=== PATIENT | male | born 1955 | race Caucasian/White ===

== ENCOUNTER 2016-11-01 16:57 | Observation (INO) ==
--- NOTE | 2016-11-01 17:11 | Emergency Department Note ---
Disposition Clinical Impression: Left facial numbness, Left arm numbness, Left leg numbness, Left arm weakness, Left leg weakness, Chest pain Disposition: Admitted As Inpatient Condition: Fair General Adult HPI - General Chief complaint: ED Neuro Symptoms/Deficit Stated complaint: L side numbness Time Seen by Provider: 11/01/16 16:58 Source: patient Limitations: no limitations - History of Present Illness Pain Scale: 8 - Related Data Home Medications Medication Instructions Recorded Confirmed Alprazolam [Xanax 1 MG Tablet] 1 mg PO TID 06/14/15 04/23/16 Metoprolol XL (24 HR) Succ [Toprol 50 mg PO DAILY 06/14/15 04/23/16 XL] Aspirin 325 mg PO BID 04/22/16 04/23/16 Sulfamethoxazole/Trimeth DS 1 each PO BID MDD x 14 days. 04/22/16 04/23/16 [Bactrim DS] Started 04-19-16. Previous Rx's Medication Instructions Recorded Atorvastatin [Lipitor] 20 mg PO HS #60 tablet 03/24/16 Clopidogrel [Plavix] 75 mg PO DAILY@1730 #30 tablet 03/24/16 Omeprazole [PriLOSEC] 40 mg PO DAILY@0630 #60 capsule 03/24/16 Isosorbide MONOnitrate (24 HR) 30 mg PO DAILY #30 tab.er.24h 04/23/16 [Imdur] Allergies Allergy/AdvReac Type Severity Reaction Status Date / Time simvastatin [From Zocor] Allergy Rash Verified 11/01/16 17:08 Zolpidem [From Ambien] Allergy Confusion Verified 11/01/16 17:08 ondansetron AdvReac Vomiting Verified 11/01/16 17:47 [From Zofran (as hydrochloride)] Past Medical History - Past Medical History Medical history: Reports: arthritis, atrial fibrillation, cardiomyopathy, CHF, COPD, coronary artery disease, CVA, GERD, hyperlipidemia, hypertension, myocardial infarction, osteoporosis, peripheral artery disease, syncope, TIA, other Surgical history: Reports: angioplasty/stent, cholecystectomy, coronary bypass ( CABG), orthopedic, other, other Psychiatric history: Reports: anxiety, depression - Social History Smoking Status: Never smoker Smokeless Tobacco Status: No Alcohol use: Reports: none Drug use: Reports: none Physical Exam - General Limitations: no limitations General appearance: alert, in no apparent distress Course Vital Signs Temperature 97.9 F 11/01/16 17:00 Pulse Rate 99 11/01/16 17:00 Respiratory Rate 16 11/01/16 17:00 Blood Pressure 128/103 11/01/16 17:00 O2 Sat by Pulse Oximetry 98 11/01/16 17:00 Temperature 97.9 F 11/01/16 17:00 Pulse Rate 95 11/01/16 18:22 Respiratory Rate 16 11/01/16 18:22 Blood Pressure 106/73 11/01/16 18:22 O2 Sat by Pulse Oximetry 97 11/01/16 18:22 Oxygen Delivery Oxygen Delivery Room Air Medical Decision Making - Lab Data Result diagrams: 11/01/16 17:30 11/01/16 17:30 Lab Results 11/01/16 11/01/16 11/01/16 Range/Units 17:01 17:30 17:30 WBC 6.0 (4.3-11.1) K/mcL RBC 4.59 (4.19-5.50) M/mcL Hgb 14.8 (12.9-16.9) g/dL Hct 44.4 (37.5-50.1) % MCV 96.7 (83.0-100.0) fL MCH 32.2 (28.0-33.3) pg MCHC 33.3 (31.6-35.5) g/dL RDW 13.2 (11.5-14.5) % Plt Count 183 (140-400) K/mcL MPV 8.6 L (9.4-12.4) fL Immature Gran % 0.3 (0-4) % Seg Neutrophils % 68.2 % Lymphocytes % 16.9 % Monocytes % 13.9 % Eosinophils % 0.5 % Basophils % 0.2 % Neutrophils # 4.1 (1.6-8.9) K/mcL Lymphocytes # 1.0 (0.6-4.6) K/mcL Monocytes # 0.8 (0.0-1.3) K/mcL Eosinophils # 0.0 (0.0-0.6) K/mcL Basophils # 0.0 (0.0-0.2) K/mcL PT 12.1 (9.4-12.1) Seconds INR 1.1 APTT 31.5 (26.0-36.0) Seconds Sodium (136-145) mEq/L Potassium (3.5-4.5) mEq/L Chloride (98-109) mEq/L Carbon Dioxide (19-29) mEq/L BUN (8-26) mg/dL Creatinine (0.72-1.25) mg/dL Est GFR ( Amer) (> 60) Est GFR (Non-Af Amer) (> 60) BUN/Creatinine Ratio (6-26) Glucose (70-99) mg/dL POC Glucose 94 H (58-89) Calculated Osmolality (280-300) Calcium (8.6-10.8) mg/dL Troponin I (0-0.03) ng/mL 11/01/16 11/01/16 Range/Units 17:30 17:30 WBC (4.3-11.1) K/mcL RBC (4.19-5.50) M/mcL Hgb (12.9-16.9) g/dL Hct (37.5-50.1) % MCV (83.0-100.0) fL MCH (28.0-33.3) pg MCHC (31.6-35.5) g/dL RDW (11.5-14.5) % Plt Count (140-400) K/mcL MPV (9.4-12.4) fL Immature Gran % (0-4) % Seg Neutrophils % % Lymphocytes % % Monocytes % % Eosinophils % % Basophils % % Neutrophils # (1.6-8.9) K/mcL Lymphocytes # (0.6-4.6) K/mcL Monocytes # (0.0-1.3) K/mcL Eosinophils # (0.0-0.6) K/mcL Basophils # (0.0-0.2) K/mcL PT (9.4-12.1) Seconds INR APTT (26.0-36.0) Seconds Sodium 135 L (136-145) mEq/L Potassium 3.8 (3.5-4.5) mEq/L Chloride 105 (98-109) mEq/L Carbon Dioxide 18 L (19-29) mEq/L BUN 25 (8-26) mg/dL Creatinine 0.83 (0.72-1.25) mg/dL Est GFR ( Amer) > 60 (> 60) Est GFR (Non-Af Amer) > 60 (> 60) BUN/Creatinine Ratio 30 H (6-26) Glucose 101 H (70-99) mg/dL POC Glucose (58-89) Calculated Osmolality 285 (280-300) Calcium 9.1 (8.6-10.8) mg/dL Troponin I 0.00 (0-0.03) ng/mL Attestation Statement - Attestation Attestation: I examined this patient and my medical decision-making was reviewed with the POLICE COMMANDING OFFICER/PA/Advanced Practice Nurse/Resident Physician. I agree with the documented findings, disposition and treatment plan as described except to the extent set forth below. [id number] time provided Patient presents with left-sided numbness that started approximately 7 hours ago. He has had a previous stroke with some residual symptoms. He appears comfortable on exam. 17:31: CT head negative
--- NOTE | 2016-11-01 17:15 | Emergency Department Note ---
Disposition Clinical Impression: Left facial numbness, Left arm numbness, Left leg numbness, Left arm weakness, Left leg weakness Chest pain Qualifiers: Chest pain type: unspecified Qualified Code(s): R07.9 - Chest pain, unspecified Disposition: Admitted As Inpatient Condition: Fair Referrals: NO,PCP [Non-Partnered Physician] - Forms: ED Satisfaction Letter Time of Disposition: 18:44 Neuro HPI - General Chief Complaint: ED Neuro Symptoms/Deficit Stated Complaint: L side numbness Time Seen by Provider: 11/01/16 16:58 Source: patient Mode of arrival: ambulatory Limitations: no limitations Nursing Notes Reviewed: Yes Vital Signs Reviewed: Yes - History of Present Illness HPI Narrative: Patient is a 61-year-old male with past medical history of CAD, previous NC, 5 stents, triple bypass. He has also had a previous CVA with residual left upper extreme weakness and tingling. Patient states that he has had left lower extremity weakness and decreased sensation that began 3 days ago and has worsened and has affected his ability to walk. He also states that his left upper extremity residual weakness from previous stroke has worsened along with worsening decreased sensation of the left upper extremity. Patient also states that around 10 AM, possibly 7 hours ago, he began having left sided facial numbness. Denies any droop, difficulty with speech, changes in vision, shortness of breath. She also admits to chest pain that is left-sided, intermittent, described as a sharp pain that radiates to his back. He states that this is been going on for the past 2-3 days, intermittent, unsure if it is worse with exertion. He did take aspirin 325 mg today. Did not take any nitroglycerin. - Related Data Home Medications: Home Medications Medication Instructions Recorded Confirmed Alprazolam [Xanax 1 MG Tablet] 1 mg PO TID 06/14/15 04/23/16 Metoprolol XL (24 HR) Succ [Toprol 50 mg PO DAILY 06/14/15 04/23/16 XL] Aspirin 325 mg PO BID 04/22/16 04/23/16 Sulfamethoxazole/Trimeth DS 1 each PO BID MDD x 14 days. 04/22/16 04/23/16 [Bactrim DS] Started 04-19-16. Previous Rx's Medication Instructions Recorded Atorvastatin [Lipitor] 20 mg PO HS #60 tablet 03/24/16 Clopidogrel [Plavix] 75 mg PO DAILY@1730 #30 tablet 03/24/16 Omeprazole [PriLOSEC] 40 mg PO DAILY@0630 #60 capsule 03/24/16 Isosorbide MONOnitrate (24 HR) 30 mg PO DAILY #30 tab.er.24h 04/23/16 [Imdur] Allergies/Adverse Reactions: Allergies Allergy/AdvReac Type Severity Reaction Status Date / Time simvastatin [From Zocor] Allergy Rash Verified 11/01/16 17:08 Zolpidem [From Ambien] Allergy Confusion Verified 11/01/16 17:08 ondansetron AdvReac Vomiting Verified 11/01/16 17:47 [From Zofran (as hydrochloride)] Constitutional: Denies: fever Cardiovascular: Reports: chest pain. Denies: palpitations Respiratory: Denies: cough, dyspnea, wheezes, hemoptysis Gastrointestinal: Denies: abdominal pain, nausea, vomiting, diarrhea Genitourinary: Denies: urgency, dysuria Musculoskeletal: Denies: back pain Integumentary: Denies: rash Neurological: Reports: weakness, numbness, paresthesias, abnormal gait. Denies : headache Psychiatric: Denies: anxiety Endocrine: Denies: fatigue Past Medical History - Past Medical History Attestation: Yes The following information was validated with the patient. Source: patient Medical history: Reports: arthritis, atrial fibrillation, cardiomyopathy, CHF, COPD, coronary artery disease, CVA, GERD, hyperlipidemia, hypertension, myocardial infarction, osteoporosis, peripheral artery disease, syncope, TIA, other Surgical history: Reports: angioplasty/stent, cholecystectomy, coronary bypass ( CABG), orthopedic, other, other Psychiatric history: Reports: anxiety, depression - Social History Smoking Status: Never smoker Smokeless Tobacco Status: No Alcohol use: Reports: none Drug use: Reports: none Physical Exam - General Limitations: no limitations General appearance: alert, in no apparent distress - Head Head exam: atraumatic, normocephalic, normal inspection - Eye Eye exam: Present: normal appearance, PERRL, EOMI - ENT ENT exam: normal exam, normal oropharynx, mucous membranes moist - Neck Neck exam: Present: full ROM, trachea midline. Absent: tenderness - Chest Chest inspection: Present: normal inspection, symmetric chest wall rise - Respiratory Respiratory exam: Present: normal lung sounds bilaterally. Absent: respiratory distress, wheezes, stridor - Cardiovascular Cardiovascular exam: Present: regular rate, normal rhythm, normal heart sounds - Abdominal Exam Abdominal exam: Present: soft, Non-Tender. Absent: tenderness, distention, guarding, rebound, rigidity - Extremities Exam Extremities exam: Present: normal inspection, full ROM. Absent: tenderness, pedal edema - Neurological Exam Neurological exam: Present: alert, oriented X3, other (Patient had decreased sensation of left cheek to light touch. Decreased sensation to light touch left upper extremity and left lower extremity. Weakness and skip operator strength on left compared to right. However, no drift during NIH scale testing. Patient was given an NIH score of 1 due to decreased sensation. No other focal neuro deficits.) - Psychiatric Psychiatric exam: Present: normal affect, normal mood - Skin Skin exam: Present: warm, dry, intact, normal color Course Course Narrative: Vitals within normal limits. Physical exam shows Patient had decreased sensation of left cheek to light touch. Decreased sensation to light touch left upper extremity and left lower extremity. Weakness and skip operator strength on left compared to right. However, no drift during NIH scale testing. Patient was given an NIH score of 1 due to decreased sensation. No other focal neuro deficits. Due the patient having neuro symptoms that began 7 hours ago and within 8 hour time period per protocol per Dr. Motley, we will call stroke alert. Patient outside time limit for TPA. 17:42 CT of the head was negative for any acute intracranial process. I spoke with [facility] neurologists who agreed the patient was outside the window for TPA. He recommended MR of the head and MRA of the neck protocol stroke workup. Currently waiting on labs and cardiac workup to return. After that, will admit for further workup. Strok alert cancelled. 18:42 cardiac workup negative. Hospitalist accepted for admission. Vital Signs Temperature 97.9 F 11/01/16 17:00 Pulse Rate 99 11/01/16 17:00 Respiratory Rate 16 11/01/16 17:00 Blood Pressure 128/103 11/01/16 17:00 O2 Sat by Pulse Oximetry 98 11/01/16 17:00 Temperature 97.9 F 11/01/16 17:00 Pulse Rate 95 11/01/16 18:22 Respiratory Rate 16 11/01/16 18:22 Blood Pressure 106/73 11/01/16 18:22 O2 Sat by Pulse Oximetry 97 11/01/16 18:22 Oxygen Delivery Oxygen Delivery Room Air Neuro Symptoms/Deficit - MDM Narrative Medical decision making narrative: Vitals within normal limits. Physical exam shows Patient had decreased sensation of left cheek to light touch. Decreased sensation to light touch left upper extremity and left lower extremity. Weakness and skip operator strength on left compared to right. However, no drift during NIH scale testing. Patient was given an NIH score of 1 due to decreased sensation. No other focal neuro deficits. Due the patient having neuro symptoms that began 7 hours ago and within 8 hour time period per protocol per Dr. Motley, we will call stroke alert. Patient outside time limit for TPA. 17:42 CT of the head was negative for any acute intracranial process. I spoke with [facility] neurologists who agreed the patient was outside the window for TPA. He recommended MR of the head and MRA of the neck protocol stroke workup. Currently waiting on labs and cardiac workup to return. After that, will admit for further workup. Strok alert cancelled. 18:42 cardiac workup negative. Hospitalist accepted for admission. - Medical Records Medical records reviewed: Yes I reviewed the patient's medical records. - Lab Data Lab results reviewed: Yes I reviewed the patient's lab results. Result diagrams: 11/01/16 17:30 11/01/16 17:30 Lab Results 11/01/16 11/01/16 11/01/16 Range/Units 17:30 17:30 17:30 WBC 6.0 (4.3-11.1) K/mcL RBC 4.59 (4.19-5.50) M/mcL Hgb 14.8 (12.9-16.9) g/dL Hct 44.4 (37.5-50.1) % MCV 96.7 (83.0-100.0) fL MCH 32.2 (28.0-33.3) pg MCHC 33.3 (31.6-35.5) g/dL RDW 13.2 (11.5-14.5) % Plt Count 183 (140-400) K/mcL MPV 8.6 L (9.4-12.4) fL Immature Gran % 0.3 (0-4) % Seg Neutrophils % 68.2 % Lymphocytes % 16.9 % Monocytes % 13.9 % Eosinophils % 0.5 % Basophils % 0.2 % Neutrophils # 4.1 (1.6-8.9) K/mcL Lymphocytes # 1.0 (0.6-4.6) K/mcL Monocytes # 0.8 (0.0-1.3) K/mcL Eosinophils # 0.0 (0.0-0.6) K/mcL Basophils # 0.0 (0.0-0.2) K/mcL PT 12.1 (9.4-12.1) Seconds INR 1.1 APTT 31.5 (26.0-36.0) Seconds Sodium 135 L (136-145) mEq/L Potassium 3.8 (3.5-4.5) mEq/L Chloride 105 (98-109) mEq/L Carbon Dioxide 18 L (19-29) mEq/L BUN 25 (8-26) mg/dL Creatinine 0.83 (0.72-1.25) mg/dL Est GFR ( Amer) > 60 (> 60) Est GFR (Non-Af Amer) > 60 (> 60) BUN/Creatinine Ratio 30 H (6-26) Glucose 101 H (70-99) mg/dL Calculated Osmolality 285 (280-300) Calcium 9.1 (8.6-10.8) mg/dL Troponin I (0-0.03) ng/mL 11/01/16 Range/Units 17:30 WBC (4.3-11.1) K/mcL RBC (4.19-5.50) M/mcL Hgb (12.9-16.9) g/dL Hct (37.5-50.1) % MCV (83.0-100.0) fL MCH (28.0-33.3) pg MCHC (31.6-35.5) g/dL RDW (11.5-14.5) % Plt Count (140-400) K/mcL MPV (9.4-12.4) fL Immature Gran % (0-4) % Seg Neutrophils % % Lymphocytes % % Monocytes % % Eosinophils % % Basophils % % Neutrophils # (1.6-8.9) K/mcL Lymphocytes # (0.6-4.6) K/mcL Monocytes # (0.0-1.3) K/mcL Eosinophils # (0.0-0.6) K/mcL Basophils # (0.0-0.2) K/mcL PT (9.4-12.1) Seconds INR APTT (26.0-36.0) Seconds Sodium (136-145) mEq/L Potassium (3.5-4.5) mEq/L Chloride (98-109) mEq/L Carbon Dioxide (19-29) mEq/L BUN (8-26) mg/dL Creatinine (0.72-1.25) mg/dL Est GFR ( Amer) (> 60) Est GFR (Non-Af Amer) (> 60) BUN/Creatinine Ratio (6-26) Glucose (70-99) mg/dL Calculated Osmolality (280-300) Calcium (8.6-10.8) mg/dL Troponin I 0.00 (0-0.03) ng/mL - Radiology Data Radiology results reviewed: Yes I reviewed the patient's radiology results. Chest X-Ray 11/01/16 17:10 IMPRESSION: No acute cardiopulmonary disease. D/ / Rajendra Banegas MD / Rajendra Banegas MD Interpreting Provider: Rajendra Banegas MD Head CT 11/01/16 17:10 IMPRESSION: No acute intracranial abnormality. Findings were discussed with Amado Gan at 5:38 pm on 11/01/2016. D/ / 11/01/2016 18:02:24 Toby Melchor MD / michelle Interpreting Provider: Toby Melchor MD - EKG Data EKG attestation: Yes I reviewed and interpreted this EKG. EKG results narrative: 11/01/2016 at 17:04. Sinus tachycardia. Rate 102. CA interval 131. QRS 98. QTC 375. No acute ST elevation or depression. Q waves in leads 2, 3, aVF. Normal axis. NIH Stroke Scale - Level of Consciousness LOC: Alert - LOC Questions LOC Questions: Answers both correctly - LOC Commands LOC Commands: Performs both correctly - Best Gaze Best Gaze: Normal - Visual Visual: No visual loss - Facial Palsy Facial Palsy: Normal - Motor Arms Motor Arm-Left: No drift for 10 seconds Motor Arm-Right: No drift for 10 seconds - Motor Legs Motor Leg-Left: No drift for 5 seconds Motor Leg-Right: No drift for 5 seconds - Limb Ataxia Limb Ataxia: Absent of affected limb too weak to perform exam - Sensory Sensory: Mild to moderate loss, "not as sharp" - Best Language Best Language: No aphasia - Dysarthria Dysarthria: Normal - Extinction and Inattention Extinction and Inattention: Normal - NIHSS Total Score NIHSS Total Score: 1 TPA Checklist - Eligibilty for IV tPA 1. LKW equal to or less than 4.5 hours be before treatment: No - LKW: 3-4.5 hrs Add. Contraindications Patient/family understanding: The patient/family members have been counseled and understood the risk, benefit , and alternatives of treatment. Rosana.Franco - Nicolas Situation: Demographics, MOA Background: Presenting Complaint, Relevant PMH, Meds, & Allergies Assessment: Vital Signs, Course and respsone to treatment, Exam Concerns, Patient/Family Expectation, Pertinant Lab Results, Outstanding Labs Recommendation: Barrier(s) to disposition, Recommendation based on pending studies, treatments, or consults S.BHal Report Given to: Dr. Flora Valenzuela Repor Time: 18:44
[2016-11-01 17:37] LABS: Basophils % 0.2 %; Eosinophils % 0.5 %; Hematocrit 44.4 % (37.5-50.1); Hemoglobin 14.8 g/dL (12.9-16.9); Immature Granulocytes % 0.3 % (0-4); Lymphocytes % 16.9 %; Mean Corpuscular HGB Conc 33.3 g/dL (31.6-35.5); Mean Corpuscular Hemoglobin 32.2 pg (28.0-33.3); Mean Corpuscular Volume 96.7 fL (83.0-100.0); Mean Platelet Volume 8.6 fL (9.4-12.4); Monocytes # 0.8 K/mcL (0.0-1.3); Monocytes % 13.9 %; Neutrophils # 4.1 K/mcL (1.6-8.9); Platelet Count 183 K/mcL (140-400); Red Blood Count 4.59 M/mcL (4.19-5.50); Red Cell Distribution Width 13.2 % (11.5-14.5); Segmented Neutrophils % 68.2 %
[2016-11-01 17:43] LABS: INR 1.1; Prothrombin Time 12.1 Seconds (9.4-12.1)
[2016-11-01 17:47] LABS: Activated Partial Thrombo Time 31.5 Seconds (26.0-36.0)
[2016-11-01 17:49] LABS: BUN/Creatinine Ratio 30 (6-26); Blood Urea Nitrogen 25 mg/dL (8-26); Calcium 9.1 mg/dL (8.6-10.8); Carbon Dioxide 18 mEq/L (19-29); Chloride 105 mEq/L (98-109); Glucose 101 mg/dL (70-99); Osmolality,Calculated 285 (280-300); Potassium 3.8 mEq/L (3.5-4.5); Sodium 135 mEq/L (136-145); eGFR For African Americans > 60 (> 60); eGFR For Non-African Americans > 60 (> 60)
[2016-11-01] MEDS ORDERED: Promethazine 12.5 MG in 0.9 % Sodium Chloride 50 ML IVPB ONE (18:55)
[2016-11-01] MEDS ORDERED: *HR* Promethazine 25 MG/ML VIAL IVP ONE (19:00)
--- NOTE | 2016-11-01 20:03 | Internal Med History&Physical ---
Date of Encounter: 11/01/16 Time of Encounter: 20:00 Assessment and Plan (1) Acute focal neurological deficit, onset within 3-24 hours Status: Acute . (2) Left hemiparesis Status: Acute . (3) Numbness and tingling of left side of face Status: Acute . (4) Left sided numbness Status: Acute . (5) History of left foot drop Status: Chronic . (6) Failed back syndrome of lumbar spine Status: Chronic . (7) Chronic pain syndrome Status: Chronic . (8) CAD (coronary artery disease), [place] coronary artery Status: Chronic . Qualifiers: [place] vs. transplanted heart: nez perce heart Associated angina: with unspecified angina Qualified Code(s): I25.119 - Atherosclerotic heart disease of [place] coronary artery with unspecified angina pectoris (9) S/P CABG x 3 Status: Chronic . (10) History of PTCA Status: Chronic . (11) History of atrial fibrillation Status: Chronic . (12) Chest pain, rule out acute myocardial infarction Status: Acute . (13) Chest pain with moderate risk of acute coronary syndrome Status: Acute . (14) Personal history of transient ischemic attack (TIA), and cerebral infarction without residual deficits Status: Chronic . (15) Frequent falls Status: Chronic . (16) Gait instability Status: Chronic . (17) Physical deconditioning Status: Chronic . Internal Medicine - H&P: HPI Chief complaint: Left-sided numbness and weakness. Admitted From: Emergency Dept Plans for Post Hospital Care: Home History of present illness: Mr. Melchor is a 61 year old male is admitted to [facility] via the emergency department when he presented with complaints of acute onset of left-sided numbness and weakness with associated substernal chest pain. Patient presented with his symptoms approximately 7 hours from onset. His history is significant for previous CVA with significant residual deficits. He states that he was clinically at his baseline when the symptoms occurred at rest. He notes that he first began experiencing some degree of left lower extremity weakness and decreased sensation approximately 3 days prior to this presentation. This seemed to worsen and affected his ability to walk. He found his left upper extremity residual weakness from his previous stroke worsened along with a decrease in sensation of the upper extremity as well. These symptoms seem to come to ahead approximate 7 hours prior to his presenting to the emergency department. He denied any facial droop or overt difficulty with speech changes in vision. Denied any shortness of breath. He did experience some left sided facial numbness. His left-sided chest pain was intermittent and described more as a sharp pain radiating through to his back. The symptoms were intermittent in severity and timing for 3 day period prior to presenting. He did take his aspirin and Plavix on a daily basis as before. Did not take any sublingual nitroglycerin. He acknowledged his 6. Generalized anxiety and worry. Current symptoms are reminiscent of his previous stroke like symptoms. Chronic medical problems include: Hypertension, PAF (no chr A/C due to fall risk), PAD, CAD/ PTCAstentx5/ZSGHi3d/AMIs, dyslipidemia, ischCMP/CHF, h/o CVA/TIAs/left hemiparesis/dysarthria/paresthesias, major depression/generalized anxiety, failed back/postlaminectomy synd, chronic pain syndrome/persona, COPD, GERD, nonsmoker. Findings in the ED: Temperature 97.9 pulse 99 respirations 16 BP 106 -128/73-103. O2 saturation 98% room air. WBC 6.0 hemoglobin 14.8 platelets 183 ,000. MPV 8.6. Differential normal. PT 12.1 INR 1.1 PTT 31.5. Metabolic panel normal except sodium 135. Carbon dioxide 18. Glucose 101 osmolality 285. BUN 25 creatinine 0.83. Troponin 0.00. Chest x-ray demonstrated no acute active cardiopulmonary process. Status post median sternotomy. Aortic vascular calcification. Granulomatous disease. Spinal cord stimulator leads extending to the mid thoracic spine level noted. CT head scan without contrast demonstrated no acute intracranial abnormality. Calcified plaques in the cavernous portion of the internal carotid arteries noted. Preliminary impressions are suggestive of acute on chronic left sided neurologic deficits. Concerning for recurring CVA within a prior distribution of stroke. Prominent histrionic overlay is present however racing an additional question of conversion reaction. Screening studies so far did not suggest a specific yielding event. The patient is at risk for further acute clinical decline. Workup and treatment progress comprehensively. The patient was visited and interviewed and examined. Cumulative laboratory and radiographic data base will be considered and discussed. Pertinent ancillary medical records including ECW and PCI documentation when available was reviewed and considered. Given the patient's presenting concerns, past medical history, clinical findings and symptoms, he is admitted at this time will undergo further evaluation and disposition. Orders were written as per Computerized physician order clerk system.......................................................................... .................... Consultative opinions will be sought as clinical circumstances justify. Pain management needs will be addressed. Laboratory and radiographic data base will be updated as appropriate. Studies include: Cultures blood urine sputum, pt/inr, aptt, ddimer, prolactin cpk,UA, UDS, cardiac injury panel, BNP, metabolic and hematologic panel, magnesium, phosphorus, ionized calcium, thyroid panel, lipid profile, A1c, C-peptide, CRP, sedimentation rate, respiratory infection profile, respiratory virus panel, blood gas, cortisol, lactic acid, serologies, etc. Precautions: Aspiration, fall, delirium protocol/surveillance initiated. Telemetry with continuous hemodynamic monitoring and pulse oximetry initiated. Orthostatic vital signs. Bladder scan. Postvoid residual. Empiric antibiotic coverage: pending diagnostics/culture data. Special studies: CT/CTA head/neck/chest, carotid US, chest x-ray, telemetry, EKG , 2d echo. Pulmonary toilet: Incentive spirometry. PRN: aerosol bronchodilator, mucolytic, antitussive. Supplemental oxygen. Corticosteroid therapy PRN. CPAP/BiPAP supplemental oxygen deliveryPRN. Aerosol Mucomyst therapy PRN. Fluid and electrolyte repletion efforts will proceed. Careful attention to fluid balance and renal recovery will be emphasized. Avoidance of nephrotoxic exposure and adverse drug drug interaction in the setting of impaired renal function will be monitored closely. Acute coronary syndrome protocol/surveillance initiated. Acute MANAGER GAMES injury protocol/surveillance initiated. NIHSS guidelines facilitated. DVT and PUD prophylaxis initiated: PPI therapy, intermittent pneumatic cuffs. Subcutaneous heparin. Early ambulation will be encouraged. Immunization updates recommended. Influenza and pneumococcal vaccinations as part of ongoing preventative healthcare recommendations strongly recommended. Smoking cessation counseling briefly addressed. Patient is a nonsmoker. Advanced care directive discussion briefly addressed. Patient does not declare any healthcare restrictions at this time. Cardiovascular risk appraisal and cardiovascular risk reduction efforts will be emphasized. Physical and occupational therapy consulted to evaluate patient's functional capacity and progress mobility as circumstances permit. Speech therapy consultation evaluate patient's functional capacity as pertains to head and neck stability, speech and swallowing mechanics. Diet recommendations. Nothing per mouth except ice chips and sips of clear water with necessary medications pending clearance by speech therapy. Nutrition/dietary education counseling may be considered as circumstances justify. Outpatient medication schedules will be reviewed, confirmed and facilitated as appropriate. Reconciliation of home treatments including adjustments, substitutions and reintroduction into the treatment regimen will address necessary maintenance therapies for chronic pre-existing medical conditions. Plan of care has been reviewed and discussed in detail with the patient. Questions addressed. Hospital course dictated by clinical findings, treatment response and potential consultative interventions. Patient is a risk for further acute clinical decline due to his frailty, chief complaints and co-morbid conditions. Condition is serious. Prognosis is guarded. CODE STATUS is full. Past Med Surg Social Fam HX - Past Medical History Source: obtained from family Medical history: arthritis, atrial fibrillation, cardiomyopathy, CHF, COPD, coronary artery disease, CVA, GERD, hyperlipidemia, hypertension, myocardial infarction, osteoporosis, peripheral artery disease, syncope, TIA, other Psychiatric history: anxiety, depression, other - Past Surgical History Surgical History: angioplasty/stent, cholecystectomy, coronary bypass (CABG), orthopedic, other, other - Social History Smoking Status: Never smoker Smokeless Tobacco Status: No Alcohol use: none Drug use: none Occupational status: unemployed, disabled Current living situation: Home - Independent, Home Activity Level: Uses cane/walker, Mostly sedentary Recent Out of Country Travel Within the Last 8 Weeks: No Exposure or Possible Exposure to Illness During Travel: No - Family History Son Hx Family Cardiac Disorders: Yes Mother Living Status: Hx Family Cardiac Disorders: Yes Hx Family Respiratory Disorders: No Hx Family Cancer: No Hx Family GI Disorders: No Hx Family Endocrine Disorder: Yes (DM) Hx Family Neuromuscular Disorders: No Hx Family Neurologic Disorders: No Hx Family HEENT Disorders: No Hx Family Autoimmune Disorders: No Father Living Status: Hx Family Cardiac Disorders: Yes ([place]) Hx Family Respiratory Disorders: Yes (COPD) Hx Family Cancer: No Hx Family GI Disorders: No Hx Family Endocrine Disorder: No Hx Family Neuromuscular Disorders: No Hx Family Neurologic Disorders: No Hx Family HEENT Disorders: No Hx Family Autoimmune Disorders: No Internal Medicine - H&P: Meds Aspirin/Calcium Carbonate/Mag [Aspirin Buffered 325 mg Tab] 325 mg PO DAILY [History] Atorvastatin [Lipitor] 40 mg PO HS 11/01/16 [History] Clopidogrel [Plavix] 75 mg PO DAILY 11/01/16 [History] Furosemide [Lasix] 40 mg PO DAILY 11/01/16 [History] Isosorbide MONOnitrate (24 HR) [Imdur] 30 mg PO DAILY 11/01/16 [History] Lisinopril [Zestril] 5 mg PO DAILY 11/01/16 [History] Metoprolol [Lopressor] 25 mg PO BID 11/01/16 [History] Alprazolam [Xanax 1 MG Tablet] 1 mg PO TID PRN #7 tablet 11/05/16 [Rx] Nitroglycerin 0.4 mg SL Q5MIN PRN #30 tab.subl 11/05/16 [Rx] OxyCODONE Immed Rel [Roxicodone 5 MG] 10 mg PO Q6HR PRN #10 tablet 11/05/16 [Rx] Allergies simvastatin [From Zocor] Allergy (Verified 11/01/16 17:08) Rash Zolpidem [From Ambien] Allergy (Verified 11/01/16 17:08) Confusion ondansetron [From Zofran (as hydrochloride)] Adverse Reaction (Verified 17:47) Vomiting All Systems PM: A 10-system review of systems was performed and is negative for pertinent findings except as documented above in the HPI. NIH Stroke Scale with Documentation only NIHSS Start: 11/01/16 17: 09 Freq: ONCE Status: Complete Document 11/01/16 17:10 [facility] [place]Rec: 11/01/16 17:11 [facility] [id number][place] NIH Stroke Scale Onset of Symptoms Date 11/01/16 Onset of Symptoms Time 10:00 LOC Alert Month, Age Answers both correctly 1. Open, then close eyes 2. Make fist, Performs both correctly then let go Ability to follow examiner's finger Normal across horizontal plane Visual stimulus to pt's visual field No visual loss quadrants Shows teeth, raise eyebrows, squeeze Normal eyes shut Left: Extends arms, palms down holds for No drift for 10 seconds 10 seconds Right: Extends arms, palms down holds No drift for 10 seconds for 10 seconds Left: While supine, hold leg at 30 No drift for 5 seconds degrees for 5 seconds Right: While supine, hold leg at 30 No drift for 5 seconds degrees for 5 seconds Finger to nose. Heel down [place]. Normal, No Ataxia Pin prick to face, arm, trunk, and leg. Mild to moderate loss, "not as Compare side to side sharp" Name items, describe a picture, and read No aphasia sentences Evaluate speech clarity by pt repeating Normal listed words Use prior testing Modality=visual, Normal tactile/auditory, spacial NIHSS Total Score 1 Bilateral Pupil Reaction Reactive Pupil Size (mm) 3 NIHSS Modified Start: 11/02/16 01: 10 Freq: [id number] Status: Active Document 11/01/16 17:30 [facility] [place]Rec: 11/01/16 17:33 [facility] [id number]) Modified NIH Stroke Scale LOC Alert Month, Age Answers both correctly 1. Open, then close eyes 2. Make fist, Performs both correctly then let go Shows teeth, raise eyebrows, squeeze Normal eyes shut Left: Extends arms, palms down holds for No drift for 10 seconds 10 seconds Right: Extends arms, palms down holds No drift for 10 seconds for 10 seconds Left: While supine, hold leg at 30 No drift for 5 seconds degrees for 5 seconds Right: While supine, hold leg at 30 No drift for 5 seconds degrees for 5 seconds NIHSS Modified Score 0 Coma Scale Eye Opening Spontaneous Coma Scale Motor Response Obeys Commands Coma Scale Verbal Response Oriented Coma Scale Total 15 Speech Pattern Normal rate Normal rhythm Central Control Room Operator Strength Right Greater Than Left Push/Pull Right Greater Than Left Numbness/Tingling Yes: left arm Level Of Consciousness Awake Alert Appropriate Follows Commands Patient Orientation Person Place Time Patient Behavior Appropriate Ability to Follow Directions Excellent Impaired Cognition No Bilateral Pupil Reaction Reactive Pupil Size (mm) 3 Additional Neurological Symptoms left sidede weakness, left arm numbness tingling Pulse Rate 93 Blood Pressure 116/78 Respiratory Rate 16 Pulse Oximetry Reading 97 Oxygen Delivery Method Room Air Patient Problems (Last Updated 11/01/16 @ 20:09 by Deandre Katz MD) Unstable angina (Acute Medical) I20.0 GERD (gastroesophageal reflux disease) (Chronic Medical) K21.9 DVT prophylaxis (Acute Medical) [id number] Left sided numbness (Acute Medical) R20.0 History of left foot drop (Chronic Medical) Z87.39 Failed back syndrome of lumbar spine (Chronic Medical) M96.1 Chronic pain syndrome (Chronic Medical) G89.4 Adjustment reaction with anxiety and depression (Chronic Medical) F43.23 Depression with anxiety (Chronic Medical) F41.8 CAD (coronary artery disease), [place] coronary artery (Chronic Medical) I25.10 S/P CABG x 3 (Chronic Surgical) Z95.1 History of PTCA (Chronic Surgical) Z98.61 Old cerebrovascular accident (CVA) without late effect (Chronic Medical) Z86.73 Peripheral artery disease (Chronic Medical) I73.9 History of atrial fibrillation (Chronic Medical) Z86.79 CVA (cerebrovascular accident) (Acute Medical) I63.9 Chest pain, rule out acute myocardial infarction (Acute Medical) R07.9 Chest pain with moderate risk of acute coronary syndrome (Acute Medical) R07.9 Personal history of transient ischemic attack (TIA), and cerebral infarction without residual deficits (Chronic Medical) Z86.73 Closed left ankle fracture (Acute Medical) S82.892A Frequent falls (Chronic Medical) R29.6 Gait instability (Chronic Medical) R26.81 Physical deconditioning (Chronic Medical) R53.81 Chest pain at rest (Acute Medical) R07.9 Left facial numbness (Acute Medical) R20.0 Left arm numbness (Acute Medical) R20.0 Left leg numbness (Acute Medical) R20.0 Left arm weakness (Acute Medical) R29.898 Left leg weakness (Acute Medical) R29.898 Chest pain (Acute Medical) R07.9 Acute focal neurological deficit, onset within 3-24 hours (Acute Medical) R29.818 Left hemiparesis (Acute Medical) G81.94 Numbness and tingling of left side of face (Acute Medical) R20.0, R20.2 Acute cerebrovascular insufficiency transient focal neurologic deficit ( Inactive Medical) G45.8 Angina at rest (Inactive Medical) I20.8 CVA (cerebral vascular accident) (Inactive Medical) I63.9 Chest pain (Inactive Medical) Chest pain (Inactive Medical) Chest pain (Inactive Medical) R07.9 Fracture of C4 vertebra, closed (Inactive Medical) Hypertension (Inactive Medical) I10 Left-sided weakness (Inactive Medical) M62.81 Paresthesias (Inactive Medical) R20.2 Paresthesias/numbness (Inactive Medical) R20.9 Syncope (Inactive Medical) TIA (transient ischemic attack) (Inactive Medical) G45.9 TIA (transient ischemic attack) (Inactive Medical) G45.9 - Constitutional Constitutional: as per HPI, falls, malaise, weakness, no chills, no fever(s), no night sweats - EENT Eyes: as per HPI, no change in vision, no discharge, no pain, no photophobia Ears: as per HPI, no ear discharge, no ear pain, no tinnitus Nose, mouth and throat: as per HPI, no dysphagia, no nasal discharge, no neck pain, no sore throat - Cardiovascular Cardiovascular ROS IM: as per HPI, no chest pain, no diaphoresis, no dyspnea, no lightheadedness, no palpitations, no syncope - Respiratory Respiratory: as per HPI, no cough, no dyspnea, no wheezing, no excessive phlegm production - Gastrointestinal Gastrointestinal: as per HPI, no abdominal pain, no diarrhea, no hematemesis, no hematochezia, no melena, no nausea, no vomiting - Genitourinary Genitourinary ROS male: as per HPI - Musculoskeletal Musculoskeletal ROS IM: as per HPI, no numbness, no tingling - Integumentary Integumentary IM: as per HPI, no rash, no unusual bruising - Neurological Neurological ROS: as per HPI, abnormal gait, abnormal movements, abnormal speech , confusion, dizziness, focal weakness, frequent falls, weakness, other visual disturbances, no convulsions, no numbness, no tingling, no tremor(s) - Psychiatric Psychiatric: as per HPI - Endocrine Endocrine IM: as per HPI - Hematologic/Lymphatic Hematologic/Lymphatic: as per HPI, no easy bruising - Allergic/Immunologic Allergic/Immunologic: as per HPI - Constitutional Vitals: Temp Pulse Resp BP Pulse Ox 97.9 F 95 16 111/79 97 11/01/16 17:00 11/01/16 18:22 11/01/16 19:08 11/01/16 19:08 11/01/16 18:22 Vital Signs Temp Pulse Resp BP Pulse Ox 11/01/16 19:08 16 111/79 11/01/16 18:22 95 16 106/73 97 11/01/16 17:30 93 16 116/78 11/01/16 17:00 97.9 F 99 16 128/103 98 Intake and Output 11/01/16 11/01/16 11/01/16 07:59 15:59 23:59 Other: Weight 83.915 kg Blood Glucose* 94 Patient Weight 11/01/16 23:59 Weight 83.915 kg Allergies Allergy/AdvReac Type Severity Reaction Status Date / Time simvastatin [From Zocor] Allergy Rash Verified 11/01/16 17:08 Zolpidem [From Ambien] Allergy Confusion Verified 11/01/16 17:08 ondansetron AdvReac Vomiting Verified 11/01/16 17:47 [From Zofran (as hydrochloride)] General appearance: Present: cachectic, disheveled, mild distress, A&O X 3, answers questions appropriately - Head Head exam: Present: atraumatic, normocephalic - Eye Eye exam: Present: EOMI, PERRL, conjuntiva pink, sclera anicteric Pupils: Present: normal accommodation, PERRL - ENT ENT exam: Present: mucous membranes moist, normal oropharynx - Neck Neck exam general surgery: Present: full ROM, supple, trachea midline. Absent: lymphadenopathy - Respiratory Respiratory exam: Present: decreased breath sounds, CTAB. Absent: accessory muscle use, rales, rhonchi, wheezes - Cardiovascular Cardiovascular exam: Present: distant heart sounds, RRR, +S1, +S2. Absent: diastolic murmur, gallop, rubs, systolic murmur - GI/Abdominal GI/Abdominal exam: Present: normal bowel sounds, soft, no peritoneal signs. Absent: distended, tenderness - Extremities Exam Extremities exam: Present: warm, radial pulses palpable and symetrical. Absent : calf tenderness, cyanotic, full ROM, pedal edema - Neurological Exam Neurological exam: Present: alert, altered, CN II-XII intact, motor sensory deficit, oriented X3, strengths equal and symetr throughout. Absent: pronater drift, facial droop, speech deficit - Expanded Neurological Exam Neurological exam expanded: Present: ataxia, inattentive, protecting the airway. Absent: expressive aphasia, receptive aphasia Patient oriented to: Present: person, place Speech: Present: garbled, slurred Cranial Nerves: EOM's intact PM: Normal, nystagmus PM: Normal, tongue deviation PM: Normal Cerebellar function: finger to nose: Normal, heel to [place]: Abnormal Left Coma Scale Eye Opening: To Voice Coma Scale Motor Response: Localizes to Pain Coma Scale Verbal Response: Inappropriate Coma Scale Total: 11 - Psychiatric Psychiatric exam: Present: normal affect, normal mood - Skin Skin exam: Present: dry, intact, warm Internal Med - H&P Results - Labs CBC & Chem 7: 11/01/16 17:30 11/02/16 05:28 Labs: Short CBC 11/01/16 Range/Units 17:30 WBC 6.0 (4.3-11.1) K/mcL Hgb 14.8 (12.9-16.9) g/dL Hct 44.4 (37.5-50.1) % Plt Count 183 (140-400) K/mcL Neutrophils # 4.1 (1.6-8.9) K/mcL BMP 11/01/16 Range/Units 17:30 Sodium 135 L (136-145) mEq/L Potassium 3.8 (3.5-4.5) mEq/L Chloride 105 (98-109) mEq/L Carbon Dioxide 18 L (19-29) mEq/L BUN 25 (8-26) mg/dL Creatinine 0.83 (0.72-1.25) mg/dL Glucose 101 H (70-99) mg/dL Calcium 9.1 (8.6-10.8) mg/dL Cardiac Enzymes 11/01/16 Range/Units 17:30 Troponin I 0.00 (0-0.03) ng/mL Abnormal lab results MPV 8.6 fL (9.4-12.4) L 11/01/16 17:30 Sodium 135 mEq/L (136-145) L 11/01/16 17:30 Carbon Dioxide 18 mEq/L (19-29) L 11/01/16 17:30 BUN/Creatinine Ratio 30 (6-26) H 11/01/16 17:30 Glucose 101 mg/dL (70-99) H 11/01/16 17:30 POC Glucose 94 (58-89) H 11/01/16 17:01 Laboratory Last Values WBC 6.0 K/mcL (4.3-11.1) 11/01/16 17:30 RBC 4.59 M/mcL (4.19-5.50) 11/01/16 17:30 Hgb 14.8 g/dL (12.9-16.9) 11/01/16 17:30 Hct 44.4 % (37.5-50.1) 11/01/16 17:30 MCV 96.7 fL (83.0-100.0) 11/01/16 17:30 MCH 32.2 pg (28.0-33.3) 11/01/16 17:30 MCHC 33.3 g/dL (31.6-35.5) 11/01/16 17:30 RDW 13.2 % (11.5-14.5) 11/01/16 17:30 Plt Count 183 K/mcL (140-400) 11/01/16 17:30 MPV 8.6 fL (9.4-12.4) L 11/01/16 17:30 Immature Gran % 0.3 % (0-4) 11/01/16 17:30 Seg Neutrophils % 68.2 % 11/01/16 17:30 Lymphocytes % 16.9 % 11/01/16 17:30 Monocytes % 13.9 % 11/01/16 17:30 Eosinophils % 0.5 % 11/01/16 17: Basophils % 0.2 % 11/01/16 17:30 Neutrophils # 4.1 K/mcL (1.6-8.9) 11/01/16 17:30 Lymphocytes # 1.0 K/mcL (0.6-4.6) 11/01/16 17: Monocytes # 0.8 K/mcL (0.0-1.3) 11/01/16 17:30 Eosinophils # 0.0 K/mcL (0.0-0.6) 11/01/16 17:30 Basophils # 0.0 K/mcL (0.0-0.2) 11/01/16 17:30 PT 12.1 Seconds (9.4-12.1) 11/01/16 17:30 INR 1.1 11/01/16 17:30 APTT 31.5 Seconds (26.0-36.0) 11/01/16 17:30 Sodium 135 mEq/L (136-145) L 11/01/16 17:30 Potassium 3.8 mEq/L (3.5-4.5) 11/01/16 17:30 Chloride 105 mEq/L (98-109) 11/01/16 17:30 Carbon Dioxide 18 mEq/L (19-29) L 11/01/16 17:30 BUN 25 mg/dL (8-26) 11/01/16 17:30 Creatinine 0.83 mg/dL (0.72-1.25) 11/01/16 17:30 Est GFR ( Amer) > 60 (> 60) 11/01/16 17:30 Est GFR (Non-Af Amer) > 60 (> 60) 11/01/16 17:30 BUN/Creatinine Ratio 30 (6-26) H 11/01/16 17:30 Glucose 101 mg/dL (70-99) H 11/01/16 17:30 POC Glucose 94 (58-89) H 11/01/16 17:01 Calculated Osmolality 285 (280-300) 11/01/16 17:30 Calcium 9.1 mg/dL (8.6-10.8) 11/01/16 17:30 Troponin I 0.00 ng/mL (0-0.03) 11/01/16 17:30 - Impressions Chest X-Ray 11/01/16 17:10 IMPRESSION: No acute cardiopulmonary disease. D/ / Rajendra Banegas MD / Rajendra Banegas MD Interpreting Provider: Rajendra Banegas MD Head CT 11/01/16 17:10 IMPRESSION: No acute intracranial abnormality. Findings were discussed with Amado Gan at 5:38 pm on 11/01/2016. D/ / 11/01/2016 18:02:24 Toby Melchor MD / michelle Interpreting Provider: Toby Melchor MD - Attending Attestation Allergies simvastatin [From Zocor] Allergy (Verified 11/01/16 17:08) Rash Zolpidem [From Ambien] Allergy (Verified 11/01/16 17:08) Confusion ondansetron [From Zofran (as hydrochloride)] Adverse Reaction (Verified 17:47) Vomiting Home Medications Medication Instructions Recorded Confirmed Type Alprazolam [Xanax 1 MG Tablet] 1 mg PO TID PRN 11/01/16 11/01/16 History Aspirin/Calcium Carbonate/Mag 325 mg PO DAILY 11/01/16 11/01/16 History [Aspirin Buffered 325 mg Tab] Atorvastatin [Lipitor] 40 mg PO HS 11/01/16 11/01/16 History Clopidogrel [Plavix] 75 mg PO DAILY 11/01/16 11/01/16 History Furosemide [Lasix] 40 mg PO DAILY 11/01/16 11/01/16 History Isosorbide MONOnitrate (24 HR) 30 mg PO DAILY 11/01/16 11/01/16 History [Imdur] Lisinopril [Zestril] 5 mg PO DAILY 11/01/16 11/01/16 History Metoprolol [Lopressor] 25 mg PO BID 11/01/16 11/01/16 History I & O 10/29/16 10/30/16 10/31/16 11/01/16 23:59 23:59 23:59 23:59 Weight 83.915 kg Other: Blood Glucose* 94 Medications Discontinued Medications Promethazine HCl 12.5 mg/ (Sodium Chloride) 50.5 mls @ 204 mls/hr IVPB ONCE ONE Stop: 11/01/16 19:09 Last Admin: 11/01/16 19:01 Dose: Promethazine HCl (Phenergan) 12.5 mg IVP ONCE ONE Stop: 11/01/16 19:01 Last Admin: 11/01/16 19:10 Dose: 12.5 mg Nursing Notes 11/01/16 19:20 Pharmacy Note by Marilynn Cisse Unsure if patient is compliant on his medications- I called two different pharmacies to confirm medications- Patient states he is taking everything, including the lasix 40 mg- Initialized on 11/01/16 19:20 - END OF NOTE 11/01/16 18:14 Transport Report by Rosalba Kelly Date: 11/01/16 Transport Method: Wheelchair simvastatin [From Zocor] Allergy (Verified 11/01/16 17:08) Rash Zolpidem [From Ambien] Allergy (Verified 11/01/16 17:08) Confusion ondansetron [From Zofran (as hydrochloride)] Adverse Reaction (Verified 17:47) Vomiting Resuscitation Status Oxygen: Mental Status: Fall Risk: Isolation: Nurse Required for Transport: No ___ Yes Limb Restrictions: No ___ Yes Behavioral issue/Risk for Elopement: No ___ Yes Telemetry Room Notification: Destination: MRI XRAY STRESS ULTRASOUND CT DIALYSIS ENDO OTHER: Depart Time: Nurse: Transporter: Arrive Time: Received by: ___ Return Time: Nurse: Transporter: ] Initialized on 11/01/16 18:14 - END OF NOTE 11/01/16 17:29 Nurse Note by Aura Solis Pt returns from CT at 1730 Initialized on 11/01/16 17:29 - END OF NOTE 03/31/17 17:15 Nurse Note by Aura Solis Stroke alert called at 1710. Pt to CT at 1715. Initialized on 11/01/16 17:15 - END OF NOTE Orders 11/01/16 17:01 POC Glucometer Test [POC] Routine 11/01/16 17:10 Activity [RC] .BEDREST Comment: Physician Instructions: Head of bed flat unless unable to tolerate Cardiac monitoring [RC] .ONCE Dysphagia Screen Nursing [RC] ONCE Comment: Glucose, blood poc measurement [RC] .ONCE NIHSS Modified [RC] Q15MX8,[id number] NIHSS [RC] ONCE NPO (Nursing Order) [RC] NOW Saline lock [RC] .ONCE Vital Signs Assessment [RC] Q15MX8,[id number] CT stroke alert head wo con [CT] Stat Mode Of Transportation: Wheelchair Reason For Exam: stroke alert Exam Performed At:: [facility] Allergic to Contrast: No XR chest 1V portable [XR] Stat Mode Of Transportation: Wheelchair Reason For Exam: acute neuro deficit Exam Performed At:: [facility] Additional Notes/Special Instructions: 5 NR-CT@1715 11/01/16 17:30 Activated Partial Thrombo Time [COAG] Stat Comment: Specimen: Send someone from the department to collect Basic Metabolic Panel Stat Comment: Specimen: Send someone from the department to collect Complete Blood Count [HEME] Stat Comment: Specimen: Send someone from the department to collect Hold Sample For Possible T&C [BBK] Stat BBK Wristband Number: Prothrombin Time INR [COAG] Stat Comment: Specimen: Send someone from the department to collect Troponin I Stat Comment: Specimen: Send someone from the department to collect 11/01/16 17:[address] Stat Comment: Reason for Visit: non hemorrhagic CVA 11/01/16 18:22 Urinalysis Reflex Cult & Micro [URIN] Stat Comment: Specimen: Send someone from the department to collect 11/01/16 18:55 Promethazine [Phenergan] 12.5 mg 0.9 % Sodium Chloride 50 ml IVPB ONCE 11/01/16 19:00 Promethazine [Phenergan] 12.5 mg IVP ONCE ONE 11/01/16 Breakfast NPO Diet Diet Modifications: 11/01/16 Dinner NPO Diet Diet Modifications: 11/01/16 Lunch NPO Diet Diet Modifications: 11/02/16 01:10 Assess for bleeding [RC] Q1HX18,Q4H NIHSS Modified [RC] Q1HX18,Q4H Vital Signs Assessment [RC] Q1HX18,Q4H Patient Problems (Last Updated 11/01/16 @ 18:44 by Amado Gan DO) Left facial numbness (Acute) Left arm numbness (Acute) Left leg numbness (Acute) Left arm weakness (Acute) Left leg weakness (Acute) Chest pain (Acute) Vital Signs Temp Pulse Resp BP Pulse Ox 11/01/16 19:08 16 111/79 11/01/16 18:22 95 16 106/73 97 11/01/16 17:30 93 16 116/78 11/01/16 17:00 97.9 F 99 16 128/103 98 Laboratory Results 11/01/16 11/01/16 11/01/16 Range/Units 17:01 17:30 17:30 WBC 6.0 (4.3-11.1) K/mcL RBC 4.59 (4.19-5.50) M/mcL Hgb 14.8 (12.9-16.9) g/dL Hct 44.4 (37.5-50.1) % MCV 96.7 (83.0-100.0) fL MCH 32.2 (28.0-33.3) pg MCHC 33.3 (31.6-35.5) g/dL RDW 13.2 (11.5-14.5) % Plt Count 183 (140-400) K/mcL MPV 8.6 L (9.4-12.4) fL Immature Gran % 0.3 (0-4) % Seg Neutrophils % 68.2 % Lymphocytes % 16.9 % Monocytes % 13.9 % Eosinophils % 0.5 % Basophils % 0.2 % Neutrophils # 4.1 (1.6-8.9) K/mcL Lymphocytes # 1.0 (0.6-4.6) K/mcL Monocytes # 0.8 (0.0-1.3) K/mcL Eosinophils # 0.0 (0.0-0.6) K/mcL Basophils # 0.0 (0.0-0.2) K/mcL PT 12.1 (9.4-12.1) Seconds INR 1.1 APTT 31.5 (26.0-36.0) Seconds Sodium (136-145) mEq/L Potassium (3.5-4.5) mEq/L Chloride (98-109) mEq/L Carbon Dioxide (19-29) mEq/L BUN (8-26) mg/dL Creatinine (0.72-1.25) mg/dL Est GFR ( Amer) (> 60) Est GFR (Non-Af Amer) (> 60) BUN/Creatinine Ratio (6-26) Glucose (70-99) mg/dL POC Glucose 94 H (58-89) Calculated Osmolality (280-300) Calcium (8.6-10.8) mg/dL Troponin I (0-0.03) ng/mL 11/01/16 11/01/16 Range/Units 17:30 17:30 WBC (4.3-11.1) K/mcL RBC (4.19-5.50) M/mcL Hgb (12.9-16.9) g/dL Hct (37.5-50.1) % MCV (83.0-100.0) fL MCH (28.0-33.3) pg MCHC (31.6-35.5) g/dL RDW (11.5-14.5) % Plt Count (140-400) K/mcL MPV (9.4-12.4) fL Immature Gran % (0-4) % Seg Neutrophils % % Lymphocytes % % Monocytes % % Eosinophils % % Basophils % % Neutrophils # (1.6-8.9) K/mcL Lymphocytes # (0.6-4.6) K/mcL Monocytes # (0.0-1.3) K/mcL Eosinophils # (0.0-0.6) K/mcL Basophils # (0.0-0.2) K/mcL PT (9.4-12.1) Seconds INR APTT (26.0-36.0) Seconds Sodium 135 L (136-145) mEq/L Potassium 3.8 (3.5-4.5) mEq/L Chloride 105 (98-109) mEq/L Carbon Dioxide 18 L (19-29) mEq/L BUN 25 (8-26) mg/dL Creatinine 0.83 (0.72-1.25) mg/dL Est GFR ( Amer) > 60 (> 60) Est GFR (Non-Af Amer) > 60 (> 60) BUN/Creatinine Ratio 30 H (6-26) Glucose 101 H (70-99) mg/dL POC Glucose (58-89) Calculated Osmolality 285 (280-300) Calcium 9.1 (8.6-10.8) mg/dL Troponin I 0.00 (0-0.03) ng/mL Assessments/Treatments 12 lead ECG assessment Start: 11/01/16 17: 09 Freq: Status: Complete Document 11/01/16 17:10 [facility] [place]: 11/01/16 17:10 [facility] [id number]) EKG Time EKG Completed 17:04 EKG performed by chris EKG shown to and signed by dr hines Cardiac monitoring Start: 11/01/16 17: 09 Freq: Status: Active Document 11/01/16 17:09 [facility] [place]Rec: 11/01/16 17:09 [facility] [id number]) Cardiac Monitoring Heart Rate 96 Monitoring Method Bedside Rhythm Sinus Rhythm Fructose Loader Limits 150/50 ED Discharge Assessment Start: 11/01/16 17: 09 Freq: Status: Active Document 11/01/16 19:08 [facility] [place]Rec: 11/01/16 19:09 [id number] Discharge Assessment ED Discharge Disposition Admitted ED Condition on Discharge Good Med Rec/Patient Pharmacy Completed? No Mode of Discharge Stretcher Admitted to 2NE Bed assigned 2NE 34 Transported by nurse Transported with IV Report given to Nurse Care transferred to (name/credentials) 2NE RN Information relayed patient's care treatments medications given condition recent/anticipated changes Clinical Documentation Summary Provided Yes Pain Scale 0 Pain Scale Used Standard (1-10) Blood Pressure 111/79 Heart rate 81 Respiratory Rate 16 Oxygen Delivery Room Air Oxygen Saturation 96 Critical Care Minutes 0 ED Neurological Symptoms/Deficit Assmnt Start: 11/01/16 17: 09 Freq: Status: Complete Document 11/01/16 17:17 [facility] (Rec: 11/01/16 17:19 [id number] Neurological Symptoms Assessment Weakness Symptoms/Complaint Focal Weakness Numbness Tingling Difficulty Walking Onset 1000 Context Unknown On Anticoagulants No Improves With Nothing Worsens With Nothing Associated Symptoms Chest Pain Shortness of Breath Treatments Prior to Arrival None Eye Opening Spontaneous Motor Response Obeys Commands Verbal Response Oriented Coma Scale Total 15 Level Of Consciousness Awake Alert Appropriate Follows Commands Patient Orientation Person Place Time Patient Behavior Appropriate Cooperative Ability to Follow Directions Excellent Impaired Cognition No Skin Temperature Warm Skin Moisture Dry Skin Turgor Normal Capillary Refill < 3 Seconds Respiratory Depth Normal Respiratory Effort Normal for Patient Respiratory Pattern Regular Additional Neurological Symptoms Pt reports left sided weakness and numbness/tingling in his left arm. Pt has had previous stroke with left sided deficits but thinks his weakness is worse since this morning and the numbness and tingling in his arm is new since this morning. Bilateral Pupil Size (mm) 3 Pupil Reaction Reactive Pupil [place] Equal Glucose, blood point of care measurement Start: 11/01/16 17: 09 Freq: Status: Active Document 11/01/16 17:09 [facility] [place]Rec: 11/01/16 17:09 [id number] Blood Glucose Assessment Blood Glucose* 94 [employer] Start: 11/01/16 19: 20 Freq: Status: Active Document 11/01/16 19:20 MR (Rec: 11/01/16 19:21 [id number] [id number]) Pharmacy Med Rec Tech Home Medicatons Reconciled? Yes Was this to catch up from previous day No Does patient take 10 or more medications No ? Does patient request medication Yes education Do home meds include Coumadin, Xarelto, Yes Pradaxa, Eliquis Added Patient Preferred Pharmacy Yes Verified Allergies Yes Would Patient Like to use [facility] Patient Pharmacy 11/01/16 19:20 Pharmacy Note by Marilynn Cisse Unsure if patient is compliant on his medications- I called two different pharmacies to confirm medications- Patient states he is taking everything, including the lasix 40 mg- Initialized on 11/01/16 19:20 - END OF NOTE NIHSS Start: 11/01/16 17: 09 Freq: ONCE Status: Complete Document 11/01/16 17:10 [facility] [place]Rec: 11/01/16 17:11 [facility] [id number]) NIH Stroke Scale Onset of Symptoms Date 11/01/16 Onset of Symptoms Time 10:00 LOC Alert Month, Age Answers both correctly 1. Open, then close eyes 2. Make fist, Performs both correctly then let go Ability to follow examiner's finger Normal across horizontal plane Visual stimulus to pt's visual field No visual loss quadrants Shows teeth, raise eyebrows, squeeze Normal eyes shut Left: Extends arms, palms down holds for No drift for 10 seconds 10 seconds Right: Extends arms, palms down holds No drift for 10 seconds for 10 seconds Left: While supine, hold leg at 30 No drift for 5 seconds degrees for 5 seconds Right: While supine, hold leg at 30 No drift for 5 seconds degrees for 5 seconds Finger to nose. Heel down [place]. Normal, No Ataxia Pin prick to face, arm, trunk, and leg. Mild to moderate loss, "not as Compare side to side sharp" Name items, describe a picture, and read No aphasia sentences Evaluate speech clarity by pt repeating Normal listed words Use prior testing Modality=visual, Normal tactile/auditory, spacial NIHSS Total Score 1 Bilateral Pupil Reaction Reactive Pupil Size (mm) 3 NIHSS Modified Start: 11/02/16 01: 10 Freq: Q1HX18,Q4H Status: Active Document 11/01/16 17:30 [facility] (Rec: 11/01/16 17:33 [facility] [id number]) Modified NIH Stroke Scale LOC Alert Month, Age Answers both correctly 1. Open, then close eyes 2. Make fist, Performs both correctly then let go Shows teeth, raise eyebrows, squeeze Normal eyes shut Left: Extends arms, palms down holds for No drift for 10 seconds 10 seconds Right: Extends arms, palms down holds No drift for 10 seconds for 10 seconds Left: While supine, hold leg at 30 No drift for 5 seconds degrees for 5 seconds Right: While supine, hold leg at 30 No drift for 5 seconds degrees for 5 seconds NIHSS Modified Score 0 Coma Scale Eye Opening Spontaneous Coma Scale Motor Response Obeys Commands Coma Scale Verbal Response Oriented Coma Scale Total 15 Speech Pattern Normal rate Normal rhythm Central Control Room Operator Strength Right Greater Than Left Push/Pull Right Greater Than Left Numbness/Tingling Yes: left arm Level Of Consciousness Awake Alert Appropriate Follows Commands Patient Orientation Person Place Time Patient Behavior Appropriate Ability to Follow Directions Excellent Impaired Cognition No Bilateral Pupil Reaction Reactive Pupil Size (mm) 3 Additional Neurological Symptoms left sidede weakness, left arm numbness tingling Pulse Rate 93 Blood Pressure 116/78 Respiratory Rate 16 Pulse Oximetry Reading 97 Oxygen Delivery Method Room Air RT Continuous Pulse Oximetry Start: 11/01/16 17: 09 Freq: Status: Complete Document 11/01/16 17:09 [facility] (Rec: 11/01/16 17:09 [facility] [id number]) Saline lock insertion/management Start: 11/01/16 17: 10 Freq: .ONCE Status: Complete Document 11/01/16 17:30 [facility] (Rec: 11/01/16 17:30 [id number] IV Insertion/Site Assessment IV Attempt 1 Successful Successful Left Wrist Date of Insertion 11/01/16 Time of Insertion 17:30 Reason for IV Insertion Provide Access for IV Medication(s) IV Catheter Type Peripheral IV Gauge (gauge) 20 Site Observation Patent Dressing Applied Transparent Dressing Patient Tolerance Tolerated Well Triage Start: 11/01/16 17: 00 Freq: Status: Complete Document 11/01/16 17:00 [facility] (Rec: 11/01/16 17:09 [id number] Triage Chief Complaint triage ED Neuro Symptoms/Deficit Patient Stated Complaint left sided numbness VIDHI 2 Description of Symptoms Pt reports left sided numbess that started around 10 am this morning. Pt reports he has a bad back. Pt states he has been feeling weak like he cant walk very well. Pt also reports midsternal chest pain as well. General Appearance alert in no apparent distress Work Related Injury? No Mode of arrival wheelchair Source patient Limitations no limitations Ebola Risk: Travel/Contact With Anyone No From Affected Area/s Has Patient Experienced Ebola Symptoms No Temperature (97.6 F-99.6 F) 97.9 F Temperature Source Oral Pulse Rate 99 Respiratory Rate 16 Blood Pressure 128/103 O2 Sat by Pulse Oximetry 98 Oxygen Delivery Room Air Height 1.83 m Weight 83.915 kg Weight Measurement Method Estimated by Patient Pain Scale 8 Pain Scale Used Standard (1-10) Medical history arthritis atrial fibrillation cardiomyopathy CHF COPD coronary artery disease CVA GERD hyperlipidemia hypertension myocardial infarction osteoporosis peripheral artery disease syncope TIA other Male surgical history other Additional surgical history PMH 5 Heart stents, Triple bypass, Heart cath x10, 11 back surgeries, Cholecystectomy Psychiatric history anxiety depression Smoking Status Never smoker Smokeless Tobacco Status No Alcohol Use none Drug Use none Safety Concerns Feels Safe At This Time Do you currently feel hopless, have No thoughts of self harm, or thoughts of harming others History of fall in last 14 days? No Influenza vaccine up to date Yes Coma Scale Eye Opening Spontaneous Coma Scale Motor Response Obeys Commands Coma Scale Verbal Response Oriented Coma Scale Total 15 Father Family Member Living Status Hx Family Cardiac Disorders Yes: [place] Hx Family Respiratory Disorders Yes: COPD Hx Family Cancer No Hx Family GI Disease No Hx Family Endocrine Disorder No Hx Family Neuromuscular Dysfunction No Hx Family Neurologic Problems No Hx Family HEENT Problems No Hx Family Autoimmune Disease Problems No Mother Family Member Living Status Hx Family Cardiac Disorders Yes Hx Family Respiratory Disorders No Hx Family Cancer No Hx Family GI Disease No Hx Family Endocrine Disorder Yes: DM Hx Family Neuromuscular Dysfunction No Hx Family Neurologic Problems No Hx Family HEENT Problems No Hx Family Autoimmune Disease Problems No Son Hx Family Cardiac Disorders Yes Vital Signs Assessment Start: 11/02/16 01: 10 Freq: Q1HX18,Q4H Status: Active Document 11/01/16 18:22 [facility] [place]Rec: 11/01/16 18:23 [facility] [id number]) ED Vital Signs Pain Reported No Pain Reported Pain Scale 0 Blood Pressure 106/73 Pulse Rate 95 Respiratory Rate 16 Depth Normal Effort Normal for Patient Pattern Regular Pulse Oximetry 97 Oxygen Delivery Room Air Discharge Information ED Provider: Jarred Hines Status: Departed Time Seen by Provider: 11/01/16 16:58 Condition: Fair Triaged At: 11/01/16 17:00 Emergency Discharge Date/Time: 11/01/16 19:20 Emergency Discharge Disposition: Admitted As Inpatient Clinical Impression Left facial numbness Left arm numbness Left leg numbness Left arm weakness Left leg weakness Chest pain Emergency Discharge Comment: Admit Intervention Last Done ED Neurological Symptoms/Deficit Assmnt 11/01/16 17:17 Query Result Weakness Symptoms/Complaint Focal Weakness Numbness Tingling Difficulty Walking Neurological Onset 1000 Neurological Context Unknown Neurological On Anticoagulants No Neurological Improves With Nothing Neurological Worsens With Nothing Neurological Associated Symptoms Chest Pain Shortness of Breath Neurological Treatments Prior to Arrival None Coma Scale Eye Opening Spontaneous Coma Scale Motor Response Obeys Commands Coma Scale Verbal Response Oriented Coma Scale Total 15 Level Of Consciousness Awake Alert Appropriate Follows Commands Patient Orientation Person Place Time Patient Behavior Appropriate Cooperative Ability to Follow Directions Excellent Impaired Cognition No Skin Temperature Warm Skin Moisture Dry Skin Turgor Normal Capillary Refill < 3 Seconds Respiratory Depth Normal Respiratory Effort Normal for Patient Respiratory Pattern Regular Additional Neurological Symptoms Pt reports left sided weakness and numbness/tingling in his left arm. Pt has had previous stroke with left sided deficits but thinks his weakness is worse since this morning and the numbness and tingling in his arm is new since this morning. Bilateral -Pupil Size 3 -Pupil Reaction Reactive -Pupil [place] Equal ED Discharge Assessment 11/01/16 19:08 Query Result ED Discharge Disposition Admitted ED Condition on Discharge Good Med Rec/Patient Phamracy completed? No ED Mode of Discharge Stretcher ED Admit to 2NE Bed assigned 2NE 34 Transported by nurse Transported with IV Report given to Nurse Care transferred to 2NE RN Information relayed patient's care treatments medications given condition recent/anticipated change Clinical Documentation Summary Provided Yes Severity scale (1-10) 0 Pain Scale Used Standard (1-10) Blood Pressure 111/79 Heart rate 81 Respiratory Rate 16 Oxygen Delivery Room Air Pulse Oximetry Reading 96 Critical Care Minutes 0 Dysphagia Screen Nursing Observation Discharge Date/Time: Observation Discharge Disposition: Observation Discharge Comment: Instructions: Stand-Alone Forms: Prescriptions: Visit Report - Forms: - Referrals: Radiology Results Chest X-Ray 11/01/16 17:10 IMPRESSION: No acute cardiopulmonary disease. D/ / Rajendra Banegas MD / Rajendra Banegas MD Interpreting Provider: Rajendra Banegas MD Head CT 11/01/16 17:10
[2016-11-01] MEDS ORDERED: Naloxone 0.4 MG/ML INJ IVP PRN (20:47)
[2016-11-01] MEDS ORDERED: *HR* Metoprolol 5 MG/5 ML VIAL IVP PRN (20:47)
[2016-11-01] MEDS ORDERED: Acetaminophen 325 MG TABLET PO PRN ×2 (20:47→20:49)
[2016-11-01] MEDS ORDERED: Aspirin 81 MG TAB.CHEW PO STA (20:47)
[2016-11-01] MEDS ORDERED: Acetaminophen 650 MG RECTAL SUPP RC PRN (20:50)
[2016-11-01] MEDS: *HR* HYDROmorphone (PF) 1 MG/ML SYRINGE IVP PRN (21:27)
[2016-11-01 21:52] LABS: Ethanol < 10 mg/dL (0-10)
[2016-11-01] MEDS: 0.9 % Sodium Chloride 1,000 ML IVC SCH (22:36)
[2016-11-02 00:58] LABS: Bilirubin,Urine Negative (Negative); Blood,Urine Negative (Negative); Clarity,Urine Clear (Clear); Color,Urine Yellow (Yellow); Glucose,Urine (UA) Normal (Normal); Ketones,Urine Negative (Negative); Leukocyte Esterase,Urine Negative (Negative); Nitrite,Urine Negative (Negative); Protein,Urine Negative (Neg-Trace); Specific Gravity,Urine 1.015 (1.010-1.025); Urobilinogen,Urine Normal (Normal)
[2016-11-02 01:04] LABS: Amphetamine Screen,Urine Negative ng/mL (Cutoff=1000); Barbiturate Screen,Urine Negative ng/mL (Cutoff=200); Benzodiazepines Screen,Urine Positive ng/mL (Cutoff=200); Cannabinoid Screen,Urine Negative ng/mL (Cutoff = 50); Cocaine Screen,Urine Negative ng/mL (Cutoff= 300); Opiate Screen,Urine Negative ng/mL (Cutoff=300); Phencyclidine Screen,Urine Negative ng/mL (Cutoff=25)
[2016-11-02] MEDS: *HR* HYDROmorphone (PF) 1 MG/ML SYRINGE IVP PRN ×3 (01:17→06:43)
[2016-11-02] MEDS ORDERED: *HR* LORazepam 2 MG/ML VIAL IVP STA (03:40)
[2016-11-02] MEDS: *HR* Enoxaparin 40 MG/0.4 ML SYRINGE SQ SCH (05:31)
[2016-11-02 06:00] LABS: Hemoglobin A1C 4.9 %
[2016-11-02 06:05] LABS: Alanine Aminotransferase 16 Units/L (0-55); Albumin 3.5 g/dL (3.5-5.0); Alkaline Phosphatase 65 Units/L (38-126); Aspartate Amino Transferase 19 Units/L (5-34); BUN/Creatinine Ratio 27 (6-26); Bilirubin,Total 0.9 mg/dL (0.2-1.2); Blood Urea Nitrogen 22 mg/dL (8-26); Carbon Dioxide 19 mEq/L (19-29); Chloride 110 mEq/L (98-109); Chol/HDL Ratio 3.2 (0-4.9); Cholesterol 189 mg/dL (< 200); Globulin 3.5 g/dL (2.4-3.5); Glucose 84 mg/dL (70-99); HDL Cholesterol 60 mg/dL (40-59); LDL Cholesterol,Calculated 111 mg/dL (0-99); Magnesium 2.1 mg/dL (1.6-2.6); Osmolality,Calculated 293 (280-300); Phosphorous 3.8 mg/dL (2.3-4.7); Potassium 3.8 mEq/L (3.5-4.5); Sodium 140 mEq/L (136-145); Triglycerides 91 mg/dL (< 150); eGFR For African Americans > 60 (> 60); eGFR For Non-African Americans > 60 (> 60)
[2016-11-02 06:36] LABS: Folate 7.5 ng/mL (7.0-31.4)
[2016-11-02] MEDS ORDERED: Aspirin 81 MG TAB.CHEW PO SCH ×2 (09:00)
[2016-11-02] MEDS: ALPRAZolam 1 MG TABLET PO PRN ×2 (09:10→19:02)
[2016-11-02] MEDS: Isosorbide MONOnitrate (24 HR) 30 MG TAB.ER.24H PO SCH (09:10)
[2016-11-02] MEDS: Aspirin 325 MG TABLET PO SCH (09:10)
[2016-11-02] MEDS: Pantoprazole 40 MG VIAL IVP SCH (09:11)
--- NOTE | 2016-11-02 12:47 | ECHO - Doppler Report ---
Echocardiogram Name: Eber Melchor Date of Study: 11/02/2016 Date: 1955 Ht: 72.0 in Medical Record#: [id number] Age: 61 Wt: 193.0 lb Gender: Male BSA: 2.1 Order #: [id number] Location: [facility] Room #: [id number] Reading Physician: Kriss Lopes DO Television Production Clerk: Shilpa Cooper Ordering Physician: Deandre Katz MD Primary Physician: Toya Arvizu NP Indications: ACS Impressions: LVEF 55%. Normal left ventricular size and systolic function. There is evidence of mild diastolic dysfunction of the left ventricle. Normal right ventricular size and function. Mild- moderate aortic regurgitation. Mid mitral regurgitation. No pulmonary hypertension. Left Ventricular Wall Motion: Rest Echo Findings All wall segments showed normal motion. Findings: Study Quality * Technically adequate exam. ECG Findings * Normal sinus rhythm. Left Ventricle * Normal LV chamber size, wall thickness and function. * LVEF 55%. * Mild left ventricular diastolic dysfunction. Left Atrium * Normal left atrial size. Mitral Valve * Normal mitral valve structure. * No mitral stenosis. * Mild mitral regurgitation. Aorta * Normally sized aortic root. Aortic Valve * Off-axis views. Morphology not well visualized. * Mild-moderate aortic regurgitation. * No aortic stenosis. * Mildly calcified and thickened. Tricuspid Valve * No tricuspid regurgitation. * Normal tricuspid valve structure. Pulmonic Valve * Pulmonic valve is not well visualized. * No pulmonic stenosis. * No pulmonic regurgitation. Pulmonary Artery * Pulmonary artery not well visualized. Right Ventricle * Normal right ventricular structure and function. Right Atrium * Normal right atrial size. Interatrial Septum * Interatrial septum not well evaluated. IVC * The IVC is not well evaluated. Pericardium * There is no pericardial effusion present. History Hypertension Hypercholesteremia Family History of CAD History of CAD/PTCA Myocardial Infarction Coronary Artery Bypass Graft Congestive Heart Failure 04/23/2016 a Previous Echo was performed. Measurements: BP: 108/ 77 2D Normal Values IVSd: 1.10 cm 0.6 - 1.0 cm LVIDd: 5.20 cm 3.7 - 5.6 cm LVPWd: .90 cm 0.6 - 1.1 cm LVIDs: 4.00 cm 1.5 - 3.6 cm AO: 2.60 cm < 4.0 cm LA: 3.40 cm 2.0 - 4.0cm %FS: 23.10 cm >25 % LVOT Diam: 2.20 cm LA volume: 39 Mitral Valve Peak E:.67 m/sec Peak A:.72 m/sec E/A Ratio:0.9 Peak E' Lat [place]:8.97 cm/s Peak E' Med [place]:6.53 cm/s E/E' Lat Ratio:7.4 E/E' Med Ratio:10.2 Updated by Kriss Lopes on 11/02/2016 12:42:23 PM electronically signed on 11/02/2016 12:43:56 PM with status of Final Wall Motion [place]: 1=Normal, 2=Hypokinesis, 3=Akinesis, 4=Dyskinesis, 5=Aneurysmal, 6=Hyperkinetic, X=Not Visualized (Blank)=Missing
--- NOTE | 2016-11-02 14:59 | Internal Med Progress Note ---
Date of Encounter: 11/02/16 Time of Encounter: 14:48 - Assessment and plan (1) Left sided numbness Current Visit: Yes Status: Acute Assessment and plan: Left-sided numbness: Admitted for left-sided numbness, worsening gait disturbance, ongoing weakness and difficulty in maintaining the gait. Plan: -Aspirin 325 mg every day. - Crestor 20 mg ( patient is allergic to simvastatin) -Physical therapy/occupation therapy evaluation. -Speech therapy already evaluated. -Head CT: No acute CVA -Head/ Neck CTA: Chronic occlusion of left vertebral artery. -ECHO : EF 55% Seen by Neuro in 03/2016 ( Dr West) : was admitted for similar symptoms. will get Neuro opinion tomorrow (2) CAD (coronary artery disease), [place] coronary artery Current Visit: Yes Status: Chronic Assessment and plan: Stable for now. Qualifiers: [place] vs. transplanted heart: [place] heart Associated angina: with unspecified angina Qualified Code(s): I25.119 - Atherosclerotic heart disease of [place] coronary artery with unspecified angina pectoris (3) S/P CABG x 3 Current Visit: Yes Status: Chronic Assessment and plan: No chest pain. (4) History of atrial fibrillation Current Visit: Yes Status: Chronic Assessment and plan: Presently not on any anticoagulation. The reason for this is patient has a history of multiple falls. (5) DVT prophylaxis Current Visit: No Status: Acute Assessment and plan: Lovenox - Subjective Interval history: Seen and examined. Chart reviewed. Patient's satellite dish repairer and family member in the room. Patient allows me to talk to regarding his medical issues in front of them. - Constitutional Vitals: Temp Pulse Resp BP Pulse Ox 98.2 F 67 14 90/64 98 11/02/16 11:37 11/02/16 11:37 11/02/16 11:37 11/02/16 11:37 11/02/16 11:37 General appearance: Present: cachectic, disheveled, mild distress, A&O X 3, answers questions appropriately - Head Head exam: Present: atraumatic, normocephalic - Eye Eye exam: Present: PERRL, conjuntiva pink, sclera anicteric Pupils: Present: PERRL - Neck Neck exam general surgery: Present: supple, trachea midline. Absent: lymphadenopathy - Respiratory Respiratory exam: Present: CTAB. Absent: accessory muscle use, rales, rhonchi, wheezes - Cardiovascular Cardiovascular exam: Present: RRR, +S1, +S2. Absent: diastolic murmur, gallop, rubs, systolic murmur - GI/Abdominal GI/Abdominal exam: Present: normal bowel sounds, soft, no peritoneal signs. Absent: distended, tenderness - Extremities Exam Extremities exam: Present: warm, radial pulses palpable and symetrical. Absent : calf tenderness, cyanotic, pedal edema - Neurological Exam Neurological exam: Present: CN II-XII intact, oriented X3, no focal deficits. Absent: pronater drift, facial droop, speech deficit - Skin Skin exam: Present: dry, intact Internal Medicine: Result - Labs CBC & Chem 7: 11/01/16 17:30 11/02/16 05:28 Labs: BMP 11/02/16 05:28 Sodium 140 Potassium 3.8 Chloride 110 H Carbon Dioxide 19 BUN 22 Creatinine 0.81 Glucose 84 Calcium 9.0 Cardiac Enzymes 11/01/16 11/02/16 Range/Units 22:48 05:28 Troponin I 0.01 0.01 (0-0.03) ng/mL Liver Function 11/02/16 Range/Units 05:28 Total Bilirubin 0.9 (0.2-1.2) mg/dL AST 19 (5-34) Units/L ALT 16 (0-55) Units/L Alkaline Phosphatase 65 (38-126) Units/L Albumin 3.5 (3.5-5.0) g/dL Urine 11/02/16 Range/Units 00:30 Urine Color Yellow (Yellow) Urine Clarity Clear (Clear) Urine pH 6.0 (5.0-8.0) pH Units Ur Specific [place] 1.015 (1.010-1.025) Urine Protein Negative (Neg-Trace) mg/dL Urine Glucose (UA) Normal (Normal) mg/dL - ABG Interpretation ABG results: PT/INR, D-dimer PT 12.1 Seconds (9.4-12.1) 11/01/16 17:30 - Impressions Impressions Head CTA 11/02/16 23:52 IMPRESSION: 1. Again seen is chronic occlusion of much of the left vertebral artery with only minimal opacification within diminutive V3 segment. This is slightly worsened as compared to the prior study. 2. Mild atherosclerotic plaque in the carotid bulbs bilaterally, resulting in 20% stenosis in the proximal left internal carotid artery. 3. Calcified atherosclerotic disease in the cavernous segments of the internal carotid arteries. Otherwise, unremarkable CTA of the head. D/ : / 11/02/2016 11:48:10 Franky Mercedes MD / vishal Interpreting Provider: Franky Mercedes MD Neck CTA 11/02/16 23:52 IMPRESSION: 1. Again seen is chronic occlusion of much of the left vertebral artery with only minimal opacification within diminutive V3 segment. This is slightly worsened as compared to the prior study. 2. Mild atherosclerotic plaque in the carotid bulbs bilaterally, resulting in 20% stenosis in the proximal left internal carotid artery. 3. Calcified atherosclerotic disease in the cavernous segments of the internal carotid arteries. Otherwise, unremarkable CTA of the head. D/ : / 11/02/2016 11:48:10 Franky Mercedes MD / vishal Interpreting Provider: Franky Mercedes MD Consult Discharge Plan - Plan Referrals: Toya Arvizu, AXLE AND FRAME MECHANIC [Primary Care Provider] -
[2016-11-02] MEDS: 0.9 % Sodium Chloride 1,000 ML IVC SCH (16:16)
[2016-11-02] MEDS: *HR* Promethazine 25 MG/ML VIAL IVP PRN (16:16)
[2016-11-02] MEDS: *HR* OxyCODONE Immed Rel 5 MG TABLET PO PRN ×2 (16:17→22:19)
[2016-11-02] MEDS ORDERED: 0.9 % Sodium Chloride 1,000 ML IVC ONE (17:54)
[2016-11-03] MEDS: *HR* Enoxaparin 40 MG/0.4 ML SYRINGE SQ SCH (04:52)
[2016-11-03] MEDS: *HR* OxyCODONE Immed Rel 5 MG TABLET PO PRN (04:52)
[2016-11-03] MEDS: *HR* Promethazine 25 MG/ML VIAL IVP PRN (05:31)
[2016-11-03] MEDS: Aspirin 325 MG TABLET PO SCH (08:17)
[2016-11-03] MEDS: Pantoprazole 40 MG VIAL IVP SCH (08:17)
[2016-11-03] MEDS: Isosorbide MONOnitrate (24 HR) 30 MG TAB.ER.24H PO SCH (08:17)
[2016-11-03] MEDS: ALPRAZolam 1 MG TABLET PO PRN ×2 (08:17→17:45)
--- NOTE | 2016-11-03 10:43 | Electrocardiograph Report ---
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
--- NOTE | 2016-11-03 10:48 | Electrocardiograph Report ---
[place] [id number] Test Date: 2016-11-01 Pat Name: Eber Melchor Department: 111 Room: 2N4 Gender: M Medical Educator: KAELA : 1955 Requested By: Jase Rodarte Order Number: [id number] Reading MD: Roland Toscano MD Measurements Intervals [place] Rate: 81 P: 63 [place]: 128 QRS: 48 QRSD: 106 T: 56 QT: 364 QTc: 401 Interpretive Statements SINUS RHYTHM POSSIBLE INFERIOR MYOCARDIAL INFARCTION, PROBABLY OLD Electronically Signed On 11-03-2016 10:46:28 EDT by Roland Toscano MD
--- NOTE | 2016-11-03 11:21 | Neurology - Consult Note ---
Date of Encounter: 11/03/16 Time of Encounter: 11:18 Assessment and Plan (1) Left hemiparesis Current Visit: Yes Status: Acute Had history of previous CVA with residual left sided weakness but now feeling more weakness to the left side, No significant speech difficulty and no mental status changes, the worsening weakness could be due to ongoing medical conditions or could be related to new lacunar infarct involving the right hemisphere. CT of head is normal. MRI of brain will help making diagnosis or exclusion of new CVA. Continue Aspirin 325mg daily. Await carotid artery duplex and echo. Contine statin therapy. Patient also has significant failed back syndrome and pain management could help. History of Present Illness Chief complaint: left sided weakness HPI: Mr. Melchor is a 61 year old male with PMH significant for HTN, previous CVA resulting in left sided weakness, history of left foot drop, chronic back pain, failed back syndrome who presented to ER with increasing left sided weakness and some worsening back pain. Says that he had stroke in the past causing left sided weakness but since last Friday the weakness has been getting worse. Also says that he has had '10 back surgeries' and still has lots of back pain. Has history of left foot drop. Has intermittent speech difficulty described as at times can not get the words out. CTA of brain and neck showed left vertebral artery occlusion and 20% carotid bulb stenosis. Past Med Surg Social Fam HX - Past Medical History Medical history: arthritis, atrial fibrillation, cardiomyopathy, CHF, COPD, coronary artery disease, CVA, GERD, hyperlipidemia, hypertension, myocardial infarction, osteoporosis, peripheral artery disease, syncope, TIA, other Psychiatric history: anxiety, depression - Past Surgical History Surgical History: angioplasty/stent, cholecystectomy, coronary bypass (CABG), orthopedic, other, other - Social History Smoking Status: Never smoker Smokeless Tobacco Status: No Alcohol use: none Drug use: none - Family History Son Hx Family Cardiac Disorders: Yes Mother Adopted: No Age: 90 Family Member Ethnicity: Non- Living Status: Hx Family Cardiac Disorders: Yes Hx Family Respiratory Disorders: No Hx Family Cancer: No Hx Family GI Disorders: No Hx Family Endocrine Disorder: Yes (DM) Hx Family Neuromuscular Disorders: No Hx Family Neurologic Disorders: No Hx Family HEENT Disorders: No Hx Family Autoimmune Disorders: No Father Living Status: Age at : 76 Cause of : heart attack Hx Family Cardiac Disorders: Yes ([place]) Hx Family Respiratory Disorders: Yes (COPD) Hx Family Cancer: No Hx Family GI Disorders: No Hx Family Endocrine Disorder: No Hx Family Musculoskeletal Disorders: Yes (arthritis) Hx Family Neuromuscular Disorders: No Hx Family Neurologic Disorders: No Hx Family HEENT Disorders: No Hx Family Autoimmune Disorders: No Medications and Allergies Alprazolam [Xanax 1 MG Tablet] 1 mg PO TID PRN 11/01/16 [History] Aspirin/Calcium Carbonate/Mag [Aspirin Buffered 325 mg Tab] 325 mg PO DAILY [History] Atorvastatin [Lipitor] 40 mg PO HS 11/01/16 [History] Clopidogrel [Plavix] 75 mg PO DAILY 11/01/16 [History] Furosemide [Lasix] 40 mg PO DAILY 11/01/16 [History] Isosorbide MONOnitrate (24 HR) [Imdur] 30 mg PO DAILY 11/01/16 [History] Lisinopril [Zestril] 5 mg PO DAILY 11/01/16 [History] Metoprolol [Lopressor] 25 mg PO BID 11/01/16 [History] Allergies simvastatin [From Zocor] Allergy (Verified 11/01/16 17:08) Rash Zolpidem [From Ambien] Allergy (Verified 11/01/16 17:08) Confusion ondansetron [From Zofran (as hydrochloride)] Adverse Reaction (Verified 17:47) Vomiting All Systems: A 10-system review of systems was performed and is negative for pertinent findings except as documented above in the HPI. Physical Examination - Vital Signs Vital Signs: Initial Vital Signs Temp Pulse Resp BP Pulse Ox 97.9 F 99 16 128/103 98 11/01/16 17:00 11/01/16 17:00 11/01/16 17:00 11/01/16 17:00 11/01/16 17:00 - Constitutional General appearance: comfortable - Neurologic Sensorimotor examination: intact (Grossly intact) Motor examination - right side: 5/5: deltoids, biceps, triceps, wrist flexion, wrist extension, marine safety officer, hip flexors, tibialis Anterior, quadriceps, toe extension (EHL), plantarflexion Motor examination - left side: 4/5: deltoids, biceps, triceps, wrist flexion, wrist extension, hip flexors, marine safety officer, quadriceps, tibialis Anterior, toe extension (EHL), plantarflexion Detailed sensory examination: intact (Grossly intact) Reflexes: Biceps: 1+, Triceps: 1+, Brachioradialis: 1+, Patella: 1+, Achilles: 1 + Mental Status Examination: awake, alert, oriented to person, oriented to place, oriented to time, follows commands appropriately, answers questions appropriately, no agnosia, no aphasia, no aproxia Cranial nerve examination: PERRL, EOMI, visual [place] intact, corneal reflexes brisk symmetrically, sensory to face intact, mastication intact, no facial asymmetry is present, no dysarthria, hearing is intact symmetrically, soft palate elevates bilaterally upon phonation, gag reflex intact, flexes SCM and trapezius muscles symmetrically with full power, tongue protrudes midline, no atrophy or facial fasiculations present Results - Laboratory Findings CBC and BMP: 11/01/16 17:30 11/02/16 05:28 Abnormal lab findings: Abnormal lab results MPV 8.6 fL (9.4-12.4) L 11/01/16 17:30 Chloride 110 mEq/L (98-109) H 11/02/16 05:28 BUN/Creatinine Ratio 27 (6-26) H 11/02/16 05:28 POC Glucose 94 (58-89) H 11/01/16 17:01 Albumin/Globulin Ratio 1.0 (1.1-2.2) L 11/02/16 05:28 LDL Cholesterol, Calc 111 mg/dL (0-99) H 11/02/16 05:28 HDL Cholesterol 60 mg/dL (40-59) H 11/02/16 05:28 U Benzodiazepines Scrn Positive ng/mL ([place]=052) H 11/02/16 00:30 Consult Discharge Plan - Plan Referrals: Toya Arvizu, RIGGING UP WORKER [Primary Care Provider] -
[2016-11-03] MEDS: 0.9 % Sodium Chloride 1,000 ML IVC SCH (12:33)
[2016-11-03] MEDS: *HR* HYDROmorphone (PF) 1 MG/ML SYRINGE IVP PRN (12:38)
--- NOTE | 2016-11-03 13:59 | Internal Med Progress Note ---
Date of Encounter: 11/03/16 Time of Encounter: 13:54 - Assessment and plan (1) Left sided numbness Current Visit: Yes Status: Acute Assessment and plan: Left-sided numbness: Admitted for left-sided numbness, worsening gait disturbance, ongoing weakness and difficulty in maintaining the gait. Plan: -Aspirin 325 mg every day. - Crestor 20 mg ( patient is allergic to simvastatin) -Physical therapy/occupation therapy evaluation. -Speech therapy already evaluated. -Head CT: No acute CVA -Head/ Neck CTA: Chronic occlusion of left vertebral artery. -ECHO : EF 55% Seen by Neuro in 03/2016 ( Dr West) : was admitted for similar symptoms. will get Neuro opinion tomorrow 11/03/2016 Patient seen by neurology today. Recommended MRI of the brain. Will continue present medication. Will get MRI of the brain. Will continue physical therapy/occupational therapy (2) CAD (coronary artery disease), [place] coronary artery Current Visit: Yes Status: Chronic Assessment and plan: Stable for now. Qualifiers: [place] vs. transplanted heart: [place] heart Associated angina: with unspecified angina Qualified Code(s): I25.119 - Atherosclerotic heart disease of [place] coronary artery with unspecified angina pectoris (3) S/P CABG x 3 Current Visit: Yes Status: Chronic Assessment and plan: No chest pain. (4) History of atrial fibrillation Current Visit: Yes Status: Chronic Assessment and plan: Presently not on any anticoagulation. The reason for this is patient has a history of multiple falls. (5) DVT prophylaxis Current Visit: No Status: Acute Assessment and plan: Lovenox - Subjective Interval history: Seen and examined. Chart reviewed. 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 Patient allows me to talk to regarding his medical issues in front of them. 11/03/2016 Patient seen and examined. Chart reviewed. Patient still has numbness over his face, still weakness in his lower extremity. Neurology review and recommendations appreciated. - Constitutional Vitals: Temp Pulse Resp BP Pulse Ox 98.4 F 82 17 101/76 96 11/03/16 07:00 11/03/16 07:00 11/03/16 07:00 11/03/16 07:00 11/03/16 07:00 General appearance: Present: cachectic, disheveled, mild distress, A&O X 3, answers questions appropriately - Head Head exam: Present: atraumatic, normocephalic - Eye Eye exam: Present: PERRL, conjuntiva pink, sclera anicteric Pupils: Present: PERRL - Neck Neck exam general surgery: Present: supple, trachea midline. Absent: lymphadenopathy - Respiratory Respiratory exam: Present: CTAB. Absent: accessory muscle use, rales, rhonchi, wheezes - Cardiovascular Cardiovascular exam: Present: RRR, +S1, +S2. Absent: diastolic murmur, gallop, rubs, systolic murmur - GI/Abdominal GI/Abdominal exam: Present: normal bowel sounds, soft, no peritoneal signs. Absent: distended, tenderness - Extremities Exam Extremities exam: Present: warm, radial pulses palpable and symetrical. Absent : calf tenderness, cyanotic, pedal edema - Neurological Exam Neurological exam: Present: CN II-XII intact, oriented X3, no focal deficits. Absent: pronater drift, facial droop, speech deficit - Skin Skin exam: Present: dry, intact Internal Medicine: Result - Labs CBC & Chem 7: 11/01/16 17:30 11/02/16 05:28 - ABG Interpretation ABG results: PT/INR, D-dimer PT 12.1 Seconds (9.4-12.1) 11/01/16 17:30 - Impressions Impressions Head CTA 11/02/16 23:52 IMPRESSION: 1. Again seen is chronic occlusion of much of the left vertebral artery with only minimal opacification within diminutive V3 segment. This is slightly worsened as compared to the prior study. 2. Mild atherosclerotic plaque in the carotid bulbs bilaterally, resulting in 20% stenosis in the proximal left internal carotid artery. 3. Calcified atherosclerotic disease in the cavernous segments of the internal carotid arteries. Otherwise, unremarkable CTA of the head. D/ / 11/02/2016 11:48:10 Franky Mercedes MD / earnochris Interpreting Provider: Franky Mercedes MD Neck CTA 11/02/16 23:52 IMPRESSION: 1. Again seen is chronic occlusion of much of the left vertebral artery with only minimal opacification within diminutive V3 segment. This is slightly worsened as compared to the prior study. 2. Mild atherosclerotic plaque in the carotid bulbs bilaterally, resulting in 20% stenosis in the proximal left internal carotid artery. 3. Calcified atherosclerotic disease in the cavernous segments of the internal carotid arteries. Otherwise, unremarkable CTA of the head. D/ / 11/02/2016 11:48:10 Franky Mercedes MD / vishal Interpreting Provider: Franky Mercedes MD Consult Discharge Plan - Plan Referrals: Toya Arvizu, DIALYSIS SOCIAL WORKER [Primary Care Provider] -
[2016-11-03] MEDS: *HR* HYDROmorphone 2 MG TABLET PO PRN ×2 (16:09→20:12)
[2016-11-03] MEDS: Nitroglycerin 0.4 MG TAB.SUBL SL PRN (23:56)
[2016-11-04] MEDS: Nitroglycerin 0.4 MG TAB.SUBL SL PRN ×2 (00:02→23:51)
[2016-11-04] MEDS: *HR* HYDROmorphone 2 MG TABLET PO PRN ×2 (00:19→04:50)
[2016-11-04] MEDS: ALPRAZolam 1 MG TABLET PO PRN ×3 (04:47→21:11)
[2016-11-04] MEDS: *HR* Enoxaparin 40 MG/0.4 ML SYRINGE SQ SCH (04:47)
[2016-11-04] MEDS: Pantoprazole 40 MG VIAL IVP SCH (11:03)
[2016-11-04] MEDS: Aspirin 325 MG TABLET PO SCH (11:03)
[2016-11-04] MEDS: Isosorbide MONOnitrate (24 HR) 30 MG TAB.ER.24H PO SCH (11:03)
--- NOTE | 2016-11-04 11:51 | Electrocardiograph Report ---
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
[2016-11-04] MEDS: *HR* OxyCODONE Immed Rel 5 MG TABLET PO PRN ×2 (12:45→18:55)
[2016-11-04] MEDS: 0.9 % Sodium Chloride 1,000 ML IVC SCH (14:47)
--- NOTE | 2016-11-04 18:02 | Internal Med Progress Note ---
Date of Encounter: 11/04/16 Time of Encounter: 18:00 - Assessment and plan (1) Left sided numbness Current Visit: Yes Status: Acute Assessment and plan: Left-sided numbness: Admitted for left-sided numbness, worsening gait disturbance, ongoing weakness and difficulty in maintaining the gait. Plan: -Aspirin 325 mg every day. - Crestor 20 mg ( patient is allergic to simvastatin) -Physical therapy/occupation therapy evaluation. -Speech therapy already evaluated. -Head CT: No acute CVA -Head/ Neck CTA: Chronic occlusion of left vertebral artery. -ECHO : EF 55% Seen by Neuro in 03/2016 ( Dr West) : was admitted for similar symptoms. will get Neuro opinion tomorrow 11/03/2016 Patient seen by neurology today. Recommended MRI of the brain. Will continue present medication. Will get MRI of the brain. Will continue physical therapy/occupational therapy 11/04/2016 awaiting for MRI if not possible then possible CT head with contrast ( if neuro agrees) (2) CAD (coronary artery disease), [place] coronary artery Current Visit: Yes Status: Chronic Assessment and plan: Stable for now. Qualifiers: [place] vs. transplanted heart: [place] heart Associated angina: with unspecified angina Qualified Code(s): I25.119 - Atherosclerotic heart disease of [place] coronary artery with unspecified angina pectoris (3) S/P CABG x 3 Current Visit: Yes Status: Chronic Assessment and plan: No chest pain. (4) History of atrial fibrillation Current Visit: Yes Status: Chronic Assessment and plan: Presently not on any anticoagulation. The reason for this is patient has a history of multiple falls. (5) DVT prophylaxis Current Visit: No Status: Acute Assessment and plan: Lovenox - Subjective Interval history: Seen and examined. Chart reviewed. 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 Patient allows me to talk to regarding his medical issues in front of them. 11/03/2016 Patient seen and examined. Chart reviewed. Patient still has numbness over his face, still weakness in his lower extremity. Neurology review and recommendations appreciated. 11/04/2016 seen and examined. no new complaints awaiting for MRI - Constitutional Vitals: Temp Pulse Resp BP Pulse Ox 98.2 F 88 18 105/78 96 11/04/16 15:22 11/04/16 15:22 11/04/16 15:22 11/04/16 15:22 11/04/16 15:22 General appearance: Present: cachectic, disheveled, mild distress, A&O X 3, answers questions appropriately - Head Head exam: Present: atraumatic, normocephalic - Eye Eye exam: Present: PERRL, conjuntiva pink, sclera anicteric Pupils: Present: PERRL - Neck Neck exam general surgery: Present: supple, trachea midline. Absent: lymphadenopathy - Respiratory Respiratory exam: Present: CTAB. Absent: accessory muscle use, rales, rhonchi, wheezes - Cardiovascular Cardiovascular exam: Present: RRR, +S1, +S2. Absent: diastolic murmur, gallop, rubs, systolic murmur - GI/Abdominal GI/Abdominal exam: Present: normal bowel sounds, soft, no peritoneal signs. Absent: distended, tenderness - Extremities Exam Extremities exam: Present: warm, radial pulses palpable and symetrical. Absent : calf tenderness, cyanotic, pedal edema - Neurological Exam Neurological exam: Present: CN II-XII intact, oriented X3, no focal deficits. Absent: pronater drift, facial droop, speech deficit - Skin Skin exam: Present: dry, intact Internal Medicine: Result - Labs CBC & Chem 7: 11/01/16 17:30 11/02/16 05:28 - ABG Interpretation ABG results: PT/INR, D-dimer PT 12.1 Seconds (9.4-12.1) 11/01/16 17:30 - Impressions Impressions Videofluoroscopic Swallow 11/04/16 22:42 IMPRESSION: Swallowing mechanism grossly within normal limits with flash laryngeal penetration with the thin liquids but no aspiration. Please see separate speech pathology report for full discussion of findings and recommendations. D/ / Jassi Jacobs MD / Jassi Jacobs MD Interpreting Provider: Jassi Jacobs MD Consult Discharge Plan - Plan Referrals: Toya Arvizu, MICROFILMING DOCUMENT PREPARER [Primary Care Provider] -
[2016-11-05] MEDS: *HR* Enoxaparin 40 MG/0.4 ML SYRINGE SQ SCH (06:21)
[2016-11-05] MEDS: Isosorbide MONOnitrate (24 HR) 30 MG TAB.ER.24H PO SCH (09:16)
[2016-11-05] MEDS: Aspirin 325 MG TABLET PO SCH (09:17)
[2016-11-05] MEDS: Pantoprazole 40 MG VIAL IVP SCH (09:19)
[2016-11-05] MEDS: ALPRAZolam 1 MG TABLET PO PRN (09:29)
[2016-11-05] MEDS: *HR* HYDROmorphone 2 MG TABLET PO PRN (09:45)
--- NOTE | 2016-11-05 10:44 | Electrocardiograph Report ---
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
[2016-11-05 10:52] VITALS: BP 102/64
--- NOTE | 2016-11-05 13:49 | Discharge Summary ---
Date of Encounter: 11/05/16 Time of Encounter: 13:38 - Discharge Diagnosis (1) Left sided numbness Priority: Primary Status: Acute (2) CAD (coronary artery disease), tribal coronary artery Priority: Secondary Status: Chronic Qualifiers: [place] vs. transplanted heart: tribal heart Associated angina: with unspecified angina Qualified Code(s): I25.119 - Atherosclerotic heart disease of tribal coronary artery with unspecified angina pectoris (3) S/P CABG x 3 Priority: Secondary Status: Chronic (4) History of atrial fibrillation Priority: Secondary Status: Chronic (5) DVT prophylaxis Priority: Secondary Status: Acute - Discharge Medications Prescriptions: Nitroglycerin 0.4 mg SL Q5MIN PRN #30 tab.subl PRN Reason: Chest Pain OxyCODONE Immed Rel [Roxicodone 5 MG] 10 mg PO Q6HR PRN #10 tablet PRN Reason: Moderate Pain (4-6) Alprazolam [Xanax 1 MG Tablet] 1 mg PO TID PRN #7 tablet PRN Reason: Anxiety Home Medications: Aspirin/Calcium Carbonate/Mag [Aspirin Buffered 325 mg Tab] 325 mg PO DAILY [History] Atorvastatin [Lipitor] 40 mg PO HS 11/01/16 [History] Clopidogrel [Plavix] 75 mg PO DAILY 11/01/16 [History] Furosemide [Lasix] 40 mg PO DAILY 11/01/16 [History] Isosorbide MONOnitrate (24 HR) [Imdur] 30 mg PO DAILY 11/01/16 [History] Lisinopril [Zestril] 5 mg PO DAILY 11/01/16 [History] Metoprolol [Lopressor] 25 mg PO BID 11/01/16 [History] Alprazolam [Xanax 1 MG Tablet] 1 mg PO TID PRN #7 tablet 11/05/16 [Rx] Nitroglycerin 0.4 mg SL Q5MIN PRN #30 tab.subl 11/05/16 [Rx] OxyCODONE Immed Rel [Roxicodone 5 MG] 10 mg PO Q6HR PRN #10 tablet 11/05/16 [Rx] Allergies/Adverse Reactions: Allergies simvastatin [From Zocor] Allergy (Verified 11/01/16 17:08) Rash Zolpidem [From Ambien] Allergy (Verified 11/01/16 17:08) Confusion ondansetron [From Zofran (as hydrochloride)] Adverse Reaction (Verified 17:47) Vomiting Procedures/tests Complete & Pending: Procedures Performed prior 72 hours Category Date Time Status CT angio head [CT] Routine Cat Scan 11/02/16 23:[address] angio neck [CT] Routine Cat Scan 11/02/16 23:52 Completed ECG 12 lead ECG [ECG] Routine Y 11/03/16 17:55 Completed ECG 12 lead ECG [ECG] Stat Y 11/05/16 00:25 Completed ECG 12 lead ECG [ECG] Timed Y 11/06/16 08:00 Ordered EV echocardiogram Routine Y 11/02/16 20:48 Completed Date of admission: 11/01/16 18:49 Primary care physician: Toya Arvizu CNP Consults: 11/01/16 20:48 Consult to Nurse Navigator [CONS] Routine Comment: 11/01/16 22:42 Consult to Occupational Therapy [CONS] Routine Comment: Evaluate, develop and implement POC Consult to Physical Therapy [CONS] Routine Comment: Evaluate, develop and implement POC 11/02/16 08:37 Consult to Speech Therapy [CONS] Routine Comment: Evaluate, develop and implement POC Reason for Consult: fails dysphagia screen Call Completed: Yes 11/04/16 13:19 Consult to Clod Puller [CONS] Routine Reason for SW Consult: PT/OT recommending inpatient swing bed Discharging clinician: Jase Rodarte - Patient Status Disposition: Transfer Inpatient Rehab Fac Condition: Fair Functional capacity at discharge: uses cane/walker Overall status at discharge: patient is progressing back to baseline - Discharge Instructions Follow Up With: Toya Arvizu CNP [Primary Care Provider] - Linwood West MD [Partnered Physician] - - Diet and Activity Activity: as per physical therapy Diet: low fat, low cholesterol, low salt diet Interval History: Mr. Melchor is a 61 year old male is admitted to [facility] via the emergency department when he presented with complaints of acute onset of left-sided numbness and weakness with associated substernal chest pain. Patient presented with his symptoms approximately 7 hours from onset. His history is significant for previous CVA without significant residual deficits. He states that he was clinically at his baseline when the symptoms occurred at rest. Hospital course: Patient was hospitalized. Neurology was consulted. Head CT was done. CTA for head and neck also done. Head CT was within normal limit and did not show any new infarct. CTA for head and neck showed old lesions. There was no new lesions noted. Patient was seen by neurology. Neurology recommended continuation of the same care. Neurology recommended MRI but since patient has multiple plates and screws in his spine that is not possible to do MRI for him. Patient was seen by physical therapy. Physical therapy recommended continuation of physical therapy as an inpatient. Plan -Patient will go to inpatient rehabilitation today. -Plan patient will follow up with PCP/neurology in 1-2 weeks. -All questions answered. at the time of discharge patient does not have any questions concerning for recommendation or updates - - Time Spent with Patient Total time spent providing and/or coordinating discharge services: - Constitutional Vitals: Temp Pulse Resp BP Pulse Ox 97.9 F 73 16 102/64 95 11/05/16 10:50 11/05/16 10:50 11/05/16 10:50 11/05/16 10:50 11/05/16 10:50 General appearance: Present: cachectic, disheveled, mild distress, A&O X 3, answers questions appropriately - Head Head exam: Present: atraumatic, normocephalic - Eye Eye exam: Present: PERRL, conjuntiva pink, sclera anicteric Pupils: Present: PERRL - Neck Neck exam general surgery: Present: supple, trachea midline. Absent: lymphadenopathy - Respiratory Respiratory exam: Present: CTAB. Absent: accessory muscle use, rales, rhonchi, wheezes - Cardiovascular Cardiovascular exam: Present: RRR, +S1, +S2. Absent: diastolic murmur, gallop, rubs, systolic murmur - GI/Abdominal GI/Abdominal exam: Present: normal bowel sounds, soft, no peritoneal signs. Absent: distended, tenderness - Extremities Exam Extremities exam: Present: warm, radial pulses palpable and symetrical. Absent : calf tenderness, cyanotic, pedal edema - Neurological Exam Neurological exam: Present: CN II-XII intact, oriented X3, no focal deficits. Absent: pronater drift, facial droop, speech deficit - Skin Skin exam: Present: dry, intact
[2016-11-05] MEDS: *HR* Promethazine 25 MG/ML VIAL IVP PRN (14:07)
--- NOTE | 2016-11-05 14:11 | Physician Discharge Referral ---
ExtendedCare Referral Info Transfer To: [facility] - Diagnosis (1) Left sided numbness Priority: Primary Status: Acute (2) CAD (coronary artery disease), [place] coronary artery Priority: Primary Status: Chronic (3) S/P CABG x 3 Priority: Secondary Status: Chronic (4) History of atrial fibrillation Priority: Secondary Status: Chronic (5) DVT prophylaxis Priority: Secondary Status: Acute - Transfer Medications Prescriptions: Nitroglycerin 0.4 mg SL Q5MIN PRN #30 tab.subl PRN Reason: Chest Pain OxyCODONE Immed Rel [Roxicodone 5 MG] 10 mg PO Q6HR PRN #10 tablet PRN Reason: Moderate Pain (4-6) Alprazolam [Xanax 1 MG Tablet] 1 mg PO TID PRN #7 tablet PRN Reason: Anxiety Home Medications: Aspirin/Calcium Carbonate/Mag [Aspirin Buffered 325 mg Tab] 325 mg PO DAILY [History] Atorvastatin [Lipitor] 40 mg PO HS 11/01/16 [History] Clopidogrel [Plavix] 75 mg PO DAILY 11/01/16 [History] Furosemide [Lasix] 40 mg PO DAILY 11/01/16 [History] Isosorbide MONOnitrate (24 HR) [Imdur] 30 mg PO DAILY 11/01/16 [History] Lisinopril [Zestril] 5 mg PO DAILY 11/01/16 [History] Metoprolol [Lopressor] 25 mg PO BID 11/01/16 [History] Alprazolam [Xanax 1 MG Tablet] 1 mg PO TID PRN #7 tablet 11/05/16 [Rx] Nitroglycerin 0.4 mg SL Q5MIN PRN #30 tab.subl 11/05/16 [Rx] OxyCODONE Immed Rel [Roxicodone 5 MG] 10 mg PO Q6HR PRN #10 tablet 11/05/16 [Rx] Allergies/Adverse Reactions: Allergies simvastatin [From Zocor] Allergy (Verified 11/01/16 17:08) Rash Zolpidem [From Ambien] Allergy (Verified 11/01/16 17:08) Confusion ondansetron [From Zofran (as hydrochloride)] Adverse Reaction (Verified 17:47) Vomiting - Respiratory Orders Smoking Cessation: Smoking cessation has been advised. For more information, call the [place] Tobacco Quit Line at 9-695-RVDM-NOW. - Mobility Orders Chair, Ambulate (nursing evaluation) - Rehabiliation Orders Rehab Potential: Good Rehab Orders: Evaluation for Physical Therapy, Evaluation for Occupational Therapy - Treatments Skin tear care topically daily PRN per policy CERTIFICATION: I certify that the transfer of the above named patient to an Extended Care Facility is necessary for the continuing treatment of the diagnosis listed. The above information is true and accurate reflection of patient's current condition. Confidential - Redisclosure prohibited without a patient's written consent.
== END 2016-11-05 17:20 ==
LOC: 2NENU 16:57 → EMEROO 16:57 → 2NENU 19:20
PROVIDERS: ADMIT Internal Medicine; ATTEND Internal Medicine

== ENCOUNTER 2016-12-01 18:27 | Observation (INO) ==
[2016-12-01] MEDS ORDERED: Nitroglycerin 0.4 MG TAB.SUBL SL PRN (21:18)
[2016-12-01] MEDS ORDERED: Naloxone 0.4 MG/ML INJ IVP PRN (21:20)
[2016-12-01] MEDS ORDERED: Acetaminophen 325 MG TABLET PO PRN (21:25)
[2016-12-01] MEDS ORDERED: *HR* Morphine 2 MG/ML SYRINGE IVP PRN (21:25)
[2016-12-01] MEDS ORDERED: *HR* Promethazine 25 MG/ML VIAL IVP PRN (21:25)
[2016-12-01] MEDS ORDERED: Benzonatate 100 MG CAPSULE PO PRN (21:40)
[2016-12-01] MEDS ORDERED: Albuterol 2.5 MG/3 ML NEBULIZER IH PRN (21:43)
[2016-12-01] MEDS ORDERED: methylPREDNISolone 125 MG/2 ML VIAL IVP STA (21:43)
--- NOTE | 2016-12-01 21:55 | Internal Med History&Physical ---
Date of Encounter: 12/01/16 Time of Encounter: 21:00 Assessment and Plan (1) RLL pneumonia Current visit: Yes Status: Acute . Qualifiers: Pneumonia type: due to unspecified organism Qualified Code(s): J18.1 - Lobar pneumonia, unspecified organism (2) At risk for aspiration Current visit: Yes Status: Acute . (3) Statin-induced rhabdomyolysis Current visit: Yes Status: Acute . (4) Generalized weakness Current visit: Yes Status: Acute . (5) CVA (cerebrovascular accident) Current visit: Yes Status: Chronic . Qualifiers: CVA mechanism: unspecified Qualified Code(s): I63.9 - Cerebral infarction, unspecified (6) Left hemiparesis Current visit: Yes Status: Chronic . Internal Medicine - H&P: HPI Chief complaint: Difficulty breathing. Admitted From: Hospital to Hospital Transfer ([facility] ED transfer to [facility]) Plans for Post Hospital Care: Home History of present illness: Mr. Melchor is a 61 year old male with history significant for H/O CVAs/TIAs/ left hemiparisis/dysarthria/paresthesias/gait disturbance, hypertension, dyslipidemia, PAF (no chr A/C due to fall risk), PAD, CAD/PTCAstentsx5/ZXAHc9a/ AMIs, major depression/generalized anxiety, OA/OP, multilevel DDD spine/diffuse DJD, failed back/postlaminectomy syndrome, chronic pain syndrome/persona, COPD, GERD, nonsmoker, etc.. The patient is received as a hospital transfer from [facility] ED with patient presented with complaints of fever or generalized weakness. Reportedly one day history of a feeling of feverishness chills loss of appetite malaise and weakness seemingly acute in onset. She was most apparent that the night prior to presentation. Denied any upper respiratory complaints urinary symptoms diarrhea for throat sinus congestion or cutaneous wounds or injury. He reports being recently discharged from rehabilitation facility 4 days earlier. He was enrolled following CVA with worsening left-sided hemiparesis. He denies any recent falls or trauma. He rates his discomfort as a 7/10 severity; moderate to severe. Findings in the ED: Patient is febrile with a temperature of 99.1-100. Blood pressure 92- 101/57. O2 saturation 94% on 2 L nasal cannula. Respirations 18. Pulse 81. WBC 12.5 hemoglobin 13.3 platelets 140,000. Differential shows an increase in neutrophils. Metabolic panel normal except sodium 132 osmolality 275. Glucose 103. Carbon dioxide 15. BUN 15 creatinine 0.82. Hepatic function total bilirubin 1.6 AST 52. Troponin 0.01. Creatinine kinase 1741. Lactic acid 1.4. Urinalysis specific gravity greater than 1.03. Protein positive. Trace blood. 3 RTC. 3 WBC. EKG normal sinus rhythm. No acute ischemic changes. Chest x-ray demonstrates right lower lobe airspace disease concerning for pneumonia. Compared to October 2016 x-ray. Cardiac silhouette stable. Status post median sternotomy. No pneumothorax or pleural effusion. Spinal stimulator device in situ noted.. CT head scan demonstrated no acute intracranial abnormalities. Preliminary impression suggest acute upper and lower respiratory tract infection with evidence for right lower lobe pneumonia. SIRS/sepsis criteria present at admission. The location of the infiltrate concern for aspiration pneumonia is high in differential. However given patient recently being hospitalized within the last 30 days healthcare/hospital associated infection also in differential. Acute on chronic hypoxic respiratory failure noted. Moderate metabolic and electrolyte derangements are apparent. Generalized myalgic complaints and weakness consistent with presentation of rhabdomyolysis superimposed on generalized physical deconditioning. Likely culprit for rhabdomyolysis/myopathy ongoing high-dose statin therapy. The patient presents at risk for further clinical decline and morbidity due to his frailty, presenting chief complaints/findings and recommendations. Workup and treatments will proceed comprehensively. The patient was visited and interviewed and examined. Cumulative laboratory and radiographic data base will be considered and discussed. Pertinent ancillary medical records including ECW and PCI documentation when available was reviewed and considered. Given the patient's presenting concerns, past medical history, clinical findings and symptoms, he is admitted at this time will undergo further evaluation and disposition. Orders were written as per the computerized physician recorder helper gravity prospecting system.......................................................................... .................... Consultative opinions will be sought as clinical circumstances justify. Pain management needs will be addressed. Laboratory+radiographic data base will be updated as appropriate. Studies include: Cultures of blood urine sputum, cpk, LHD, pt/inr, aptt, ddimer, cardiac injury panel, BNP, UDS, UA, metabolic and hematologic panel, magnesium, phosphorus, ionized calcium, thyroid profile, lipid profile, A1c, C-peptide, CRP, sedimentation rate, respiratory infection profile, respiratory virus panel , VAISHALI, RF, blood gas, lactic acid, serologies, etc. Precautions: Aspiration, fall, seizure, delirium protocol/surveillance initiated. Telemetry with continuous hemodynamic monitoring and pulse oximetry initiated. Orthostatic vital signs. Empiric antibiotic coverage: Intravenous Rocephin, azithromycin and clindamycin pending culture data. Special studies: CT chest, chest x-ray, telemetry, EKG. Pulmonary toilet: Incentive spirometry, aerosol bronchodilator, mucolytic, antitussive, supplemental oxygen. Corticosteroid therapy. CPAP/BiPAP supplemental oxygen delivery. Aerosol Mucomyst therapy. Fluid and electrolyte repletion efforts will proceed. Careful attention to fluid balance and renal recovery will be emphasized. Avoidance of nephrotoxic exposure and adverse drug drug interaction in the setting of impaired renal function will be monitored closely. Acute coronary syndrome protocol/surveillance initiated. We will hold statin therapy due to concern for statin-induced myopathy/ rhabdomyolysis. Alternative antilipid agents to consider: omega-3 fish oil, Zetia, fenofibrate. May also consider reintroduction of statin therapy options such as pravastatin once myopathic changes have resolved. DVT and PUD prophylaxis initiated: PPI therapy, intermittent pneumatic cuffs. Subcutaneous heparin/Lovenox. Early ambulation will be encouraged. Immunization updates recommended. Influenza and pneumococcal vaccinations as part of ongoing preventative healthcare recommendations strongly recommended. Smoking cessation counseling briefly addressed. Patient is a nonsmoker. Advanced care directive discussion briefly addressed. Patient does not declare any healthcare restrictions at this time. Cardiovascular risk appraisal and cardiovascular risk reduction efforts will be emphasized. Physical=occupational therapy consulted to evaluate patient's functional capacity and progress mobility as circumstances permit. Nutrition/dietary education. Supplemental diet options counseling. Outpatient medication schedules will be reviewed, confirmed and facilitated as appropriate. Reconciliation of home treatments including adjustments, substitutions and reintroduction into the treatment regimen will necessary maintenance therapies for chronic pre-existing medical conditions. Plan of care has been reviewed and discussed in detail with the patient. Questions addressed. Hospital course dictated by clinical findings, treatment response and potential consultative interventions. Patient is at risk for further acute clinical decline and morbidity due to his frailty, presenting chief complaints and comorbid conditions. Condition is serious. Prognosis is guarded. CODE STATUS is full. Past Med Surg Social Fam HX - Past Medical History Source: old records reviewed Medical history: arthritis, atrial fibrillation, cardiomyopathy, CHF, COPD, coronary artery disease, CVA, GERD, hyperlipidemia, hypertension, myocardial infarction, osteoporosis, peripheral artery disease, syncope, TIA, other Psychiatric history: anxiety, depression, other - Past Surgical History Surgical History: angioplasty/stent, cholecystectomy, coronary bypass (CABG), orthopedic, other, other - Social History Smoking Status: Never smoker Smokeless Tobacco Status: No Alcohol use: none Drug use: none Occupational status: unemployed, retired Current living situation: Home - Independent, Home Activity Level: Uses cane/walker, Mostly sedentary Recent Out of Country Travel Within the Last 8 Weeks: No Exposure or Possible Exposure to Illness During Travel: No - Family History Son Hx Family Cardiac Disorders: Yes Mother Adopted: No Family Member Ethnicity: Non- Living Status: Hx Family Cardiac Disorders: Yes Hx Family Respiratory Disorders: No Hx Family Cancer: No Hx Family GI Disorders: No Hx Family Endocrine Disorder: Yes (DM) Hx Family Neuromuscular Disorders: No Hx Family Neurologic Disorders: No Hx Family HEENT Disorders: No Hx Family Autoimmune Disorders: No Father Living Status: Hx Family Cardiac Disorders: Yes ([place]) Hx Family Respiratory Disorders: Yes (COPD) Hx Family Cancer: No Hx Family GI Disorders: No Hx Family Endocrine Disorder: No Hx Family Neuromuscular Disorders: No Hx Family Neurologic Disorders: No Hx Family HEENT Disorders: No Hx Family Autoimmune Disorders: No Internal Medicine - H&P: Meds Aspirin/Calcium Carbonate/Mag [Aspirin Buffered 325 mg Tab] 325 mg PO DAILY [History] Atorvastatin [Lipitor] 40 mg PO HS 11/01/16 [History] Clopidogrel [Plavix] 75 mg PO DAILY 11/01/16 [History] Furosemide [Lasix] 40 mg PO DAILY 11/01/16 [History] Isosorbide MONOnitrate (24 HR) [Imdur] 30 mg PO DAILY 11/01/16 [History] Lisinopril [Zestril] 5 mg PO DAILY 11/01/16 [History] Metoprolol [Lopressor] 25 mg PO BID 11/01/16 [History] Alprazolam [Xanax 1 MG Tablet] 1 mg PO TID PRN #7 tablet 11/05/16 [Rx] Nitroglycerin 0.4 mg SL Q5MIN PRN #30 tab.subl 11/05/16 [Rx] OxyCODONE Immed Rel [Roxicodone 5 MG] 10 mg PO Q6HR PRN #10 tablet 11/05/16 [Rx] Allergies simvastatin [From Zocor] Allergy (Verified 11/01/16 17:08) Rash Zolpidem [From Ambien] Allergy (Verified 11/01/16 17:08) Confusion ondansetron [From Zofran (as hydrochloride)] Adverse Reaction (Verified 17:47) Vomiting All Systems PM: A 10-system review of systems was performed and is negative for pertinent findings except as documented above in the HPI. - Constitutional Constitutional: as per HPI, falls, malaise, weakness, no chills, no fever(s), no night sweats - EENT Eyes: as per HPI, no change in vision, no discharge, no pain, no photophobia Nose, mouth and throat: as per HPI, dysphagia, other, no nasal discharge, no neck pain, no sore throat - Cardiovascular Cardiovascular ROS IM: as per HPI, no chest pain, no diaphoresis, no dyspnea, no lightheadedness, no palpitations, no syncope - Respiratory Respiratory: as per HPI, cough, dyspnea, chest congestion, no wheezing, no excessive phlegm production - Gastrointestinal Gastrointestinal: as per HPI, no abdominal pain, no diarrhea, no hematemesis, no hematochezia, no melena, no nausea, no vomiting - Genitourinary Genitourinary ROS male: as per HPI - Musculoskeletal Musculoskeletal ROS IM: as per HPI, arthralgias, back pain, muscle cramps, muscle weakness, myalgias, no numbness, no tingling - Integumentary Integumentary IM: as per HPI, no rash, no unusual bruising - Neurological Neurological ROS: as per HPI, abnormal gait, abnormal speech, frequent falls, headache(s), weakness, other, no confusion, no convulsions, no focal weakness, no numbness, no tingling, no tremor(s) - Psychiatric Psychiatric: as per HPI - Endocrine Endocrine IM: as per HPI - Hematologic/Lymphatic Hematologic/Lymphatic: as per HPI, no easy bruising - Allergic/Immunologic Allergic/Immunologic: as per HPI - Constitutional Vitals: Temp Pulse Resp BP Pulse Ox 97.8 F 75 16 98/62 97 12/01/16 20:03 12/01/16 20:03 12/01/16 20:03 12/01/16 20:03 12/01/16 20:21 Vital Signs Temp Pulse Resp BP Pulse Ox 12/01/16 20:21 97 12/01/16 20:03 97.8 F 75 16 98/62 96 Intake and Output 12/01/16 12/01/16 12/01/16 07:59 15:59 23:59 Intake Total 0 / 0 Balance 0 / 0 Intake: Oral 0 / 0 Other: # Voids 1 Weight 92.9 kg Patient Weight 12/01/16 23:59 Weight 92.9 kg General appearance: Present: cooperative, mild distress, A&O X 3, answers questions appropriately - Head Head exam: Present: atraumatic, normocephalic - Eye Eye exam: Present: EOMI, PERRL, conjuntiva pink, sclera anicteric Pupils: Present: normal accommodation, PERRL - ENT ENT exam: Present: mucous membranes moist, normal oropharynx - Neck Neck exam general surgery: Present: full ROM, supple, trachea midline. Absent: lymphadenopathy, nuchal rigidity - Respiratory Respiratory exam: Present: chest wall tenderness, decreased breath sounds, prolonged expiratory phase. Absent: accessory muscle use, CTAB, rales, rhonchi , stridor, wheezes - Cardiovascular Cardiovascular exam: Present: distant heart sounds, RRR, +S1, +S2. Absent: diastolic murmur, gallop, rubs, systolic murmur - GI/Abdominal GI/Abdominal exam: Present: normal bowel sounds, soft, no peritoneal signs. Absent: distended, tenderness - Extremities Exam Extremities exam: Present: full ROM, warm, radial pulses palpable and symetrical. Absent: calf tenderness, cyanotic, pedal edema - Neurological Exam Neurological exam: Present: abnormal gait, alert, CN II-XII intact, motor sensory deficit, oriented X3. Absent: strengths equal and symetr throughout, pronater drift, facial droop, speech deficit - Expanded Neurological Exam Neurological exam expanded: Present: ataxia, protecting the airway. Absent: expressive aphasia, receptive aphasia, tremor Patient oriented to: Present: person, place, time Speech: Present: garbled Coma Scale Eye Opening: Spontaneous Coma Scale Motor Response: Obeys Commands Coma Scale Verbal Response: Oriented Coma Scale Total: 15 - Psychiatric Psychiatric exam: Present: normal affect, normal mood - Skin Skin exam: Present: dry, intact, warm
[2016-12-01] MEDS ORDERED: Promethazine 12.5 MG in 0.9 % Sodium Chloride 50 ML IVPB PRN (22:07)
[2016-12-01] MEDS: Ipratropium/Albuterol Neb 3 ML IH SCH (22:26)
[2016-12-01] MEDS: 0.9 % Sodium Chloride 1,000 ML IVC SCH (22:52)
[2016-12-01] MEDS: *HR* OxyCODONE Immed Rel 5 MG TABLET PO PRN (22:53)
[2016-12-01] MEDS: ALPRAZolam 1 MG TABLET PO PRN (22:55)
[2016-12-01 22:56] LABS: VBG HCO3 23.4 mEq/L (21-27); VBG PH 7.42 pH Units (7.32-7.42)
[2016-12-01] MEDS: Nicotine 21 MG PATCH.TD24 TD SCH (22:56)
[2016-12-01] MEDS: Azithromycin 500 MG in D5% in Water 250 ML IVPB SCH (23:37)
[2016-12-02] MEDS: Clindamycin 600 MG/50 ML 600 MG/50 ML IV.SOLN IVPB SCH ×3 (01:32→16:36)
[2016-12-02] MEDS ORDERED: 0.9 % Sodium Chloride 1,000 ML IVC ONE (02:02)
[2016-12-02] MEDS: Ipratropium/Albuterol Neb 3 ML IH SCH ×4 (03:50→23:11)
[2016-12-02 04:11] LABS: Hematocrit 31.8 % (37.5-50.1); Hemoglobin 10.8 g/dL (12.9-16.9); Immature Granulocytes % 0.5 % (0-4); Lymphocytes # 0.3 K/mcL (0.6-4.6); Lymphocytes % 4.2 %; Mean Corpuscular Hemoglobin 33.2 pg (28.0-33.3); Mean Corpuscular Volume 97.8 fL (83.0-100.0); Mean Platelet Volume 9.1 fL (9.4-12.4); Monocytes # 0.2 K/mcL (0.0-1.3); Monocytes % 2.9 %; Neutrophils # 6.1 K/mcL (1.6-8.9); Platelet Count 112 K/mcL (140-400); Red Blood Count 3.25 M/mcL (4.19-5.50); Red Cell Distribution Width 13.5 % (11.5-14.5); Segmented Neutrophils % 92.4 %
[2016-12-02 04:15] LABS: INR 1.4
[2016-12-02 04:25] LABS: Hemoglobin A1C 4.7 %
[2016-12-02 04:28] LABS: Ionized Calcium 0.58 mmol/L (1.15-1.35)
[2016-12-02 04:29] LABS: Alanine Aminotransferase 14 Units/L (0-55); Albumin 2.8 g/dL (3.5-5.0); Albumin/Globulin Ratio 0.9 (1.1-2.2); Alkaline Phosphatase 46 Units/L (38-126); Aspartate Amino Transferase 39 Units/L (5-34); BUN/Creatinine Ratio 15 (6-26); Bilirubin,Total 0.8 mg/dL (0.2-1.2); Blood Urea Nitrogen 11 mg/dL (8-26); Calcium 8.1 mg/dL (8.6-10.8); Carbon Dioxide 19 mEq/L (19-29); Chloride 113 mEq/L (98-109); Chol/HDL Ratio 2.5 (0-4.9); Cholesterol 86 mg/dL (< 200); Globulin 3.1 g/dL (2.4-3.5); Glucose 141 mg/dL (70-99); HDL Cholesterol 35 mg/dL (40-59); LDL Cholesterol,Calculated 42 mg/dL (0-99); Magnesium 1.7 mg/dL (1.6-2.6); Osmolality,Calculated 286 (280-300); Phosphorous 2.1 mg/dL (2.3-4.7); Potassium 3.9 mEq/L (3.5-4.5); Sodium 137 mEq/L (136-145); Total Protein 5.9 g/dL (6.0-8.3); Triglycerides 45 mg/dL (< 150); eGFR For African Americans > 60 (> 60); eGFR For Non-African Americans > 60 (> 60)
[2016-12-02 04:48] LABS: Triiodothyronine (T3) Free 1.74 pg/mL (1.71-3.71)
[2016-12-02] MEDS: *HR* Enoxaparin 40 MG/0.4 ML SYRINGE SQ SCH (05:48)
[2016-12-02 06:29] LABS: Thyroid Stimulating Hormone 0.318 mcIU/mL (0.350-4.840)
[2016-12-02 09:56] LABS: Adenovirus Not Detected (Not Detect); Bordetella Pertussis Not Detected (Not Detect); Chlamydophila pneumoniae Not Detected (Not Detect); Coronavirus 229E Not Detected (Not Detect); Coronavirus HKU1 Not Detected (Not Detect); Coronavirus NL63 Not Detected (Not Detect); Coronavirus OC43 Not Detected (Not Detect); Human Metapneumovirus Not Detected (Not Detect); Human Rhinovirus/Enterovirus Not Detected (Not Detect); Influenza A Subtype 2009 H1 Not Detected (Not Detect); Influenza A Untypeable Not Detected (Not Detect); Influenza B Not Detected (Not Detect); Mycoplasma pneumoniae Not Detected (Not Detect); Parainfluenza Virus 1 Not Detected (Not Detect); Parainfluenza Virus 2 Not Detected (Not Detect); Parainfluenza Virus 3 Not Detected (Not Detect); Parainfluenza Virus 4 Not Detected (Not Detect); Respiratory Syncytial Virus Not Detected (Not Detect)
[2016-12-02] MEDS: predniSONE 20 MG TABLET PO SCH (10:16)
[2016-12-02] MEDS: Aspirin Enteric Coated 325 MG Tablet PO SCH (10:16)
[2016-12-02] MEDS: Lactobacillus 1 EACH CAP.SPRINK PO SCH ×2 (10:16→21:17)
[2016-12-02] MEDS: Isosorbide MONOnitrate (24 HR) 30 MG TAB.ER.24H PO SCH (10:16)
[2016-12-02] MEDS: Furosemide 40 MG TABLET PO SCH (10:17)
[2016-12-02] MEDS: Nicotine 21 MG PATCH.TD24 TD SCH (10:17)
[2016-12-02] MEDS ORDERED: 0.9 % Sodium Chloride 500 ML IVC ONE (11:01)
[2016-12-02] MEDS: 0.9 % Sodium Chloride 1,000 ML IVC SCH (15:44)
[2016-12-02] MEDS: ALPRAZolam 1 MG TABLET PO PRN ×2 (15:44→21:21)
--- NOTE | 2016-12-02 18:30 | Internal Med Progress Note ---
Date of Encounter: 12/07/16 Time of Encounter: 18:26 - Assessment and plan (1) Pneumonia Current Visit: No Status: Acute Assessment and plan: Date 2: Ceftriaxone/azithromycin Also patient is on gentamicin intravenously. Will continue same treatment. Monitor closely. If worsening then we will consider transfer to ICU Qualifiers: Pneumonia type: due to unspecified organism Laterality: right Lung location: lower lobe of lung Qualified Code(s): J18.1 - Lobar pneumonia, unspecified organism (2) Rhabdomyolysis Current Visit: No Status: Acute Assessment and plan: Improving creatinine kinase Qualifiers: Rhabdomyolysis type: non-traumatic Qualified Code(s): M62.82 - Rhabdomyolysis (3) CAD (coronary artery disease), [place] coronary artery Current Visit: No Status: Chronic Assessment and plan: Stable for now Qualifiers: [place] vs. transplanted heart: [place] heart Associated angina: with unspecified angina Qualified Code(s): I25.119 - Atherosclerotic heart disease of [place] coronary artery with unspecified angina pectoris (4) CVA (cerebrovascular accident) Current Visit: Yes Status: Chronic Assessment and plan: Old CVA Qualifiers: CVA mechanism: other Qualified Code(s): I63.8 - Other cerebral infarction - Subjective Interval history: Patient seen and examined. Chart reviewed. Patient is comfortably lying in bed. Patient denies chest pain, short of breath, abdominal pain, vomiting and diarrhea. - Constitutional Vitals: Temp Pulse Resp BP Pulse Ox 97.5 F L 88 20 102/65 98 12/02/16 17:29 12/02/16 17:29 12/02/16 17:29 12/02/16 17:29 12/02/16 17:29 General appearance: Present: cooperative, mild distress, A&O X 3, answers questions appropriately - Head Head exam: Present: atraumatic, normocephalic - Eye Eye exam: Present: PERRL, conjuntiva pink, sclera anicteric Pupils: Present: PERRL - Neck Neck exam general surgery: Present: supple, trachea midline. Absent: lymphadenopathy - Respiratory Respiratory exam: Present: CTAB. Absent: accessory muscle use, rales, rhonchi, wheezes - Cardiovascular Cardiovascular exam: Present: RRR, +S1, +S2. Absent: diastolic murmur, gallop, rubs, systolic murmur - GI/Abdominal GI/Abdominal exam: Present: normal bowel sounds, soft, no peritoneal signs. Absent: distended, tenderness - Extremities Exam Extremities exam: Present: warm, radial pulses palpable and symetrical. Absent : calf tenderness, cyanotic, pedal edema - Neurological Exam Neurological exam: Present: CN II-XII intact, oriented X3, no focal deficits. Absent: pronater drift, facial droop, speech deficit - Skin Skin exam: Present: dry, intact Internal Medicine: Result - Labs CBC & Chem 7: 12/06/16 05:27 12/06/16 05:27 Labs: Short CBC 12/02/16 Range/Units 03:56 WBC 6.6 (4.3-11.1) K/mcL Hgb 10.8 L D (12.9-16.9) g/dL Hct 31.8 L (37.5-50.1) % Plt Count 112 L (140-400) K/mcL Neutrophils # 6.1 (1.6-8.9) K/mcL BMP 12/02/16 03:56 Sodium 137 Potassium 3.9 Chloride 113 H Carbon Dioxide 19 BUN 11 Creatinine 0.71 L Glucose 141 H Calcium 8.1 L Cardiac Enzymes 12/01/16 12/02/16 12/02/16 Range/Units 21:41 03:56 12:28 Troponin I 0.01 0.00 0.00 (0-0.03) ng/mL Liver Function 12/02/16 Range/Units 03:56 Total Bilirubin 0.8 (0.2-1.2) mg/dL AST 39 H (5-34) Units/L ALT 14 (0-55) Units/L Alkaline Phosphatase 46 (38-126) Units/L Albumin 2.8 L (3.5-5.0) g/dL - ABG Interpretation ABG results: PT/INR, D-dimer PT 15.0 Seconds (9.4-12.1) H 12/02/16 03:56 - Impressions Impressions Chest CT 12/02/16 07:30 IMPRESSION: 1. Multilobar consolidations. In the proper clinical setting, finding is compatible with pneumonia. Recommend follow-up CT chest in three months to ensure complete resolution. 2. Evidence of prior granulomatous disease with calcified mediastinal and hilar lymph nodes. 3. Coronary artery disease. D/ / 12/02/2016 08:18:08 Toby Melchor MD / roz Interpreting Provider: Toby Melchor MD Videofluoroscopic Swallow 12/02/16 23:24 IMPRESSION: Swallowing mechanism grossly within normal limits without evidence of aspiration. Please see separate speech pathology report for full discussion of findings and recommendations. D/ / Norris Houston MD / Norris Houston MD Interpreting Provider: Norris Houston MD Consult Discharge Plan - Plan Instructions: Chest Pain (DC), Peripheral Vascular Disorders (DC), Chronic Dysphagia (DC), Anemia (GEN), Pneumonia (DC) Referrals: Toya Arvizu, CYLINDER HANDLER [Advanced Practice Nurse] - 12/12/16 10:15 am
[2016-12-02] MEDS: Azithromycin 500 MG in D5% in Water 250 ML IVPB SCH (21:17)
[2016-12-03] MEDS: Clindamycin 600 MG/50 ML 600 MG/50 ML IV.SOLN IVPB SCH ×3 (00:48→16:20)
[2016-12-03] MEDS: ALPRAZolam 1 MG TABLET PO PRN ×3 (04:10→22:48)
[2016-12-03 04:26] LABS: Basophils % 0.1 %; Hematocrit 30.5 % (37.5-50.1); Hemoglobin 10.2 g/dL (12.9-16.9); Immature Granulocytes % 0.6 % (0-4); Lymphocytes # 0.4 K/mcL (0.6-4.6); Lymphocytes % 4.8 %; Mean Corpuscular HGB Conc 33.4 g/dL (31.6-35.5); Mean Corpuscular Hemoglobin 32.8 pg (28.0-33.3); Mean Corpuscular Volume 98.1 fL (83.0-100.0); Mean Platelet Volume 9.5 fL (9.4-12.4); Monocytes # 0.6 K/mcL (0.0-1.3); Monocytes % 6.2 %; Neutrophils # 7.8 K/mcL (1.6-8.9); Platelet Count 130 K/mcL (140-400); Red Blood Count 3.11 M/mcL (4.19-5.50); Red Cell Distribution Width 13.7 % (11.5-14.5); Segmented Neutrophils % 88.3 %
[2016-12-03 04:48] LABS: Alanine Aminotransferase 11 Units/L (0-55); Albumin 2.9 g/dL (3.5-5.0); Albumin/Globulin Ratio 0.9 (1.1-2.2); Alkaline Phosphatase 45 Units/L (38-126); Aspartate Amino Transferase 24 Units/L (5-34); BUN/Creatinine Ratio 13 (6-26); Bilirubin,Total 0.3 mg/dL (0.2-1.2); Blood Urea Nitrogen 9 mg/dL (8-26); Calcium 8.3 mg/dL (8.6-10.8); Carbon Dioxide 19 mEq/L (19-29); Chloride 117 mEq/L (98-109); Creatine Kinase 448 Units/L (30-200); Globulin 3.2 g/dL (2.4-3.5); Glucose 132 mg/dL (70-99); Osmolality,Calculated 297 (280-300); Potassium 3.6 mEq/L (3.5-4.5); Sodium 143 mEq/L (136-145); Total Protein 6.1 g/dL (6.0-8.3); eGFR For African Americans > 60 (> 60); eGFR For Non-African Americans > 60 (> 60)
[2016-12-03] MEDS: Ipratropium/Albuterol Neb 3 ML IH SCH ×4 (04:50→22:33)
[2016-12-03] MEDS: Lactobacillus 1 EACH CAP.SPRINK PO SCH ×2 (08:16→22:49)
[2016-12-03] MEDS: Isosorbide MONOnitrate (24 HR) 30 MG TAB.ER.24H PO SCH (08:16)
[2016-12-03] MEDS: *HR* Enoxaparin 40 MG/0.4 ML SYRINGE SQ SCH (08:17)
[2016-12-03] MEDS: Aspirin Enteric Coated 325 MG Tablet PO SCH (08:17)
[2016-12-03] MEDS: Furosemide 40 MG TABLET PO SCH (08:17)
[2016-12-03] MEDS: predniSONE 20 MG TABLET PO SCH (08:17)
[2016-12-03] MEDS: *HR* OxyCODONE Immed Rel 5 MG TABLET PO PRN (08:17)
[2016-12-03] MEDS: Nicotine 21 MG PATCH.TD24 TD SCH (08:28)
--- NOTE | 2016-12-03 10:46 | Electrocardiograph Report ---
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
--- NOTE | 2016-12-03 18:46 | Internal Med Progress Note ---
Date of Encounter: 12/07/16 Time of Encounter: 18:46 - Assessment and plan (1) Pneumonia Current Visit: No Status: Acute Assessment and plan: Date 2: Ceftriaxone/azithromycin Also patient is on Clindamycin intravenously. Will continue same treatment. Monitor closely. If worsening then we will consider transfer to ICU 12/03/2016. Day 3 antibiotics. Patient feels better as compared to yesterday. Noted that there is a drop in the hemoglobin. Gastroenterology consult. Possible endoscopy tomorrow. Qualifiers: Pneumonia type: due to unspecified organism Laterality: right Lung location: lower lobe of lung Qualified Code(s): J18.1 - Lobar pneumonia, unspecified organism (2) Rhabdomyolysis Current Visit: No Status: Acute Qualifiers: Rhabdomyolysis type: non-traumatic Qualified Code(s): M62.82 - Rhabdomyolysis (3) CAD (coronary artery disease), [place] coronary artery Current Visit: No Status: Chronic Qualifiers: [place] vs. transplanted heart: [place] heart Associated angina: with unspecified angina Qualified Code(s): I25.119 - Atherosclerotic heart disease of [place] coronary artery with unspecified angina pectoris (4) CVA (cerebrovascular accident) Current Visit: Yes Status: Chronic Qualifiers: CVA mechanism: other Qualified Code(s): I63.8 - Other cerebral infarction - Subjective Interval history: Patient seen and examined. Chart reviewed. Patient is comfortably lying in bed. Patient denies chest pain, short of breath, abdominal pain, vomiting and diarrhea. 12/03/2016. Seen and examined. Chart reviewed. Patient is lying in a bed. Patient denies chest pain, shortness of breath, abdominal pain, vomiting and diarrhea. - Constitutional Vitals: Temp Pulse Resp BP Pulse Ox 97.7 F 76 16 113/58 96 12/03/16 17:11 12/03/16 17:11 12/03/16 17:11 12/03/16 17:11 12/03/16 17:11 General appearance: Present: cooperative, mild distress, A&O X 3, answers questions appropriately - Head Head exam: Present: atraumatic, normocephalic - Eye Eye exam: Present: PERRL, conjuntiva pink, sclera anicteric Pupils: Present: PERRL - Neck Neck exam general surgery: Present: supple, trachea midline. Absent: lymphadenopathy - Respiratory Respiratory exam: Present: CTAB. Absent: accessory muscle use, rales, rhonchi, wheezes - Cardiovascular Cardiovascular exam: Present: RRR, +S1, +S2. Absent: diastolic murmur, gallop, rubs, systolic murmur - GI/Abdominal GI/Abdominal exam: Present: normal bowel sounds, soft, no peritoneal signs. Absent: distended, tenderness - Extremities Exam Extremities exam: Present: warm, radial pulses palpable and symetrical. Absent : calf tenderness, cyanotic, pedal edema - Neurological Exam Neurological exam: Present: CN II-XII intact, oriented X3, no focal deficits. Absent: pronater drift, facial droop, speech deficit - Skin Skin exam: Present: dry, intact Internal Medicine: Result - Labs CBC & Chem 7: 12/06/16 05:27 12/06/16 05:27 Labs: Short CBC 12/03/16 Range/Units 03:32 WBC 8.8 (4.3-11.1) K/mcL Hgb 10.2 L (12.9-16.9) g/dL Hct 30.5 L (37.5-50.1) % Plt Count 130 L (140-400) K/mcL Neutrophils # 7.8 (1.6-8.9) K/mcL BMP 12/03/16 03:32 Sodium 143 Potassium 3.6 Chloride 117 H Carbon Dioxide 19 BUN 9 Creatinine 0.67 L Glucose 132 H Calcium 8.3 L Liver Function 12/03/16 Range/Units 03:32 Total Bilirubin 0.3 (0.2-1.2) mg/dL AST 24 (5-34) Units/L ALT 11 (0-55) Units/L Alkaline Phosphatase 45 (38-126) Units/L Albumin 2.9 L (3.5-5.0) g/dL - ABG Interpretation ABG results: PT/INR, D-dimer PT 15.0 Seconds (9.4-12.1) H 12/02/16 03:56 - VTE Documentation of Mechanical Device: Graduated compression elastic hosiery Consult Discharge Plan - Plan Instructions: Chest Pain (DC), Peripheral Vascular Disorders (DC), Chronic Dysphagia (DC), Anemia (GEN), Pneumonia (DC) Referrals: Toya Arvizu, COMMISSIONER OF [employer]OCATION SERVICES [Advanced Practice Nurse] - 12/12/16 10:15 am
[2016-12-03] MEDS: Azithromycin 500 MG in D5% in Water 250 ML IVPB SCH (23:19)
[2016-12-04] MEDS: Clindamycin 600 MG/50 ML 600 MG/50 ML IV.SOLN IVPB SCH ×4 (01:11→23:54)
[2016-12-04] MEDS: *HR* OxyCODONE Immed Rel 5 MG TABLET PO PRN ×3 (01:37→21:05)
[2016-12-04] MEDS: Ipratropium/Albuterol Neb 3 ML IH SCH ×4 (04:33→22:55)
[2016-12-04] MEDS: *HR* Enoxaparin 40 MG/0.4 ML SYRINGE SQ SCH (05:30)
[2016-12-04] MEDS: ALPRAZolam 1 MG TABLET PO PRN ×2 (07:05→18:32)
[2016-12-04] MEDS: predniSONE 20 MG TABLET PO SCH (09:25)
[2016-12-04] MEDS: Lactobacillus 1 EACH CAP.SPRINK PO SCH ×2 (09:28→21:04)
[2016-12-04] MEDS: Aspirin Enteric Coated 325 MG Tablet PO SCH (09:29)
[2016-12-04] MEDS: Isosorbide MONOnitrate (24 HR) 30 MG TAB.ER.24H PO SCH (09:29)
[2016-12-04] MEDS: Furosemide 40 MG TABLET PO SCH (09:29)
[2016-12-04] MEDS: Nicotine 21 MG PATCH.TD24 TD SCH (13:29)
--- NOTE | 2016-12-04 17:35 | Internal Med Progress Note ---
Date of Encounter: 12/07/16 Time of Encounter: 17:33 - Assessment and plan (1) Pneumonia Current Visit: No Status: Acute Assessment and plan: Date 2: Ceftriaxone/azithromycin Also patient is on Clindamycin intravenously. Will continue same treatment. Monitor closely. If worsening then we will consider transfer to ICU 12/03/2016. Day 3 antibiotics. Patient feels better as compared to yesterday. Noted that there is a drop in the hemoglobin. Gastroenterology consult. Possible endoscopy tomorrow. 12/04/2016 Day 4 antibiotics. Scheduled for endoscopy tomorrow. Await for GI recommendation Qualifiers: Pneumonia type: due to unspecified organism Laterality: right Lung location: lower lobe of lung Qualified Code(s): J18.1 - Lobar pneumonia, unspecified organism (2) Rhabdomyolysis Current Visit: No Status: Acute Assessment and plan: Improving creatinine kinase Qualifiers: Rhabdomyolysis type: non-traumatic Qualified Code(s): M62.82 - Rhabdomyolysis (3) CAD (coronary artery disease), [place] coronary artery Current Visit: No Status: Chronic Assessment and plan: Stable for now Qualifiers: [place] vs. transplanted heart: [place] heart Associated angina: with unspecified angina Qualified Code(s): I25.119 - Atherosclerotic heart disease of [place] coronary artery with unspecified angina pectoris (4) CVA (cerebrovascular accident) Current Visit: Yes Status: Chronic Assessment and plan: Old CVA Qualifiers: CVA mechanism: other Qualified Code(s): I63.8 - Other cerebral infarction - Subjective Interval history: Patient seen and examined. Chart reviewed. Patient is comfortably lying in bed. Patient denies chest pain, short of breath, abdominal pain, vomiting and diarrhea. 12/03/2016. Seen and examined. Chart reviewed. Patient is lying in a bed. Patient denies chest pain, shortness of breath, abdominal pain, vomiting and diarrhea. 12/04/2016. Seen and examined. Chart reviewed. Patient denies cough/shortness of breath - Constitutional Vitals: Temp Pulse Resp BP Pulse Ox 97.9 F 58 18 101/69 95 12/04/16 16:18 12/04/16 16:18 12/04/16 16:37 12/04/16 16:18 12/04/16 16:37 General appearance: Present: cooperative, mild distress, A&O X 3, answers questions appropriately - Head Head exam: Present: atraumatic, normocephalic - Eye Eye exam: Present: PERRL, conjuntiva pink, sclera anicteric Pupils: Present: PERRL - Neck Neck exam general surgery: Present: supple, trachea midline. Absent: lymphadenopathy - Respiratory Respiratory exam: Present: CTAB. Absent: accessory muscle use, rales, rhonchi, wheezes - Cardiovascular Cardiovascular exam: Present: RRR, +S1, +S2. Absent: diastolic murmur, gallop, rubs, systolic murmur - GI/Abdominal GI/Abdominal exam: Present: normal bowel sounds, soft, no peritoneal signs. Absent: distended, tenderness - Extremities Exam Extremities exam: Present: warm, radial pulses palpable and symetrical. Absent : calf tenderness, cyanotic, pedal edema - Neurological Exam Neurological exam: Present: CN II-XII intact, oriented X3, no focal deficits. Absent: pronater drift, facial droop, speech deficit - Skin Skin exam: Present: dry, intact Internal Medicine: Result - Labs CBC & Chem 7: 12/06/16 05:27 12/06/16 05:27 - ABG Interpretation ABG results: PT/INR, D-dimer PT 15.0 Seconds (9.4-12.1) H 12/02/16 03:56 - VTE Documentation of Mechanical Device: Graduated compression elastic hosiery Consult Discharge Plan - Plan Instructions: Chest Pain (DC), Peripheral Vascular Disorders (DC), Chronic Dysphagia (DC), Anemia (GEN), Pneumonia (DC) Referrals: Toya Arvizu, BASKETBALL ASSEMBLER [Advanced Practice Nurse] - 12/12/16 10:15 am
[2016-12-04] MEDS: Pantoprazole 40 MG VIAL IVP SCH (18:32)
[2016-12-04] MEDS: Azithromycin 500 MG in D5% in Water 250 ML IVPB SCH (22:14)
[2016-12-05] MEDS: ALPRAZolam 1 MG TABLET PO PRN ×3 (02:14→20:22)
[2016-12-05] MEDS: *HR* OxyCODONE Immed Rel 5 MG TABLET PO PRN ×2 (03:12→18:06)
[2016-12-05] MEDS: Ipratropium/Albuterol Neb 3 ML IH SCH ×4 (04:24→21:52)
[2016-12-05] MEDS: Pantoprazole 40 MG VIAL IVP SCH ×2 (06:30→18:06)
[2016-12-05] MEDS: *HR* Enoxaparin 40 MG/0.4 ML SYRINGE SQ SCH (06:34)
[2016-12-05 07:28] LABS: Basophils % 0.2 %; Eosinophils % 0.4 %; Hematocrit 34.9 % (37.5-50.1); Hemoglobin 11.4 g/dL (12.9-16.9); Immature Granulocytes % 0.9 % (0-4); Lymphocytes % 20.9 %; Mean Corpuscular HGB Conc 32.7 g/dL (31.6-35.5); Mean Corpuscular Hemoglobin 32.4 pg (28.0-33.3); Mean Corpuscular Volume 99.1 fL (83.0-100.0); Mean Platelet Volume 9.5 fL (9.4-12.4); Monocytes # 0.5 K/mcL (0.0-1.3); Monocytes % 9.7 %; Neutrophils # 3.2 K/mcL (1.6-8.9); Platelet Count 157 K/mcL (140-400); Red Blood Count 3.52 M/mcL (4.19-5.50); Red Cell Distribution Width 13.7 % (11.5-14.5); Segmented Neutrophils % 67.9 %
[2016-12-05 07:45] LABS: Alanine Aminotransferase 13 Units/L (0-55); Albumin 3.1 g/dL (3.5-5.0); Albumin/Globulin Ratio 0.9 (1.1-2.2); Alkaline Phosphatase 51 Units/L (38-126); Aspartate Amino Transferase 13 Units/L (5-34); BUN/Creatinine Ratio 13 (6-26); Bilirubin,Total 0.5 mg/dL (0.2-1.2); Blood Urea Nitrogen 9 mg/dL (8-26); Calcium 8.5 mg/dL (8.6-10.8); Carbon Dioxide 24 mEq/L (19-29); Chloride 108 mEq/L (98-109); Globulin 3.4 g/dL (2.4-3.5); Glucose 85 mg/dL (70-99); Osmolality,Calculated 290 (280-300); Potassium 3.4 mEq/L (3.5-4.5); Sodium 141 mEq/L (136-145); Total Protein 6.5 g/dL (6.0-8.3); eGFR For African Americans > 60 (> 60); eGFR For Non-African Americans > 60 (> 60)
[2016-12-05] MEDS: Clindamycin 600 MG/50 ML 600 MG/50 ML IV.SOLN IVPB SCH ×2 (10:23→18:07)
[2016-12-05] MEDS ORDERED: SODIUM CHLORIDE/NAHCO3/KCL/PEG 4,000 ML SOLN.RECON PO ONE (14:07)
[2016-12-05] MEDS: Lactobacillus 1 EACH CAP.SPRINK PO SCH ×2 (14:23→20:22)
[2016-12-05] MEDS: Isosorbide MONOnitrate (24 HR) 30 MG TAB.ER.24H PO SCH (14:23)
[2016-12-05] MEDS: Aspirin Enteric Coated 325 MG Tablet PO SCH (14:24)
[2016-12-05] MEDS: Furosemide 40 MG TABLET PO SCH (14:24)
[2016-12-05] MEDS: predniSONE 20 MG TABLET PO SCH (14:24)
--- NOTE | 2016-12-05 18:01 | Internal Med Progress Note ---
Date of Encounter: 12/07/16 Time of Encounter: 18:00 - Assessment and plan (1) Pneumonia Current Visit: No Status: Acute Assessment and plan: Date 2: Ceftriaxone/azithromycin Also patient is on Clindamycin intravenously. Will continue same treatment. Monitor closely. If worsening then we will consider transfer to ICU 12/03/2016. Day 3 antibiotics. Patient feels better as compared to yesterday. Noted that there is a drop in the hemoglobin. Gastroenterology consult. Possible endoscopy tomorrow. 12/04/2016 Day 4 antibiotics. Scheduled for endoscopy tomorrow. Await for GI recommendation 12/05/2016 Day 5 antibiotics Was supposed to undergo for endoscopy today Scheduled for tomorrow. Qualifiers: Pneumonia type: due to unspecified organism Laterality: right Lung location: lower lobe of lung Qualified Code(s): J18.1 - Lobar pneumonia, unspecified organism (2) Rhabdomyolysis Current Visit: No Status: Acute Assessment and plan: Improving creatinine kinase Qualifiers: Rhabdomyolysis type: non-traumatic Qualified Code(s): M62.82 - Rhabdomyolysis (3) CAD (coronary artery disease), [place] coronary artery Current Visit: No Status: Chronic Assessment and plan: Stable for now Qualifiers: [place] vs. transplanted heart: [place] heart Associated angina: with unspecified angina Qualified Code(s): I25.119 - Atherosclerotic heart disease of [place] coronary artery with unspecified angina pectoris (4) CVA (cerebrovascular accident) Current Visit: Yes Status: Chronic Assessment and plan: Old CVA Qualifiers: CVA mechanism: other Qualified Code(s): I63.8 - Other cerebral infarction - Subjective Interval history: Patient seen and examined. Chart reviewed. Patient is comfortably lying in bed. Patient denies chest pain, short of breath, abdominal pain, vomiting and diarrhea. 12/03/2016. Seen and examined. Chart reviewed. Patient is lying in a bed. Patient denies chest pain, shortness of breath, abdominal pain, vomiting and diarrhea. 12/04/2016. Seen and examined. Chart reviewed. Patient denies cough/shortness of breath 12/05/2016 Seen and examined. chart reviewed. Patient denies any chest pain, shortness of breath, abdominal pain - Constitutional Vitals: Temp Pulse Resp BP Pulse Ox 98.2 F 71 16 135/86 96 12/05/16 14:39 12/05/16 14:39 12/05/16 16:17 12/05/16 14:39 12/05/16 16:17 General appearance: Present: cooperative, mild distress, A&O X 3, answers questions appropriately - Head Head exam: Present: atraumatic, normocephalic - Eye Eye exam: Present: PERRL, conjuntiva pink, sclera anicteric Pupils: Present: PERRL - Neck Neck exam general surgery: Present: supple, trachea midline. Absent: lymphadenopathy - Respiratory Respiratory exam: Present: CTAB. Absent: accessory muscle use, rales, rhonchi, wheezes - Cardiovascular Cardiovascular exam: Present: RRR, +S1, +S2. Absent: diastolic murmur, gallop, rubs, systolic murmur - GI/Abdominal GI/Abdominal exam: Present: normal bowel sounds, soft, no peritoneal signs. Absent: distended, tenderness - Extremities Exam Extremities exam: Present: warm, radial pulses palpable and symetrical. Absent : calf tenderness, cyanotic, pedal edema - Neurological Exam Neurological exam: Present: CN II-XII intact, oriented X3, no focal deficits. Absent: pronater drift, facial droop, speech deficit - Skin Skin exam: Present: dry, intact Internal Medicine: Result - Labs CBC & Chem 7: 12/06/16 05:27 12/06/16 05:27 Labs: Short CBC 12/05/16 Range/Units 06:12 WBC 4.6 (4.3-11.1) K/mcL Hgb 11.4 L (12.9-16.9) g/dL Hct 34.9 L (37.5-50.1) % Plt Count 157 (140-400) K/mcL Neutrophils # 3.2 (1.6-8.9) K/mcL BMP 12/05/16 06:12 Sodium 141 Potassium 3.4 L Chloride 108 Carbon Dioxide 24 BUN 9 Creatinine 0.72 Glucose 85 Calcium 8.5 L Liver Function 12/05/16 Range/Units 06:12 Total Bilirubin 0.5 (0.2-1.2) mg/dL AST 13 (5-34) Units/L ALT 13 (0-55) Units/L Alkaline Phosphatase 51 (38-126) Units/L Albumin 3.1 L (3.5-5.0) g/dL - ABG Interpretation ABG results: PT/INR, D-dimer PT 15.0 Seconds (9.4-12.1) H 12/02/16 03:56 - Impressions Impressions Chest CT 12/02/16 07:30 IMPRESSION: 1. Multilobar consolidations. In the proper clinical setting, finding is compatible with pneumonia. Recommend follow-up CT chest in three months to ensure complete resolution. 2. Evidence of prior granulomatous disease with calcified mediastinal and hilar lymph nodes. 3. Coronary artery disease. D/ / 12/02/2016 08:18:08 Toby Melchor MD / roz Interpreting Provider: Toby Melchor MD - VTE Documentation of Mechanical Device: Graduated compression elastic hosiery Consult Discharge Plan - Plan Instructions: Chest Pain (DC), Peripheral Vascular Disorders (DC), Chronic Dysphagia (DC), Anemia (GEN), Pneumonia (DC) Referrals: Toya Arvizu TRIMMING CUTTER MACHINE [Advanced Practice Nurse] - 12/12/16 10:15 am
[2016-12-05] MEDS ORDERED: Ondansetron 4 MG/2 ML VIAL IVP ONE (22:44)
[2016-12-05] MEDS: Azithromycin 500 MG in D5% in Water 250 ML IVPB SCH (22:53)
[2016-12-05] MEDS ORDERED: *HR* Promethazine 25 MG/ML VIAL IVP ONE (23:56)
[2016-12-06] MEDS: Clindamycin 600 MG/50 ML 600 MG/50 ML IV.SOLN IVPB SCH ×2 (00:25→08:09)
[2016-12-06] MEDS: Ipratropium/Albuterol Neb 3 ML IH SCH ×4 (04:13→22:31)
[2016-12-06] MEDS: ALPRAZolam 1 MG TABLET PO PRN ×3 (04:52→21:32)
[2016-12-06] MEDS: Pantoprazole 40 MG VIAL IVP SCH (04:54)
[2016-12-06 05:55] LABS: Basophils % 0.2 %; Eosinophils % 0.4 %; Hematocrit 34.9 % (37.5-50.1); Hemoglobin 11.7 g/dL (12.9-16.9); Immature Granulocytes % 1.4 % (0-4); Lymphocytes # 0.7 K/mcL (0.6-4.6); Lymphocytes % 12.8 %; Mean Corpuscular HGB Conc 33.5 g/dL (31.6-35.5); Mean Corpuscular Hemoglobin 32.5 pg (28.0-33.3); Mean Corpuscular Volume 96.9 fL (83.0-100.0); Mean Platelet Volume 9.5 fL (9.4-12.4); Monocytes # 0.5 K/mcL (0.0-1.3); Monocytes % 10.2 %; Neutrophils # 3.8 K/mcL (1.6-8.9); Nucleated Red Blood Cells 0.6 /100 WBC (0); Platelet Count 180 K/mcL (140-400); Red Cell Distribution Width 13.5 % (11.5-14.5)
[2016-12-06 06:19] LABS: Alanine Aminotransferase 19 Units/L (0-55); Albumin/Globulin Ratio 0.9 (1.1-2.2); Alkaline Phosphatase 52 Units/L (38-126); Aspartate Amino Transferase 17 Units/L (5-34); BUN/Creatinine Ratio 16 (6-26); Bilirubin,Total 0.7 mg/dL (0.2-1.2); Blood Urea Nitrogen 11 mg/dL (8-26); Calcium 8.2 mg/dL (8.6-10.8); Carbon Dioxide 22 mEq/L (19-29); Chloride 108 mEq/L (98-109); Globulin 3.4 g/dL (2.4-3.5); Glucose 103 mg/dL (70-99); Osmolality,Calculated 290 (280-300); Potassium 3.9 mEq/L (3.5-4.5); Sodium 140 mEq/L (136-145); Total Protein 6.4 g/dL (6.0-8.3); eGFR For African Americans > 60 (> 60); eGFR For Non-African Americans > 60 (> 60)
[2016-12-06] MEDS: *HR* OxyCODONE Immed Rel 5 MG TABLET PO PRN ×3 (08:09→23:48)
[2016-12-06] MEDS: predniSONE 20 MG TABLET PO SCH (08:10)
[2016-12-06] MEDS: Aspirin Enteric Coated 325 MG Tablet PO SCH (08:11)
[2016-12-06] MEDS: *HR* Enoxaparin 40 MG/0.4 ML SYRINGE SQ SCH (08:11)
[2016-12-06] MEDS: Lactobacillus 1 EACH CAP.SPRINK PO SCH ×2 (08:12→21:31)
[2016-12-06] MEDS: Furosemide 40 MG TABLET PO SCH (08:12)
[2016-12-06] MEDS: Isosorbide MONOnitrate (24 HR) 30 MG TAB.ER.24H PO SCH (08:12)
--- NOTE | 2016-12-06 10:14 | Anesthesia Evaluation PreOp ---
Date of Encounter: 12/06/16 Time of Encounter: 10:12 - Past History Planned Operation: EGD/Colonoscopy Cardiac History: VT, HTN (maintained on Metoprolol, Lasix, Lisinopril), Hyperlipidemia (statins held re: statin induced Rhabdomyolysis), Arrhythmia ( Paroxysmal AFib (NO anticoagulation re: Fall risk)), Cardiac Surgery (CABG x 3v 2004), Cardiac Stent (Stents x 5, last stent 2005. Maintained on ASA, Plavix), Other (CAD) Pulmonary History: Denies Any Significant HX, Other (Recent hx of RLL Pneumonia - currently tx w/ Ceftiraxone & Clindamycin) HEEL TURNER History: CVA (initial CVA approximately 6 wks ago. Followed by more severe CVA approximately 2 wks ago. Admitted here 12/01/16 w/ RLL from Rehab facility w/ dx of RLL pneumonia. DEFICITS = L-Hemiparesiis, Dysarthria, Paresthesias), TIA, Other (Failed back syndrome, Post-Laminectomy syndrome, Chronic pain syndrome. Anxiety/Depression) Other Medical History: Denies Any Significant HX Anesthesia History: No Prior Anesthetic Complications, Past Anesthesia (CABG x 3v. [facility], Orthopedic) Alcohol Use: none Drug use: none Medications and Allergies Atorvastatin [Lipitor] 40 mg PO HS 11/01/16 [History] Clopidogrel [Plavix] 75 mg PO DAILY 11/01/16 [History] Furosemide [Lasix] 40 mg PO DAILY 11/01/16 [History] Isosorbide MONOnitrate (24 HR) [Imdur] 30 mg PO DAILY 11/01/16 [History] Nitroglycerin 0.4 mg SL Q5MIN PRN #30 tab.subl 11/05/16 [Rx] Alprazolam [Xanax 1 MG Tablet] 1 mg PO BID PRN 12/02/16 [History] Aspirin 325 mg PO DAILY 12/02/16 [History] Lisinopril [Zestril] 5 mg PO DAILY 12/02/16 [History] Metoprolol [Lopressor] 25 mg PO BID 12/02/16 [History] Allergies simvastatin [From Zocor] Allergy (Verified 12/02/16 14:39) Rash Zolpidem [From Ambien] Allergy (Verified 12/02/16 14:39) Confusion ondansetron [From Zofran (as hydrochloride)] Adverse Reaction (Verified 14:39) Vomiting - Meds/Allergy Pre-op Review Medications Reviewed: Yes Allergies Reviewed: Yes Beta Blockers on Current Med List: Yes If Beta Blockers taken, Date/Time (Last Dose taken): 12/06/16 @ 0812 Anesthesia Results - Labs 12/06/16 05:27 12/06/16 05:27 Laboratory Tests 12/02/16 12/02/16 12/02/16 03:56 03:56 03:56 WBC Hgb Hct Plt Count PT 15.0 H INR 1.4 APTT 22.0 L Sodium Potassium Chloride Carbon Dioxide BUN Creatinine Est GFR ( Amer) Glucose Est Mean Plasma Glucose Calcium Ionized Calcium Phosphorus 2.1 L B-Natriuretic Peptide 102 H 12/02/16 12/02/16 12/06/16 03:56 03:56 05:27 WBC 5.1 Hgb 11.7 L Hct 34.9 L Plt Count 180 PT INR APTT Sodium Potassium Chloride Carbon Dioxide BUN Creatinine Est GFR ( Amer) Glucose Est Mean Plasma Glucose 88 Calcium Ionized Calcium 0.58 L Phosphorus B-Natriuretic Peptide 12/06/16 05:27 WBC Hgb Hct Plt Count PT INR APTT Sodium 140 Potassium 3.9 Chloride 108 Carbon Dioxide 22 BUN 11 Creatinine 0.70 L Est GFR ( Amer) > 60 Glucose 103 H Est Mean Plasma Glucose Calcium 8.2 L Ionized Calcium Phosphorus B-Natriuretic Peptide Laboratory Results Impressions Chest CT 12/02/16 07:30 IMPRESSION: 1. Multilobar consolidations. In the proper clinical setting, finding is compatible with pneumonia. Recommend follow-up CT chest in three months to ensure complete resolution. 2. Evidence of prior granulomatous disease with calcified mediastinal and hilar lymph nodes. 3. Coronary artery disease. D/ / 12/02/2016 08:18:08 Toby Melchor MD / roz Interpreting Provider: Toby Melchor MD Videofluoroscopic Swallow 12/02/16 23:24 IMPRESSION: Swallowing mechanism grossly within normal limits without evidence of aspiration. Please see separate speech pathology report for full discussion of findings and recommendations. D/ / Norris Houston MD / Norris Houston MD Interpreting Provider: Norris Houston MD - Imaging EKG: image reviewed Anesthesia Exam Vital Signs Temp Pulse Resp BP Pulse Ox 12/06/16 08:29 99 12/06/16 07:29 97.7 F 51 16 106/78 99 12/06/16 04:58 97.6 F 66 107/70 12/06/16 04:14 18 95 12/05/16 21:53 18 96 12/05/16 20:32 97.7 F 72 18 120/76 97 12/05/16 16:17 16 96 12/05/16 14:39 98.2 F 71 16 135/86 97 12/05/16 10:41 14 98 Intake and Output 12/05/16 12/06/16 12/06/16 23:59 07:59 15:59 Intake Total 510 / 510 400 / 400 Output Total 0 / 0 Balance 510 / 510 400 / 400 Intake: IV Fluids 150 / 150 400 / 400 Zithromax 500 mg In 250 / 250 Dextrose 5% 250 ML @ 252 mls/hr IVPB Q24H [facility] Rx#: [id number] Rocephin 1,000 MG In 100 / 100 100 / 100 Dextrose 5% (Minibag+) 100 ML 100 ML @ 200 mls/ hr IVPB Q12HR [facility] Rx#: [id number] Cleocin Premix 600 MG/50 50 / 50 50 / 50 ML 600 mg In 50 ml @ 50 mls/hr IVPB Q8HR [facility] Rx#: [id number] Oral 360 / 360 0 / 0 Output: Urine 0 / 0 Other: Stool Size Moderate Stool Consistency liquid Stool Color Brown # Voids 1 Weight 88.3 kg Patient Weight 12/06/16 23:59 Weight 88.3 kg Height: 6'0 Weight: 194# bmi = 26 NPO (# of Hours): mnoC - HEENT Pupil (Motor): Pupils equal, EOMI Mallampati: II Teeth: Edentulous Oral Opening: Greater than 3 - HEEL TURNER LOC: Oriented HEEL TURNER Motor: Normal RUE, Normal Face, Deficit LUE (L-sided hemiparesis), Deficit LLE HEEL TURNER Sensory: Normal: RUE, Face, Deficit: LUE, LLE - Cardiac Rhythm: Irregular Murmur: Systolic JVD: No - Pulmonary Breath Sounds: bilateral Clear Respiratory Effort: Symmetrical Anesthesia Assess/Plan ASA Score: 4 (recent CVA, CAD, Paroxysmal AFib, COPD, Pneumonia, deconditioned state [re: prolonged hospitalization]) Modified Arian Scale for Level of Consciousness: Cooperative, oriented, and tranquil Anesthetic Plan: General Monitoring Plan: Standard Monitors Recovery Plan: PACU Anes Supervising Prov Stmt: Pt seen/evaluated, R&B discussed, questions answered and consent obtained. Priscilla Brand MD
--- NOTE | 2016-12-06 11:22 | Gastroenterology Consult Note ---
<Gilmar Bailey - Last Filed: 12/06/16 11:20> Date of Encounter: 12/06/16 Time of Encounter: 10:15 - Assessment and plan (1) Dysphagia Current Visit: Yes Status: Acute Assessment and plan: Pt with difficulty swallowing solids. Modified barium swallow study grossly within normal limits. Plan for EGD today with possible dilation. Qualifiers: Dysphagia type: unspecified Qualified Code(s): R13.10 - Dysphagia, unspecified (2) Anemia Current Visit: Yes Status: Acute Assessment and plan: Continue to monitor CBC and transfuse PRBC as needed. Plan for EGD and colonoscopy today. Keep NPO for scopes. Qualifiers: Qualified Code(s): D64.9 - Anemia, unspecified (3) Pneumonia Current Visit: No Status: Acute Assessment and plan: Management per primary team. Qualifiers: Pneumonia type: due to unspecified organism Laterality: right Lung location: lower lobe of lung Qualified Code(s): J18.1 - Lobar pneumonia, unspecified organism - Time Spent With Patient Total time spent is greater than 50% in coordination of care (as documented) at patient's floor/unit and/or counseling patient: GI History of Present Illness - Data of Consult Patient: new to practice Consult date: 12/06/16 Requesting Physician: Jase Rodarte MD - Consult Narrative Reason for consult: ?GI bleed History of present illness: Mr. Melcohr is a 61 year old male with PMHx of arthritis, Afib on Plavix, cardiomyopathy, CHF, COPD, CAD, CVA, GERD, HLD, HTN, PR, and TIA who was transferred here with fever and generalized weakness and pneumonia. He was started on IV antibiotics. He was recently discharged from rehab facility 4 days prior to admission. He was at the rehab facility following CVA with left side hemiparesis. He reports dysphagia with solids since his CVA. He states he was having dark black stools 2-3 weeks ago. His Hgb was 13.3 on 12/01 and dropped to 10.2 on 12/03, today Hgb is 11.7. We were consulted for possible GI bleed. Procedures: None NSAIDs: None Anticoagulation: Plavix Past Med Surg Social Fam HX - Past Medical History Medical history: arthritis, atrial fibrillation, cardiomyopathy, CHF, COPD, coronary artery disease, CVA, GERD, hyperlipidemia, hypertension, myocardial infarction, osteoporosis, peripheral artery disease, syncope, TIA, other Psychiatric history: anxiety, depression, other - Past Surgical History Surgical History: angioplasty/stent, cholecystectomy, coronary bypass (CABG), orthopedic, other, other - Social History Smoking Status: Never smoker Smokeless Tobacco Status: No Alcohol use: none Drug use: none - Family History Son Hx Family Cardiac Disorders: Yes Mother Adopted: No Family Member Ethnicity: Non- Living Status: Hx Family Cardiac Disorders: Yes Hx Family Respiratory Disorders: No Hx Family Cancer: No Hx Family GI Disorders: No Hx Family Endocrine Disorder: Yes (DM) Hx Family Neuromuscular Disorders: No Hx Family Neurologic Disorders: No Hx Family HEENT Disorders: No Hx Family Autoimmune Disorders: No Father Living Status: Hx Family Cardiac Disorders: Yes (PR) Hx Family Respiratory Disorders: Yes (COPD) Hx Family Cancer: No Hx Family GI Disorders: No Hx Family Endocrine Disorder: No Hx Family Neuromuscular Disorders: No Hx Family Neurologic Disorders: No Hx Family HEENT Disorders: No Hx Family Autoimmune Disorders: No - Gastrointestinal Gastrointestinal: Present: as per HPI - Constitutional Constitutional: as per HPI - EENT Eyes: as per HPI Ears: Present: as per HPI Nose, mouth and throat: Present: as per HPI - Cardiovascular Cardiovascular ROS: Present: as per HPI - Respiratory Respiratory IM: Present: as per HPI - Genitourinary Genitourinary: Absent: change in color, Urinary frequency - Neurological ROS Neurological GI: Present: as per HPI - Hematologic/Lymphatic Hematologic/Lymphatic pediatric: Present: as per HPI - Musculoskeletal Musculoskeletal ROS GI: Present: as per HPI - Integumentary Integumentary GI: Present: as per HPI - Psychiatric ROS Psychiatric GI: Present: as per HPI - Endocrine Endocrine IM: Present: as per HPI - Constitutional Vitals: Temp Pulse Resp BP Pulse Ox 97.7 F 51 16 106/78 99 12/06/16 07:29 12/06/16 07:29 12/06/16 07:29 12/06/16 07:29 12/06/16 08:29 General appearance: Present: cooperative, A&O X 3, no acute distress, answers questions appropriately - Head Head exam: Present: atraumatic, normocephalic - Eye Eye exam: Present: normal appearance, sclera anicteric - ENT ENT exam: Present: mucous membranes dry - Neck Neck exam general surgery: Present: normal inspection, trachea midline - Respiratory Respiratory exam: Present: CTAB. Absent: rales, rhonchi, wheezes - Cardiovascular Cardiovascular exam: Present: RRR, +S1, +S2 - GI/Abdominal GI/Abdominal exam: Present: soft, no peritoneal signs. Absent: distended, firm , guarding, tenderness - Rectal Rectal exam: Present: deferred - Extremities Exam Extremities exam: Present: warm - Neurological Exam Neurological exam: Present: no focal deficits - Psychiatric Psychiatric exam: Present: normal affect, normal mood - Skin Skin exam: Present: dry, intact, normal color, warm Results - Labs CBC & Chem 7: 12/06/16 05:27 12/06/16 05:27 Labs: Last Result ESR 50 mm/hr (0-10) H 12/01/16 22:24 Calcium 8.2 mg/dL (8.6-10.8) L 12/06/16 05:27 Troponin I 0.00 ng/mL (0-0.03) 12/02/16 12:28 C-Reactive Protein 186 mg/L (Less than 5) H 12/01/16 22:24 Triglycerides 45 mg/dL (< 150) 12/02/16 03:56 Entire Visit Hgb 11.7 g/dL (12.9-16.9) L 12/06/16 05:27 Hct 34.9 % (37.5-50.1) L 12/06/16 05:27 PT 15.0 Seconds (9.4-12.1) H 12/02/16 03:56 Total Bilirubin 0.7 mg/dL (0.2-1.2) 12/06/16 05:27 AST 17 Units/L (5-34) 12/06/16 05:27 ALT 19 Units/L (0-55) 12/06/16 05:27 - ABG ABG results: PT/INR, D-dimer PT 15.0 Seconds (9.4-12.1) H 12/02/16 03:56 Consult Discharge Plan - Plan Referrals: Toya Arvizu, DIRECTOR BIOMEDICAL ENGINEERING [Advanced Practice Nurse] - 12/12/16 10:15 am <Jt Ji - Last Filed: 12/06/16 12:10> Date of Encounter: 12/06/16 Time of Encounter: 10:00 - Time Spent With Patient Total time spent is greater than 50% in coordination of care (as documented) at patient's floor/unit and/or counseling patient: GI History of Present Illness - Data of Consult Requesting Physician: Jase Rodarte MD - Consult Narrative History of present illness: Mr. Melchor is a 61 year old male - Constitutional Vitals: Temp Pulse Resp BP Pulse Ox 97.9 F 56 16 100/71 97 12/06/16 11:33 12/06/16 11:33 12/06/16 11:33 12/06/16 11:33 12/06/16 11:33 Results - Labs CBC & Chem 7: 12/06/16 05:27 12/06/16 05:27 Labs: Last Result ESR 50 mm/hr (0-10) H 12/01/16 22:24 Calcium 8.2 mg/dL (8.6-10.8) L 12/06/16 05:27 Troponin I 0.00 ng/mL (0-0.03) 12/02/16 12:28 C-Reactive Protein 186 mg/L (Less than 5) H 12/01/16 22:24 Triglycerides 45 mg/dL (< 150) 12/02/16 03:56 Entire Visit Hgb 11.7 g/dL (12.9-16.9) L 12/06/16 05:27 Hct 34.9 % (37.5-50.1) L 12/06/16 05:27 PT 15.0 Seconds (9.4-12.1) H 12/02/16 03:56 Total Bilirubin 0.7 mg/dL (0.2-1.2) 12/06/16 05:27 AST 17 Units/L (5-34) 12/06/16 05:27 ALT 19 Units/L (0-55) 12/06/16 05:27 - ABG ABG results: PT/INR, D-dimer PT 15.0 Seconds (9.4-12.1) H 12/02/16 03:56 - Attending Attestation I examined this patient and my medical decision-making was reviewed with the FERMENTATION SCIENTIST/PA/Advanced Practice Nurse/Resident Physician. I agree with the documented findings, disposition and treatment plan as described except to the extent set forth below.
[2016-12-06] MEDS ORDERED: *HR* Promethazine 25 MG/ML VIAL IVP PRN (12:02)
--- NOTE | 2016-12-06 17:22 | Internal Med Progress Note ---
Date of Encounter: 12/07/16 Time of Encounter: 17:22 - Assessment and plan (1) Pneumonia Current Visit: No Status: Acute Assessment and plan: Date 2: Ceftriaxone/azithromycin Also patient is on Clindamycin intravenously. Will continue same treatment. Monitor closely. If worsening then we will consider transfer to ICU 12/03/2016. Day 3 antibiotics. Patient feels better as compared to yesterday. Noted that there is a drop in the hemoglobin. Gastroenterology consult. Possible endoscopy tomorrow. 12/04/2016 Day 4 antibiotics. Scheduled for endoscopy tomorrow. Await for GI recommendation 12/05/2016 Day 5 antibiotics Was supposed to undergo for endoscopy today Scheduled for tomorrow. 12/06/2016 D6 antibiotics. Endoscopy: EGD/colonoscopy completed. We will follow GI recommendations. Possible home tomorrow. Qualifiers: Pneumonia type: due to unspecified organism Laterality: right Lung location: lower lobe of lung Qualified Code(s): J18.1 - Lobar pneumonia, unspecified organism (2) Rhabdomyolysis Current Visit: No Status: Acute Assessment and plan: Improving creatinine kinase Qualifiers: Rhabdomyolysis type: non-traumatic Qualified Code(s): M62.82 - Rhabdomyolysis (3) CAD (coronary artery disease), [place] coronary artery Current Visit: No Status: Chronic Assessment and plan: Stable for now Qualifiers: [place] vs. transplanted heart: [place] heart Associated angina: with unspecified angina Qualified Code(s): I25.119 - Atherosclerotic heart disease of [place] coronary artery with unspecified angina pectoris (4) CVA (cerebrovascular accident) Current Visit: Yes Status: Chronic Assessment and plan: Old CVA Qualifiers: CVA mechanism: other Qualified Code(s): I63.8 - Other cerebral infarction - Subjective Interval history: Patient seen and examined. Chart reviewed. Patient is comfortably lying in bed. Patient denies chest pain, short of breath, abdominal pain, vomiting and diarrhea. 12/03/2016. Seen and examined. Chart reviewed. Patient is lying in a bed. Patient denies chest pain, shortness of breath, abdominal pain, vomiting and diarrhea. 12/04/2016. Seen and examined. Chart reviewed. Patient denies cough/shortness of breath 12/05/2016 Seen and examined. chart reviewed. Patient denies any chest pain, shortness of breath, abdominal pain 12/06/2016 Seen and examined. Chart reviewed. Patient denies chest pain, shortness of breath, vomiting and diarrhea. - Constitutional Vitals: Temp Pulse Resp BP Pulse Ox 98.1 F 85 20 101/97 93 12/06/16 15:41 12/06/16 15:41 12/06/16 16:37 12/06/16 15:41 12/06/16 16:37 General appearance: Present: cooperative, mild distress, A&O X 3, answers questions appropriately - Head Head exam: Present: atraumatic, normocephalic - Eye Eye exam: Present: PERRL, conjuntiva pink, sclera anicteric Pupils: Present: PERRL - Neck Neck exam general surgery: Present: supple, trachea midline. Absent: lymphadenopathy - Respiratory Respiratory exam: Present: CTAB. Absent: accessory muscle use, rales, rhonchi, wheezes - Cardiovascular Cardiovascular exam: Present: RRR, +S1, +S2. Absent: diastolic murmur, gallop, rubs, systolic murmur - GI/Abdominal GI/Abdominal exam: Present: normal bowel sounds, soft, no peritoneal signs. Absent: distended, tenderness - Extremities Exam Extremities exam: Present: warm, radial pulses palpable and symetrical. Absent : calf tenderness, cyanotic, pedal edema - Neurological Exam Neurological exam: Present: CN II-XII intact, oriented X3, no focal deficits. Absent: pronater drift, facial droop, speech deficit - Skin Skin exam: Present: dry, intact Internal Medicine: Result - Labs CBC & Chem 7: 12/06/16 05:27 12/06/16 05:27 Labs: Short CBC 12/06/16 Range/Units 05:27 WBC 5.1 (4.3-11.1) K/mcL Hgb 11.7 L (12.9-16.9) g/dL Hct 34.9 L (37.5-50.1) % Plt Count 180 (140-400) K/mcL Neutrophils # 3.8 (1.6-8.9) K/mcL BMP 12/06/16 05:27 Sodium 140 Potassium 3.9 Chloride 108 Carbon Dioxide 22 BUN 11 Creatinine 0.70 L Glucose 103 H Calcium 8.2 L Liver Function 12/06/16 Range/Units 05:27 Total Bilirubin 0.7 (0.2-1.2) mg/dL AST 17 (5-34) Units/L ALT 19 (0-55) Units/L Alkaline Phosphatase 52 (38-126) Units/L Albumin 3.0 L (3.5-5.0) g/dL - ABG Interpretation ABG results: PT/INR, D-dimer PT 15.0 Seconds (9.4-12.1) H 12/02/16 03:56 - VTE Documentation of Mechanical Device: Graduated compression elastic hosiery Consult Discharge Plan - Plan Instructions: Chest Pain (DC), Peripheral Vascular Disorders (DC), Chronic Dysphagia (DC), Anemia (GEN), Pneumonia (DC) Referrals: Toya Arvizu, ELECTRICAL ENGINEERING PROFESSOR [Advanced Practice Nurse] - 12/12/16 10:15 am
[2016-12-06] MEDS ORDERED: Azithromycin 250 MG TABLET PO SCH (22:00)
[2016-12-07] MEDS: Ipratropium/Albuterol Neb 3 ML IH SCH (04:35)
[2016-12-07] MEDS: *HR* Enoxaparin 40 MG/0.4 ML SYRINGE SQ SCH (06:18)
[2016-12-07] MEDS: ALPRAZolam 1 MG TABLET PO PRN (06:18)
[2016-12-07 08:07] VITALS: BP 103/75
[2016-12-07] MEDS: *HR* OxyCODONE Immed Rel 5 MG TABLET PO PRN (09:10)
[2016-12-07] MEDS: Lactobacillus 1 EACH CAP.SPRINK PO SCH (09:11)
[2016-12-07] MEDS: Aspirin Enteric Coated 325 MG Tablet PO SCH (09:11)
[2016-12-07] MEDS: Isosorbide MONOnitrate (24 HR) 30 MG TAB.ER.24H PO SCH (09:11)
[2016-12-07] MEDS: Furosemide 40 MG TABLET PO SCH (09:11)
[2016-12-07] MEDS: predniSONE 20 MG TABLET PO SCH (09:12)
--- NOTE | 2016-12-07 10:47 | Discharge Summary ---
Date of Encounter: 12/07/16 Time of Encounter: 10:44 - Discharge Diagnosis (1) Pneumonia Priority: Primary Status: Acute Qualifiers: Pneumonia type: due to unspecified organism Laterality: right Lung location: lower lobe of lung Qualified Code(s): J18.1 - Lobar pneumonia, unspecified organism (2) Rhabdomyolysis Priority: Secondary Status: Acute Qualifiers: Rhabdomyolysis type: non-traumatic Qualified Code(s): M62.82 - Rhabdomyolysis (3) CAD (coronary artery disease), [place] coronary artery Priority: Secondary Status: Chronic Qualifiers: [place] vs. transplanted heart: [place] heart Associated angina: with unspecified angina Qualified Code(s): I25.119 - Atherosclerotic heart disease of [place] coronary artery with unspecified angina pectoris (4) CVA (cerebrovascular accident) Priority: Secondary Status: Chronic Qualifiers: CVA mechanism: other Qualified Code(s): I63.8 - Other cerebral infarction - Discharge Medications Prescriptions: Amoxicillin/Clavulanate [Augmentin] 875 mg PO BIDWM #4 tablet Home Medications: Atorvastatin [Lipitor] 40 mg PO HS 11/01/16 [History] Clopidogrel [Plavix] 75 mg PO DAILY 11/01/16 [History] Furosemide [Lasix] 40 mg PO DAILY 11/01/16 [History] Isosorbide MONOnitrate (24 HR) [Imdur] 30 mg PO DAILY 11/01/16 [History] Nitroglycerin 0.4 mg SL Q5MIN PRN #30 tab.subl 11/05/16 [Rx] Alprazolam [Xanax 1 MG Tablet] 1 mg PO BID PRN 12/02/16 [History] Aspirin 325 mg PO DAILY 12/02/16 [History] Lisinopril [Zestril] 5 mg PO DAILY 12/02/16 [History] Metoprolol [Lopressor] 25 mg PO BID 12/02/16 [History] Amoxicillin/Clavulanate [Augmentin] 875 mg PO BIDWM #4 tablet 12/07/16 [Rx] Allergies/Adverse Reactions: Allergies simvastatin [From Zocor] Allergy (Verified 12/02/16 14:39) Rash Zolpidem [From Ambien] Allergy (Verified 12/02/16 14:39) Confusion ondansetron [From Zofran (as hydrochloride)] Adverse Reaction (Verified 14:39) Vomiting Date of admission: 12/01/16 19:46 Primary care physician: PCP NO Consults: 12/01/16 21:42 Consult to Nurse Navigator [CONS] Routine Comment: 12/01/16 23:25 Consult to Physical Therapy [CONS] Routine Comment: Evaluate, develop and implement POC OT [Consult to Occupational Therapy] [CONS] Routine Comment: Evaluate, develop and implement POC 12/05/16 14:15 Consult to Gastroenterology [CONS] Routine Consulting Provider: Gastroenterology Karissa Reason for Consult: ?GI bleed Call Completed: Yes Discharging clinician: Jase Rodarte - Patient Status Disposition: Home, Self-Care Condition: Good Functional capacity at discharge: independent ambulation Overall status at discharge: patient is progressing back to baseline - Discharge Instructions Instructions: Chest Pain (DC), Peripheral Vascular Disorders (DC), Chronic Dysphagia (DC), Anemia (GEN), Pneumonia (DC) Follow Up With: Toya Arvizu CNP [Advanced Practice Nurse] - 12/12/16 10:15 am Jt Ji MD [Partnered Physician] - - Diet and Activity Activity: as per the cardiac rehab, as per physical therapy Diet: low fat, low cholesterol, low salt diet Interval History: Mr. Melchor is a 61 year old male with history significant for H/O CVAs/TIAs/ left hemiparisis/dysarthria/paresthesias/gait disturbance, hypertension, dyslipidemia, PAF (no chr A/C due to fall risk), PAD, CAD/PTCAstentsx5/SZPYf7y/ AMIs, major depression/generalized anxiety, OA/OP, multilevel DDD spine/diffuse DJD, failed back/postlaminectomy syndrome, chronic pain syndrome/persona, COPD, GERD, nonsmoker, etc.. The patient is received as a hospital transfer from [facility] ED with patient presented with complaints of fever or generalized weakness. Reportedly one day history of a feeling of feverishness chills loss of appetite malaise and weakness seemingly acute in onset. She was most apparent that the night prior to presentation. Denied any upper respiratory complaints urinary symptoms diarrhea for throat sinus congestion or cutaneous wounds or injury. He reports being recently discharged from rehabilitation facility 4 days earlier. He was enrolled following CVA with worsening left-sided hemiparesis. He denies any recent falls or trauma. Hospital course: Patient was hospitalized present started on IV steroids/IV antibiotics/ bronchodilator. Patient responded to this treatment extremely well. Noted that patient had a drop in his hemoglobin. Patient underwent EGD/colonoscopy. No obvious lesion was noted. Patient responded to antibiotics well. Plan Patient will be discharged today. Patient will be follow-up with gastroenterology. Patient will be follow-up with primary care doctor. QUESTIONS answered. At the time of discharge patient does not have questions, concerns, updated, and recommendations. - Time Spent with Patient Total time spent providing and/or coordinating discharge services: - Constitutional Vitals: Temp Pulse Resp BP Pulse Ox 97.7 F 68 16 103/75 98 12/07/16 07:30 12/07/16 07:30 12/07/16 07:30 12/07/16 07:30 12/07/16 07:30 General appearance: Present: cooperative, mild distress, A&O X 3, answers questions appropriately - Head Head exam: Present: atraumatic, normocephalic - Eye Eye exam: Present: PERRL, conjuntiva pink, sclera anicteric Pupils: Present: PERRL - Neck Neck exam general surgery: Present: supple, trachea midline. Absent: lymphadenopathy - Respiratory Respiratory exam: Present: CTAB. Absent: accessory muscle use, rales, rhonchi, wheezes - Cardiovascular Cardiovascular exam: Present: RRR, +S1, +S2. Absent: diastolic murmur, gallop, rubs, systolic murmur - GI/Abdominal GI/Abdominal exam: Present: normal bowel sounds, soft, no peritoneal signs. Absent: distended, tenderness - Extremities Exam Extremities exam: Present: warm, radial pulses palpable and symetrical. Absent : calf tenderness, cyanotic, pedal edema - Neurological Exam Neurological exam: Present: CN II-XII intact, oriented X3, no focal deficits. Absent: pronater drift, facial droop, speech deficit - Skin Skin exam: Present: dry, intact - VTE Documentation of Mechanical Device: Graduated compression elastic hosiery
== END 2016-12-07 13:15 | disposition home or self-care (01) ==
LOC: 2NENU
PROVIDERS: ADMIT Hospitalist; ATTEND Internal Medicine

== ENCOUNTER 2017-02-17 03:39 | Observation (INO) ==
--- NOTE | 2017-02-17 03:58 | Emergency Department Note ---
Disposition Clinical Impression: Acute left-sided weakness Chest pain Qualifiers: Chest pain type: unspecified Qualified Code(s): R07.9 - Chest pain, unspecified Disposition: Admitted As Inpatient Condition: Fair Referrals: Unassigned,Provider [Non-Partnered Physician] - Time of Disposition: 05:04 General Adult HPI - General Stated complaint: chest pain/dizziness Time Seen by Provider: 02/17/17 03:50 Source: patient Mode of arrival: ambulatory Limitations: no limitations Nursing Notes Reviewed: Yes Vital Signs Reviewed: Yes - History of Present Illness HPI Narrative: Alert and oriented 61-year-old male presents for a chief complaint of chest pain that awoke him from his sleep at approximately 023 hours this morning. The patient complains of substernal/left-sided chest pain that radiates into his left neck and left shoulder blade. He took 2 325 mg aspirin tablets at home as well as 2 sublingual nitroglycerin tablets. He states that he did have mild relief with the nitroglycerin tablets. He also complains of being nauseated, and was diaphoretic at the time of being awoken for symptoms. He also complains of a right-sided sharp headache as well as left-sided numbness and tingling. He states that he feels as though he cannot quite get out the words that he wants to say. He feels as though his speech is somewhat slurred. He does have a history of a prior CVA, however states no residual effects. Pt Subjective Complaint: chest pain/dizziness/headache Onset (ago): hour(s) (0230) Location: head, chest Radiation: neck, extremity (left shoulder) Pain Severity: severe Pain Scale: 8 Quality: other (pressure) Consistency: constant Improves with: other (nitroglycerin) Worsens with: nothing Associated symptoms: Reports: confusion, other (slurred speach) Treatments Prior to Arrival: Aspirin ([id number] tab), other (Nitro SL x 2 tabs) - Related Data Home Medications Medication Instructions Recorded Confirmed Atorvastatin [Lipitor] 40 mg PO HS 11/01/16 01/14/17 Clopidogrel [Plavix] 75 mg PO DAILY 11/01/16 01/14/17 Furosemide [Lasix] 40 mg PO DAILY 11/01/16 01/14/17 Isosorbide MONOnitrate (24 HR) 30 mg PO DAILY 11/01/16 01/14/17 [Imdur] ALPRAZolam [Xanax 1 MG Tablet] 1 mg PO BID PRN 12/02/16 01/14/17 Aspirin 325 mg PO DAILY 12/02/16 01/14/17 Lisinopril [Zestril] 5 mg PO DAILY 12/02/16 01/14/17 Metoprolol [Lopressor] 25 mg PO BID 12/02/16 01/14/17 Previous Rx's Medication Instructions Recorded Nitroglycerin 0.4 mg SL Q5MIN PRN #30 tab.subl 11/05/16 LORazepam [Ativan] 1 mg PO TID PRN #10 tablet 01/14/17 OxyCODONE/APAP 10/325 [Percocet 1 each PO Q6HR PRN #12 tablet 01/31/17 10/325 MG] Allergies Allergy/AdvReac Type Severity Reaction Status Date / Time simvastatin [From Zocor] Allergy Rash Verified 01/31/17 12:07 Zolpidem [From Ambien] Allergy Confusion Verified 01/31/17 12:07 ondansetron AdvReac Vomiting Verified 01/31/17 12:07 [From Zofran (as hydrochloride)] All systems ED: reviewed and negative except as stated. Constitutional: Reports: other (diaphoresis). Denies: fever, chills, weakness, weight change Eyes: Denies: eye pain, eye discharge, vision change ENT ED: Denies: ear pain, throat pain, dental pain, hearing loss, epistaxis, congestion, dysphagia Cardiovascular: Reports: as per HPI, chest pain. Denies: palpitations, dyspnea on exertion, edema, syncope Respiratory: Reports: as per HPI, dyspnea. Denies: cough, wheezes, hemoptysis, stridor Gastrointestinal: Reports: as per HPI, nausea. Denies: abdominal pain, vomiting , diarrhea, constipation, hematemesis, melena, hematochezia Genitourinary: Denies: urgency, dysuria, frequency, hematuria Musculoskeletal: Denies: back pain, neck pain, arthralgia, myalgia Integumentary: Denies: rash, abrasion, lesions Neurological: Reports: as per HPI, headache, weakness (left sided), numbness ( left sided). Denies: paresthesias, confusion, abnormal gait, vertigo Psychiatric: Denies: anxiety, depression, suicidal thoughts, homicidal thoughts , auditory hallucinations, visual hallucinations Endocrine: Denies: fatigue Hematological/Lymphatic: Denies: easy bleeding, easy bruising Allergic/Immunologic: Denies: facial swelling, urticaria Past Medical History - Past Medical History Attestation: Yes The following information was validated with the patient. Source: patient, nursing notes reviewed Medical history: Reports: arthritis, atrial fibrillation, cardiomyopathy, CHF, COPD, coronary artery disease, CVA, GERD, hyperlipidemia, hypertension, myocardial infarction, osteoporosis, peripheral artery disease, syncope, TIA, other Surgical history: Reports: angioplasty/stent, cholecystectomy, coronary bypass ( CABG), orthopedic, other, other Psychiatric history: Reports: anxiety, depression, other - Social History Smoking Status: Never smoker Smokeless Tobacco Status: Yes Alcohol use: Reports: none Drug use: Reports: none Physical Exam - General Limitations: no limitations General appearance: alert - Head Head exam: atraumatic, normocephalic, normal inspection - Eye Eye exam: Present: normal appearance, PERRL, EOMI, nystagmus - Expanded Eye Exam Pupils: Bilateral: regular, round, reactive, size (2) - ENT ENT exam: mucous membranes moist - Neck Neck exam: Present: normal inspection, full ROM, trachea midline - Chest Chest inspection: Present: normal inspection, symmetric chest wall rise - Respiratory Respiratory exam: Present: normal lung sounds bilaterally. Absent: respiratory distress, wheezes, stridor, accessory muscle use, prolonged expiratory phase - Cardiovascular Cardiovascular exam: Present: regular rate, normal rhythm, normal heart sounds - Abdominal Exam Abdominal exam: Present: soft, Non-Tender, normal bowel sounds. Absent: tenderness, distention, guarding, rebound, rigidity - Extremities Exam Extremities exam: Present: normal inspection, full ROM. Absent: tenderness, pedal edema - Neurological Exam Neurological exam: Present: alert, oriented X3, motor sensory deficit (left upper and lower extremity) - Expanded Neurological Exam Cranial nerves: EOM function (II, III, IV, ): Normal, facial sensation (V): Abnormal Left, facial palsy (VII): Abnormal Left Cerebellar function: heel to walton: Abnormal Left Motor strength - LUE: 2/5 Motor strength - RUE: 5/5 Motor strength - LLE: 2/5 Motor strength - RLE: 5/5 Upper motor neuron exam: pronator drift: Present on left, sensory extinction: Present on left Sensory exam upper extremity: light touch: Abnormal Left Sensory exam lower extremity: light touch: Abnormal Left Coma Scale Eye Opening: Spontaneous Coma Scale Motor Response: Obeys Commands Coma Scale Verbal Response: Oriented Coma Scale Total: 15 - Psychiatric Psychiatric exam: Present: normal affect, normal mood - Skin Skin exam: Present: warm, dry, intact, normal color Course Course Narrative: Dr. De La Rosa was alerted To this patient's arrival. Per Dr. De La Rosa's suggestion, a stroke alert was called. NIHSS score of 6. 0405: I spoke with Dr. Ennis, neurologist with the [facility]. Dr. Ennis states that the patient is outside of the TPA window based off of his stated bedtime of 10:30 PM. He recommends obtaining a CTA of the head and neck. Dr. Ennis states that he will evaluate the patient via tele-stroke robot. 0415: Dr. Ennis recommends no further intervention at this time. He recommends obtaining imaging of the head and with neck via CTA and admission to this hospital for further evaluation of his neurological/motorsensory deficits and chest pain. Dr. De La Rosa has been informed of this plan and is in agreement. The patient is not a candidate for MRI because of implanted hardware. 0610: I spoke with Dr. Francisco of the hospitalist's service. Dr. Francisco states that he will accept the patient pending no acute abnormalities on the CTAs of the head and neck. We will notify Dr. Francisco of the results. 0855: I spoke with Dr. Martinez of the hospitalist service who has accepted the patient for admission. Vital Signs Temperature 97.6 F 02/17/17 03:48 Pulse Rate 72 02/17/17 03:48 Respiratory Rate 18 02/17/17 03:48 Blood Pressure 103/80 02/17/17 03:48 O2 Sat by Pulse Oximetry 99 02/17/17 03:48 Temperature 97.6 F 02/17/17 03:48 Pulse Rate 66 02/17/17 07:48 Respiratory Rate 16 02/17/17 07:05 Blood Pressure 106/80 02/17/17 07:48 O2 Sat by Pulse Oximetry 99 02/17/17 07:48 Oxygen Delivery Oxygen Delivery Room Air Medical Decision Making - Medical Records Medical records reviewed: Yes I reviewed the patient's medical records. - Lab Data Lab results reviewed: Yes I reviewed the patient's lab results. Lab results narrative: Laboratory Last Values WBC 4.7 K/mcL (4.3-11.1) 02/17/17 04:06 RBC 4.22 M/mcL (4.19-5.50) 02/17/17 04:06 Hgb 13.5 g/dL (12.9-16.9) 02/17/17 04:06 Hct 40.8 % (37.5-50.1) 02/17/17 04:06 MCV 96.7 fL (83.0-100.0) 02/17/17 04:06 MCH 32.0 pg (28.0-33.3) 02/17/17 04:06 MCHC 33.1 g/dL (31.6-35.5) 02/17/17 04:06 RDW 13.0 % (11.5-14.5) 02/17/17 04:06 Plt Count 196 K/mcL (140-400) 02/17/17 04:06 MPV 8.7 fL (9.4-12.4) L 02/17/17 04:06 Immature Gran % 0.4 % (0-4) 02/17/17 04:06 Seg Neutrophils % 58.5 % 02/17/17 04:06 Lymphocytes % 22.9 % 02/17/17 04:06 Monocytes % 16.3 % 02/17/17 04:06 Eosinophils % 1.5 % 02/17/17 04:06 Basophils % 0.4 % 02/17/17 04:06 Neutrophils # 2.8 K/mcL (1.6-8.9) 02/17/17 04:06 Lymphocytes # 1.1 K/mcL (0.6-4.6) 02/17/17 04:06 Monocytes # 0.8 K/mcL (0.0-1.3) 02/17/17 04:06 Eosinophils # 0.1 K/mcL (0.0-0.6) 02/17/17 04:06 Basophils # 0.0 K/mcL (0.0-0.2) 02/17/17 04:06 PT 12.6 Seconds (9.4-12.1) H 02/17/17 04:06 INR 1.2 02/17/17 04:06 APTT 32.3 Seconds (26.0-36.0) 02/17/17 04:06 Sodium 135 mEq/L (136-145) L 02/17/17 04:06 Potassium 3.6 mEq/L (3.5-4.5) 02/17/17 04:06 Chloride 100 mEq/L (98-109) 02/17/17 04:06 Carbon Dioxide 29 mEq/L (19-29) 02/17/17 04:06 BUN 25 mg/dL (8-26) 02/17/17 04:06 Creatinine 0.91 mg/dL (0.72-1.25) 02/17/17 04:06 Est GFR ( Amer) > 60 (> 60) 02/17/17 04:06 Est GFR (Non-Af Amer) > 60 (> 60) 02/17/17 04:06 BUN/Creatinine Ratio 27 (6-26) H 02/17/17 04:06 Glucose 85 mg/dL (70-99) 02/17/17 04:06 POC Glucose 87 (58-89) 02/17/17 03:46 Calculated Osmolality 284 (280-300) 02/17/17 04:06 Calcium 9.0 mg/dL (8.6-10.8) 02/17/17 04:06 Troponin I 0.01 ng/mL (0-0.03) 02/17/17 04:06 Result diagrams: 02/17/17 04:06 02/17/17 04:06 Lab Results 02/17/17 02/17/17 02/17/17 Range/Units 03:46 04:06 04:06 WBC 4.7 (4.3-11.1) K/mcL RBC 4.22 (4.19-5.50) M/mcL Hgb 13.5 (12.9-16.9) g/dL Hct 40.8 (37.5-50.1) % MCV 96.7 (83.0-100.0) fL MCH 32.0 (28.0-33.3) pg MCHC 33.1 (31.6-35.5) g/dL RDW 13.0 (11.5-14.5) % Plt Count 196 (140-400) K/mcL MPV 8.7 L (9.4-12.4) fL Immature Gran % 0.4 (0-4) % Seg Neutrophils % 58.5 % Lymphocytes % 22.9 % Monocytes % 16.3 % Eosinophils % 1.5 % Basophils % 0.4 % Neutrophils # 2.8 (1.6-8.9) K/mcL Lymphocytes # 1.1 (0.6-4.6) K/mcL Monocytes # 0.8 (0.0-1.3) K/mcL Eosinophils # 0.1 (0.0-0.6) K/mcL Basophils # 0.0 (0.0-0.2) K/mcL PT 12.6 H (9.4-12.1) Seconds INR 1.2 APTT 32.3 (26.0-36.0) Seconds Sodium (136-145) mEq/L Potassium (3.5-4.5) mEq/L Chloride (98-109) mEq/L Carbon Dioxide (19-29) mEq/L BUN (8-26) mg/dL Creatinine (0.72-1.25) mg/dL Est GFR ( Amer) (> 60) Est GFR (Non-Af Amer) (> 60) BUN/Creatinine Ratio (6-26) Glucose (70-99) mg/dL POC Glucose 87 (58-89) Calculated Osmolality (280-300) Calcium (8.6-10.8) mg/dL Troponin I (0-0.03) ng/mL 02/17/17 02/17/17 Range/Units 04:06 04:06 WBC (4.3-11.1) K/mcL RBC (4.19-5.50) M/mcL Hgb (12.9-16.9) g/dL Hct (37.5-50.1) % MCV (83.0-100.0) fL MCH (28.0-33.3) pg MCHC (31.6-35.5) g/dL RDW (11.5-14.5) % Plt Count (140-400) K/mcL MPV (9.4-12.4) fL Immature Gran % (0-4) % Seg Neutrophils % % Lymphocytes % % Monocytes % % Eosinophils % % Basophils % % Neutrophils # (1.6-8.9) K/mcL Lymphocytes # (0.6-4.6) K/mcL Monocytes # (0.0-1.3) K/mcL Eosinophils # (0.0-0.6) K/mcL Basophils # (0.0-0.2) K/mcL PT (9.4-12.1) Seconds INR APTT (26.0-36.0) Seconds Sodium 135 L (136-145) mEq/L Potassium 3.6 (3.5-4.5) mEq/L Chloride 100 (98-109) mEq/L Carbon Dioxide 29 (19-29) mEq/L BUN 25 (8-26) mg/dL Creatinine 0.91 (0.72-1.25) mg/dL Est GFR ( Amer) > 60 (> 60) Est GFR (Non-Af Amer) > 60 (> 60) BUN/Creatinine Ratio 27 H (6-26) Glucose 85 (70-99) mg/dL POC Glucose (58-89) Calculated Osmolality 284 (280-300) Calcium 9.0 (8.6-10.8) mg/dL Troponin I 0.01 (0-0.03) ng/mL - Radiology Data Radiology results reviewed: Yes I reviewed the patient's radiology results. Chest X-Ray 02/17/17 03:51 IMPRESSION: No acute process. D/ / Yinka Cid MD / Yinka Cid MD Interpreting Provider: Yinka Cid MD Head CT 02/17/17 03:51 IMPRESSION: 1. No acute intracranial process. 2. Mild age-related cerebral atrophy with chronic small vessel ischemic disease. Findings were discussed with Dr. De La Rosa at 4:15 am on 02/17/2017. D/ / Genaro Steen MD / Genaro Steen MD Interpreting Provider: Genaro Steen MD Head CTA 02/17/17 04:26 IMPRESSION: 1. Stable diminutive appearance the distal left vertebral artery consistent with chronic proximal occlusion better evaluated on the previous CT angiogram of the neck. 2. Atherosclerotic calcifications within the cavernous segments the internal carotid arteries without significant stenosis evident. 3. Otherwise, unremarkable CT angiogram of the brain. There is no additional stenosis, major branch occlusion or cerebral aneurysm identified. D/ / Hari Siegel MD / Hari Seigel MD Interpreting Provider: Hari Siegel MD Neck CTA 02/17/17 04:26 IMPRESSION: 1. Chronic occlusion of the left vertebral artery. 2. Calcification in the origin of the right vertebral artery indicating stenosis which was also previously seen. 3. Mild bilateral carotid bifurcation disease especially on the left which remains stable with no evidence of hemodynamic stenosis. D/ / Marry Castillo MD / Marry Castillo MD Interpreting Provider: Marry Castillo MD - EKG Data EKG #1 EKG attestation: Yes I reviewed and interpreted this EKG. EKG results narrative: EKG reviewed by Dr. De La Rosa as well. EKG shows a sinus rhythm at a rate of 75 bpm. OR interval 147, QRS duration 98, QT/QTc intervals 361/391. No ectopy noted. No STEMI. Attestation Statement - Attestation Attestation: I personally interviewed and examined this patient and my medical decision- making was reviewed with the GRACE, Emanuel Philippe. I agree with the documented findings , disposition and treatment plan as described except to the extent set forth below. She is a 61-year-old white male with a history of known coronary artery disease status post CABG and multiple stent placements with resolving ischemic cardiomyopathy as well as prior CVA 4 as well as multiple TIAs. Patient presents this morning with acute left facial droop and left upper and lower extremity weakness and paresthesias and thickened speech. Patient's also complaining of a right-sided headache and substernal chest pain radiating through to his back as well as up into the left neck and jaw. I was called to bedside by the mid-level provider and stroke alert was called. Patient states that he went to bed at approximately 10:30 PM and at that time he was experiencing some substernal chest pain that was mild but denied any extremity weakness numbness or speech deficits. Patient was awakened at approximately 2: 30 this morning with substernal chest pain radiating through to his back and upon waking he noticed significant weakness of his left side. Patient was brought in for evaluation by EMS. Following initial evaluation, stroke alert was called, vital signs stable on arrival. Patient's physical exam findings as documented. I agree with patient's EKG interpretation as charted. Patient was sent for noncontrast head CT which was read and relayed to the emergency department by phone by the radiologist as negative for any acute pathology. Patient was given aspirin upon return to the ED. Labs were pending. Patient is care was discussed with [facility] neurology by phone initially and then their assessment at bedside was by stroke heart. Patient is approximately 7 hours since last known well. Patient is not a candidate for TPA. The neurologist did recommend CTA of the head and neck. Patient has had similar presentations and admissions on at least 3 prior occasions, and at that time has had CTA head and neck on each admission which have been normal each time these were obtained. Remainder patient's workup is unremarkable. Patient is having stable neurologic signs and symptoms with no progression or worsening. Currently CTA head and neck is pending at this time. We did speak with the hospitalist in regards to patient admission and they request that CTAs be done from the ED and then notified with the results prior to admission. Patient remains hemodynamically stable at this time
[2017-02-17 04:27] LABS: Basophils % 0.4 %; Eosinophils # 0.1 K/mcL (0.0-0.6); Eosinophils % 1.5 %; Hematocrit 40.8 % (37.5-50.1); Hemoglobin 13.5 g/dL (12.9-16.9); Immature Granulocytes % 0.4 % (0-4); Lymphocytes # 1.1 K/mcL (0.6-4.6); Lymphocytes % 22.9 %; Mean Corpuscular HGB Conc 33.1 g/dL (31.6-35.5); Mean Corpuscular Volume 96.7 fL (83.0-100.0); Mean Platelet Volume 8.7 fL (9.4-12.4); Monocytes # 0.8 K/mcL (0.0-1.3); Monocytes % 16.3 %; Neutrophils # 2.8 K/mcL (1.6-8.9); Platelet Count 196 K/mcL (140-400); Red Blood Count 4.22 M/mcL (4.19-5.50); Segmented Neutrophils % 58.5 %
[2017-02-17] MEDS ORDERED: *HR* Morphine 2 MG/ML SYRINGE IVP ONE ×3 (04:27→06:59)
[2017-02-17 04:35] LABS: INR 1.2; Prothrombin Time 12.6 Seconds (9.4-12.1)
[2017-02-17 04:38] LABS: Activated Partial Thrombo Time 32.3 Seconds (26.0-36.0)
[2017-02-17] MEDS ORDERED: *HR* Promethazine 25 MG/ML VIAL IVP ONE (04:39)
[2017-02-17 04:40] LABS: BUN/Creatinine Ratio 27 (6-26); Blood Urea Nitrogen 25 mg/dL (8-26); Carbon Dioxide 29 mEq/L (19-29); Chloride 100 mEq/L (98-109); Glucose 85 mg/dL (70-99); Osmolality,Calculated 284 (280-300); Potassium 3.6 mEq/L (3.5-4.5); Sodium 135 mEq/L (136-145); eGFR For African Americans > 60 (> 60); eGFR For Non-African Americans > 60 (> 60)
[2017-02-17] MEDS: 0.9 % Sodium Chloride 1,000 ML IVC SCH ×2 (10:22→21:30)
[2017-02-17] MEDS ORDERED: Acetaminophen 325 MG TABLET PO PRN (10:58)
[2017-02-17] MEDS ORDERED: Naloxone 0.4 MG/ML INJ IVP PRN (10:58)
--- NOTE | 2017-02-17 11:31 | Internal Med History&Physical ---
Date of Encounter: 02/17/17 Time of Encounter: 11:00 Assessment and Plan (1) Chest pain Current visit: Yes Status: Acute Atypical chest pain. Initial labs, Troponin, EKG unremarkable. Continue Telemetry monitoring and trend Troponins. Continue ASA, Plavix, beta-[place] and statin. Qualifiers: Chest pain type: unspecified Qualified Code(s): R07.9 - Chest pain, unspecified (2) Left-sided weakness Current visit: Yes Status: Acute Acute on chronic, along with ?facial droop and numbness. Difficult to assess symptoms but high degree of suspicion for psychosomatic component. CT head in the ER negative for acute infarct. Stroke alert was completed with [facility] Neurologist who recommended CTA head and neck (MRI brain cannot be completed due to hardware in spine), which showed no new changes but old stenosis in vertebral artery. Patient has had multiple imaging studies in the past showing no acute defects. Echocardiogram in November 2016 showed 55% EF, mild LV diastolic dysfunction, mild- moderate AR, mild MR. Carotid Dopplers in 2015 showed no stenotic plaque. Continue full dose ASA and Plavix and statin. Check lipid profile. Previous records reviewed- apparently patient has h/o- paroxysmal a.fib but not on anticoagulation due to fall risk. EKG and Telemetry at this time show sinus rhythm. PT/OT consult. (3) CAD (coronary artery disease) Current visit: Yes Status: Chronic plan as above, for chest pain; nuclear stress test in Apr 2016 showed fixed perfusion defects but no e/o- ischemia. Qualifiers: Coronary Disease-Associated Artery/Lesion type: bypass graft [place] vs. transplanted heart: [place] heart Associated angina: with unspecified angina Qualified Code(s): I25.709 - Atherosclerosis of coronary artery bypass graft(s) , unspecified, with unspecified angina pectoris (4) Essential hypertension Current visit: Yes Status: Chronic BP noted to be stable. Continue home meds; (5) CHF (congestive heart failure) Current visit: Yes Status: Chronic continue Lasix, beta-[place], ACEI; Qualifiers: Congestive heart failure type: combined Congestive heart failure chronicity : chronic Qualified Code(s): I50.42 - Chronic combined systolic (congestive) and diastolic (congestive) heart failure (6) GERD (gastroesophageal reflux disease) Current visit: Yes Status: Chronic Qualifiers: Esophagitis presence: without esophagitis Qualified Code(s): K21.9 - Gastro -esophageal reflux disease without esophagitis (7) Failed back syndrome of lumbar spine Current visit: Yes Status: Chronic (8) Chronic pain syndrome Current visit: Yes Status: Chronic continue PRN Oxycodone. (9) Adjustment reaction with anxiety and depression Current visit: Yes Status: Chronic continue benzodiazepines PRN. (10) History of atrial fibrillation Current visit: Yes Status: Chronic (11) CVA (cerebrovascular accident) Current visit: Yes Status: Inactive Qualifiers: CVA mechanism: other Qualified Code(s): I63.8 - Other cerebral infarction Internal Medicine - H&P: HPI Chief complaint: Left-sided weakness Admitted From: Emergency Dept Plans for Post Hospital Care: Home History of present illness: Mr. Melchor is a 61 year old male with reported h/o- previous CVA and baseline left-sided weakness presents with c/o- chest pain and worsening left-sided weakness. Patient reports having a sudden onset of sharp left-sided chest pain around 8PM last night, radiating to left shoulder blade and neck, intermittent, no aggravating or relieving factors. Pain was associated with diaphoresis and dyspnea. He did have similar episodes in the past. Additionally, he got up around 2.30AM and noted worsening weakness in his left arm and leg, associated with tingling and numbness on his left side, some slurred speech and difficulty finding words? and he was unable to get up or ambulate. He is ADL-independent and walks independently at baseline, per him. Past Med Surg Social Fam HX - Past Medical History Medical history: arthritis, atrial fibrillation, cardiomyopathy, CHF, coronary artery disease, CVA, GERD, hyperlipidemia, hypertension, myocardial infarction, osteoporosis, peripheral artery disease, syncope, TIA, other Psychiatric history: anxiety, depression, other - Past Surgical History Surgical History: angioplasty/stent, cholecystectomy, coronary bypass (CABG), orthopedic, other (right wrist repair), other (spinal surgeries with laminectomy , fusion) - Social History Smoking Status: Never smoker Smokeless Tobacco Status: Yes Alcohol use: none Drug use: none Occupational status: disabled Current living situation: Home, With Family Activity Level: Independent ambulation Recent Out of Country Travel Within the Last 8 Weeks: No - Family History Son Hx Family Cardiac Disorders: Yes Mother Adopted: No Family Member Ethnicity: Non- Living Status: Hx Family Cardiac Disorders: Yes Hx Family Respiratory Disorders: No Hx Family Cancer: No Hx Family GI Disorders: No Hx Family Endocrine Disorder: Yes (DM) Hx Family Neuromuscular Disorders: No Hx Family Neurologic Disorders: No Hx Family HEENT Disorders: No Hx Family Autoimmune Disorders: No Father Living Status: Hx Family Cardiac Disorders: Yes (DC) Hx Family Respiratory Disorders: Yes (COPD) Hx Family Cancer: No Hx Family GI Disorders: No Hx Family Endocrine Disorder: No Hx Family Neuromuscular Disorders: No Hx Family Neurologic Disorders: No Hx Family HEENT Disorders: No Hx Family Autoimmune Disorders: No Internal Medicine - H&P: Meds Atorvastatin [Lipitor] 40 mg PO HS 11/01/16 [History] Clopidogrel [Plavix] 75 mg PO DAILY 11/01/16 [History] Furosemide [Lasix] 40 mg PO DAILY 11/01/16 [History] Isosorbide MONOnitrate (24 HR) [Imdur] 30 mg PO DAILY 11/01/16 [History] Nitroglycerin 0.4 mg SL Q5MIN PRN #30 tab.subl 11/05/16 [Rx] Aspirin 325 mg PO DAILY 12/02/16 [History] Lisinopril [Zestril] 5 mg PO DAILY 12/02/16 [History] Metoprolol [Lopressor] 25 mg PO BID 12/02/16 [History] LORazepam [Ativan] 1 mg PO TID PRN #10 tablet 01/14/17 [Rx] OxyCODONE/APAP 10/325 [Percocet 10/325 MG] 1 tab PO Q6HR PRN 02/17/17 [History] Allergies simvastatin [From Zocor] Allergy (Verified 01/31/17 12:07) Rash Zolpidem [From Ambien] Allergy (Verified 01/31/17 12:07) Confusion ondansetron [From Zofran (as hydrochloride)] Adverse Reaction (Verified 12:07) Vomiting All Systems PM: A 10-system review of systems was performed and is negative for pertinent findings except as documented above in the HPI. - Constitutional Constitutional: no chills, no fever(s), no night sweats - EENT Eyes: no change in vision, no discharge, no pain, no photophobia Ears: no ear discharge, no ear pain, no tinnitus Nose, mouth and throat: no dysphagia, no nasal discharge, no neck pain, no sore throat - Cardiovascular Cardiovascular ROS IM: chest pain, diaphoresis, dyspnea - Respiratory Respiratory: no cough, no dyspnea, no wheezing, no excessive phlegm production - Gastrointestinal Gastrointestinal: no abdominal pain, no diarrhea, no hematemesis, no hematochezia, no melena, no nausea, no vomiting - Musculoskeletal Musculoskeletal ROS IM: numbness, stiffness, tingling - Integumentary Integumentary IM: no rash, no unusual bruising - Neurological Neurological ROS: abnormal speech, numbness, tingling, weakness - Hematologic/Lymphatic Hematologic/Lymphatic: no easy bruising - Constitutional Vitals: Temp Pulse Resp BP Pulse Ox 98.2 F 68 15 95/65 97 02/17/17 11:12 02/17/17 11:12 02/17/17 11:12 02/17/17 11:12 02/17/17 11:12 General appearance: Present: A&O X 3, answers questions appropriately - Respiratory Respiratory exam: Present: CTAB. Absent: accessory muscle use, rales, rhonchi, wheezes - Cardiovascular Cardiovascular exam: Present: RRR, +S1, +S2. Absent: diastolic murmur, gallop, rubs, systolic murmur - GI/Abdominal GI/Abdominal exam: Present: normal bowel sounds, soft, no peritoneal signs. Absent: distended, tenderness - Extremities Exam Extremities exam: Present: full ROM (restricted in left LE due to weakness), warm, radial pulses palpable and symetrical. Absent: calf tenderness, cyanotic , pedal edema - Neurological Exam Neurological exam: Present: CN II-XII intact (facial droop is not evident on observation. But on objective assessment, has left facial weakness?), oriented X3, no focal deficits (5/5 motor power on the right side; 4/5 in left UE, 0-1/5 in left LE, patient cannot move left leg at all), facial droop, speech deficit ( evident only when patient asked about slurred speech?). Absent: pronater drift Additional comments: Reflexes- difficult to assess; patient voluntarily stiffens Internal Med - H&P Results - Labs CBC & Chem 7: 02/17/17 04:06 02/17/17 04:06 - EKG Data -: EKG Interpreted by Myself EKG shows normal: sinus rhythm Rate: normal
[2017-02-17] MEDS: *HR* LORazepam 1 MG TABLET PO PRN ×2 (11:57→20:04)
[2017-02-17] MEDS: Aspirin 325 MG TABLET PO SCH (11:57)
[2017-02-17] MEDS: *HR* Promethazine 25 MG/ML VIAL IVP PRN ×2 (13:09→20:03)
[2017-02-17] MEDS ORDERED: Ipratropium/Albuterol Neb 3 ML IH PRN (13:37)
[2017-02-17] MEDS: *HR* OxyCODONE Immed Rel 5 MG TABLET PO PRN (18:11)
[2017-02-17] MEDS: Nitroglycerin 0.4 MG TAB.SUBL SL PRN ×2 (23:46→23:54)
[2017-02-18] MEDS: *HR* Morphine 2 MG/ML SYRINGE IVP PRN ×2 (00:53→06:50)
[2017-02-18 02:30] LABS: Basophils % 0.5 %; Eosinophils # 0.1 K/mcL (0.0-0.6); Eosinophils % 2.5 %; Hematocrit 36.8 % (37.5-50.1); Hemoglobin 12.1 g/dL (12.9-16.9); Immature Granulocytes % 0.3 % (0-4); Immature Platelets 1.6 % (1.1-6.1); Lymphocytes % 25.4 %; Mean Corpuscular HGB Conc 32.9 g/dL (31.6-35.5); Mean Corpuscular Hemoglobin 32.6 pg (28.0-33.3); Mean Corpuscular Volume 99.2 fL (83.0-100.0); Mean Platelet Volume 9.1 fL (9.4-12.4); Monocytes # 0.6 K/mcL (0.0-1.3); Monocytes % 14.6 %; Neutrophils # 2.3 K/mcL (1.6-8.9); Platelet Count 204 K/mcL (140-400); Red Blood Count 3.71 M/mcL (4.19-5.50); Red Cell Distribution Width 13.2 % (11.5-14.5); Segmented Neutrophils % 56.7 %
[2017-02-18 02:45] LABS: BUN/Creatinine Ratio 23 (6-26); Blood Urea Nitrogen 23 mg/dL (8-26); Calcium 8.1 mg/dL (8.6-10.8); Carbon Dioxide 24 mEq/L (19-29); Chloride 109 mEq/L (98-109); Chol/HDL Ratio 3.3 (0-4.9); Cholesterol 139 mg/dL (< 200); Glucose 122 mg/dL (70-99); HDL Cholesterol 42 mg/dL (40-59); LDL Cholesterol,Calculated 78 mg/dL (0-99); Osmolality,Calculated 293 (280-300); Potassium 3.7 mEq/L (3.5-4.5); Sodium 139 mEq/L (136-145); Triglycerides 94 mg/dL (< 150); eGFR For African Americans > 60 (> 60); eGFR For Non-African Americans > 60 (> 60)
[2017-02-18] MEDS: *HR* LORazepam 1 MG TABLET PO PRN ×2 (02:58→10:19)
[2017-02-18] MEDS: *HR* OxyCODONE Immed Rel 5 MG TABLET PO PRN (04:01)
--- NOTE | 2017-02-18 06:22 | Electrocardiograph Report ---
[place] [id number] Test Date: 2017-02-17 Pat Name: Eber Melchor Department: 102 Room: 3B44 Gender: M Scheme Technician: Norberto : 1955 Requested By: Yolanda Linares Order Number: [id number] Reading MD: Roland Toscano MD Measurements Intervals [place] Rate: 75 P: 52 MN: 147 QRS: 42 QRSD: 98 T: 41 QT: 361 QTc: 391 Interpretive Statements SINUS RHYTHM Electronically Signed On 02-18-2017 6:20:57 EDT by Roland Toscano MD
[2017-02-18] MEDS: 0.9 % Sodium Chloride 1,000 ML IVC SCH (07:35)
[2017-02-18] MEDS ORDERED: Isosorbide MONOnitrate (24 HR) 30 MG TAB.ER.24H PO SCH (09:00)
[2017-02-18] MEDS ORDERED: Furosemide 40 MG TABLET PO SCH (09:00)
[2017-02-18] MEDS: Aspirin 325 MG TABLET PO SCH (10:16)
[2017-02-18 11:31] VITALS: BP 100/68
--- NOTE | 2017-02-18 13:07 | Cardiology Consult Note ---
Date of Encounter: 02/18/17 Time of Encounter: 12:22 Assessment and Plan (1) Chest pain Current Visit: Yes Status: Acute Describes atypical chest pain symptoms. Sharp pain at rest only relieved with morphine. Troponin negative. EKG with no acute finding. Stress test 04/23/16 was negative for ischemia or infarct. TTE 11/2016- EF 55%. Normal LV size and function. Mild DD. normal RV size and function. Mild -moderate aortic regurgitation. Mild mitral regurgitation. LHC 2013 showed patent bypass grafts and patent stents in the lcx artery. 70% stenosis in distal Lcx to small to fix. Patient is non-compliant with medication. Recommend patient start taking all prescribed cardiac medications and f/u in out-pt setting. Restart imdur. Recommend starting PPI. Qualifiers: Chest pain type: unspecified Qualified Code(s): R07.9 - Chest pain, unspecified (2) CAD (coronary artery disease) Current Visit: Yes Status: Chronic H/o CAD s/p CABG and multiple PCI. Last LHC in 2013 showed patent bypass grafts and patent stents. Recommend asa, statin and bb. Encouraged to take imdur daily. Qualifiers: Coronary Disease-Associated Artery/Lesion type: [place] artery [place] vs. transplanted heart: [place] heart Associated angina: with unspecified angina Qualified Code(s): I25.119 - Atherosclerotic heart disease of [place] coronary artery with unspecified angina pectoris Discussion w patient/family: The assessment and plan as outlined above was discussed with the patient and/or family members who expressed understanding and agreement. All questions were answered. Thank you for involving us in the care of your patient. Please call with any questions. History of Present Illness Consult date: 02/18/17 Requesting physician: Rosalba Ann Consult reason: Chest pain Chief complaint: Chest pain History of present illness: Mr. Melchor is a 61 year old male with a history of CABG, multiple PCI, recent CVA, HTN, HLD who presented with left sided weakness and sudden onset of chest pain. He c/o stabbing mid-sternal chest pain radiating to his neck . The pain woke him from his sleep. He denies aggravating factors. His pain improves with morphine. He reports having. Continues to have a mid-sternal chest pain. He asked if his morphine dose could be increased. States that SL NTG does not help. He was seen 04/23/16 for chest pain and underwent stress test that was negative for ischemia or infarct. At that time imdur was added. He states he does not take all of his medications and only takes imdur when he thinks about it. Clarification: There was one consult report that said patient had h/o afib. After further investigation no evidence of afib in previous reports. All previous EKG show SR. No documented afib seen. Patient currently NSR. Past Med Surg Social Fam HX - Past Medical History Medical history: arthritis, atrial fibrillation, cardiomyopathy, CHF, coronary artery disease, CVA, GERD, hyperlipidemia, hypertension, myocardial infarction, osteoporosis, peripheral artery disease, syncope, TIA, other Psychiatric history: anxiety, depression, other - Past Surgical History Surgical History: angioplasty/stent, cholecystectomy, coronary bypass (CABG), orthopedic, other (right wrist repair), other (spinal surgeries with laminectomy , fusion) - Social History Smoking Status: Never smoker Smokeless Tobacco Status: Yes Alcohol use: none Drug use: none - Family History Son Hx Family Cardiac Disorders: Yes Mother Adopted: No Family Member Ethnicity: Non- Living Status: Hx Family Cardiac Disorders: Yes Hx Family Respiratory Disorders: No Hx Family Cancer: No Hx Family GI Disorders: No Hx Family Endocrine Disorder: Yes (DM) Hx Family Neuromuscular Disorders: No Hx Family Neurologic Disorders: No Hx Family HEENT Disorders: No Hx Family Autoimmune Disorders: No Father Living Status: Hx Family Cardiac Disorders: Yes ([place]) Hx Family Respiratory Disorders: Yes (COPD) Hx Family Cancer: No Hx Family GI Disorders: No Hx Family Endocrine Disorder: No Hx Family Neuromuscular Disorders: No Hx Family Neurologic Disorders: No Hx Family HEENT Disorders: No Hx Family Autoimmune Disorders: No Medications and Allergies Atorvastatin [Lipitor] 40 mg PO HS 11/01/16 [History] Clopidogrel [Plavix] 75 mg PO DAILY 11/01/16 [History] Furosemide [Lasix] 40 mg PO DAILY 11/01/16 [History] Nitroglycerin 0.4 mg SL Q5MIN PRN #30 tab.subl 11/05/16 [Rx] LORazepam [Ativan] 1 mg PO TID PRN #10 tablet 01/14/17 [Rx] OxyCODONE/APAP 10/325 [Percocet 10/325 MG] 1 tab PO Q6HR PRN 02/17/17 [History] Aspirin 81 mg PO DAILY #30 tab.chew 02/18/17 [Rx] Isosorbide MONOnitrate (24 HR) [Imdur] 30 mg PO DAILY #30 02/18/17 [Rx] Lisinopril [Zestril] 5 mg PO DAILY #30 02/18/17 [Rx] Metoprolol [Lopressor] 25 mg PO BID #60 02/18/17 [Rx] Omeprazole [PriLOSEC] 20 mg PO DAILY@0630 #30 02/18/17 [Rx] Allergies simvastatin [From Zocor] Allergy (Verified 01/31/17 12:07) Rash Zolpidem [From Ambien] Allergy (Verified 01/31/17 12:07) Confusion ondansetron [From Zofran (as hydrochloride)] Adverse Reaction (Verified 12:07) Vomiting All Systems Review: A 10-system review of systems was performed and is negative for pertinent findings except as documented above in the HPI. Physical Examination Vital Signs, Last 4 Hours Temp Pulse Resp BP Pulse Ox 02/18/17 11:30 97.5 F L 65 16 100/68 98 02/18/17 10:14 97.7 F 70 18 109/62 100 General: Conversant, No Apparent Distress HEENT: Atraumatic, Normocephaly, Mucus Membranes Moist Neck: No JVD, Normal carotid pulses Cardiac: Reg Rate and Rhythm, Normal S1 and S2, No Murmur Lungs: Normal Breath Sounds, No Wheeze, Rales, Rhonchi Neuro: Alert and responsive, No focal deficits noted Abdomen: Soft, Non-Tender Skin: No rashes noted on visualized skin Musculoskeletal: No Chest Wall Tenderness Extremities: No Clubbing, No Cyanosis, No Edema, Normal Pulses Results 02/18/17 01:49 02/18/17 01:49 Lab Results 02/17/17 02/18/17 02/18/17 17:51 01:49 01:49 WBC 4.0 L Hgb 12.1 L Hct 36.8 L Plt Count 204 Sodium Potassium Chloride Carbon Dioxide BUN Creatinine Glucose Calcium Troponin I 0.00 0.00 02/18/17 01:49 WBC Hgb Hct Plt Count Sodium 139 Potassium 3.7 Chloride 109 Carbon Dioxide 24 BUN 23 Creatinine 1.02 Glucose 122 H Calcium 8.1 L Troponin I - Imaging and Cardiology Stress Test: report reviewed Echo: report reviewed Cardiac cath: report reviewed Consult Discharge Plan - Plan Additional Instructions: Follow up with your PCP in the next 7-10 days Return to the ER or go to the closest ER if your symptoms return or if you have any other concerns or problems. Resume your normal home medications and start the new medications that I have prescribed tomorrow. Referrals: Toya Arvizu, PE TEACHER [Primary Care Provider] - 02/26/17 7:00 am Prescriptions: Aspirin 81 mg PO DAILY #30 tab.chew Isosorbide MONOnitrate (24 HR) [Imdur] 30 mg PO DAILY #30 Lisinopril [Zestril] 5 mg PO DAILY #30 Metoprolol [Lopressor] 25 mg PO BID #60 Omeprazole [PriLOSEC] 20 mg PO DAILY@0630 #30
--- NOTE | 2017-02-18 13:31 | Discharge Summary ---
Date of Encounter: 02/18/17 Time of Encounter: 10:40 - Discharge Diagnosis (1) Chest pain Priority: Primary Status: Acute Comments: Patient has prior history of CVA, he reports having sudden onset left-sided sharp chest pain around 8 PM night of admission, awakened him from sleep at 2: 30 AM day of admission. He reports radiation to the left shoulder blade and neck, the pain was intermittent, nothing made it better or worse. He did have diaphoresis and dyspnea. He has had similar episodes like this in the past. When he awakened at 2:30 AM he relates he is having worsening weakness in his left arm and leg. He states that he is not adherent to medication regimen and has not been taking his Imdur, Plavix. CT does take his Toprol, Lasix, aspirin consistently. Troponins were negative, EKG was normal sinus rhythm. Stress test in April was negative for ischemia or infarct. TTE in November, showed a fifth EF of 55% with normal LV size and function, mild DDD, mild RV size and function , mild to moderate AR, mild MR. LHC in 2013 showed patent bypass grafts and patent stents in the LCx artery, 70% stenosis and distal LCx which was too small to fix. Patient will be restarted on all of his cardiac medications, he has been given prescriptions for the ones he has not been taking, he will need to follow-up in the outpatient setting with his primary care physician. He will restart the Imdur 30 mg by mouth daily. He reports relief from the one he was given here prior to discharge. Cardiology also recommended restarting a PPI. He will be sent home with omeprazole 20 mg by mouth daily 6:30 AM. (2) GERD (gastroesophageal reflux disease) Priority: Primary Status: Chronic Qualifiers: Esophagitis presence: without esophagitis Qualified Code(s): K21.9 - Gastro -esophageal reflux disease without esophagitis (3) History of left foot drop Priority: Secondary Status: Chronic Comments: From prior CVA. Patient does have difficulty with ambulation, however foot press/pull strong and equal bilaterally. (4) Failed back syndrome of lumbar spine Priority: Secondary Status: Chronic Comments: Chronic. Continue medications. (5) Chronic pain syndrome Priority: Secondary Status: Chronic Comments: Chronic. Continue home medications. (6) Depression with anxiety Priority: Secondary Status: Chronic Comments: Chronic. Continue home medications. (7) CAD (coronary artery disease), [place] coronary artery Priority: Secondary Status: Chronic Comments: Plan as above. Patient has negative stress. Patient has been nonadherent to medication regimen. He will restart aspirin, Plavix, Imdur. He states that he is consistently taking his Toprol, Lasix, and aspirin. Patient agrees that he will follow up with primary care in the next week. Qualifiers: [place] vs. transplanted heart: [place] heart Associated angina: with unspecified angina Qualified Code(s): I25.119 - Atherosclerotic heart disease of [place] coronary artery with unspecified angina pectoris (8) Left-sided weakness Priority: Secondary Status: Chronic Comments: Chronic from prior stroke. Patient states has improved and is back to baseline. (9) Essential hypertension Priority: Secondary Status: Chronic (10) CHF (congestive heart failure) Priority: Secondary Status: Chronic Comments: No acute exacerbation at this time. Lungs are clear, there is no peripheral edema. Patient breathes easily, there is no nocturnal dyspnea. Patient states he is consistent with taking his Lasix. He will continue home dose at home. Qualifiers: Congestive heart failure type: combined Congestive heart failure chronicity : chronic Qualified Code(s): I50.42 - Chronic combined systolic (congestive) and diastolic (congestive) heart failure (11) DVT prophylaxis Priority: Secondary Status: Acute Comments: Patient ambulatory observation status. - Discharge Medications Prescriptions: Aspirin 81 mg PO DAILY #30 tab.chew Isosorbide MONOnitrate (24 HR) [Imdur] 30 mg PO DAILY #30 Lisinopril [Zestril] 5 mg PO DAILY #30 Metoprolol [Lopressor] 25 mg PO BID #60 Omeprazole [PriLOSEC] 20 mg PO DAILY@0630 #30 Home Medications: Atorvastatin [Lipitor] 40 mg PO HS 11/01/16 [History] Clopidogrel [Plavix] 75 mg PO DAILY 11/01/16 [History] Furosemide [Lasix] 40 mg PO DAILY 11/01/16 [History] Nitroglycerin 0.4 mg SL Q5MIN PRN #30 tab.subl 11/05/16 [Rx] LORazepam [Ativan] 1 mg PO TID PRN #10 tablet 01/14/17 [Rx] OxyCODONE/APAP 10/325 [Percocet 10/325 MG] 1 tab PO Q6HR PRN 02/17/17 [History] Aspirin 81 mg PO DAILY #30 tab.chew 02/18/17 [Rx] Isosorbide MONOnitrate (24 HR) [Imdur] 30 mg PO DAILY #30 02/18/17 [Rx] Lisinopril [Zestril] 5 mg PO DAILY #30 02/18/17 [Rx] Metoprolol [Lopressor] 25 mg PO BID #60 02/18/17 [Rx] Omeprazole [PriLOSEC] 20 mg PO DAILY@0630 #30 02/18/17 [Rx] Allergies/Adverse Reactions: Allergies simvastatin [From Zocor] Allergy (Verified 01/31/17 12:07) Rash Zolpidem [From Ambien] Allergy (Verified 01/31/17 12:07) Confusion ondansetron [From Zofran (as hydrochloride)] Adverse Reaction (Verified 12:07) Vomiting Procedures/tests Complete & Pending: Procedures Performed prior 72 hours Category Date Time Status ECG 12 lead ECG [ECG] Routine Y 02/17/17 03:44 Completed ECG 12 lead ECG [ECG] Routine Y 02/18/17 06:59 Completed Date of admission: 02/17/17 09:16 Primary care physician: Toya Arvizu CNP Consults: 02/17/17 11:00 Consult to Occupational Therapy [CONS] Routine Comment: Evaluate, develop and implement POC Reason for Consult: Left-sided weakness Consult to Physical Therapy [CONS] Routine Comment: Evaluate, develop and implement POC Reason for Consult: Left-sided weakness 02/17/17 11:02 Consult to Speech Therapy [CONS] Routine Comment: Evaluate, develop and implement POC Reason for Consult: Left facial deviation, slurred speech Call Completed: No 02/17/17 17:54 Consult to Councilor [CONS] Routine Reason for SW Consult: poss rehab/ECF placement 02/18/17 07:32 Consult to Cardiology [CONS] Routine Comment: Consulting Provider: Cardiology Karissa Reason for Consult: evaluation of continued chest pain, recent stress and echo. Call Completed: Yes Discharging clinician: Rosalba Ann Anticipated date of discharge: 02/18/17 - Patient Status Disposition: Home, Self-Care Condition: Good Functional capacity at discharge: independent ambulation Overall status at discharge: patient is back to baseline - Discharge Instructions Follow Up With: Toya Arvizu, [employer] [Primary Care Provider] - Additional Instructions: Follow up with your PCP in the next 7-10 days Return to the ER or go to the closest ER if your symptoms return or if you have any other concerns or problems. Resume your normal home medications and start the new medications that I have prescribed tomorrow. - Diet and Activity Activity: increase activity as tolerated, resume usual activities as tolerated Diet: advance to your usual diet Hospital course: Mr. Melchor is a 61 year old male past medical history of CVA with left-sided deficit, coronary artery disease, essential hypertension, CHF, GERD, failed back syndrome, chronic pain syndrome, anxiety and depression, history of A. fib in the emergency department with complaints of chest pain worsening left-sided weakness. Reports sudden onset left chest pain around 8 PM on night of admission. He states the pain radiates to left shoulder and neck, was intermittent and he had shortness of breath and diaphoresis. He reports similar episodes in the past. States he got up around 2:30 AM the morning of admission and noted worsening weakness in left arm and leg with numbness and tingling and some slurred speech, states he was unable to get up to ambulate. He normally is independent at home. Patient denies feeling palpitations or headache. Today patient states that his left-sided weakness is at baseline. Head CT shows no acute intracranial process and mild age-related cerebral atrophy with chronic small vessel ischemic disease. He denies headache or vision changes. He is neurologically intact and his neuro exam is within normal limits. CTA neck shows chronic occlusion of left vertebral artery, calcification in the origin of the right vertebral artery indicating stenosis, mild bilateral carotid bifurcation disease especially on the left which remains stable. CTA head showed stable appearance left distal vertebral artery, mild atherosclerotic calcifications of the internal carotids without significant stenosis, otherwise unremarkable CTA of the brain. There is no additional stenosis, major branch occlusion or cerebral aneurysm is identified. These results remain unchanged from prior exam in November,. The patient was seen by cardiology. Patient requests increase either frequency or dose of morphine from cardiology, either increased frequency dose of Ativan from knees. He tells cardiology [facility]ET that nitroglycerin does not help. Patient had stress test in April, for chest pain, was negative for ischemia or infarct. At that time Imdur was added. Patient states that he has not been consistent with his medications. He states that he has been taking his Toprol, Lasix, and aspirin consistently, but is not consistent with his Plavix or Imdur. Will be restarted on both of those, Imdur prescription will be given on discharge. Patient also will be restarted on aspirin and omeprazole 20 mg by mouth daily. Patient's troponins were negative. EKG showed sinus rhythm with a rate of 75, [place] interval 147, QTC 391. Patient is still having chest pain, however be started on Imdur. His labs and vital signs have been within normal limits. He is refusing fpc facility as was recommended by physical therapy. He will go home with home health, this has been arranged by social media intern. I spoke with patient prior to discharge, he states that his chest pain is down to a 1/10. He states that he feels better. He is stable and appropriate for discharge. - Time Spent with Patient Total time spent providing and/or coordinating discharge services: Less than 30 minutes - Constitutional Vitals: Temp Pulse Resp BP Pulse Ox 97.5 F L 65 16 100/68 98 02/18/17 11:30 02/18/17 11:30 02/18/17 11:30 02/18/17 11:30 02/18/17 11:30 General appearance: Present: cooperative, A&O X 3, pleasant, answers questions appropriately - Head Head exam: Present: normal inspection - Eye Eye exam: Present: normal appearance, conjuntiva pink. Absent: nystagmus - ENT ENT exam: Present: mucous membranes moist, normal exam, normal external ear exam - Neck Neck exam general surgery: Present: normal inspection. Absent: lymphadenopathy , tenderness - Respiratory Respiratory exam: Present: CTAB. Absent: chest wall tenderness, decreased breath sounds, rales, respiratory distress, rhonchi, stridor, wheezes - Cardiovascular Cardiovascular exam: Present: RRR, +S1, +S2. Absent: diastolic murmur, systolic murmur - Expanded Cardiovascular Exam Peripheral pulses: 1+: Dorsalis Pedis (L) PM, Dorsalis Pedis (R) PM - GI/Abdominal GI/Abdominal exam: Present: normal bowel sounds, soft. Absent: guarding, hepatomegaly, tenderness - Extremities Exam Extremities exam: Present: normal capillary refill, warm, radial pulses palpable and symetrical. Absent: pedal edema, tenderness - Neurological Exam Neurological exam: Present: alert, oriented X3, no focal deficits. Absent: facial droop, speech deficit - Skin Skin exam: Present: dry, normal color, warm. Absent: rash
--- NOTE | 2017-02-18 14:31 | Physician Discharge Referral ---
Home Health/Hosp Referral Info Transfer to: Home Health Provider in Charge Post Discharge: PCP - Diagnosis (1) Chest pain Priority: Primary Status: Acute (2) GERD (gastroesophageal reflux disease) Priority: Secondary Status: Chronic (3) History of left foot drop Priority: Secondary Status: Chronic (4) Failed back syndrome of lumbar spine Priority: Secondary Status: Chronic (5) Chronic pain syndrome Priority: Secondary Status: Chronic (6) Depression with anxiety Priority: Secondary Status: Chronic (7) CAD (coronary artery disease), [place] coronary artery Priority: Secondary Status: Chronic (8) Left-sided weakness Priority: Secondary Status: Acute (9) Essential hypertension Priority: Secondary Status: Chronic (10) CHF (congestive heart failure) Priority: Secondary Status: Chronic (11) DVT prophylaxis Priority: Secondary Status: Acute - Respiratory Orders Smoking Cessation: Smoking cessation has been advised. For more information, call the [place] Tobacco Quit Line at 0-472-KLVY-NOW. - Diet/Nutrition Diet/Nutrition Orders: Cardiac - Activity Activity Orders: Up ad ryan - Services Needed Following services are medically necessary services: Nursing, Home Health Aide, Physical Therapy, Occupational Therapy - Transfer Medications Prescriptions: Aspirin 81 mg PO DAILY #30 tab.chew Isosorbide MONOnitrate (24 HR) [Imdur] 30 mg PO DAILY #30 Lisinopril [Zestril] 5 mg PO DAILY #30 Metoprolol [Lopressor] 25 mg PO BID #60 Omeprazole [PriLOSEC] 20 mg PO DAILY@0630 #30 Home Medications: Atorvastatin [Lipitor] 40 mg PO HS 11/01/16 [History] Clopidogrel [Plavix] 75 mg PO DAILY 11/01/16 [History] Furosemide [Lasix] 40 mg PO DAILY 11/01/16 [History] Nitroglycerin 0.4 mg SL Q5MIN PRN #30 tab.subl 11/05/16 [Rx] LORazepam [Ativan] 1 mg PO TID PRN #10 tablet 01/14/17 [Rx] OxyCODONE/APAP 10/325 [Percocet 10/325 MG] 1 tab PO Q6HR PRN 02/17/17 [History] Aspirin 81 mg PO DAILY #30 tab.chew 02/18/17 [Rx] Isosorbide MONOnitrate (24 HR) [Imdur] 30 mg PO DAILY #30 02/18/17 [Rx] Lisinopril [Zestril] 5 mg PO DAILY #30 02/18/17 [Rx] Metoprolol [Lopressor] 25 mg PO BID #60 02/18/17 [Rx] Omeprazole [PriLOSEC] 20 mg PO DAILY@0630 #30 02/18/17 [Rx] Allergies/Adverse Reactions: Allergies simvastatin [From Zocor] Allergy (Verified 01/31/17 12:07) Rash Zolpidem [From Ambien] Allergy (Verified 01/31/17 12:07) Confusion ondansetron [From Zofran (as hydrochloride)] Adverse Reaction (Verified 12:07) Vomiting Certification: Further, I certify that my clinical findings support that this patient is homebound (i.e. absences from home require considerable and taxing effort and are for medical reasons or [employer] services or infrequently or short duration when for other reasons) because: Homebound Reason: Patient requires assistance of a person or device to safely leave home Attestation: My signature below is to certify that this patient is under my care and that I, or nurse practitioner, or a physician's assistant sales manager working with me, has a face-to -face encounter with this patient.
--- NOTE | 2017-02-18 20:10 | Electrocardiograph Report ---
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
== END 2017-02-18 15:15 | disposition home health service (06) ==
LOC: 3BNU 03:39 → EMEROO 03:39 → 3BNU 10:23
PROVIDERS: ADMIT Internal Medicine; ATTEND Nurse Practitioner Family

== ENCOUNTER 2017-05-16 11:13 | Observation (INO) ==
[2017-05-16] MEDS ORDERED: Aspirin 325 MG TABLET PO ONE (11:25)
--- NOTE | 2017-05-16 11:31 | Emergency Department Note ---
Disposition Clinical Impression: Left arm weakness, Left facial numbness Chest pain Qualifiers: Chest pain type: other chest pain Qualified Code(s): R07.89 - Other chest pain Disposition: Admitted As Inpatient Condition: Fair Time of Disposition: 13:15 Chest Pain HPI - General Chief Complaint: ED Chest Pain Stated Complaint: chest pain, facial numbess Time Seen by Provider: 05/16/17 11:18 Source: patient Mode of arrival: ambulatory Limitations: no limitations Vital Signs Reviewed: Yes Nursing Notes Reviewed: Yes - History of Present Illness HPI Narrative: Patient is a 61-year-old male with past medical history of CAD, multiple previous stents, previous open heart surgery, hypertension, high cholesterol, previous stroke with chronic left lower extremity weakness. He presents with 2 different complaints. He says that this morning at 7am, he woke up with left- sided facial numbness and left upper extremity weakness. The symptoms were not present when he went to bed initially evening. He also states that he developed chest pain while in the shower a little after 7 AM. He describes as an intense pressure that radiates to his left upper extremity, left neck. Associated shortness of breath, nausea. Denies any sweating, vomiting. Denies any abdominal pain. Denies any other numbness, tingling, weakness, facial droop. He took one baby aspirin 81mg and two nitroglycerine that he said did help to reduce the pain prior to arrival. Most recent stress was 2 months ago and negative per patient. - Related Data Home Medications Medication Instructions Recorded Confirmed Atorvastatin [Lipitor] 40 mg PO HS 11/01/16 05/16/17 Clopidogrel [Plavix] 75 mg PO DAILY 11/01/16 05/16/17 Furosemide [Lasix] 40 mg PO DAILY 11/01/16 05/16/17 LORazepam [Ativan] 1 mg PO BID PRN 04/25/17 05/16/17 Previous Rx's Medication Instructions Recorded Aspirin 81 mg PO DAILY #30 tab.chew 02/18/17 Allergies Allergy/AdvReac Type Severity Reaction Status Date / Time simvastatin [From Zocor] Allergy Rash Verified 01/31/17 12:07 Zolpidem [From Ambien] Allergy Confusion Verified 01/31/17 12:07 ondansetron AdvReac Vomiting Verified 01/31/17 12:07 [From Zofran (as hydrochloride)] All systems ED: reviewed and negative except as stated. Constitutional: Denies: fever Cardiovascular: Reports: chest pain. Denies: palpitations Respiratory: Reports: dyspnea Gastrointestinal: Reports: nausea. Denies: abdominal pain, vomiting, diarrhea Musculoskeletal: Reports: back pain. Denies: neck pain Integumentary: Denies: rash, abrasion Neurological: Reports: weakness, numbness. Denies: paresthesias Chest Pain PMH - Past Medical History Medical history: Reports: arthritis, cardiomyopathy, coronary artery disease, CVA, GERD, hyperlipidemia, hypertension, myocardial infarction, osteoporosis, peripheral artery disease, syncope, TIA, other Surgical history: Reports: angioplasty/stent, cholecystectomy, coronary bypass ( CABG), orthopedic, other (right wrist repair), other (spinal surgeries with laminectomy, fusion) Psychiatric history: Reports: anxiety, depression, other - Social History Smoking Status: Never smoker Alcohol use: Reports: none Drug use: Reports: none Physical Exam - General Limitations: no limitations General appearance: alert - Head Head exam: atraumatic, normocephalic, normal inspection - Eye Eye exam: Present: normal appearance, PERRL, EOMI - ENT ENT exam: normal exam, normal oropharynx, mucous membranes moist - Neck Neck exam: Present: normal inspection, full ROM, trachea midline - Chest Chest inspection: Present: normal inspection, symmetric chest wall rise - Respiratory Respiratory exam: Present: normal lung sounds bilaterally. Absent: respiratory distress, wheezes - Cardiovascular Cardiovascular exam: Present: regular rate, normal rhythm, normal heart sounds - Abdominal Exam Abdominal exam: Present: soft, Non-Tender. Absent: tenderness, distention, guarding, rebound, rigidity - Extremities Exam Extremities exam: Present: normal inspection, other (chronic weakness of LLE. Drift of LUE and decreased sensation of Left face on forehead, cheek, and chin - new for patient. See NIGH scale for further detail. ). Absent: tenderness - Back Exam Back exam: Present: normal inspection, full ROM. Absent: tenderness - Neurological Exam Neurological exam: Present: alert, oriented X3, other (chronic weakness of LLE. Drift of LUE and decreased sensation of Left face on forehead, cheek, and chin - new for patient. Otherwise, no other focal neuro deficits. See NIH scale for further detail. ) - Psychiatric Psychiatric exam: Present: normal affect, normal mood - Skin Skin exam: Present: warm, dry, intact, normal color Course Course Narrative: Pressure systolic 160s. Otherwise, the rest of the vitals were within normal limits. Physical exam showed no reproducible chest pain on exam. Lungs clear to auscultation. Abdomen soft and benign. Patient did have a drift of the left lower extremity that he states is chronic from previous stroke. He also had drift of the left upper chest, decreased sensation of the left face including the left forehead, cheek, chin. This is new for the patient. We will give the patient aspirin 325, nitroglycerin to see if we can get his pain down to a 0 out of 10. We will obtain chest x-ray, EKG, troponin. We will also obtain CT head to assess for stroke. Patient does not qualify for stroke alert or TPA as his symptoms were present upon awakening this morning and his last known well was 9:30pm before bed last night. 12:54 EKG showed normal sinus rhythm with no acute ST changes. Troponin 0.00. Chest x-ray negative for any acute cardio pulmonary process. Head CT was negative for any acute intracranial process. CBC and BMP within normal limits. Patient is still having chest pain after receiving a total of 3 nitroglycerin. We will move to morphine for pain control this time. He is also having nausea, will give additional Phenergan. He is still having complaints of left upper extremity pain and subjective weakness. Again, patient is out of the window for TPA/thrombectomy has his last known well was 9: 30 PM last night. We will admit for chest pain rule out along with left upper extremity weakness, and further evaluation with recommended carotid Dopplers. Patient states he cannot have an MRI due to left upper lead from pain stimulator in his upper back. Chest X-Ray 05/16/17 11:24 IMPRESSION: Stable borderline cardiomegaly. No acute pulmonary disease. D/ / Norris oHuston MD / Norris Houston MD Interpreting Provider: Norris Houston MD Head CT 05/16/17 11:26 IMPRESSION: No acute intracranial process identified. D/ / Hari Siegel MD / Hari Siegel MD Interpreting Provider: Hari Siegel MD Vital Signs Temperature 98.1 F 05/16/17 11:18 Pulse Rate 76 05/16/17 11:18 Respiratory Rate 16 05/16/17 11:18 Blood Pressure 166/104 05/16/17 11:18 O2 Sat by Pulse Oximetry 100 05/16/17 11:18 Temperature 97.9 F 05/16/17 19:05 Pulse Rate 61 05/16/17 19:05 Respiratory Rate 16 05/16/17 19:05 Blood Pressure 112/76 05/16/17 19:05 O2 Sat by Pulse Oximetry 99 05/16/17 19:05 Oxygen Delivery Oxygen Delivery Room Air Chest Pain - MDM Narrative Medical decision making narrative: EKG showed normal sinus rhythm with no acute ST changes. Troponin 0.00. Chest x-ray negative for any acute cardio pulmonary process. Head CT was negative for any acute intracranial process. CBC and BMP within normal limits. Patient is still having chest pain after receiving a total of 3 nitroglycerin. We will move to morphine for pain control this time. He is also having nausea, will give additional Phenergan. He is still having complaints of left upper extremity pain and subjective weakness. Again, patient is out of the window for TPA/thrombectomy has his last known well was 9: 30 PM last night. We will admit for chest pain rule out along with left upper extremity weakness, and further evaluation with recommended carotid Dopplers. Patient states he cannot have an MRI due to left upper lead from pain stimulator in his upper back. - Medical Records Medical records reviewed: Yes I reviewed the patient's medical records. - Lab Data Lab results reviewed: Yes I reviewed the patient's lab results. Result diagrams: 05/16/17 12:03 05/16/17 12:03 Lab Results 05/16/17 05/16/17 05/16/17 Range/Units 12:03 12:03 12:03 WBC 5.6 (4.3-11.1) K/mcL RBC 4.71 (4.19-5.50) M/mcL Hgb 15.2 (12.9-16.9) g/dL Hct 45.4 (37.5-50.1) % MCV 96.4 (83.0-100.0) fL MCH 32.3 (28.0-33.3) pg MCHC 33.5 (31.6-35.5) g/dL RDW 12.7 (11.5-14.5) % Plt Count 198 (140-400) K/mcL MPV 8.4 L (9.4-12.4) fL Immature Gran % 0.4 (0-4) % Seg Neutrophils % 73.8 % Lymphocytes % 13.2 % Monocytes % 11.9 % Eosinophils % 0.5 % Basophils % 0.2 % Neutrophils # 4.1 (1.6-8.9) K/mcL Lymphocytes # 0.7 (0.6-4.6) K/mcL Monocytes # 0.7 (0.0-1.3) K/mcL Eosinophils # 0.0 (0.0-0.6) K/mcL Basophils # 0.0 (0.0-0.2) K/mcL PT 11.1 (9.4-12.1) Seconds INR 1.0 APTT 31.3 (26.0-36.0) Seconds Sodium 138 (136-145) mEq/L Potassium 4.5 (3.5-4.5) mEq/L Chloride 105 (98-109) mEq/L Carbon Dioxide 27 (19-29) mEq/L BUN 16 (8-26) mg/dL Creatinine 0.84 (0.72-1.25) mg/dL Est GFR ( Amer) > 60 (> 60) Est GFR (Non-Af Amer) > 60 (> 60) BUN/Creatinine Ratio 19 (6-26) Glucose 96 (70-99) mg/dL Calculated Osmolality 287 (280-300) Calcium 9.4 (8.6-10.8) mg/dL Troponin I (0-0.03) ng/mL 05/16/17 Range/Units 12:03 WBC (4.3-11.1) K/mcL RBC (4.19-5.50) M/mcL Hgb (12.9-16.9) g/dL Hct (37.5-50.1) % MCV (83.0-100.0) fL MCH (28.0-33.3) pg MCHC (31.6-35.5) g/dL RDW (11.5-14.5) % Plt Count (140-400) K/mcL MPV (9.4-12.4) fL Immature Gran % (0-4) % Seg Neutrophils % % Lymphocytes % % Monocytes % % Eosinophils % % Basophils % % Neutrophils # (1.6-8.9) K/mcL Lymphocytes # (0.6-4.6) K/mcL Monocytes # (0.0-1.3) K/mcL Eosinophils # (0.0-0.6) K/mcL Basophils # (0.0-0.2) K/mcL PT (9.4-12.1) Seconds INR APTT (26.0-36.0) Seconds Sodium (136-145) mEq/L Potassium (3.5-4.5) mEq/L Chloride (98-109) mEq/L Carbon Dioxide (19-29) mEq/L BUN (8-26) mg/dL Creatinine (0.72-1.25) mg/dL Est GFR ( Amer) (> 60) Est GFR (Non-Af Amer) (> 60) BUN/Creatinine Ratio (6-26) Glucose (70-99) mg/dL Calculated Osmolality (280-300) Calcium (8.6-10.8) mg/dL Troponin I 0.00 (0-0.03) ng/mL - Radiology Data Radiology results reviewed: Yes I reviewed the patient's radiology results. Chest X-Ray 05/16/17 11:24 IMPRESSION: Stable borderline cardiomegaly. No acute pulmonary disease. D/ / Norris Houston MD / Norris Houston MD Interpreting Provider: Norris Houston MD Head CT 05/16/17 11:26 IMPRESSION: No acute intracranial process identified. D/ / Hari Siegel MD / Hari Siegel MD Interpreting Provider: Hari Siegel MD - EKG Data EKG attestation: Yes I reviewed and interpreted this EKG. EKG results narrative: 05/16/2017 11:21. Normal sinus rhythm. Rate 78. SC 137. QRS 104. QTC 384. No acute ST elevation or depression. No acute changes from previous EKG on 04/25 Heart Score - Score History: Moderately Suspicious EKG: Normal Age: 45-65 Risk Factors: Equal/Greater than 3 risk factor or history of atherosclerotic disease Troponin: Less than normal limit HEART Score Total: 4 S.B.APopeye. - S.B.AMauricio Situation: Demographics, MOA Background: Presenting Complaint, Relevant PMH, Meds, & Allergies Assessment: Vital Signs, Course and respsone to treatment, Exam Concerns, Patient/Family Expectation, Pertinant Lab Results Recommendation: Barrier(s) to disposition, Recommendation based on pending studies, treatments, or consults S.B.A.RDiony Report Given to: Jun Almanza Repor Time: 13:14 Attestation Statement - Attestation Attestation: I examined this patient and my medical decision-making was reviewed with the Resident Physician. I agree with the documented findings, disposition and treatment plan as described except to the extent set forth below. Facial numbness and atypical chest pain. We will admit for TIA versus stroke workup as well as evaluation of chest pain. Stable at time of admission. Patient was out of the window for TPA. Chest x-ray and EKG nondiagnostic. Initial cardiac biomarkers are without elevation. NIH Stroke Scale - Level of Consciousness LOC: Alert - LOC Questions LOC Questions: Answers both correctly - LOC Commands LOC Commands: Performs both correctly - Best Gaze Best Gaze: Normal - Visual Visual: No visual loss - Facial Palsy Facial Palsy: Normal - Motor Arms Motor Arm-Left: Drift, does NOT hit bed Motor Arm-Right: No drift for 10 seconds - Motor Legs Motor Leg-Left: UN Amputation, joint fusion (explain) (chronic LLE weakness) Motor Leg-Right: No drift for 5 seconds - Limb Ataxia Limb Ataxia: Absent of affected limb too weak to perform exam - Sensory Sensory: Mild to moderate loss, "not as sharp" - Best Language Best Language: No aphasia - Dysarthria Dysarthria: Normal - Extinction and Inattention Extinction and Inattention: Normal - NIHSS Total Score NIHSS Total Score: 2
[2017-05-16] MEDS: Nitroglycerin 0.4 MG TAB.SUBL SL PRN (12:08)
[2017-05-16 12:12] LABS: Basophils % 0.2 %; Eosinophils % 0.5 %; Hematocrit 45.4 % (37.5-50.1); Hemoglobin 15.2 g/dL (12.9-16.9); Immature Granulocytes % 0.4 % (0-4); Lymphocytes # 0.7 K/mcL (0.6-4.6); Lymphocytes % 13.2 %; Mean Corpuscular HGB Conc 33.5 g/dL (31.6-35.5); Mean Corpuscular Hemoglobin 32.3 pg (28.0-33.3); Mean Corpuscular Volume 96.4 fL (83.0-100.0); Mean Platelet Volume 8.4 fL (9.4-12.4); Monocytes # 0.7 K/mcL (0.0-1.3); Monocytes % 11.9 %; Neutrophils # 4.1 K/mcL (1.6-8.9); Platelet Count 198 K/mcL (140-400); Red Blood Count 4.71 M/mcL (4.19-5.50); Red Cell Distribution Width 12.7 % (11.5-14.5); Segmented Neutrophils % 73.8 %
[2017-05-16 12:18] LABS: Prothrombin Time 11.1 Seconds (9.4-12.1)
[2017-05-16 12:21] LABS: Activated Partial Thrombo Time 31.3 Seconds (26.0-36.0)
[2017-05-16 12:24] LABS: BUN/Creatinine Ratio 19 (6-26); Blood Urea Nitrogen 16 mg/dL (8-26); Calcium 9.4 mg/dL (8.6-10.8); Carbon Dioxide 27 mEq/L (19-29); Chloride 105 mEq/L (98-109); Glucose 96 mg/dL (70-99); Osmolality,Calculated 287 (280-300); Potassium 4.5 mEq/L (3.5-4.5); Sodium 138 mEq/L (136-145); eGFR For African Americans > 60 (> 60); eGFR For Non-African Americans > 60 (> 60)
[2017-05-16] MEDS ORDERED: *HR* Promethazine 25 MG/ML VIAL IVP ONE (12:35)
[2017-05-16] MEDS ORDERED: *HR* Morphine 2 MG/ML SYRINGE IVP ONE (12:52)
[2017-05-16] MEDS ORDERED: *HR* Morphine 2 MG/ML SYRINGE IVP PRN (15:51)
[2017-05-16] MEDS ORDERED: Naloxone 0.4 MG/ML INJ IVP PRN (15:51)
[2017-05-16] MEDS ORDERED: *HR* LORazepam 1 MG TABLET PO PRN (16:07)
[2017-05-16] MEDS: *HR* LORazepam 2 MG/ML VIAL IVP PRN (17:51)
--- NOTE | 2017-05-16 19:38 | Internal Med History&Physical ---
<Tom Vergara - Last Filed: 05/16/17 20:41> Date of Encounter: 05/16/17 Time of Encounter: 16:30 Assessment and Plan (1) Chest pressure Current visit: Yes Status: Acute Patient presents with left chest pressure that he reports radiates to left shoulder and causes his left arm and leg to tingle/become numb. Patient has hx of previous [place] 6 months ago and angioplasty/stent placement x5. Previous echocardiogram in April showed preserved EF, no WMA's, mild MR, AR, TR. Resting stress test imaging showed moderate sized fixed perfusion defect in the inferior wall which is of unclear significance. Stress portion could not be completed due to hypotension. Nitroglycerin PRN. Initial troponin 0.00. Will trend x2. Patient placed on continuous cardiac telemetry. Previous admission suggested that patient's chest pain and increased left-sided weakness followed periods of stress and anxiety. Will continue patient's Ativan for anxiety. Will monitor patient for signs of increasing cardiac and respiratory distress. (2) Left-sided weakness Current visit: No Status: Acute Patient reports worsening left-sided weakness this morning. Patient has previous history of CVAs in November 2016 and March 2017 with residual effects to the left side. CT of the head/brain today shows no acute intracranial process. We are unable to do MRI of head/brain due to metal in neck which was confirmed with MRI department. Will order CT of the head/brain with contrast. NIHSS scale ordered with dysphagia screen. Padding added to sides of bed. Falls/ safety precautions. PT/OT/Speech consults ordered. Neuro checks Q2HR. Will consult neurology if patient shows signs of neurological decline. (3) CAD (coronary artery disease) Current visit: Yes Status: Chronic Hx of chronic CAD. And A1c ordered in a.m. labs. We will continue patient's Lipitor and aspirin therapy. Patient placed on continuous cardiac telemetry. Will add Lopressor if patient becomes hypertensive. Qualifiers: Coronary Disease-Associated Artery/Lesion type: [place] artery [place] vs. transplanted heart: [place] heart Associated angina: with unspecified angina Qualified Code(s): I25.119 - Atherosclerotic heart disease of [place] coronary artery with unspecified angina pectoris (4) Depression with anxiety Current visit: Yes Status: Chronic Hx of chronic anxiety with depression. Will continue patient's Ativan. (5) GERD (gastroesophageal reflux disease) Current visit: Yes Status: Chronic Hx of chronic GERD. IVP Protonix 40 mg BID. Phenergan 12.5 mg PO Q6 PRN for nausea. Qualifiers: Esophagitis presence: without esophagitis Qualified Code(s): K21.9 - Gastro -esophageal reflux disease without esophagitis (6) History of stroke with residual deficit Current visit: Yes Status: Chronic Patient has hx of previous CVAs in November 2016 and March 2017. Patient was sent to [facility] for March CVA. Patient reports left-sided weakness as residual from previous stroke but symptoms have worsened. PT/OT consults ordered to assess for strength, stability, ambulation, and assistive needs post-discharge. (7) HLD (hyperlipidemia) Current visit: Yes Status: Chronic Hx of chronic hyperlipidemia. Lipid panel ordered in a.m. labs. We will continue patient's Lipitor. Qualifiers: Hyperlipidemia type: pure hypercholesterolemia Qualified Code(s): E78.00 - Pure hypercholesterolemia, unspecified; E78.0 - Pure hypercholesterolemia (8) HTN (hypertension) Current visit: Yes Status: Chronic Hx of chronic HTN. Patient does not currently take HTN medications. Will monitor patient and VS and administer Lopressor if warranted. Qualifiers: Hypertension type: essential hypertension Qualified Code(s): I10 - Essential (primary) hypertension (9) DVT prophylaxis Current visit: Yes Status: Acute Lovenox 40 mg SQ 0600 for DVT prophylaxis. Internal Medicine - H&P: HPI Chief complaint: Chest pain/Left-sided weakness Admitted From: Emergency Dept Plans for Post Hospital Care: Home History of present illness: Mr. Melchor is a 61 year old male with medical history of arthritis, cardiomyopathy, CAD, CVA in November 2016 and March 2017 (patient sent to [facility]), GERD, HLD, HTN, [place] 6 months ago, osteoporosis, PAD, syncope, and TIA presents from the ED with chief complaint of chest pain and left-sided weakness in his upper and lower extremity as well as face which began this morning. Chest pain occurred in the shower this morning as well. Nausea and SOB reported as well. Denies any alleviating or aggravating factors. Patient reports hx of angioplasty with stent placement x5 and previous CABG. Patient states he has never smoked and does not drink or use illicit drugs. Patient denies recent illness, headache, fever, chills, vomiting, changes in vision, abdominal pain, weakness, lightheadedness, dizziness, unusual bleeding, presyncope, or syncope. Past Med Surg Social Fam HX - Past Medical History Source: patient, old records reviewed Medical history: arthritis, cardiomyopathy, coronary artery disease, CVA, GERD, hyperlipidemia, hypertension, myocardial infarction, osteoporosis, peripheral artery disease, syncope, TIA, other Psychiatric history: anxiety, depression, other - Past Surgical History Surgical History: angioplasty/stent, cholecystectomy, coronary bypass (CABG), orthopedic, other, other - Social History Smoking Status: Never smoker Smokeless Tobacco Status: Yes Alcohol use: none Drug use: none Current living situation: Home, With Family Activity Level: Independent ambulation Recent Out of Country Travel Within the Last 8 Weeks: No Exposure or Possible Exposure to Illness During Travel: No - Family History Son Race: Family Member Ethnicity: Non- Living Status: Still Living Hx Family Cardiac Disorders: Yes Mother Adopted: No Race: Family Member Ethnicity: Non- Living Status: Still Living Hx Family Cardiac Disorders: Yes (CAD) Hx Family Cancer: Yes (Cervical) Hx Family Endocrine Disorder: Yes (DM) Father Race: Family Member Ethnicity: Non- Living Status: Age at : 76 Cause of : [place] Hx Family Cardiac Disorders: Yes ([place], CAD) Brother Race: Family Member Ethnicity: Non- Living Status: Age at : 60 Cause of : Stomach cancer Hx Family Cancer: Yes (Stomach) Internal Medicine - H&P: Meds Atorvastatin [Lipitor] 40 mg PO HS 11/01/16 [History] Clopidogrel [Plavix] 75 mg PO DAILY 11/01/16 [History] Furosemide [Lasix] 40 mg PO DAILY 11/01/16 [History] Aspirin 81 mg PO DAILY #30 tab.chew 02/18/17 [Rx] LORazepam [Ativan] 1 mg PO BID PRN 04/25/17 [History] 3 Allergy/AdvReac Type Severity Reaction Status Date / Time simvastatin [From Zocor] Allergy Rash Verified 01/31/17 12:07 Zolpidem [From Ambien] Allergy Confusion Verified 01/31/17 12:07 ondansetron AdvReac Vomiting Verified 01/31/17 12:07 [From Zofran (as hydrochloride)] All Systems PM: A 10-system review of systems was performed and is negative for pertinent findings except as documented above in the HPI. - Constitutional Constitutional: no chills, no fever(s), no night sweats - EENT Eyes: no change in vision, no discharge, no pain, no photophobia Ears: no ear discharge, no ear pain, no tinnitus Nose, mouth and throat: no dysphagia, no nasal discharge, no neck pain, no sore throat - Breasts Breasts: as per HPI - Cardiovascular Cardiovascular ROS IM: as per HPI, chest pain, dyspnea - Respiratory Respiratory: as per HPI, dyspnea - Gastrointestinal Gastrointestinal: no abdominal pain, no diarrhea, no hematemesis, no hematochezia, no melena, no nausea, no vomiting - Genitourinary Genitourinary ROS male: as per HPI - Musculoskeletal Musculoskeletal ROS IM: no numbness, no tingling - Integumentary Integumentary IM: no rash, no unusual bruising - Neurological Neurological ROS: numbness (Left UE and LE), tingling, weakness - Psychiatric Psychiatric: as per HPI, anxiety, depression - Endocrine Endocrine IM: as per HPI - Hematologic/Lymphatic Hematologic/Lymphatic: no easy bruising - Allergic/Immunologic Allergic/Immunologic: as per HPI - Constitutional Vitals: Temp Pulse Resp BP Pulse Ox 97.9 F 61 16 112/76 99 05/16/17 19:05 05/16/17 19:05 05/16/17 19:05 05/16/17 19:05 05/16/17 19:05 General appearance: Present: cooperative, mild distress, A&O X 3, pleasant, obese, answers questions appropriately - Head Head exam: Present: atraumatic, normocephalic - Eye Eye exam: Present: PERRL, conjuntiva pink, sclera anicteric Pupils: Present: PERRL - ENT ENT exam: Present: normal exam, normal external ear exam - Neck Neck exam general surgery: Present: normal inspection, supple, trachea midline. Absent: lymphadenopathy - Respiratory Respiratory exam: Present: CTAB. Absent: accessory muscle use, rales, rhonchi, wheezes - Cardiovascular Cardiovascular exam: Present: irregular rhythm - GI/Abdominal GI/Abdominal exam: Present: normal bowel sounds, soft, no peritoneal signs. Absent: distended, tenderness - Rectal Rectal exam: Present: deferred - Additional comments: exam deferred. - Extremities Exam Extremities exam: Present: warm, radial pulses palpable and symmetrical. Absent : calf tenderness, cyanotic, pedal edema - Back Exam Back exam: Present: normal inspection - Neurological Exam Neurological exam: Present: CN II-XII intact, oriented X3, no focal deficits. Absent: pronater drift, facial droop, speech deficit - Psychiatric Psychiatric exam: Present: anxious - Skin Skin exam: Present: dry, intact Internal Med - H&P Results - Labs CBC & Chem 7: 05/16/17 12:03 05/16/17 12:03 Labs: Cardiac Enzymes 05/16/17 Range/Units 17:51 Troponin I 0.00 (0-0.03) ng/mL - EKG Data Prior EKG available for review: yes Interpretation IM: suggestive of ischemia EKG comments: 05/16/17 19:44 EKG dated 04/25/17 shows sinus bradycardia with ST-T changes suggestive of early repolarization. EKG dated 05/15/17 shows ectopic atrial rhythm, possible right ventricular hypertrophy, inferior myocardial infarction (probably old). - Diagnostic Studies Chest x-ray Additional comments: Impressions Chest X-Ray 05/16/17 11:24 IMPRESSION: Stable borderline cardiomegaly. No acute pulmonary disease. D/ / Norris Houston MD / Norris Houston MD Interpreting Provider: Norris Houston MD CT scan - head Additional comments: Impressions Head CT 05/16/17 11:26 IMPRESSION: No acute intracranial process identified. D/ / Hari Siegel MD / Hari Siegel MD Interpreting Provider: Hari Siegel MD <Timur Barahona - Last Filed: 05/16/17 20:53> Date of Encounter: 05/16/17 Internal Medicine - H&P: HPI History of present illness: Mr. Melchor is a 61 year old male All Systems PM: A 10-system review of systems was performed and is negative for pertinent findings except as documented above in the HPI. - Constitutional Vitals: Temp Pulse Resp BP Pulse Ox 97.9 F 61 16 112/76 99 05/16/17 19:05 05/16/17 19:05 05/16/17 19:05 05/16/17 19:05 05/16/17 20:06 Internal Med - H&P Results - Labs CBC & Chem 7: 05/16/17 12:03 05/16/17 12:03 Labs: Cardiac Enzymes 05/16/17 Range/Units 17:51 Troponin I 0.00 (0-0.03) ng/mL - Attending Attestation I reviewed the documentation above and discussed the plan with the nurse practitioner. I agree with the documented findings, disposition and treatment plan as described. Timur Barahona MD
[2017-05-16] MEDS: Pantoprazole 40 MG VIAL IVP SCH (21:30)
[2017-05-16] MEDS ORDERED: Ondansetron 4 MG/2 ML VIAL IVP PRN (22:22)
[2017-05-16] MEDS: *HR* Morphine 2 MG/ML SYRINGE IVP PRN (23:40)
[2017-05-17 01:33] LABS: Basophils % 0.3 %; Eosinophils % 0.1 %; Hematocrit 43.8 % (37.5-50.1); Hemoglobin 14.6 g/dL (12.9-16.9); Immature Granulocytes % 0.4 % (0-4); Lymphocytes # 0.2 K/mcL (0.6-4.6); Lymphocytes % 2.9 %; Mean Corpuscular HGB Conc 33.3 g/dL (31.6-35.5); Mean Corpuscular Hemoglobin 31.8 pg (28.0-33.3); Mean Corpuscular Volume 95.4 fL (83.0-100.0); Mean Platelet Volume 8.6 fL (9.4-12.4); Monocytes # 0.4 K/mcL (0.0-1.3); Monocytes % 4.8 %; Platelet Count 139 K/mcL (140-400); Red Blood Count 4.59 M/mcL (4.19-5.50); Segmented Neutrophils % 91.5 %
[2017-05-17 01:37] LABS: INR 1.1; Prothrombin Time 11.9 Seconds (9.4-12.1)
[2017-05-17 01:40] LABS: Activated Partial Thrombo Time 26.4 Seconds (26.0-36.0); Hemoglobin A1C 4.8 %
[2017-05-17 01:46] LABS: Alanine Aminotransferase 21 Units/L (0-55); Albumin 3.9 g/dL (3.5-5.0); Albumin/Globulin Ratio 1.2 (1.1-2.2); Alkaline Phosphatase 68 Units/L (38-126); Aspartate Amino Transferase 24 Units/L (5-34); BUN/Creatinine Ratio 20 (6-26); Bilirubin,Total 1.6 mg/dL (0.2-1.2); Blood Urea Nitrogen 15 mg/dL (8-26); Calcium 8.9 mg/dL (8.6-10.8); Carbon Dioxide 22 mEq/L (19-29); Chloride 108 mEq/L (98-109); Chol/HDL Ratio 3.3 (0-4.9); Cholesterol 186 mg/dL (< 200); Globulin 3.2 g/dL (2.4-3.5); Glucose 87 mg/dL (70-99); HDL Cholesterol 56 mg/dL (40-59); LDL Cholesterol,Calculated 106 mg/dL (0-99); Magnesium 1.9 mg/dL (1.6-2.6); Osmolality,Calculated 286 (280-300); Potassium 3.8 mEq/L (3.5-4.5); Sodium 138 mEq/L (136-145); Total Protein 7.1 g/dL (6.0-8.3); Triglycerides 119 mg/dL (< 150); eGFR For African Americans > 60 (> 60); eGFR For Non-African Americans > 60 (> 60)
[2017-05-17] MEDS: *HR* Enoxaparin 40 MG/0.4 ML SYRINGE SQ SCH (05:48)
[2017-05-17] MEDS: *HR* Morphine 2 MG/ML SYRINGE IVP PRN ×2 (06:00→16:55)
[2017-05-17] MEDS: *HR* LORazepam 2 MG/ML VIAL IVP PRN ×2 (08:10→21:02)
[2017-05-17] MEDS: Pantoprazole 40 MG VIAL IVP SCH ×2 (08:11→21:02)
[2017-05-17] MEDS: Furosemide 40 MG TABLET PO SCH (08:21)
[2017-05-17] MEDS: Aspirin 81 MG TAB.CHEW PO SCH (08:21)
[2017-05-17] MEDS: Metoclopramide 10 MG/2 ML VIAL IVP PRN (09:33)
--- NOTE | 2017-05-17 12:17 | Internal Med Progress Note ---
Date of Encounter: 05/17/17 Time of Encounter: 09:25 - Assessment and plan (1) Chest pressure Current Visit: Yes Status: Acute Assessment and plan: Patient presented to the emergency department with left chest pressure with radiation straight through to his back. He also describes his pressure as heaviness. Onset of chest pressure and left-sided weakness while in the shower yesterday morning. He reports associated nausea and states that weakness and chest pressure but became worse with exertion. He reports to the admitter that his pain radiates to his left shoulder, but denied that to me. Prior history of [place] 6 months ago, angioplasty/stent placement 5. Echocardiogram in April showed preserved EF, mild MR AR, TR. Resting stressed test imaging showed moderate size fixed perfusion defect, the stress portion could not be completed due to hypotension. Chest x-ray this admission was negative for any acute process, stable cardiomegaly is noted. Patient's lipid panel is within normal limits. Troponins were negative. Stress test was ordered for this morning, when he got downstairs, his IV was patent. He has been returned to the floor and will have another line placed and attempt again tomorrow. Continue telemetry Nitroglycerin or aspirin for pain. Morphine has been changed to 1 mg every 8 hours for severe pain. Patient has suspected drug seeking behaviors in the past. (2) GERD (gastroesophageal reflux disease) Current Visit: Yes Status: Chronic Assessment and plan: Chronic. Patient does not take any medication at home. He has been started on Protonix, 40 mg twice a day. We will consider omeprazole 20 mg daily on discharge of patient is having symptoms. Qualifiers: Esophagitis presence: without esophagitis Qualified Code(s): K21.9 - Gastro -esophageal reflux disease without esophagitis (3) History of atrial fibrillation Current Visit: Yes Status: Chronic Assessment and plan: Patient currently taking aspirin and Plavix. Continue. He is not on anything for rate control. Continue telemetry. (4) Numbness and tingling of left side of face Current Visit: Yes Status: Acute Assessment and plan: Patient reports sudden onset left-sided weakness, feeling left-sided numbness and facial droop yesterday while in the shower. He states that he feels as if even the inside of his mouth and gums are numb. Patient does have noticeable left-sided facial droop and obvious left-sided weakness to both upper and lower extremity. Patient also has recent CVA with left-sided residual deficit. Patient is unable to have MRI due to spinal stimulator. He has had 2 head CTs that are both negative. Patient had an echocardiogram in April, showed LVEF of 60% with normal LV systolic function, mild AR, mild MR, mild TR and normal wall motion. Last carotid Dopplers were done in March, that showed bilateral carotids had nonstenotic plaque. Neurology consult Telemetry Fall precautions Continue aspirin and Plavix and statin (5) Left-sided weakness Current Visit: Yes Status: Chronic Assessment and plan: Plan as above. (6) CAD (coronary artery disease) Current Visit: Yes Status: Chronic Assessment and plan: Patient with history of [place], coronary artery disease, stents 5. Patient denies chest pain currently, however he was admitted for chest pain and left-sided weakness. Continue aspirin, statin, Plavix. Stress test is ordered and pending. Due to IV access issues, patient will not have stressed until tomorrow. Consider cardiology consult based on results. Continue telemetry Qualifiers: Coronary Disease-Associated Artery/Lesion type: [place] artery [place] vs. transplanted heart: [place] heart Associated angina: with unspecified angina Qualified Code(s): I25.119 - Atherosclerotic heart disease of [place] coronary artery with unspecified angina pectoris (7) History of stroke with residual deficit Current Visit: Yes Status: Chronic Assessment and plan: Prior CVA with left-sided residual deficit. Patient with obvious weakness to left upper and left lower extremity, obvious left facial droop. Unsure if this is changed from his baseline. CT head negative 2. We will consult neurology for further recommendations and evaluation. (8) HLD (hyperlipidemia) Current Visit: Yes Status: Chronic Assessment and plan: Lipid panel within normal limits. Continue statin. Qualifiers: Hyperlipidemia type: pure hypercholesterolemia Qualified Code(s): E78.00 - Pure hypercholesterolemia, unspecified; E78.0 - Pure hypercholesterolemia (9) HTN (hypertension) Current Visit: Yes Status: Chronic Assessment and plan: The pressures well controlled. Continue home medications. Qualifiers: Hypertension type: essential hypertension Qualified Code(s): I10 - Essential (primary) hypertension (10) DVT prophylaxis Current Visit: Yes Status: Acute Assessment and plan: Lovenox subcutaneous. Also encourage ambulation and up to chair. - Time Spent With Patient less than 15 minutes - Constitutional Vitals: Temp Pulse Resp BP Pulse Ox 98.1 F 75 16 117/71 96 05/17/17 06:56 05/17/17 06:56 05/17/17 06:56 05/17/17 06:56 05/17/17 06:56 General appearance: Present: cooperative, mild distress, A&O X 3, pleasant, obese, answers questions appropriately - Head Head exam: Present: atraumatic, normal inspection, normocephalic - Eye Eye exam: Present: EOMI, normal appearance, conjuntiva pink, sclera anicteric. Absent: nystagmus Pupils: Present: PERRL - ENT ENT exam: Present: mucous membranes moist, normal exam, normal external ear exam - Neck Neck exam general surgery: Present: normal inspection, supple, trachea midline. Absent: lymphadenopathy, tenderness - Respiratory Respiratory exam: Present: CTAB. Absent: accessory muscle use, chest wall tenderness, rales, respiratory distress, rhonchi, wheezes - Cardiovascular Cardiovascular exam: Present: RRR, +S1, +S2. Absent: diastolic murmur, gallop, rubs, systolic murmur - GI/Abdominal GI/Abdominal exam: Present: normal bowel sounds, soft, no peritoneal signs. Absent: distended, hepatomegaly, tenderness - Extremities Exam Extremities exam: Present: normal capillary refill, normal inspection, warm, radial pulses palpable and symmetrical. Absent: calf tenderness, cyanotic, pedal edema, tenderness - Neurological Exam Neurological exam: Present: alert, oriented X3, no focal deficits. Absent: motor sensory deficit, strengths equal and symetr throughout, pronater drift, facial droop, speech deficit - Expanded Neurological Exam Neurological exam expanded: Present: protecting the airway. Absent: inattentive , receptive aphasia Patient oriented to: Present: person, place, time Speech: Present: fluid speech. Absent: expressive aphasia, garbled, slurred Cranial Nerves: tongue deviation PM: Normal Cerebellar function: heel to [place]: Normal Neuro motor strength exam: LUE: 3, RUE: 5, LLE: 3, RLE: 5 Coma Scale Eye Opening: Spontaneous Coma Scale Motor Response: Obeys Commands Coma Scale Verbal Response: Oriented Coma Scale Total: 15 - Skin Skin exam: Present: dry, intact, normal color, warm. Absent: rash Internal Medicine: Result - Labs CBC & Chem 7: 05/17/17 01:03 05/17/17 01:03 Labs: Short CBC 05/17/17 Range/Units 01:03 WBC 7.7 (4.3-11.1) K/mcL Hgb 14.6 (12.9-16.9) g/dL Hct 43.8 (37.5-50.1) % Plt Count 139 L (140-400) K/mcL Neutrophils # 7.0 (1.6-8.9) K/mcL BMP 05/17/17 01:03 Sodium 138 Potassium 3.8 Chloride 108 Carbon Dioxide 22 BUN 15 Creatinine 0.75 Glucose 87 Calcium 8.9 Cardiac Enzymes 05/16/17 05/17/17 Range/Units 17:51 01:03 Troponin I 0.00 0.01 (0-0.03) ng/mL Liver Function 05/17/17 Range/Units 01:03 Total Bilirubin 1.6 H (0.2-1.2) mg/dL AST 24 (5-34) Units/L ALT 21 (0-55) Units/L Alkaline Phosphatase 68 (38-126) Units/L Albumin 3.9 (3.5-5.0) g/dL - ABG Interpretation ABG results: PT/INR, D-dimer PT 11.9 Seconds (9.4-12.1) 05/17/17 01:03 - Impressions Impressions Head CT 05/16/17 20:10 IMPRESSION: No acute intracranial abnormality. D/ / Talha Pisano / aTlha Pisano Interpreting Provider: Talha Pisano Consult Discharge Plan - Plan Referrals: Toya Arvizu, OYSTERMAN [Primary Care Provider] -
[2017-05-17] MEDS: Acetaminophen 325 MG TABLET PO PRN ×2 (13:50→21:02)
[2017-05-17] MEDS: 0.9 % Sodium Chloride 1,000 ML IVC SCH (13:52)
[2017-05-18] MEDS: *HR* Morphine 2 MG/ML SYRINGE IVP PRN ×2 (02:49→13:45)
[2017-05-18 05:27] LABS: Basophils % 0.7 %; Eosinophils # 0.1 K/mcL (0.0-0.6); Hematocrit 39.1 % (37.5-50.1); Hemoglobin 13.1 g/dL (12.9-16.9); Immature Granulocytes % 0.7 % (0-4); Lymphocytes % 22.3 %; Mean Corpuscular HGB Conc 33.5 g/dL (31.6-35.5); Mean Corpuscular Hemoglobin 31.8 pg (28.0-33.3); Mean Corpuscular Volume 94.9 fL (83.0-100.0); Mean Platelet Volume 9.1 fL (9.4-12.4); Monocytes # 0.9 K/mcL (0.0-1.3); Monocytes % 20.3 %; Neutrophils # 2.4 K/mcL (1.6-8.9); Platelet Count 169 K/mcL (140-400); Red Blood Count 4.12 M/mcL (4.19-5.50); Red Cell Distribution Width 12.8 % (11.5-14.5)
[2017-05-18] MEDS: 0.9 % Sodium Chloride 1,000 ML IVC SCH ×2 (05:40→11:36)
[2017-05-18 05:49] LABS: Alanine Aminotransferase 14 Units/L (0-55); Albumin/Globulin Ratio 1.1 (1.1-2.2); Alkaline Phosphatase 52 Units/L (38-126); Aspartate Amino Transferase 17 Units/L (5-34); BUN/Creatinine Ratio 22 (6-26); Bilirubin,Total 0.4 mg/dL (0.2-1.2); Blood Urea Nitrogen 19 mg/dL (8-26); Calcium 8.2 mg/dL (8.6-10.8); Carbon Dioxide 20 mEq/L (19-29); Chloride 112 mEq/L (98-109); Globulin 2.9 g/dL (2.4-3.5); Glucose 101 mg/dL (70-99); Osmolality,Calculated 288 (280-300); Potassium 4.8 mEq/L (3.5-4.5); Sodium 138 mEq/L (136-145); eGFR For African Americans > 60 (> 60); eGFR For Non-African Americans > 60 (> 60)
[2017-05-18 05:50] LABS: Albumin 3.1 g/dL (3.5-5.0)
[2017-05-18] MEDS ORDERED: Regadenoson 0.4 MG/5 ML SYRINGE IVP ONE (06:18)
[2017-05-18] MEDS: *HR* Enoxaparin 40 MG/0.4 ML SYRINGE SQ SCH (06:33)
--- NOTE | 2017-05-18 11:05 | Electrocardiograph Report ---
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
[2017-05-18] MEDS ORDERED: Water for inj. (sterile) 10 ML IV ONE (11:26)
[2017-05-18] MEDS: Furosemide 40 MG TABLET PO SCH (11:35)
[2017-05-18] MEDS: Aspirin 81 MG TAB.CHEW PO SCH (11:35)
[2017-05-18] MEDS: *HR* LORazepam 2 MG/ML VIAL IVP PRN ×2 (11:35→23:42)
[2017-05-18] MEDS: Metoclopramide 10 MG/2 ML VIAL IVP PRN (11:38)
[2017-05-18] MEDS: Pantoprazole 40 MG VIAL IVP SCH ×2 (12:26→20:23)
[2017-05-18] MEDS: *HR* HYDROcodone/Acet 5/325 mg TABLET PO PRN ×2 (12:51→17:56)
[2017-05-18] MEDS: Nitroglycerin 0.4 MG TAB.SUBL SL PRN ×6 (14:01→20:30)
--- NOTE | 2017-05-18 16:45 | Internal Med Progress Note ---
Date of Encounter: 05/18/17 Time of Encounter: 13:45 - Assessment and plan (1) Chest pressure Current Visit: Yes Status: Acute Assessment and plan: Patient presented to the emergency department with left chest pressure with radiation straight through to his back. He also describes his pressure as heaviness. Onset of chest pressure and left-sided weakness while in the shower yesterday morning. He reports associated nausea and states that weakness and chest pressure but became worse with exertion. He reports to the admitter that his pain radiates to his left shoulder, but denied that to me. Prior history of [place] 6 months ago, angioplasty/stent placement 5. Echocardiogram in April showed preserved EF, mild MR AR, TR. Resting stressed test imaging showed moderate size fixed perfusion defect, the stress portion could not be completed due to hypotension. Chest x-ray this admission was negative for any acute process, stable cardiomegaly is noted. Patient's lipid panel is within normal limits. Troponins were negative. Today, patient is reporting sharp left chest pain. It is not reproducible. Stress test positive for mild ischemia. There is a small sized, mildly intense reversible basal inferior defect, this is a low risk finding. Gated EF is 57%, there is no evidence of TID. LV is not dilated. Cardiology has been consulted and will see him in the morning. Continue telemetry Nitroglycerin, morphine, or aspirin for pain. (2) GERD (gastroesophageal reflux disease) Current Visit: Yes Status: Chronic Assessment and plan: Chronic. Patient does not take any medication at home. He has been started on Protonix, 40 mg twice a day. We will consider omeprazole 20 mg daily on discharge if patient is having symptoms. Qualifiers: Esophagitis presence: without esophagitis Qualified Code(s): K21.9 - Gastro -esophageal reflux disease without esophagitis (3) History of atrial fibrillation Current Visit: Yes Status: Chronic Assessment and plan: Patient currently taking aspirin and Plavix. Continue. He is not on anything for rate control. Continue telemetry. (4) Numbness and tingling of left side of face Current Visit: Yes Status: Acute Assessment and plan: Patient reports sudden onset left-sided weakness, feeling left-sided numbness and facial droop yesterday while in the shower. He states that he feels as if even the inside of his mouth and gums are numb. Patient does have noticeable left-sided facial droop and obvious left-sided weakness to both upper and lower extremity. Patient also has recent CVA with left-sided residual deficit. Patient is unable to have MRI due to spinal stimulator. He has had 2 head CTs that are both negative. Patient had an echocardiogram in April, showed LVEF of 60% with normal LV systolic function, mild AR, mild MR, mild TR and normal wall motion. Last carotid Dopplers were done in March, that showed bilateral carotids had nonstenotic plaque. Patient was seen by neurology on 05/17/17. The do not feel at this time that there is any additional workup necessary considering he has had multiple workups and everything is negative. They recommend maintaining current regimen of antiplatelet therapy, antihypertensive therapy and treatment for hyperlipidemia. Is also recommended they follow up with primary care for ongoing risk factor management. Patient denies today. Telemetry Fall precautions Continue aspirin and Plavix and statin (5) Left-sided weakness Current Visit: Yes Status: Chronic Assessment and plan: Plan as above. This is chronic and residual from prior CVA. (6) CAD (coronary artery disease) Current Visit: Yes Status: Chronic Assessment and plan: Patient with history of [place], coronary artery disease, stents 5. Patient denies chest pain currently, however he was admitted for chest pain and left-sided weakness. Continue aspirin, statin, Plavix. Stress test normal. Etiology has been consulted and will see him tomorrow. Continue telemetry Qualifiers: Coronary Disease-Associated Artery/Lesion type: [place] artery [place] vs. transplanted heart: [place] heart Associated angina: with unspecified angina Qualified Code(s): I25.119 - Atherosclerotic heart disease of [place] coronary artery with unspecified angina pectoris (7) History of stroke with residual deficit Current Visit: Yes Status: Chronic Assessment and plan: Prior CVA with left-sided residual deficit. Patient with obvious weakness to left upper and left lower extremity, obvious left facial droop on admission. Unsure if this is changed from his baseline. CT head negative 2. Neurology has seen patient recommends close follow-up with primary care for risk factor modification. They also recommend continuing antiplatelet, antihypertensive, and pharmacologic treatment for hyperlipidemia. (8) HLD (hyperlipidemia) Current Visit: Yes Status: Chronic Assessment and plan: Lipid panel within normal limits. Continue statin. Qualifiers: Hyperlipidemia type: pure hypercholesterolemia Qualified Code(s): E78.00 - Pure hypercholesterolemia, unspecified; E78.0 - Pure hypercholesterolemia (9) HTN (hypertension) Current Visit: Yes Status: Chronic Assessment and plan: The pressures well controlled. Continue home medications. Continue telemetry and continue to monitor vital signs. Qualifiers: Hypertension type: essential hypertension Qualified Code(s): I10 - Essential (primary) hypertension (10) DVT prophylaxis Current Visit: Yes Status: Acute Assessment and plan: Lovenox subcutaneous. Also encourage ambulation and up to chair. - Time Spent With Patient less than 15 minutes - Subjective Interval history: Patient was seen and assessed at bedside at 1345 today. Patient reports 8/10 sharp left chest pain worse with exertion still. He denies headache, nausea, vomiting, diaphoresis, radiation of pain. He denies abdominal pain, neck pain, headache. Patient will be seen by cardiology in the morning. - Constitutional Vitals: Temp Pulse Resp BP Pulse Ox 98 F 67 18 111/72 97 05/18/17 08:48 05/18/17 08:48 05/18/17 08:48 05/18/17 08:48 05/18/17 08:48 General appearance: Present: cooperative, mild distress, A&O X 3, pleasant, obese, answers questions appropriately - Head Head exam: Present: atraumatic, normal inspection, normocephalic - Eye Eye exam: Present: normal appearance, conjuntiva pink, sclera anicteric - Neck Neck exam general surgery: Present: supple, trachea midline. Absent: lymphadenopathy, tenderness - Respiratory Respiratory exam: Present: CTAB. Absent: accessory muscle use, decreased breath sounds, rales, respiratory distress, rhonchi, wheezes - Cardiovascular Cardiovascular exam: Present: RRR, +S1, +S2. Absent: diastolic murmur, gallop, rubs, systolic murmur - GI/Abdominal GI/Abdominal exam: Present: normal bowel sounds, soft. Absent: distended, hepatomegaly, tenderness - Extremities Exam Extremities exam: Present: normal capillary refill, normal inspection, warm, radial pulses palpable and symmetrical. Absent: calf tenderness, cyanotic, pedal edema, tenderness - Neurological Exam Neurological exam: Present: alert, oriented X3, no focal deficits. Absent: strengths equal and symetr throughout, facial droop, speech deficit - Skin Skin exam: Present: dry, intact, normal color, warm. Absent: rash Internal Medicine: Result - Labs CBC & Chem 7: 05/18/17 03:56 05/18/17 03:56 Labs: Short CBC 05/18/17 Range/Units 03:56 WBC 4.5 (4.3-11.1) K/mcL Hgb 13.1 D (12.9-16.9) g/dL Hct 39.1 (37.5-50.1) % Plt Count 169 (140-400) K/mcL Neutrophils # 2.4 (1.6-8.9) K/mcL BMP 05/18/17 03:56 Sodium 138 Potassium 4.8 H D Chloride 112 H Carbon Dioxide 20 BUN 19 Creatinine 0.85 Glucose 101 H Calcium 8.2 L Liver Function 05/18/17 Range/Units 03:56 Total Bilirubin 0.4 (0.2-1.2) mg/dL AST 17 (5-34) Units/L ALT 14 (0-55) Units/L Alkaline Phosphatase 52 (38-126) Units/L Albumin 3.1 L D (3.5-5.0) g/dL - ABG Interpretation ABG results: PT/INR, D-dimer PT 11.9 Seconds (9.4-12.1) 05/17/17 01:03 Consult Discharge Plan - Plan Referrals: Toya Arvizu, STUDIO OPERATOR [Primary Care Provider] -
[2017-05-19] MEDS: *HR* Morphine 2 MG/ML SYRINGE IVP PRN ×2 (01:21→10:14)
[2017-05-19] MEDS: Nitroglycerin 0.4 MG TAB.SUBL SL PRN ×2 (03:17→03:22)
[2017-05-19] MEDS: Metoclopramide 10 MG/2 ML VIAL IVP PRN ×2 (03:17→10:15)
[2017-05-19] MEDS: *HR* HYDROcodone/Acet 5/325 mg TABLET PO PRN (03:47)
[2017-05-19 05:09] LABS: Basophils % 0.4 %; Eosinophils # 0.1 K/mcL (0.0-0.6); Eosinophils % 1.7 %; Hematocrit 39.8 % (37.5-50.1); Hemoglobin 13.1 g/dL (12.9-16.9); Immature Granulocytes % 0.2 % (0-4); Lymphocytes # 0.9 K/mcL (0.6-4.6); Lymphocytes % 19.7 %; Mean Corpuscular HGB Conc 32.9 g/dL (31.6-35.5); Mean Corpuscular Hemoglobin 31.6 pg (28.0-33.3); Mean Corpuscular Volume 95.9 fL (83.0-100.0); Mean Platelet Volume 8.9 fL (9.4-12.4); Monocytes # 0.6 K/mcL (0.0-1.3); Monocytes % 13.2 %; Platelet Count 163 K/mcL (140-400); Red Blood Count 4.15 M/mcL (4.19-5.50); Red Cell Distribution Width 12.7 % (11.5-14.5); Segmented Neutrophils % 64.8 %
[2017-05-19 05:20] LABS: Alanine Aminotransferase 12 Units/L (0-55); Albumin 3.1 g/dL (3.5-5.0); Alkaline Phosphatase 52 Units/L (38-126); Aspartate Amino Transferase 15 Units/L (5-34); BUN/Creatinine Ratio 19 (6-26); Bilirubin,Total 0.4 mg/dL (0.2-1.2); Blood Urea Nitrogen 16 mg/dL (8-26); Calcium 8.1 mg/dL (8.6-10.8); Carbon Dioxide 21 mEq/L (19-29); Chloride 112 mEq/L (98-109); Globulin 3.2 g/dL (2.4-3.5); Glucose 116 mg/dL (70-99); Osmolality,Calculated 292 (280-300); Potassium 3.8 mEq/L (3.5-4.5); Sodium 140 mEq/L (136-145); Total Protein 6.3 g/dL (6.0-8.3); eGFR For African Americans > 60 (> 60); eGFR For Non-African Americans > 60 (> 60)
[2017-05-19] MEDS: *HR* Enoxaparin 40 MG/0.4 ML SYRINGE SQ SCH (05:57)
[2017-05-19 11:24] VITALS: BP 128/85
[2017-05-19] MEDS: *HR* LORazepam 2 MG/ML VIAL IVP PRN (12:34)
--- NOTE | 2017-05-19 14:01 | Cardiology Consult Note ---
Date of Encounter: 05/19/17 Time of Encounter: 13:57 Assessment and Plan (1) Abnormal stress test Current Visit: Yes Status: Acute Stress test reviewed with patient. Perfusion imaging was positive for mild ischemia. Small sized, mildly intense reversible basal inferior defect - low risk finding. Pharmacologic ECG was non diagnostic for ischemia. Patient had chest pain with stress. No arrhythmias noted with stress. Gated EF = 57%. There is no evidence of TID. The LV is not dilated. Abnormal stress test does correlate with known anatomy on last LHC in 2013. LHC showed patent CLAROS-LAD and SVG-PDA. There was a 70% stenosis in the distal circumflex artery and 100% stenosis in the proximal RCA. He had recurrent admissions with chest pain and is on tolerated medical therapy. Chest pain similar to what he felt prior to bypass surgery. [facility] vs [facility] management was discussed. He would like to proceed with [facility]. R/B/ A discussed. (2) CAD (coronary artery disease) Current Visit: Yes Status: Chronic H/o 2 vessel CABG. Last LHC demonstarted patent 2/2 bypass grafts. There was a 70% stenosis in the distal circumflex artery and 100% stenosis in the proximal RCA. TTE 04/2017- EF 60%. No wall motion abnormalities. Mild AR, MR, and TR. Continue asa and statin therapy. BB held one month ago due to bradycardia and hypotension. HR noted in the 50's at times. Continue to hold. Qualifiers: Coronary Disease-Associated Artery/Lesion type: [place] artery [place] vs. transplanted heart: [place] heart Associated angina: with unspecified angina Qualified Code(s): I25.119 - Atherosclerotic heart disease of [place] coronary artery with unspecified angina pectoris Discussion w patient/family: The assessment and plan as outlined above was discussed with the patient and/or family members who expressed understanding and agreement. All questions were answered. Thank you for involving us in the care of your patient. Please call with any questions. History of Present Illness Consult date: 05/19/17 Requesting physician: Rosalba Ann Consult reason: Chest pain, abnormal stress test Chief complaint: Chest pain. History of present illness: Mr. Melchor is a 61 year old male with a past medical history of CABG x2, CVA 2016, HTN, HLD who presents with the c/o chest pain for 24 hours. He c/o left sided chest pain radiating to his left shoulder blade associated with SOB. Pain occurs at rest. He states "I feel like I have a hole in my chest." He also admits to continued left sided weakness and slurred speech since his stroke in November. Chest pain is similar to what he felt prior to his bypass surgery. He was hospitalized at [facility] in February and April with similar symptoms. Cardiology consulted for abnormal stress test. Past Med Surg Social Fam HX - Past Medical History Medical history: arthritis, cardiomyopathy, coronary artery disease, CVA, GERD, hyperlipidemia, hypertension, myocardial infarction, osteoporosis, peripheral artery disease, syncope, TIA, other Psychiatric history: anxiety, depression, other - Past Surgical History Surgical History: angioplasty/stent, cholecystectomy, coronary bypass (CABG), orthopedic, other, other - Social History Smoking Status: Never smoker Smokeless Tobacco Status: Yes Alcohol use: none Drug use: none - Family History Brother Race: Family Member Ethnicity: Non- Living Status: Age at : 60 Cause of : Stomach cancer Hx Family Cancer: Yes (Stomach) Son Race: Family Member Ethnicity: Non- Living Status: Still Living Hx Family Cardiac Disorders: Yes Mother Adopted: No Race: Family Member Ethnicity: Non- Living Status: Still Living Hx Family Cardiac Disorders: Yes (CAD) Hx Family Respiratory Disorders: No Hx Family Cancer: Yes (Cervical) Hx Family GI Disorders: No Hx Family Endocrine Disorder: Yes (DM) Hx Family Neuromuscular Disorders: No Hx Family Neurologic Disorders: No Hx Family HEENT Disorders: No Hx Family Autoimmune Disorders: No Father Race: Family Member Ethnicity: Non- Living Status: Age at : 76 Cause of : CT Hx Family Cardiac Disorders: Yes (CT, CAD) Hx Family Respiratory Disorders: Yes (COPD) Hx Family Cancer: No Hx Family GI Disorders: No Hx Family Endocrine Disorder: No Hx Family Neuromuscular Disorders: No Hx Family Neurologic Disorders: No Hx Family HEENT Disorders: No Hx Family Autoimmune Disorders: No Medications and Allergies Atorvastatin [Lipitor] 40 mg PO HS 11/01/16 [History] Clopidogrel [Plavix] 75 mg PO DAILY 11/01/16 [History] Furosemide [Lasix] 40 mg PO DAILY 11/01/16 [History] Aspirin 81 mg PO DAILY #30 tab.chew 02/18/17 [Rx] LORazepam [Ativan] 1 mg PO BID PRN 04/25/17 [History] 3 Allergy/AdvReac Type Severity Reaction Status Date / Time simvastatin [From Zocor] Allergy Rash Verified 01/31/17 12:07 Zolpidem [From Ambien] Allergy Confusion Verified 01/31/17 12:07 ondansetron AdvReac Shakiness Verified 05/18/17 11:21 [From Zofran (as hydrochloride)] All Systems Review: A 10-system review of systems was performed and is negative for pertinent findings except as documented above in the HPI. Physical Examination Vital Signs, Last 4 Hours Temp Pulse Resp BP Pulse Ox 05/19/17 11:22 97.9 F 72 18 128/85 97 General: Conversant, No Apparent Distress HEENT: Atraumatic, Normocephaly, Mucus Membranes Moist Neck: No JVD, Normal carotid pulses Cardiac: Reg Rate and Rhythm, Normal S1 and S2, No Murmur Lungs: Normal Breath Sounds, No Wheeze, Rales, Rhonchi Neuro: Alert and responsive, Other (Slurred speech and left sided weakness noted.) Abdomen: Soft, Non-Tender Skin: No rashes noted on visualized skin Musculoskeletal: No Chest Wall Tenderness Extremities: No Clubbing, No Cyanosis, No Edema, Normal Pulses Results 05/19/17 04:25 05/19/17 04:25 Lab Results 05/19/17 05/19/17 04:25 04:25 WBC 4.7 Hgb 13.1 Hct 39.8 Plt Count 163 Sodium 140 Potassium 3.8 D Chloride 112 H Carbon Dioxide 21 BUN 16 Creatinine 0.85 Glucose 116 H Calcium 8.1 L Total Bilirubin 0.4 AST 15 ALT 12 Alkaline Phosphatase 52 Chest X-Ray 05/16/17 11:24 IMPRESSION: Stable borderline cardiomegaly. No acute pulmonary disease. D/ / Norris Houston MD / Norris Houston MD Interpreting Provider: Norris Houston MD Head CT 05/16/17 20:10 IMPRESSION: No acute intracranial abnormality. D/ / Talha Pisano / Talha Pisano Interpreting Provider: Talha Pisano - Imaging and Cardiology Stress Test: report reviewed Echo: report reviewed - EKG Interpretation EKG results cardiology: personally reviewed Consult Discharge Plan - Plan Referrals: Toya Arvizu, ACCOUNT EXECUTIVE [Primary Care Provider] -
[2017-05-19] MEDS ORDERED: Nitroglycerin 1,000 MCG/10 ML VIAL IV ONE (14:15)
[2017-05-19] MEDS ORDERED: Heparin 1,000 UNITS/500 mL NS 500 ML ONE (14:15)
[2017-05-19] MEDS ORDERED: *HR* Heparin 10,000 UNIT/10 ML VIAL ONE (14:15)
[2017-05-19] MEDS ORDERED: 0.9 % Sodium Chloride 1,000 ML ONE ×2 (14:15→14:26)
--- NOTE | 2017-05-19 14:23 | Pre-Sedation Evaluation ---
Pre-sedation evaluation - Pre-sedation checklist Date of procedure: 05/19/17 Procedure: [facility] Recent Vitals: Last Vital Signs Temp 97.9 F 05/19/17 11:22 Pulse 72 05/19/17 11:22 Resp 18 05/19/17 11:22 BP 128/85 05/19/17 11:22 Pulse Ox 97 05/19/17 11:22 H&P (including ROS) documented in medical record: Yes Dietary Status: NPO after Midnight Possible difficult airway: No ASA Classification *see protocol: CLASS II-Mild systemic disease Plan of Care: Pt appropriate candidate for procedure/moderate/conscious sedation , Risks/benefits of procedure/sedation discussed w/ patient/family
[2017-05-19] MEDS ORDERED: *HR* Midazolam HCl 2 MG/2 ML VIAL ONE ×2 (14:30→14:54)
[2017-05-19] MEDS ORDERED: *HR* FentaNYL (PF) 100 MCG/2 ML VIAL ONE ×2 (14:31→14:54)
--- NOTE | 2017-05-19 15:02 | Event Note ---
Date of Encounter: 05/19/17 Time of Encounter: 15:01 - Cardiology Event Note [facility] today--known CAD with hx of bypass. Medical management recommended, no intervention warranted. Adding Imdur 30mg daily. Continue ASA and Statin. No BB due to recent bradycardia/hypotension. Cardiology signing off. Reconsult PRN. Will coordinate outpt follow-up.
[2017-05-19] MEDS ORDERED: Isosorbide MONOnitrate (24 HR) 30 MG TAB.ER.24H PO SCH (15:15)
--- NOTE | 2017-05-19 15:18 | Invasive Diagnostic Lab Proc ---
Name: Eber Melchor Date of Study: 05/19/2017 Date: 1955 Ht: 72.0in Medical Record#: [id number] Age: 61 Wt: 207.23lb Gender: Male BSA: 2.16 Order #: [id number] BMI: 28.07 Physicians Procedure Physician: Howard Beckman MD Referring MD: Referring MD: Staff Name Position Time In Harjinder España RT (R) Scrub 02:22 PM Michelle Trevino RN Fur Polisher 02:23 PM Brina Orosco RN Fur Polisher 02:23 PM Shellie Hennessy RN Monitor 02:23 PM Danielle Fraser RT (R) 02:23 PM Indications Indication Abnormal Test - Stress Procedures Performed Procedure CORONARY ART/GRFT ANGIO S&I Pre-Procedure Checklist Informed consent is complete signed and on chart. H&P is on chart. ID band is on and ID verified with patient. Patient NPO for procedure The procedure was described for the patient and questions were answered. Blood Pressure: 128/85 ECG is on chart. Rhythm: NSR Plan of Care Patient will tolerate the procedure without complications. Adequate level of comfort will be maintained. Hemodynamics will remain stable Patient will recover from procedure without complications. Respiratory function will be maintained. Cardiac rhythm will remain stable. Patient temperature will be maintained. Patient and/or family have verbalized understanding of the procedure. Patient Education Chief Complaint/Reason for Test: Cardiac Cath Developmental Category: Adult (18-64 years) Developmentally Appropriate for Age: Yes Learning Barriers: None Education Needs: Procedure Education Method: Verbal Information Taught: Cardiac Cath Educational Evaluation: Able to repeat information Intravenous Access Time IV Size Location DC'd Fluid/Drip Rate Units RN 02:12 PM 20g 1 1/" Patent On Arrival Rt Arm 0.9NaCl 25 ml/hr Michelle Trevino RN Allergies simvastatin Zolpidem ondansetron Vital Signs Time BP (mmHg) HR (bpm) O2 Sat. RR (bpm) LOC 02:12 PM 128 / 85 72 97 % 18 5 = Fully awake and oriented or at pre-proc level 02:35 PM / % 5 = Fully awake and oriented or at pre-proc level 02:48 PM / % 4 = Oriented but drowsy 02:27 PM 165 / 100 64 100 % 22 02:32 PM 161 / 106 69 100 % 17 02:37 PM 166 / 108 80 100 % 13 02:42 PM 164 / 99 62 100 % 13 02:47 PM 151 / 95 67 100 % 34 02:52 PM 166 / 103 79 100 % 17 02:57 PM 135 / 100 77 100 % 20 02:48 PM / % 5 = Fully awake and oriented or at pre-proc level Procedural Medications Time Medication Dose Units Method Given By 02:32 PM Oxygen 2 L/min nasal cannula Michelle Trevino RN 02:32 PM Versed 1 mg Intravenous Michelle Trevino RN 02:32 PM Fentanyl 50 mcg Intravenous Michelle Trevino RN 02:37 PM Lidocaine 2% 10 ml Subcutaneous Howard Beckman MD 02:38 PM Versed 1 mg Intravenous Michelle Trevino RN 02:38 PM Fentanyl 50 mcg Intravenous Michelle Trevino RN 02:43 PM Heparin 500 units Intravenous Michelle Trevino RN 02:53 PM Versed 0.5 mg Intravenous Michelle Trevino RN 02:53 PM Fentanyl 50 mcg Intravenous Michelle Trevino RN ASA Classification: CLASS II- Mild systemic disease (i.e. well-controlled diabetes, hypertension, asthma, cigarette smoking) Janna Score Preprocedure Postprocedure Activity 2- Moves 4 extremities sustained head lift Activity 2- Moves 4 extremities sustained head lift Circulation 2- SBP +/= 20 points of pre-anesthetic level Circulation 2- SBP +/= 20 points of pre-anesthetic level Consciousness 2- Awake and alert oriented x 3 Consciousness 2- Awake and alert oriented x 3 O2 Saturation 2- Able to maintain O2 satruation of 92% on room air O2 Saturation 2- Able to maintain O2 satruation of 92% on room air Respiratory 2- Able to deep breathe and cough well Respiratory 2- Able to deep breathe and cough well Total Score 10 Total Score 10 Contrast Agent: Isovue Diagnostic Contrast: 56 ml Total Contrast: 56 ml Fluoro Dose: 446 mGy Procedure Log Time Note Enter By 02:22 PM Pt arrived to hoisting laborer 2 at 14:22 tsites 02:22 PM Harjinder España RT (R) Position: Scrub Time in: 14:22 tsites 02:23 PM Michelle Trevino RN Position: Fur Polisher Time in: 14:23 tsites 02:23 PM Kwesi, Brina RN Position: Fur Polisher Time in: 14:23 tsites 02:23 PM Shellie Hennessy RN Position: Monitor Time in: 14:23 tsites 02:23 PM Patient charges- Angio tray pack, Navilyst 3mm J, Pulse Oximetry and ACIST tubing and transducer tsites 02:23 PM Case Delayed No tsites 02:23 PM Physician arrived 14: tsites 02:23 PM Meet and greet completed tsites 02:23 PM Sign in performed according to hospital policy. tsites 02:23 PM Procedure start 14: tsites 02:26 PM Vitals capture started with the following parameters, Patient=Adult, Interval=5 min, Initial O[place]az=260 mmHg, Deflation Rate=5 mmHg, Cuff placed on Left Arm 02:27 PM HR=64 bpm, TFOL=591/100 mmhg, GsS0=309.0 %, Resp=22 B/min, Comment=NSR 02:29 PM CathStat 02:32 PM HR=69 bpm, SIPK=065/106 mmhg, RiF8=970.0 %, Resp=17 B/min, Comment=NSR 02:32 PM Hair removed from procedure site in procedure lab using clippers. Bilateral groin prepped with Chloraprep by Bria, Danielle RT (R), safety strap applied then patient was draped. Skin intact. tsites 02:32 PM Time: 14:32 Oxygen on at 2 L/min per nasal cannula by Michelle Trevino RN tsites 02:32 PM Time: 14:32 Versed 1 mg Intravenous Given by Michelle Trevino RN tsites 02:33 PM Time: 14:32 Fentanyl 50 mcg Intravenous Given by Michelle Trevino RN tsites 02:34 PM Pressure channel 3 zeroed. 02:34 PM Recorded ECG: HR=80 Condition=Condition 1 02:35 PM Time: 14:35 Patient comfortable and pain free: Yes tsites 02:35 PM Time: 14:35LOC: 5 = Fully awake and oriented or at pre-proc level tsites 02:35 PM Clinical Presentation: Stable angina tsites 02:37 PM HR=80 bpm, BLLC=096/108 mmhg, HtZ0=016.0 %, Resp=13 B/min, Comment=NSR 02:37 PM Time out performed according to hospital policy tsites 02:37 PM Time: 14:37 10 ml Lidocaine 2% to right groin Subcutaneous Given by Howard Beckman MD tsites 02:38 PM Time: 14:38 Versed 1 mg Intravenous Given by Michelle Trevino RN tsites 02:38 PM Time: 14:38 Fentanyl 50 mcg Intravenous Given by Michelle Trevino RN tsites 02:40 PM Micro-Introducer Kit utilized for sheath placement tsites 02:40 PM Right femoral hand injected for sheath placement tsites 02:40 PM Access obtained by percutaneous puncture. 6Fr 10cm Terumo [place] sheath placed in right Femoral artery. [id number] tsites 02:42 PM HR=62 bpm, NVXZ=983/99 mmhg, HoI2=937.0 %, Resp=13 B/min, Comment=NSR 02:42 PM 5Fr FL 4 catheter inserted over the wire [facility] tsites 02:42 PM 0.035 145cm Navilyst 3mmJ wire [id number] tsites 02:42 PM Recorded Pressure: Ao, HR=60, Condition=Condition 1 (Aorta) Ao 157/91/118 02:43 PM LCA angiography performed in multiple views. tsites 02:43 PM Time: 14:43 Heparin 500 units Intravenous Given by Michelle Trevino RN tsites 02:44 PM Catheter removed tsites 02:44 PM 5Fr FR 4 catheter inserted over the wire [facility] tsites 02:45 PM RCA angiography performed in multiple views. tsites 02:45 PM Recorded Pressure: Ao, HR=67, Condition=Condition 1 (Aorta) Ao 131/93/111 02:45 PM SVG to the RPDA angio performed in multiple views. tsites 02:46 PM Recorded Pressure: Ao, HR=68, Condition=Condition 1 (Aorta) Ao 153/94/120 02:47 PM HR=67 bpm, MHYA=875/95 mmhg, KmB8=093.0 %, Resp=34 B/min, Comment=NSR 02:48 PM Time: 14:47 Patient comfortable and pain free: Yes lparsphyllis 02:48 PM Time: 14:48LOC: 4 = Oriented but drowsy lparsphyllis 02:48 PM Left LOU to the LAD angio performed in multiple views. lparsley 02:49 PM Recorded Pressure: Ao, HR=65, Condition=Condition 1 (Aorta) Ao 154/88/114 02:51 PM Catheter removed thi 02:52 PM Coronary Dominance: right lparsley 02:52 PM HR=79 bpm, HBLE=066/103 mmhg, YxO5=591.0 %, Resp=17 B/min, Comment=NSR 02:53 PM Procedure completed at 14:53 lparsphyllis 02:53 PM Time: 14:53 Versed 0.5 mg Intravenous Given by Michelle Trevino RN 02:53 PM Time: 14:53 Fentanyl 50 mcg Intravenous Given by Michelle Trevino RN lparsphyllis 02:57 PM HR=77 bpm, XNKB=645/100 mmhg, SvG5=724.0 %, Resp=20 B/min, Comment=NSR 02:57 PM Sign out completed: Radiation Dose 445.58 mGy Fluoro Time: 56 Isovue 370 - 200ml contrast 56 ml given by Howard Beckman MD. Complications: NoneCardiac Rehab Consult needed: NoConfirmed administered medications: Yes lparsphyllis 02:57 PM Sign out completed: Radiation Dose 445.58 mGy Fluoro Time: 4.7 Isovue 370 - 200ml contrast 56 ml given by Howard Beckman MD. Complications: NoneCardiac Rehab Consult needed: NoConfirmed administered medications: Yes [facility]58 PM Arterial sheath pulled, Angio-seal closure device used and was Successful [id number] S/N. lparsley 02:58 PM Post ECG NSR lparsley 02:58 PM Post Blood Pressure 135/100 [facility] 02:58 PM 14:58 Post Pulses Bilateral DP & PT 2+ [facility] 02:58 PM Information taught Cardiac Cath and Angioseal [facility] 02:58 PM Education needs Procedure, Plan of Care, and Safe & Effective Use of Medications [facility] 02:58 PM Learning barriers :None [facility] 02[facility]58 PM Education Methods Verbal [facility] 02:58 PM Education evaluation Able to repeat information [facility] 02:59 PM Site status No bleeding/hematoma - Rt Groin as reported by Harjinder España RT (R) at 14:58 lparsphyllis 02:59 PM Opsite applied lparsley 03:00 PM Vitals capture stopped. 03:01 PM Report given to Yasmeen VAZQUEZ Pt taken to Room #35. 15:01 lparsphyllis 03:01 PM Plavix, Effient or Brilinta given No lparsley 03:01 PM Delay to floor No lparsley 03:01 PM Patient out of room: 15:01 lparsley 03:01 PM Family not available lparsley 03:02 PM Complications: None lparsley 03:02 PM Fluoro Time: 4.7 lparsley 03:02 PM Isovue 370 - 200ml contrast 56 ml given by Howard Beckman MD. lparsley 03:02 PM Radiation Dose 445.58 mGy lparsley 03:03 PM Time: 14:48 Patient comfortable and pain free: Yes lparsley 03:03 PM Time: 14:48LOC: 5 = Fully awake and oriented or at pre-proc level lparsley 03:06 PM Lesion found in Mid RCA. Pre Stenosis: 100 lparsley 03:06 PM Lesion found in LMCA. Pre Stenosis: 15 lparsley 03:06 PM Lesion found in Mid LAD. Pre Stenosis: 100 lparsley 03:06 PM Lesion found in Proximal Circumflex. Pre Stenosis: 15 lparsley 03:08 PM Left Main Coronary Artery with 15% stenosis lparsley 03:08 PM Mid/Distal Left Anterior Descending Coronary Artery and diagonal branches with 100% stenosis. If graft is supplying this area, 0 % stenosis lparsley 03:08 PM Circumflex, Obtuse Marginal, Left Posterior Descending, and Left Posterolateral Coronary Arteries with 15 % stenosis. lparsley 03:09 PM Right Coronary, Right Posterior Descending Arteries with Right Posterolateral and Acute Marginal branches with 100 % stenosis. If graft is supplying this area, 0 % stenosis lparsley Complications Complication None Hemodynamics Pressures Site Systolic/A Wave Diastolic/V Wave Mean AO 157 91 118 AO 131 93 111 AO 153 94 120 AO 154 88 114 Post Procedure Information Blood Pressure: 135/100 mmHg Rhythm: NSR Post procedural instructions were given Closure Device Time Device Success/Fail 05/19/2017 3:04:00 PM Angio-seal Evolution Successful Site Checks Time Location Status Staff Sheath In? Note 02:58 PM Rt Groin No bleeding/hematoma Harjinder España RT (R) Pulses Time Site Pre-Procedure Post-Procedure Note 05/19/2017 2:12:00 PM Bilateral DP & PT 2+ 2:58:00 PM Bilateral DP & PT 2+ Updated by Shellie Hennessy RN on 05/19/2017 3:12:11 PM electronically signed on 05/19/2017 3:12:37 PM with status of Final
--- NOTE | 2017-05-19 16:14 | Discharge Summary ---
Date of Encounter: 05/19/17 Time of Encounter: 08:50 - Discharge Diagnosis (1) Chest pressure Priority: Primary Status: Acute Comments: Patient presented to the emergency department with left chest pressure with radiation straight through to his back. He also describes his pressure as heaviness. Onset of chest pressure and left-sided weakness while in the shower yesterday morning. He reports associated nausea and states that weakness and chest pressure but became worse with exertion. He reports to the admitter that his pain radiates to his left shoulder, but denied that to me. Prior history of KS 6 months ago, angioplasty/stent placement 5. Chest x-ray this admission was negative for any acute process, stable cardiomegaly is noted. Patient's lipid panel is within normal limits. Troponins were negative. Stress test positive for mild ischemia. Small sized, mildly intense reversible basal inferior defect. Gated EF 57% and no evidence of TID. Cardiology was consulted. Patient had a LHC this morning that showed severe 2 vessel CAD. Patient is status post CABG 2 of 2 patent bypass grafts. Cardiology has started Imdur 30 mg by mouth daily, continue aspirin and statin. Patient will follow-up with cardiology in the office. (2) GERD (gastroesophageal reflux disease) Priority: Secondary Status: Chronic Comments: Chronic. Patient does not take any medication at home. He has been started on Protonix, 40 mg twice a day. We will consider omeprazole 20 mg daily on discharge if patient is having symptoms. Qualifiers: Esophagitis presence: without esophagitis Qualified Code(s): K21.9 - Gastro -esophageal reflux disease without esophagitis (3) History of atrial fibrillation Priority: Secondary Status: Chronic Comments: Chronic. Patient does not take any medication at home. He has been started on Protonix, 40 mg twice a day. We will consider omeprazole 20 mg daily on discharge if patient is having symptoms. (4) Numbness and tingling of left side of face Priority: Secondary Status: Resolved Comments: Patient reports sudden onset left-sided weakness, feeling left-sided numbness and facial droop yesterday while in the shower. He states that he feels as if even the inside of his mouth and gums are numb. Patient does have noticeable left-sided facial droop and obvious left-sided weakness to both upper and lower extremity. Patient also has recent CVA with left-sided residual deficit. Patient is unable to have MRI due to spinal stimulator. He has had 2 head CTs that are both negative. Patient had an echocardiogram in April, showed LVEF of 60% with normal LV systolic function, mild AR, mild MR, mild TR and normal wall motion. Last carotid Dopplers were done in March, that showed bilateral carotids had nonstenotic plaque. Patient was seen by neurology on 05/17/17. The do not feel at this time that there is any additional workup necessary considering he has had multiple workups and everything is negative. They recommend maintaining current regimen of antiplatelet therapy, antihypertensive therapy and treatment for hyperlipidemia. Is also recommended they follow up with primary care for ongoing risk factor management. Patient since day after admission. (5) Left-sided weakness Priority: Secondary Status: Chronic Comments: Plan as above, Chronic and residual from prior CVA. (6) CAD (coronary artery disease) Priority: Secondary Status: Chronic Comments: Assessment and plan: Patient with history of KS, coronary artery disease, stents 5. Patient denies chest pain currently, however he was admitted for chest pain and left-sided weakness. Continue aspirin, statin, Plavix. Stress test abnormal. Pt had LHC today that showed severe 2 vessel CAD, S/p CABG with patent bypass grafts. Qualifiers: Coronary Disease-Associated Artery/Lesion type: [place] artery [place] vs. transplanted heart: [place] heart Associated angina: with unspecified angina Qualified Code(s): I25.119 - Atherosclerotic heart disease of [place] coronary artery with unspecified angina pectoris (7) History of stroke with residual deficit Priority: Secondary Status: Chronic (8) HLD (hyperlipidemia) Priority: Secondary Status: Chronic Comments: Chronic. Continue medications. Qualifiers: Hyperlipidemia type: pure hypercholesterolemia Qualified Code(s): E78.00 - Pure hypercholesterolemia, unspecified; E78.0 - Pure hypercholesterolemia (9) HTN (hypertension) Priority: Secondary Status: Chronic Comments: Vital signs are been stable. Continue home medications. Blood pressures been well controlled in the inpatient setting. Qualifiers: Hypertension type: essential hypertension Qualified Code(s): I10 - Essential (primary) hypertension (10) DVT prophylaxis Priority: Secondary Status: Acute Comments: Patient received Lovenox subcutaneous while admitted. Patient was ambulatory. - Discharge Medications Prescriptions: Isosorbide MONOnitrate (24 HR) [Imdur] 30 mg PO DAILY #30 tab.er.24h Omeprazole 20 mg PO DAILY #30 tablet. Home Medications: Atorvastatin [Lipitor] 40 mg PO HS 11/01/16 [History] Clopidogrel [Plavix] 75 mg PO DAILY 11/01/16 [History] Furosemide [Lasix] 40 mg PO DAILY 11/01/16 [History] Aspirin 81 mg PO DAILY #30 tab.chew 02/18/17 [Rx] LORazepam [Ativan] 1 mg PO BID PRN 04/25/17 [History] Isosorbide MONOnitrate (24 HR) [Imdur] 30 mg PO DAILY #30 tab.er.24h 05/19/17 [ Rx] Omeprazole 20 mg PO DAILY #30 tablet. 05/19/17 [Rx] Allergies/Adverse Reactions: 3 Allergy/AdvReac Type Severity Reaction Status Date / Time simvastatin [From Zocor] Allergy Rash Verified 01/31/17 12:07 Zolpidem [From Ambien] Allergy Confusion Verified 01/31/17 12:07 ondansetron AdvReac Shakiness Verified 05/18/17 11:21 [From Zofran (as hydrochloride)] Procedures/tests Complete & Pending: Procedures Performed prior 72 hours Category Date Time Status CT head/brain w con [CT] Stat Cat Scan 05/16/17 20:10 Completed CL Cardiac Catheterization [CL] Routine Batch Still Operator 05/19/17 11:31 Completed NM ihsan perf SPECT multi [NM] Routine Exams 05/18/17 06:42 Taken SP pharm nuclear stress Routine Y 05/17/17 09:45 Completed Date of admission: 05/16/17 13:22 Primary care physician: Toya Arvizu CNP Consults: 05/16/17 16:04 Consult to Deblocker [CONS] Routine Reason for SW Consult: Assess patient for home needs for post-discharge planning. States that he has problems with insurance coverage of some of his home medications. 05/16/17 16:05 Consult to Occupational Therapy [CONS] Routine Comment: Evaluate, develop and implement POC Reason for Consult: Patient has hx of previous stroke and is now experiencing left-sided weakness of UE and LE. Please assess for strength, stability, ambulation, and assistive needs for post-discharge planning. Patient states he was recently in a assisted for rehab and was discharged to home. 05/16/17 16:07 Consult to Physical Therapy [CONS] Routine Comment: Evaluate, develop and implement POC Reason for Consult: Patient has hx of previous stroke and is now experiencing left-sided weakness of UE and LE. Please assess for strength, stability, ambulation, and assistive needs for post-discharge planning. Patient states he was recently in a assisted for rehab and was discharged to home. 05/16/17 20:13 Consult to Speech Therapy [CONS] Routine Comment: Evaluate, develop and implement POC Reason for Consult: Patient has hx of CVA with residual effects on left side and speech. Call Completed: No 05/17/17 13:12 Consult to Neurology [CONS] Routine Consulting Provider: [facility] Reason for Consult: worsening left sided weakness Time Notified: 13:13 Call Completed: Yes 05/18/17 16:46 Consult to Cardiology [CONS] Routine Comment: Consulting Provider: Cardiology [facility] Reason for Consult: abnormal stress test, continued chest pain. Call Completed: No Discharging clinician: Rosalba Ann Anticipated date of discharge: 05/19/17 - Patient Status Disposition: Home, Self-Care Condition: Good Functional capacity at discharge: independent ambulation Overall status at discharge: patient is back to baseline - Discharge Instructions Follow Up With: Toya Arvizu, [employer] [Primary Care Provider] - Additional Instructions: Follow up with your PCP in the next 7-10 days for a follow up visit. Return to the closest ER for any other problems or concerns or if your symptoms return or worsen. Resume your normal home medications Resume your normal activities as tolerated Start your new medications tomorrow. - Diet and Activity Activity: increase activity as tolerated Diet: advance to your usual diet Hospital course: Mr. Melchor is a 61 year old male with repeated visits for chest pain. Patient was prior history of CVA with left-sided deficit , hyperlipidemia, hypertension , coronary artery disease. Patient presents with left-sided facial numbness, left hand numbness and weakness which resolved. He was having chest pain and pressure. Stress test showed mild abnormality. He was taken to the catheter lab where severe two-vessel coronary artery disease was noted. He has stable and patent stents. Imdur was added to patient's medication regimen. I will also send patient home with a prescription for omeprazole. Patient will continue aspirin, Lipitor, Plavix. Patient will follow up with cardiology in the office. Stable, vitals are stable within normal limits. Patient is ready for discharge. Please see assessment and plan per hospital course. - Time Spent with Patient Total time spent providing and/or coordinating discharge services: Less than 30 minutes - Constitutional Vitals: Temp Pulse Resp BP Pulse Ox 97.9 F 72 18 128/85 97 05/19/17 11:22 05/19/17 11:22 05/19/17 11:22 05/19/17 11:22 05/19/17 11:22 General appearance: Present: cooperative, mild distress, A&O X 3, pleasant, obese, answers questions appropriately - Head Head exam: Present: atraumatic, normal inspection, normocephalic - Eye Eye exam: Present: normal appearance, conjuntiva pink, sclera anicteric - Neck Neck exam general surgery: Present: supple, trachea midline. Absent: lymphadenopathy - Respiratory Respiratory exam: Present: CTAB. Absent: accessory muscle use, chest wall tenderness, rales, rhonchi, wheezes - Cardiovascular Cardiovascular exam: Present: RRR, +S1, +S2. Absent: diastolic murmur, gallop, rubs, systolic murmur - GI/Abdominal GI/Abdominal exam: Present: normal bowel sounds, soft, no peritoneal signs. Absent: distended, hepatomegaly, tenderness - Extremities Exam Extremities exam: Present: normal capillary refill, normal inspection, warm, radial pulses palpable and symmetrical. Absent: calf tenderness, cyanotic, pedal edema, tenderness - Neurological Exam Neurological exam: Present: alert, oriented X3, no focal deficits, pronater drift. Absent: facial droop, speech deficit - Skin Skin exam: Present: dry, intact, normal color, warm. Absent: rash - VTE Documentation of Mechanical Device: Intermittent pneumatic compression device
== END 2017-05-19 18:30 | disposition home or self-care (01) ==
LOC: 3BNU 11:13 → EMEROO 11:13 → 3BNU 13:55
PROVIDERS: ADMIT Registered Nurse; ATTEND Registered Nurse

== ENCOUNTER 2017-05-21 15:52 | Observation (INO) ==
[2017-05-21] MEDS ORDERED: Ondansetron 4 MG/2 ML VIAL IVP ONE (16:53)
[2017-05-21 16:55] LABS: Basophils % 0.3 %; Eosinophils # 0.1 K/mcL (0.0-0.6); Eosinophils % 0.9 %; Immature Granulocytes % 0.3 % (0-4); Lymphocytes # 1.1 K/mcL (0.6-4.6); Lymphocytes % 19.7 %; Mean Corpuscular HGB Conc 34.2 g/dL (31.6-35.5); Mean Corpuscular Volume 93.5 fL (83.0-100.0); Mean Platelet Volume 8.8 fL (9.4-12.4); Monocytes # 0.8 K/mcL (0.0-1.3); Monocytes % 14.1 %; Neutrophils # 3.8 K/mcL (1.6-8.9); Platelet Count 211 K/mcL (140-400); Red Cell Distribution Width 12.7 % (11.5-14.5); Segmented Neutrophils % 64.7 %
[2017-05-21 16:56] LABS: Hemoglobin 14.7 g/dL (12.9-16.9)
[2017-05-21 17:01] LABS: INR 1.1; Prothrombin Time 11.3 Seconds (9.4-12.1)
[2017-05-21 17:07] LABS: BUN/Creatinine Ratio 18 (6-26); Blood Urea Nitrogen 15 mg/dL (8-26); Carbon Dioxide 20 mEq/L (19-29); Chloride 106 mEq/L (98-109); Glucose 86 mg/dL (70-99); Osmolality,Calculated 282 (280-300); Potassium 4.1 mEq/L (3.5-4.5); Sodium 136 mEq/L (136-145); eGFR For African Americans > 60 (> 60); eGFR For Non-African Americans > 60 (> 60)
[2017-05-21 17:08] LABS: Calcium 9.4 mg/dL (8.6-10.8)
--- NOTE | 2017-05-21 17:14 | Emergency Department Note ---
Disposition Clinical Impression: Chest pain Qualifiers: Chest pain type: unspecified Qualified Code(s): R07.9 - Chest pain, unspecified Disposition: Admitted As Inpatient Condition: Good Referrals: Toya Arvizu, AIR BRAKE OPERATOR [Primary Care Provider] - Forms: ED Satisfaction Letter Time of Disposition: 19:19 Chest Pain HPI - General Chief Complaint: ED Chest Pain Stated Complaint: Chest heaviness Time Seen by Provider: 05/21/17 16:14 Source: patient Limitations: no limitations Vital Signs Reviewed: Yes Nursing Notes Reviewed: Yes - History of Present Illness HPI Narrative: Chest heaviness. Denies any shortness of breath. Does have associated diaphoresis and nausea and vomiting. Denies any hematemesis. No provoking or alleviating factors. Began around 9:00 this morning. Severity scale (1-10): 2 - Related Data Home Medications Medication Instructions Recorded Confirmed Atorvastatin [Lipitor] 40 mg PO HS 11/01/16 05/16/17 Clopidogrel [Plavix] 75 mg PO DAILY 11/01/16 05/16/17 Furosemide [Lasix] 40 mg PO DAILY 11/01/16 05/16/17 LORazepam [Ativan] 1 mg PO BID PRN 04/25/17 05/16/17 Previous Rx's Medication Instructions Recorded Aspirin 81 mg PO DAILY #30 tab.chew 02/18/17 Isosorbide MONOnitrate (24 HR) 30 mg PO DAILY #30 tab.er.24h 05/19/17 [Imdur] Omeprazole 20 mg PO DAILY #30 tablet. 05/19/17 Allergies Allergy/AdvReac Type Severity Reaction Status Date / Time simvastatin [From Zocor] Allergy Rash Verified 05/21/17 15:58 Zolpidem [From Ambien] Allergy Confusion Verified 05/21/17 15:58 ondansetron AdvReac Shakiness Verified 05/21/17 15:58 [From Zofran (as hydrochloride)] Constitutional: Denies: fever, chills Cardiovascular: Reports: chest pain. Denies: palpitations, dyspnea on exertion , syncope Respiratory: Denies: cough, dyspnea Gastrointestinal: Reports: nausea, vomiting. Denies: abdominal pain, diarrhea Genitourinary: Denies: urgency, dysuria, frequency, hematuria Musculoskeletal: Denies: back pain, neck pain Neurological: Denies: weakness Chest Pain PMH - Past Medical History Medical history: Reports: arthritis, cardiomyopathy, coronary artery disease, CVA, GERD, hyperlipidemia, hypertension, myocardial infarction, osteoporosis, peripheral artery disease, syncope, TIA, other Surgical history: Reports: angioplasty/stent, cholecystectomy, coronary bypass ( CABG), orthopedic, other, other Psychiatric history: Reports: anxiety, depression, other - Social History Smoking Status: Never smoker Alcohol use: Reports: none Drug use: Reports: none Physical Exam - General Limitations: no limitations General appearance: alert, in no apparent distress - Head Head exam: atraumatic, normocephalic, normal inspection - Eye Eye exam: Present: normal appearance, PERRL, EOMI. Absent: scleral icterus - ENT ENT exam: normal exam, normal oropharynx, mucous membranes moist - Neck Neck exam: Present: normal inspection, full ROM, trachea midline - Chest Chest inspection: Present: normal inspection, symmetric chest wall rise. Absent : tenderness - Respiratory Respiratory exam: Present: normal lung sounds bilaterally - Cardiovascular Cardiovascular exam: Present: regular rate, normal rhythm, normal heart sounds - Abdominal Exam Abdominal exam: Present: soft, Non-Tender. Absent: tenderness, distention, guarding, rebound, rigidity, organomegaly, Tobias's sign, Rovsing's sign, tenderness at McBurney's Point - Extremities Exam Extremities exam: Present: normal inspection, full ROM, normal capillary refill. Absent: tenderness, pedal edema - Back Exam Back exam: Present: normal inspection, full ROM. Absent: tenderness - Neurological Exam Neurological exam: Present: alert, oriented X3 - Psychiatric Psychiatric exam: Present: normal affect, normal mood Course Course Narrative: Male patient sent from the cardiology office for chest pain. States that he started having that this morning around 9 AM. Has associated nausea and vomiting. Denies any hematemesis. Does have a history of CABG and stent placement. Was admitted one week ago for angioplasty. States that the pain is a heaviness sensation in the center of his chest. Denies any shortness of breath associated with this. He is resting comfortably in bed at this time. He states that he does take aspirin at home and did take 2 325 mg aspirins this morning. His lung sounds are clear heart sounds are normal abdomen is soft nontender. Cardiac workup has been negative thus far however on his EKG there is some mild ST elevation in leads II, III, and F and aVF. We have repeated this. It is still there. However it is not greater than 1 mm. We will contact cardiology to discuss this patient with them and admit to the hospital for ACS rule out. Patient did have a recent cardiac catheter 2 days ago. This showed some stenosis with 100% blockages to the areas that had bypass grafts. There is nothing amendable. - Reevaluation(s) Reevaluation #1: Patient CTA was negative. We will admit to the hospital for continued chest pain and serial troponins. He is agreeable to this. Time: 19:18 - Consultations Consultation #1: I spoke with Dr. Camilo> I made him aware that the patient had ST elevations in leads II, III, and F aVF that was less than 1 mm. We also made him aware that his troponin was negative. He is suggesting we do a CTA of patient's chest. I feel this is reasonable. We will add this test and admit to the hospitalist. Time: 18:09 Consultation #2: Dr. Rojo accepted patient in stable condition. Time: 19:29 Vital Signs Temperature 97.6 F 05/21/17 15:55 Pulse Rate 64 05/21/17 15:55 Respiratory Rate 16 05/21/17 15:55 Blood Pressure 124/82 05/21/17 15:55 O2 Sat by Pulse Oximetry 97 05/21/17 15:55 Temperature 97.6 F 05/21/17 15:55 Pulse Rate 64 05/21/17 18:50 Respiratory Rate 16 05/21/17 18:50 Blood Pressure 125/89 05/21/17 18:50 O2 Sat by Pulse Oximetry 95 05/21/17 18:50 Oxygen Delivery Oxygen Delivery Room Air Chest Pain - Medical Records Medical records reviewed: Yes I reviewed the patient's medical records. - Lab Data Lab results reviewed: Yes I reviewed the patient's lab results. Result diagrams: 05/21/17 16:46 05/21/17 16:46 Lab Results 05/21/17 05/21/17 05/21/17 Range/Units 16:46 16:46 16:46 WBC 5.8 (4.3-11.1) K/mcL RBC 4.60 (4.19-5.50) M/mcL Hgb 14.7 D (12.9-16.9) g/dL Hct 43.0 (37.5-50.1) % MCV 93.5 (83.0-100.0) fL MCH 32.0 (28.0-33.3) pg MCHC 34.2 (31.6-35.5) g/dL RDW 12.7 (11.5-14.5) % Plt Count 211 (140-400) K/mcL MPV 8.8 L (9.4-12.4) fL Immature Gran % 0.3 (0-4) % Seg Neutrophils % 64.7 % Lymphocytes % 19.7 % Monocytes % 14.1 % Eosinophils % 0.9 % Basophils % 0.3 % Neutrophils # 3.8 (1.6-8.9) K/mcL Lymphocytes # 1.1 (0.6-4.6) K/mcL Monocytes # 0.8 (0.0-1.3) K/mcL Eosinophils # 0.1 (0.0-0.6) K/mcL Basophils # 0.0 (0.0-0.2) K/mcL PT 11.3 (9.4-12.1) Seconds INR 1.1 APTT 32.0 (26.0-36.0) Seconds Sodium 136 (136-145) mEq/L Potassium 4.1 (3.5-4.5) mEq/L Chloride 106 (98-109) mEq/L Carbon Dioxide 20 (19-29) mEq/L BUN 15 (8-26) mg/dL Creatinine 0.82 (0.72-1.25) mg/dL Est GFR ( Amer) > 60 (> 60) Est GFR (Non-Af Amer) > 60 (> 60) BUN/Creatinine Ratio 18 (6-26) Glucose 86 (70-99) mg/dL Calculated Osmolality 282 (280-300) Calcium 9.4 D (8.6-10.8) mg/dL Troponin I (0-0.03) ng/mL 05/21/17 Range/Units 16:46 WBC (4.3-11.1) K/mcL RBC (4.19-5.50) M/mcL Hgb (12.9-16.9) g/dL Hct (37.5-50.1) % MCV (83.0-100.0) fL MCH (28.0-33.3) pg MCHC (31.6-35.5) g/dL RDW (11.5-14.5) % Plt Count (140-400) K/mcL MPV (9.4-12.4) fL Immature Gran % (0-4) % Seg Neutrophils % % Lymphocytes % % Monocytes % % Eosinophils % % Basophils % % Neutrophils # (1.6-8.9) K/mcL Lymphocytes # (0.6-4.6) K/mcL Monocytes # (0.0-1.3) K/mcL Eosinophils # (0.0-0.6) K/mcL Basophils # (0.0-0.2) K/mcL PT (9.4-12.1) Seconds INR APTT (26.0-36.0) Seconds Sodium (136-145) mEq/L Potassium (3.5-4.5) mEq/L Chloride (98-109) mEq/L Carbon Dioxide (19-29) mEq/L BUN (8-26) mg/dL Creatinine (0.72-1.25) mg/dL Est GFR ( Amer) (> 60) Est GFR (Non-Af Amer) (> 60) BUN/Creatinine Ratio (6-26) Glucose (70-99) mg/dL Calculated Osmolality (280-300) Calcium (8.6-10.8) mg/dL Troponin I 0.00 (0-0.03) ng/mL - Radiology Data Radiology results reviewed: Yes I reviewed the patient's radiology results. Chest X-Ray 05/21/17 15:58 IMPRESSION: Negative portable chest. D/ / Lucius Cooley MD / Lucius Cooley MD Interpreting Provider: Lucius Cooley MD - EKG Data EKG attestation: Yes I reviewed and interpreted this EKG. EKG results narrative: normal sinus rhythm at a rate of 62.07. QT is 379. QTc is 383. Patient does have minimal ST elevation in lead II, III, andAVF. This is less than 1 mm. This was not present on previous EKG dated 05/16/2017 Heart Score - Score History: Moderately Suspicious EKG: Non Specific repolarisation Disturbance Age: 45-65 Risk Factors: Equal/Greater than 3 risk factor or history of atherosclerotic disease Troponin: Less than normal limit HEART Score Total: 5
--- NOTE | 2017-05-21 19:29 | Emergency Department Note ---
START Narrative - START START: I examined this patient and my medical decision-making was reviewed with the Resident Physician. I agree with the documented findings, disposition and treatment plan as described except to the extent set forth below. Chest pain, CT of the chest is negative. Cardiology has been notified. There are nonspecific inferior changes on EKG. Cardiology has been notified of these changes. They do not represent STEMI at this time. The patient will be admitted to the hospital for further evaluation.
[2017-05-21] MEDS ORDERED: *HR* Promethazine 25 MG/ML VIAL IVP ONE (20:16)
--- NOTE | 2017-05-21 22:36 | Internal Med History&Physical ---
Date of Encounter: 05/22/17 Time of Encounter: 22:00 Assessment and Plan (1) Chest pain, rule out acute myocardial infarction Current visit: No Status: Acute Patient presents with symptoms suggestive of myocardial infarction. -Patient has a known history of coronary artery disease, and has had 2 MIs in the past. -EKG demonstrated minimal ST elevation in leads II, III, and aVF. Elevation was less than 1 mm. -Troponin was negative. -Patient's vital signs were within normal limits. -Cardiac monitoring, cardiology consult, trend troponin levels. (2) GERD (gastroesophageal reflux disease) Current visit: No Status: Chronic Patient has a known history of acid reflux. -Patient notes that he is currently feeling nauseous. -He is unable to take Zofran and Protonix, because he states that he has an adverse reaction to these. Qualifiers: Esophagitis presence: without esophagitis Qualified Code(s): K21.9 - Gastro -esophageal reflux disease without esophagitis (3) DVT prophylaxis Current visit: No Status: Acute Heparin 5000 subcutaneous. (4) Left leg weakness Current visit: No Status: Acute Patient has residual weakness in his left leg secondary to a CVA that he had back in November. -Patient went for physical therapy, which she states is mild to moderately effective. -PTOT consult. Internal Medicine - H&P: HPI Chief complaint: chest pain Admitted From: Home History of present illness: Mr. Melchor is a 61 year old male with a past medical history of arthritis, cardiomyopathy, coronary artery disease, CVA, GERD, hyperlipidemia, hypertension , osteoporosis, syncope, and TIA who presented to the hospital with a chief complaint of chest pain and shortness of breath. Patient states that this pain began around 9 AM this morning. He states that last Friday he had a cardiac catheterization. On Friday however, he began to feel nauseous and experience chest pain located in the center of his sternum. He describes his pain as heaviness. This pain is not radiating. He notes that he has had 2 heart attacks in the past, and that the pain that he experienced then is very similar to the pain he is experiencing now. He denies any shortness of breath. Patient notes that he takes aspirin at home and took 2 aspirins in the morning as well as 2 nitros. He says that the nitroglycerin was mildly effective in reducing his pain. It "took some pressure off his chest." He currently denies any new onset of weakness. He admits to having residual weakness in his leg secondary to a stroke that he had in November. He denies having any abdominal pain , palpitations, dizziness, syncope, vomiting, fever, or chills. Past Med Surg Social Fam HX - Past Medical History Medical history: arthritis, cardiomyopathy, coronary artery disease, CVA, GERD, hyperlipidemia, hypertension, myocardial infarction, osteoporosis, peripheral artery disease, syncope, TIA, other Psychiatric history: anxiety, depression, other - Past Surgical History Surgical History: angioplasty/stent, cholecystectomy, coronary bypass (CABG), orthopedic, other, other - Social History Smoking Status: Never smoker Smokeless Tobacco Status: Yes Alcohol use: none Drug use: none - Family History Brother Family Member Ethnicity: Non- Living Status: Hx Family Cancer: Yes (Stomach) Son Family Member Ethnicity: Non- Living Status: Still Living Hx Family Cardiac Disorders: Yes Mother Adopted: No Family Member Ethnicity: Non- Living Status: Still Living Hx Family Cardiac Disorders: Yes (CAD) Hx Family Respiratory Disorders: No Hx Family Cancer: Yes (Cervical) Hx Family GI Disorders: No Hx Family Endocrine Disorder: Yes (DM) Hx Family Neuromuscular Disorders: No Hx Family Neurologic Disorders: No Hx Family HEENT Disorders: No Hx Family Autoimmune Disorders: No Father Family Member Ethnicity: Non- Living Status: Hx Family Cardiac Disorders: Yes ([place], CAD) Hx Family Respiratory Disorders: Yes (COPD) Hx Family Cancer: No Hx Family GI Disorders: No Hx Family Endocrine Disorder: No Hx Family Neuromuscular Disorders: No Hx Family Neurologic Disorders: No Hx Family HEENT Disorders: No Hx Family Autoimmune Disorders: No Internal Medicine - H&P: Meds Atorvastatin [Lipitor] 40 mg PO HS 11/01/16 [History] Clopidogrel [Plavix] 75 mg PO DAILY 11/01/16 [History] Furosemide [Lasix] 40 mg PO DAILY 11/01/16 [History] Aspirin 81 mg PO DAILY #30 tab.chew 02/18/17 [Rx] LORazepam [Ativan] 0.5 mg PO BID PRN 04/25/17 [History] Isosorbide MONOnitrate (24 HR) [Imdur] 30 mg PO DAILY #30 tab.er.24h 05/19/17 [ Rx] Omeprazole 20 mg PO DAILY #30 tablet. 05/19/17 [Rx] 3 Allergy/AdvReac Type Severity Reaction Status Date / Time simvastatin [From Zocor] Allergy Rash Verified 05/21/17 15:58 Zolpidem [From Ambien] Allergy Confusion Verified 05/21/17 15:58 ondansetron AdvReac Shakiness Verified 05/21/17 15:58 [From Zofran (as hydrochloride)] All Systems PM: A 10-system review of systems was performed and is negative for pertinent findings except as documented above in the HPI. - Constitutional Constitutional: no chills, no fever(s), no night sweats - EENT Eyes: no change in vision, no discharge, no pain, no photophobia Ears: no ear discharge, no ear pain, no tinnitus Nose, mouth and throat: no dysphagia, no nasal discharge, no neck pain, no sore throat - Cardiovascular Cardiovascular ROS IM: chest pain, no diaphoresis, no dyspnea, no lightheadedness, no palpitations, no syncope - Respiratory Respiratory: no cough, no dyspnea, no wheezing, no excessive phlegm production - Gastrointestinal Gastrointestinal: no abdominal pain, no diarrhea, no hematemesis, no hematochezia, no melena, no nausea, no vomiting - Musculoskeletal Musculoskeletal ROS IM: no numbness, no tingling - Integumentary Integumentary IM: no rash, no unusual bruising - Neurological Neurological ROS: no confusion, no convulsions, no focal weakness, no numbness, no tingling, no tremor(s) - Hematologic/Lymphatic Hematologic/Lymphatic: no easy bruising - Constitutional Vitals: Temp Pulse Resp BP Pulse Ox 98.1 F 56 16 114/74 99 05/21/17 20:39 05/21/17 20:39 05/21/17 20:39 05/21/17 20:39 05/21/17 20:39 General appearance: Present: A&O X 3, no acute distress, answers questions appropriately - Head Head exam: Present: atraumatic, normocephalic - Neck Neck exam general surgery: Present: supple, trachea midline. Absent: lymphadenopathy - Respiratory Respiratory exam: Present: CTAB. Absent: accessory muscle use, rales, rhonchi, wheezes - Cardiovascular Cardiovascular exam: Present: RRR, +S1, +S2. Absent: diastolic murmur, gallop, rubs, systolic murmur - GI/Abdominal GI/Abdominal exam: Present: normal bowel sounds, soft, no peritoneal signs. Absent: distended, tenderness - Extremities Exam Extremities exam: Present: warm, radial pulses palpable and symmetrical. Absent : calf tenderness, cyanotic, pedal edema - Skin Skin exam: Present: dry, intact Internal Med - H&P Results - Labs CBC & Chem 7: 05/21/17 16:46 05/21/17 16:46
[2017-05-22] MEDS ORDERED: Naloxone 0.4 MG/ML INJ IVP PRN (00:04)
[2017-05-22] MEDS ORDERED: *HR* LORazepam 0.5 MG TABLET PO PRN (00:10)
[2017-05-22] MEDS ORDERED: 0.9 % Sodium Chloride 1,000 ML IVC SCH (00:15)
[2017-05-22] MEDS: *HR* Promethazine 25 MG/ML VIAL IVP PRN ×2 (01:14→09:08)
--- NOTE | 2017-05-22 01:38 | Event Note ---
Date of Encounter: 05/22/17 Time of Encounter: 01:37 Patient seen and examined with medical records supervisor. He has history of cabg but had a recent angiogram this month showing no occlusive disease. Pain with atypical features. Without acute coronary syndrome. Cardiology consultation
[2017-05-22] MEDS: *HR* OxyCODONE/APAP 10/325 TABLET PO PRN ×2 (01:51→06:10)
[2017-05-22] MEDS ORDERED: *HR* Heparin 5,000 UNIT/ML VIAL SQ SCH (06:00)
[2017-05-22] MEDS ORDERED: NON-FORMULARY MEDICATION 1 EACH EACH (Omeprazole [Omeprazole] 20 MG) PO SCH (09:00)
[2017-05-22] MEDS ORDERED: Isosorbide MONOnitrate (24 HR) 30 MG TAB.ER.24H PO SCH (09:00)
[2017-05-22] MEDS ORDERED: Aspirin 81 MG TAB.CHEW PO SCH (09:00)
[2017-05-22] MEDS ORDERED: Furosemide 40 MG TABLET PO SCH (09:00)
[2017-05-22 11:04] VITALS: BP 102/65
--- NOTE | 2017-05-22 11:43 | Cardiology Consult Note ---
Date of Encounter: 05/22/17 Time of Encounter: 11:40 Assessment and Plan (1) Chest pain Current Visit: Yes Status: Acute C/o atypical chest pressure and multiple other complaints. Chest pain has not increased since last hospital stay per patient. He was concerned that it was ongoing. He appears to be mostly concerned about left sided facial numbness and left arm weakness that has increased. C completed three days ago for abnormal stress test. No intervention needed. LHC demonstrated 15% stenosis in the LMCA. 100% stenosis in the Mid LAD. 15% stenosis in the Proximal Circumflex. 100% stenosis in the Mid RCA. Grafts-The saphenous vein graft to the Right PDA is patent. The left internal mammary graft to the Mid LAD is patent. 2/2 patent bypass grafts. Last TTE 04/26/17-LVEF 60%. Normal left ventricular size and systolic function. Normal right ventricular size and function. Mild aortic regurgitation. Mild mitral regurgitation. Mild tricuspid regurgitation.No pulmonary hypertension. Troponin negative. EKG with no acute change. Overall his chest discomfort improved since last admission per patient. Recommend continuing to maximize medical therapy. Increase imdur. Continue asa, plavix, statin, and imdur. BB held due to bradycardia during previous admission. Qualifiers: Chest pain type: unspecified Qualified Code(s): R07.9 - Chest pain, unspecified (2) CAD (coronary artery disease) Current Visit: No Status: Chronic H/o CAD s/p 2 V CABG. See plan above. Qualifiers: Coronary Disease-Associated Artery/Lesion type: bypass graft [place] vs. transplanted heart: [place] heart Associated angina: with stable angina Qualified Code(s): I25.708 - Atherosclerosis of coronary artery bypass graft(s) , unspecified, with other forms of angina pectoris (3) Left arm weakness Current Visit: No Status: Acute C/o increasing left sided weakness and difficulty speaking starting today. Reports symptoms from CVA improved initially. Hospitalist notified by nursing staff. Vital signs currently stable. Mild left sided weakness noted on exam. No difficulty speaking. Left facial droop that is not new noted. Noted to have multiple admissions for similar complaints and multiple CT of the head. Possible continued symptoms from initial CVA. Hospitalist following. Discussion w patient/family: The assessment and plan as outlined above was discussed with the patient and/or family members who expressed understanding and agreement. All questions were answered. Thank you for involving us in the care of your patient. Please call with any questions. History of Present Illness Consult date: 05/22/17 Requesting physician: Ethan Rojo Consult reason: Chest pain Chief complaint: Chest pressure, left sided weakness History of present illness: Mr. Melchor is a 61 year old male with a history of CAD s/p 2V CABG s/p LHC showing stable CAD, CVA earlier this year resulting in left sided weakness and difficulty speaking, HTN, and GERD who presented to the hospital with continued midsternal chest pressure. On my exam he appears to be confused and tells me he came in with left sided weakness and difficulty speaking and he denied chest pain. He said he felt better from chest pain standpoint since his LHC. After further evaluation he says he does have a constant chest pressure that is the same as what he felt prior to his LHC. Denies aggravating or alleviating factors. Per ED reports his initial complaint was SOB and chest pressure. He says he called the cardiology office with the complaint and was instructed to go to the ER. Cardiology office documentation reviewed. Patient c/ o nausea, headache, and dizziness at that time. Past Med Surg Social Fam HX - Past Medical History Medical history: arthritis, cardiomyopathy, coronary artery disease, CVA, GERD, hyperlipidemia, hypertension, myocardial infarction, osteoporosis, peripheral artery disease, syncope, TIA, other Psychiatric history: anxiety, depression, other - Past Surgical History Surgical History: angioplasty/stent, cholecystectomy, coronary bypass (CABG), orthopedic, other, other - Social History Smoking Status: Never smoker Smokeless Tobacco Status: Yes Alcohol use: none Drug use: none - Family History Brother Family Member Ethnicity: Non- Living Status: Hx Family Cancer: Yes (Stomach) Son Family Member Ethnicity: Non- Living Status: Still Living Hx Family Cardiac Disorders: Yes Mother Adopted: No Family Member Ethnicity: Non- Living Status: Still Living Hx Family Cardiac Disorders: Yes (CAD) Hx Family Respiratory Disorders: No Hx Family Cancer: Yes (Cervical) Hx Family GI Disorders: No Hx Family Endocrine Disorder: Yes (DM) Hx Family Neuromuscular Disorders: No Hx Family Neurologic Disorders: No Hx Family HEENT Disorders: No Hx Family Autoimmune Disorders: No Father Family Member Ethnicity: Non- Living Status: Hx Family Cardiac Disorders: Yes ([place], CAD) Hx Family Respiratory Disorders: Yes (COPD) Hx Family Cancer: No Hx Family GI Disorders: No Hx Family Endocrine Disorder: No Hx Family Neuromuscular Disorders: No Hx Family Neurologic Disorders: No Hx Family HEENT Disorders: No Hx Family Autoimmune Disorders: No Medications and Allergies Atorvastatin [Lipitor] 40 mg PO HS 11/01/16 [History] Clopidogrel [Plavix] 75 mg PO DAILY 11/01/16 [History] Furosemide [Lasix] 40 mg PO DAILY 11/01/16 [History] Aspirin 81 mg PO DAILY #30 tab.chew 02/18/17 [Rx] LORazepam [Ativan] 0.5 mg PO BID PRN 04/25/17 [History] Isosorbide MONOnitrate (24 HR) [Imdur] 30 mg PO DAILY #30 tab.er.24h 05/19/17 [ Rx] Omeprazole 20 mg PO DAILY #30 tablet.dr 05/19/17 [Rx] 3 Allergy/AdvReac Type Severity Reaction Status Date / Time simvastatin [From Zocor] Allergy Rash Verified 05/21/17 15:58 Zolpidem [From Ambien] Allergy Confusion Verified 05/21/17 15:58 ondansetron AdvReac Shakiness Verified 05/21/17 15:58 [From Zofran (as hydrochloride)] All Systems Review: A 10-system review of systems was performed and is negative for pertinent findings except as documented above in the HPI. Physical Examination Vital Signs, Last 4 Hours Temp Pulse Resp BP Pulse Ox 05/22/17 11:03 97.6 F 53 16 102/65 96 05/22/17 07:45 97.4 F L 53 16 118/61 98 Results 05/21/17 16:46 05/21/17 16:46 Lab Results 05/22/17 05/22/17 05/22/17 00:28 00:28 06:08 D-Dimer 362 Troponin I 0.01 0.01 Consult Discharge Plan - Plan Referrals: Toya Arvizu, US[employer] WORKER [Primary Care Provider] -
[2017-05-22] MEDS ORDERED: Isosorbide MONOnitrate (24 HR) 30 MG TAB.ER.24H PO ONE (12:35)
--- NOTE | 2017-05-22 13:01 | Discharge Summary ---
Date of Encounter: 05/22/17 Time of Encounter: 12:59 - Discharge Diagnosis (1) Chest pain, rule out acute myocardial infarction Priority: Primary Status: Acute (2) GERD (gastroesophageal reflux disease) Priority: Secondary Status: Chronic Qualifiers: Esophagitis presence: without esophagitis Qualified Code(s): K21.9 - Gastro -esophageal reflux disease without esophagitis (3) CAD (coronary artery disease), [place] coronary artery Priority: Secondary Status: Chronic Qualifiers: [place] vs. transplanted heart: [place] heart Associated angina: with unspecified angina Qualified Code(s): I25.119 - Atherosclerotic heart disease of [place] coronary artery with unspecified angina pectoris - Discharge Medications Home Medications: Atorvastatin [Lipitor] 40 mg PO HS 11/01/16 [History] Clopidogrel [Plavix] 75 mg PO DAILY 11/01/16 [History] Furosemide [Lasix] 40 mg PO DAILY 11/01/16 [History] Aspirin 81 mg PO DAILY #30 tab.chew 02/18/17 [Rx] LORazepam [Ativan] 0.5 mg PO BID PRN 04/25/17 [History] Omeprazole 20 mg PO DAILY #30 tablet.dr 05/19/17 [Rx] Isosorbide MONOnitrate (24 HR) [Imdur] 60 mg PO DAILY #60 tab.er.24h 05/22/17 [ Rx] Allergies/Adverse Reactions: 3 Allergy/AdvReac Type Severity Reaction Status Date / Time simvastatin [From Zocor] Allergy Rash Verified 05/21/17 15:58 Zolpidem [From Ambien] Allergy Confusion Verified 05/21/17 15:58 ondansetron AdvReac Shakiness Verified 05/21/17 15:58 [From Zofran (as hydrochloride)] Procedures/tests Complete & Pending: Procedures Performed prior 72 hours Category Date Time Status EV venous imaging LE BI Routine Y 05/22/17 21:28 Completed Date of admission: 05/21/17 19:51 Primary care physician: Toya Arvizu CNP Consults: 05/22/17 00:08 Consult to Occupational Therapy [CONS] Routine Comment: Evaluate, develop and implement POC Reason for Consult: patient has weakness in leg secondary to a stroke Consult to Physical Therapy [CONS] Routine Comment: Evaluate, develop and implement POC Reason for Consult: patient has weakness in his leg secondary to stroke Discharging clinician: Oscar Allan Anticipated date of discharge: 05/22/17 - Patient Status Disposition: Home, Self-Care Condition: Good Functional capacity at discharge: independent ambulation Overall status at discharge: patient is back to baseline - Discharge Instructions Follow Up With: Toya Arvizu, SILK WINDING MACHINE OPERATOR [Primary Care Provider] - - Diet and Activity Activity: resume usual activities as tolerated Diet: low fat, low cholesterol, low salt diet Interval History: See below Hospital course: Mr. Melchor is a 61 year old male with repeated visits for chest pain. Patient was prior history of CVA with left-sided deficit, hyperlipidemia, hypertension, coronary artery disease. He presented with nausea and shortness of breath. Chart review reveals patient providing multiple and differing histories to multiple providers. He also endorsed with left-sided facial numbness, left hand numbness and weakness as well as left facial tingling, these are chronic and residual from his prior CVA. He states these are not different from his prior symptoms. Patient has a history in chart also of drug-seeking behavior, requesting benzos and opiates and with OARSS showing multiple prescriptions LHC completed three days ago for abnormal stress test. No intervention needed. LHC demonstrated 15% stenosis in the LMCA. 100% stenosis in the Mid LAD. 15% stenosis in the Proximal Circumflex. 100% stenosis in the Mid RCA. Grafts-The saphenous vein graft to the Right PDA is patent. The left internal mammary graft to the Mid LAD is patent. 2/2 patent bypass grafts. Last TTE 04/26/17-LVEF 60%. Normal left ventricular size and systolic function. Normal right ventricular size and function. Mild aortic regurgitation. Mild mitral regurgitation. Mild tricuspid regurgitation. No pulmonary hypertension. During this admission, Troponin negative 4. EKG with no acute change. Overall his chest discomfort improved since last admission per patient. Cardiology evaluation noted for recommendation on to medical optimization. He had a CTA that was negative for pulmonary embolism or acute pulmonary abnormality. His vital signs are stable, his other labs are normal. Lipid panel done 5 days ago was normal. Patients left-sided weakness and numbness are chronic and due to residuals from his CVA. He had a head and neck CTA in April 2017, both unremarkable. He has had a head CTs during the last admission that showed no infarct. At the time of review, he had no neurologic deficits. He is clinically stable to be discharged home on his home medications, he is fixated on obtaining pain meds and benzodiazepines, he is ambulatory and can follow up with his PCP and Cardiology - Time Spent with Patient Total time spent providing and/or coordinating discharge services: Greater than 30 minutes - Constitutional Vitals: Temp Pulse Resp BP Pulse Ox 97.6 F 53 16 102/65 96 05/22/17 11:03 05/22/17 11:03 05/22/17 11:03 05/22/17 11:03 05/22/17 11:03 General appearance: Present: A&O X 3, no acute distress, answers questions appropriately - Head Head exam: Present: atraumatic, normocephalic - Eye Eye exam: Present: PERRL, conjuntiva pink, sclera anicteric Pupils: Present: PERRL - Neck Neck exam general surgery: Present: supple, trachea midline. Absent: lymphadenopathy - Respiratory Respiratory exam: Present: CTAB. Absent: accessory muscle use, rales, rhonchi, wheezes - Cardiovascular Cardiovascular exam: Present: RRR, +S1, +S2. Absent: diastolic murmur, gallop, rubs, systolic murmur - GI/Abdominal GI/Abdominal exam: Present: normal bowel sounds, soft, no peritoneal signs. Absent: distended, tenderness - Extremities Exam Extremities exam: Present: warm, radial pulses palpable and symmetrical. Absent : calf tenderness, cyanotic, pedal edema - Neurological Exam Neurological exam: Present: alert, CN II-XII intact, oriented X3, no focal deficits. Absent: pronater drift, facial droop, speech deficit - Skin Skin exam: Present: dry, intact
--- NOTE | 2017-05-22 15:31 | Electrocardiograph Report ---
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
--- NOTE | 2017-05-22 15:32 | Electrocardiograph Report ---
[place] [address] Test Date: 2017-05-21 Pat Name: Eber Melchor Department: 103 Room: 3B Gender: M Core Loader: EKP : 1955 Requested By: Jarred Short Order Number: [id number] Reading MD: Can Howard Measurements Intervals [place] Rate: 61 P: 61 [place]: 149 QRS: 43 QRSD: 106 T: 44 QT: 384 QTc: 387 Interpretive Statements SINUS RHYTHM PROBABLE INFERIOR MYOCARDIAL INFARCTION, OF INDETERMINATE AGE Electronically Signed On 05-22-2017 15:30:43 EDT by Can Howard
[2017-05-23] MEDS ORDERED: Isosorbide MONOnitrate (24 HR) 30 MG TAB.ER.24H PO SCH (09:00)
[2017-05-24 15:40] LABS: CK-BB (CK isoenzymes) 0 % (0-0); CK-MB (CK isoenzymes) 0 % (0-4); CK-MM (CK-isoenzymes) 100 % (96-100)
[2017-05-26 08:05] LABS: CK Total (Ck Isoenzymes) 104 U/L (20-200)
== END 2017-05-22 13:30 | disposition home or self-care (01) ==
LOC: EMEROO 15:52 → 3BNU 15:52 → SUATTDRO 19:51 → 3BNU 20:24
PROVIDERS: ADMIT Hospitalist; ATTEND Internal Medicine

== ENCOUNTER 2017-08-04 11:39 | Observation (INO) ==
[2017-08-04] MEDS ORDERED: Aspirin 81 MG TAB.CHEW PO ONE (11:50)
--- NOTE | 2017-08-04 11:53 | Emergency Department Note ---
Disposition Clinical Impression: Chest pressure Thumb fracture Qualifiers: Encounter type: initial encounter Fracture type: closed Phalanx: proximal Fracture alignment: nondisplaced Laterality: right Qualified Code(s): S62.514A - Nondisplaced fracture of proximal phalanx of right thumb, initial encounter for closed fracture Disposition: Transfer Short-Term Hosp Condition: Fair Referrals: Toya Arvizu, ADMINISTRATIVE PROFESSIONAL [Primary Care Provider] - Time of Disposition: 13:35 Chest Pain HPI - General Stated Complaint: CP Time Seen by Provider: 08/04/17 11:45 Source: patient Mode of arrival: ambulatory Limitations: no limitations Vital Signs Reviewed: Yes Nursing Notes Reviewed: Yes - History of Present Illness HPI Narrative: 61-year-old with a history of previous AR stents placed couple months ago who comes in complaining of chest pain into his jaw. States pain feels similar to what he had with his previous AR. So states he fell and injured his right thumb. Pt complaint: chest pain Onset (ago): Just MOBILE APPLICATION ARCHITECT Duration: constant Onset: during rest Pain Location: substernal, left chest Severity: moderate Quality: tightness, aching Pain Radiation: jaw/teeth Improves with: nitroglycerin Worsens with: nothing Associated symptoms: Reports: dyspnea Treatments prior to arrival chest pain: aspirin, nitroglycerin - Related Data Home Medications Medication Instructions Recorded Confirmed Atorvastatin [Lipitor] 40 mg PO HS 11/01/16 05/21/17 Clopidogrel [Plavix] 75 mg PO DAILY 11/01/16 05/21/17 Furosemide [Lasix] 40 mg PO DAILY 11/01/16 05/21/17 LORazepam [Ativan] 0.5 mg PO BID PRN 04/25/17 05/21/17 Previous Rx's Medication Instructions Recorded Aspirin 81 mg PO DAILY #30 tab.chew 02/18/17 Omeprazole 20 mg PO DAILY #30 tablet.dr 05/19/17 Isosorbide MONOnitrate (24 HR) 60 mg PO DAILY #60 tab.er.24h 05/22/17 [Imdur] LORazepam [Ativan] 1 mg PO TID PRN #9 tablet 06/23/17 Allergies Allergy/AdvReac Type Severity Reaction Status Date / Time simvastatin [From Zocor] Allergy Rash Verified 05/21/17 15:58 Zolpidem [From Ambien] Allergy Confusion Verified 05/21/17 15:58 ondansetron AdvReac Shakiness Verified 05/21/17 15:58 [From Zofran (as hydrochloride)] All systems ED: reviewed and negative except as stated. Constitutional: Denies: fever, chills, weakness, weight change Eyes: Denies: eye pain, eye discharge, vision change ENT ED: Denies: ear pain, throat pain, dental pain, hearing loss, epistaxis, congestion, dysphagia Cardiovascular: Reports: chest pain. Denies: palpitations, dyspnea on exertion , edema, syncope Respiratory: Denies: cough, dyspnea, wheezes, hemoptysis, stridor Gastrointestinal: Denies: abdominal pain, nausea, vomiting, diarrhea, constipation, hematemesis, melena, hematochezia Genitourinary: Denies: urgency, dysuria, frequency, hematuria Musculoskeletal: Denies: back pain, neck pain, arthralgia, myalgia Integumentary: Denies: rash, abrasion, lesions Neurological: Denies: headache, weakness, numbness, paresthesias, confusion, abnormal gait, vertigo Psychiatric: Denies: anxiety, depression, suicidal thoughts, homicidal thoughts , auditory hallucinations, visual hallucinations Endocrine: Denies: fatigue Hematological/Lymphatic: Denies: easy bleeding, easy bruising Allergic/Immunologic: Denies: facial swelling, urticaria Chest Pain PMH - Past Medical History Medical history: Reports: arthritis, cardiomyopathy, coronary artery disease, CVA, GERD, hyperlipidemia, hypertension, myocardial infarction, osteoporosis, peripheral artery disease, syncope, TIA, other Surgical history: Reports: angioplasty/stent, cholecystectomy, coronary bypass ( CABG), orthopedic, other, other Psychiatric history: Reports: anxiety, depression, other - Social History Smoking Status: Never smoker Alcohol use: Reports: none Drug use: Reports: none Physical Exam - General Limitations: no limitations General appearance: alert, in no apparent distress - Head Head exam: atraumatic, normocephalic, normal inspection - Eye Eye exam: Present: normal appearance, PERRL, EOMI - ENT ENT exam: normal exam, normal oropharynx, mucous membranes moist - Neck Neck exam: Present: normal inspection, full ROM, trachea midline - Chest Chest inspection: Present: normal inspection, symmetric chest wall rise - Respiratory Respiratory exam: Present: normal lung sounds bilaterally - Cardiovascular Cardiovascular exam: Present: regular rate, normal rhythm, normal heart sounds - Abdominal Exam Abdominal exam: Present: soft, Non-Tender. Absent: tenderness, distention, guarding, rebound, rigidity - Extremities Exam Extremities exam: Present: normal inspection, full ROM. Absent: tenderness, pedal edema - Expanded Lower Extremity Exam Neurovascular/Tendon exam: Absent: motor deficit, sensory deficit, tendon deficit Gait: not tested/not observed - Back Exam Back exam: Present: normal inspection, full ROM. Absent: tenderness - Neurological Exam Neurological exam: Present: alert, oriented X3 - Psychiatric Psychiatric exam: Present: normal affect, normal mood - Skin Skin exam: Present: warm, dry, intact, normal color Course - Reevaluation(s) Reevaluation #1: 61-year-old with a history of heart disease and had stents a few weeks back comes in complaining of chest pain. States pain radiates up into his jaw. Initial EKG shows no acute change initial troponin is negative patient will be admitted for further evaluation and treatment. Time: 13:36 Reevaluation #2: I had spoke to the hospitalist who came down to see the patient and the patient stated he wanted to go to [facility] as x-rays had his previous procedures. I spoke with [facility] and was told that he had not been there since 2009 and that both of his doctors are no longer with that facility. I then talked to the patient again and he requests stay here. Time: 15:22 - Consultations Consultation #1: Discussed with Dr. Frazier, justin. Time: 15:25 Vital Signs Temperature 98.1 F 08/04/17 11:52 Pulse Rate 83 08/04/17 11:52 Respiratory Rate 20 08/04/17 11:52 Blood Pressure 130/94 08/04/17 11:52 O2 Sat by Pulse Oximetry 97 08/04/17 11:52 Temperature 98.1 F 08/04/17 11:52 Pulse Rate 74 08/04/17 14:02 Respiratory Rate 16 08/04/17 14:02 Blood Pressure 127/87 08/04/17 14:02 O2 Sat by Pulse Oximetry 98 08/04/17 14:02 Oxygen Delivery Oxygen Delivery Room Air Chest Pain - Lab Data Lab results reviewed: Yes I reviewed the patient's lab results. Result diagrams: 08/04/17 12:24 08/04/17 12:24 Lab Results 08/04/17 08/04/17 08/04/17 Range/Units 12:24 12:24 12:24 WBC 6.8 (4.3-11.1) K/mcL RBC 4.58 (4.19-5.50) M/mcL Hgb 14.2 (12.9-16.9) g/dL Hct 42.0 (37.5-50.1) % MCV 91.7 (83.0-100.0) fL MCH 31.0 (28.0-33.3) pg MCHC 33.8 (31.6-35.5) g/dL RDW 12.8 (11.5-14.5) % Plt Count 150 (140-400) K/mcL MPV 8.6 L (9.4-12.4) fL Immature Gran % 0.3 (0-4) % Seg Neutrophils % 80.1 % Lymphocytes % 8.0 % Monocytes % 11.1 % Eosinophils % 0.4 % Basophils % 0.1 % Neutrophils # 5.4 (1.6-8.9) K/mcL Lymphocytes # 0.5 L (0.6-4.6) K/mcL Monocytes # 0.8 (0.0-1.3) K/mcL Eosinophils # 0.0 (0.0-0.6) K/mcL Basophils # 0.0 (0.0-0.2) K/mcL PT 11.3 (9.4-12.1) Seconds INR 1.1 APTT 30.8 D (26.0-36.0) Seconds Sodium 135 L (136-145) mEq/L Potassium 4.2 (3.5-5.1) mEq/L Chloride 107 (98-107) mEq/L Carbon Dioxide 21 L (23-29) mEq/L BUN 16 (8-23) mg/dL Creatinine 0.74 (0.70-1.30) mg/dL Est GFR ( Amer) > 60 (> 60) Est GFR (Non-Af Amer) > 60 (> 60) BUN/Creatinine Ratio 22 (6-26) Glucose 100 (70-105) mg/dL Calculated Osmolality 281 (280-300) Calcium 8.9 (8.6-10.3) mg/dL Troponin I (< 0.04) ng/mL 08/04/17 Range/Units 12:24 WBC (4.3-11.1) K/mcL RBC (4.19-5.50) M/mcL Hgb (12.9-16.9) g/dL Hct (37.5-50.1) % MCV (83.0-100.0) fL MCH (28.0-33.3) pg MCHC (31.6-35.5) g/dL RDW (11.5-14.5) % Plt Count (140-400) K/mcL MPV (9.4-12.4) fL Immature Gran % (0-4) % Seg Neutrophils % % Lymphocytes % % Monocytes % % Eosinophils % % Basophils % % Neutrophils # (1.6-8.9) K/mcL Lymphocytes # (0.6-4.6) K/mcL Monocytes # (0.0-1.3) K/mcL Eosinophils # (0.0-0.6) K/mcL Basophils # (0.0-0.2) K/mcL PT (9.4-12.1) Seconds INR APTT (26.0-36.0) Seconds Sodium (136-145) mEq/L Potassium (3.5-5.1) mEq/L Chloride (98-107) mEq/L Carbon Dioxide (23-29) mEq/L BUN (8-23) mg/dL Creatinine (0.70-1.30) mg/dL Est GFR ( Amer) (> 60) Est GFR (Non-Af Amer) (> 60) BUN/Creatinine Ratio (6-26) Glucose (70-105) mg/dL Calculated Osmolality (280-300) Calcium (8.6-10.3) mg/dL Troponin I < 0.03 (< 0.04) ng/mL - Radiology Data Radiology results reviewed: Yes I reviewed the patient's radiology results. - EKG Data EKG attestation: Yes I reviewed and interpreted this EKG. EKG results narrative: Chest X-Ray 08/04/17 11:50 IMPRESSION: No acute process. D/ / Ramon Rodriguez MD / Ramon Rodriguez MD Interpreting Provider: Ramon Rodriguez MD Hand X-Ray 08/04/17 11:52 IMPRESSION: No significant interval healing of intra-articular thumb proximal phalangeal fracture. Osteoarthritis as described. D/ / 08/04/2017 12:48:29 Maurice Matos MD / ryan Interpreting Provider: Maurice Matos MD EKG shows normal: sinus rhythm Rate: normal Rhythm: NSR Q waves: II, aVF Interpretation: no acute changes Heart Score - Score History: Moderately Suspicious EKG: Non Specific repolarisation Disturbance Age: 45-65 Risk Factors: Equal/Greater than 3 risk factor or history of atherosclerotic disease Troponin: Less than normal limit HEART Score Total: 5
[2017-08-04 12:38] LABS: Hemoglobin 14.2 g/dL (12.9-16.9); Immature Granulocytes % 0.3 % (0-4); Mean Corpuscular HGB Conc 33.8 g/dL (31.6-35.5); Mean Corpuscular Volume 91.7 fL (83.0-100.0); Mean Platelet Volume 8.6 fL (9.4-12.4); Monocytes % 11.1 %; Platelet Count 150 K/mcL (140-400); Red Blood Count 4.58 M/mcL (4.19-5.50); Red Cell Distribution Width 12.8 % (11.5-14.5); Segmented Neutrophils % 80.1 %
[2017-08-04 12:39] LABS: Basophils % 0.1 %; Eosinophils % 0.4 %; Lymphocytes # 0.5 K/mcL (0.6-4.6); Monocytes # 0.8 K/mcL (0.0-1.3); Neutrophils # 5.4 K/mcL (1.6-8.9)
[2017-08-04 12:56] LABS: INR 1.1; Prothrombin Time 11.3 Seconds (9.4-12.1)
[2017-08-04 12:59] LABS: Activated Partial Thrombo Time 30.8 Seconds (26.0-36.0); Blood Urea Nitrogen 16 mg/dL (8-23); Calcium 8.9 mg/dL (8.6-10.3); Carbon Dioxide 21 mEq/L (23-29); Chloride 107 mEq/L (98-107); Glucose 100 mg/dL (70-105); Osmolality,Calculated 281 (280-300); Potassium 4.2 mEq/L (3.5-5.1); Sodium 135 mEq/L (136-145)
[2017-08-04 13:38] LABS: BUN/Creatinine Ratio 22 (6-26); eGFR For African Americans > 60 (> 60); eGFR For Non-African Americans > 60 (> 60)
[2017-08-04] MEDS ORDERED: *HR* Morphine 2 MG/ML SYRINGE IVP ONE (13:41)
[2017-08-04] MEDS ORDERED: *HR* Promethazine 25 MG/ML VIAL IVP ONE (14:53)
[2017-08-04] MEDS ORDERED: Mag Hydrox/Al Hydrox/Simeth 30 ML UDC PO PRN (16:08)
[2017-08-04] MEDS ORDERED: MOM Conc 10 ML UD.LIQ PO PRN (16:08)
[2017-08-04] MEDS ORDERED: Naloxone 0.4 MG/ML INJ IVP PRN (16:08)
[2017-08-04] MEDS ORDERED: Acetaminophen 325 MG TABLET PO PRN (16:08)
[2017-08-04] MEDS ORDERED: Ondansetron 4 MG/2 ML VIAL IVP PRN (16:08)
--- NOTE | 2017-08-04 16:21 | Internal Med History&Physical ---
<Li Thomson - Last Filed: 08/04/17 16:25> Date of Encounter: 08/04/17 Time of Encounter: 16:15 Assessment and Plan (1) Chest pain, rule out acute myocardial infarction Status: Acute - Typical chest pain per patient description. - Troponin negative 1, EKG no acute ST-T change. - We will trend troponin, EKG as needed, and the telemetry. (2) Fracture of thumb, right, closed Status: Acute - X-ray revealed right thumb bone fracture. Christian bandage applied. - Consult ortho. Qualifiers: Encounter type: initial encounter Phalanx: proximal Fracture alignment: nondisplaced Qualified Code(s): S62.514A - Nondisplaced fracture of proximal phalanx of right thumb, initial encounter for closed fracture (3) Essential hypertension Status: Chronic Stable, continue home medicine. (4) CAD (coronary artery disease), [place] coronary artery Status: Chronic Qualifiers: [place] vs. transplanted heart: [place] heart Associated angina: with unspecified angina Qualified Code(s): I25.119 - Atherosclerotic heart disease of [place] coronary artery with unspecified angina pectoris (5) S/P CABG x 3 Status: Chronic (6) History of PTCA Status: Chronic (7) Old cerebrovascular accident (CVA) without late effect Status: Chronic (8) Peripheral artery disease Status: Chronic (9) History of atrial fibrillation Status: Chronic (10) CHF (congestive heart failure) Status: Chronic Qualifiers: Congestive heart failure type: combined Congestive heart failure chronicity : chronic Qualified Code(s): I50.42 - Chronic combined systolic (congestive) and diastolic (congestive) heart failure (11) HLD (hyperlipidemia) Status: Chronic Qualifiers: Hyperlipidemia type: pure hypercholesterolemia Qualified Code(s): E78.00 - Pure hypercholesterolemia, unspecified; E78.0 - Pure hypercholesterolemia Internal Medicine - H&P: HPI Admitted From: Emergency Dept Plans for Post Hospital Care: Home History of present illness: Mr. Melchor is a 61 year old male with past medical history CAD, [place], CVA, hypertension, hyperlipidemia who presents to the ED with chief complaint of chest pain started this morning. 61-year-old with a history of previous [place] with stents placement couple months ago who comes in complaining of chest pain into his jaw. States pain feels similar to what he had with his previous [place]. Also states he fell and injured his right thumb. He woke up including troponin and EKG were normal, due to his significant risk factors, he will be admitted as observation. Past Med Surg Social Fam HX - Past Medical History Medical history: arthritis, cardiomyopathy, coronary artery disease, CVA, GERD, hyperlipidemia, hypertension, myocardial infarction, osteoporosis, peripheral artery disease, syncope, TIA, other Psychiatric history: anxiety, depression, other - Past Surgical History Surgical History: angioplasty/stent, cholecystectomy, coronary bypass (CABG), orthopedic, other, other - Social History Smoking Status: Never smoker Smokeless Tobacco Status: No Alcohol use: none Drug use: none - Family History Brother Family Member Ethnicity: Non- Living Status: Hx Family Cancer: Yes (Stomach) Son Family Member Ethnicity: Non- Living Status: Still Living Hx Family Cardiac Disorders: Yes Mother Adopted: No Family Member Ethnicity: Non- Living Status: Still Living Hx Family Cardiac Disorders: Yes (CAD) Hx Family Respiratory Disorders: No Hx Family Cancer: Yes (Cervical) Hx Family GI Disorders: No Hx Family Endocrine Disorder: Yes (DM) Hx Family Neuromuscular Disorders: No Hx Family Neurologic Disorders: No Hx Family HEENT Disorders: No Hx Family Autoimmune Disorders: No Father Family Member Ethnicity: Non- Living Status: Hx Family Cardiac Disorders: Yes ([place], CAD) Hx Family Respiratory Disorders: Yes (COPD) Hx Family Cancer: No Hx Family GI Disorders: No Hx Family Endocrine Disorder: No Hx Family Neuromuscular Disorders: No Hx Family Neurologic Disorders: No Hx Family HEENT Disorders: No Hx Family Autoimmune Disorders: No Internal Medicine - H&P: Meds Omeprazole 20 mg PO DAILY #30 tablet. 05/19/17 [Rx] Aspirin/Calcium Carbonate/Mag [Aspirin Buffered 325 mg Tab] 325 mg PO DAILY [History] Atorvastatin Calcium [Lipitor] 80 mg PO HS 08/23/17 [History] Clopidogrel [Plavix] 75 mg PO DAILY 08/23/17 [History] Lisinopril [Zestril] 20 mg PO DAILY 08/23/17 [History] Metoprolol XL (24 HR) Succ [Toprol XL] 25 mg PO DAILY 08/23/17 [History] PredniSONE [Deltasone] 60 mg PO DAILY #12 tablet 08/23/17 [Rx] Sucralfate [Carafate] 1 gm PO 0730,1630 08/23/17 [History] 3 Allergy/AdvReac Type Severity Reaction Status Date / Time simvastatin [From Zocor] Allergy Rash Verified 08/23/17 18:36 Zolpidem [From Ambien] Allergy Confusion Verified 08/23/17 18:36 ondansetron AdvReac Shakiness Verified 08/23/17 18:36 [From Zofran (as hydrochloride)] All Systems PM: A 10-system review of systems was performed and is negative for pertinent findings except as documented above in the HPI. Review of systems: REVIEW OF SYSTEMS: CONSTITUTIONAL: No weight loss, fever, chills, weakness or fatigue. HEENT: Eyes: No visual loss, blurred vision, double vision or yellow sclerae. Ears, Nose, Throat: No hearing loss, sneezing, congestion, runny nose or sore throat. SKIN: No rash or itching. CARDIOVASCULAR: No palpitations or edema. see HPI. RESPIRATORY: No shortness of breath, cough or sputum. GASTROINTESTINAL: No anorexia, nausea, vomiting or diarrhea. No abdominal pain or blood. GENITOURINARY: No dysuria, urgency, or frequency. NEUROLOGICAL: No headache, dizziness, syncope, paralysis, ataxia, numbness or tingling in the extremities. No change in bowel or bladder control. MUSCULOSKELETAL: No muscle, back pain, joint pain or stiffness. HEMATOLOGIC: No anemia, bleeding or bruising. LYMPHATICS: No enlarged nodes. No history of splenectomy. PSYCHIATRIC: No history of depression or anxiety. ENDOCRINOLOGIC: No reports of sweating, cold or heat intolerance. No polyuria or polydipsia. - Constitutional Vitals: Temp Pulse Resp BP Pulse Ox 98.1 F 74 16 127/87 98 08/04/17 11:52 08/04/17 14:02 08/04/17 14:02 08/04/17 14:02 08/04/17 14:02 Exam: PHYSICAL EXAMINATION: GENERAL APPEARANCE: The patient is alert, oriented and in no acute distress. HEENT: Head is normocephalic. The sinuses are nontender. Pupils are equal and reactive. The nares are patent. Oropharynx clear without lesions. NECK: Supple without lymphadenopathy. HEART: Regular rate and rhythm. LUNGS: No crackles or wheezes are heard. ABDOMEN: Soft, nontender, nondistended with good bowel sounds heard. Inguinal area is normal. EXTREMITIES: right thumb is swelling with limited mobility. NEUROLOGICAL: Gross nonfocal. SKIN: Warm and dry without any rash. Internal Med - H&P Results - Labs CBC & Chem 7: 08/04/17 12:24 08/04/17 12:24 <JennicalixtoConstance Isatu - Last Filed: 08/29/17 08:11> Date of Encounter: 08/29/17 Internal Medicine - H&P: HPI History of present illness: Mr. Melchor is a 61 year old male All Systems PM: A 10-system review of systems was performed and is negative for pertinent findings except as documented above in the HPI. - Constitutional Vitals: Temp Pulse Resp BP Pulse Ox 97.6 F 89 16 108/72 97 08/05/17 14:46 08/05/17 14:46 08/05/17 14:46 08/05/17 14:46 08/05/17 14:46 Internal Med - H&P Results - Labs CBC & Chem 7: 08/05/17 02:55 08/05/17 02:55 - Attending Attestation I personally and independently interviewed and examined the patient with SEAM RUBBER, and I reviewed the patient's medical record with her. I am in agreement with the assessment and proposed treatment plan. I discussed my findings and recommendation with the patient and answer all questions. The patient's medical records were edited to accurately reflect this encounter.
[2017-08-04] MEDS: *HR* Morphine 2 MG/ML SYRINGE IVP PRN ×2 (18:01→22:35)
[2017-08-04] MEDS: *HR* LORazepam 1 MG TABLET PO SCH (20:27)
[2017-08-04] MEDS: Nitroglycerin 0.4 MG TAB.SUBL SL PRN (21:34)
[2017-08-04] MEDS: *HR* OxyCODONE Immed Rel 5 MG TABLET PO PRN (21:34)
[2017-08-04] MEDS: *HR* Promethazine 25 MG/ML VIAL IVP PRN (22:35)
[2017-08-05] MEDS: Nitroglycerin 0.4 MG TAB.SUBL SL PRN (02:37)
[2017-08-05] MEDS: *HR* Morphine 2 MG/ML SYRINGE IVP PRN ×2 (02:45→08:41)
[2017-08-05 03:19] LABS: Hematocrit 40.1 % (37.5-50.1); Hemoglobin 13.4 g/dL (12.9-16.9); Mean Corpuscular HGB Conc 33.4 g/dL (31.6-35.5); Mean Corpuscular Hemoglobin 31.1 pg (28.0-33.3); Mean Platelet Volume 9.1 fL (9.4-12.4); Red Blood Count 4.31 M/mcL (4.19-5.50); Red Cell Distribution Width 12.9 % (11.5-14.5)
[2017-08-05 03:38] LABS: Alanine Aminotransferase 12 Units/L (7-52); Albumin 3.8 g/dL (3.5-5.7); Albumin/Globulin Ratio 1.4 (1.1-2.2); Alkaline Phosphatase 66 Units/L (34-104); Aspartate Amino Transferase 16 Units/L (13-39); BUN/Creatinine Ratio 19 (6-26); Bilirubin,Total 0.5 mg/dL (0.3-1.0); Blood Urea Nitrogen 14 mg/dL (8-23); Calcium 8.7 mg/dL (8.6-10.3); Carbon Dioxide 24 mEq/L (23-29); Chloride 107 mEq/L (98-107); Globulin 2.7 g/dL (2.4-3.5); Glucose 105 mg/dL (70-105); Osmolality,Calculated 285 (280-300); Potassium 4.1 mEq/L (3.5-5.1); Sodium 137 mEq/L (136-145); Total Protein 6.5 g/dL (6.4-8.9); eGFR For African Americans > 60 (> 60); eGFR For Non-African Americans > 60 (> 60)
[2017-08-05] MEDS: *HR* OxyCODONE Immed Rel 5 MG TABLET PO PRN (05:23)
[2017-08-05] MEDS: *HR* LORazepam 1 MG TABLET PO SCH (08:44)
[2017-08-05] MEDS ORDERED: Aspirin 81 MG TAB.CHEW PO SCH (09:00)
[2017-08-05] MEDS ORDERED: Isosorbide MONOnitrate (24 HR) 60 MG TAB.ER.24H PO SCH (09:00)
[2017-08-05] MEDS ORDERED: Furosemide 40 MG TABLET PO SCH (09:00)
[2017-08-05] MEDS ORDERED: *HR* OxyCODONE Immed Rel 5 MG TABLET PO PRN (09:01)
[2017-08-05] MEDS ORDERED: Isosorbide MONOnitrate (24 HR) 30 MG TAB.ER.24H PO ONE (09:49)
--- NOTE | 2017-08-05 10:24 | Cardiology Consult Note ---
Date of Encounter: 08/05/17 Time of Encounter: 09:30 Assessment and Plan (1) Chest pain Current Visit: No Status: Acute Per cardiology: -Admitted with chest pain with exertion. States took 2 nitro at home and pain lessened. -NO acute ECG changes. -Troponins negative x3. -TTE 04/2017 LVEf 60%. -[facility] 05/19/17 with patent 2/2 bypass grafts. -Admits to current chest pain 5/10, nitro given, states is lessening. -Of note, reports increased stress at home with recent passing of close loved ones and ill mother. -Will check ECG now. -Will check limited TTE. -Imdur increased. Qualifiers: Chest pain type: other chest pain Qualified Code(s): R07.89 - Other chest pain; R07.8 - Other chest pain (2) Syncope Current Visit: Yes Status: Acute Per cardiology: -Reports syncopal event on Friday, states felt dizzy, then loss conciousness and fell. -Patient reports dizziness/lightheadedness with position changes. -States BPs at home hypotensive with SBPs 90-100s. -Of note, patient has been seen and evaluated by neurology multiple times. -Has had recent extensive cardiac and neurological work up. -Will check limited TTE. -Patient educated on staying wel hydrated and changing positions slowly. Qualifiers: Syncope type: unspecified Qualified Code(s): R55 - Syncope and collapse (3) CAD (coronary artery disease), [place] coronary artery Current Visit: No Status: Chronic Per cardiology: -Known CAD s/p CABG 2004 and reported "multiple" PCIs. -Previous [facility] 05/19/17 with patent 2/2 bypass grafts. -On asa, statin, plavix, and imdur. -Of note, not on beta [place] due to bradycardia and hypotension. -OF note, patient states he has not been seen in outpatient setting by cardiology in years. Per review of outpatient records, patient has no showed to multiple cardiology appointments. -Patient states he has issues with transportation. Qualifiers: [place] vs. transplanted heart: [place] heart Associated angina: with unspecified angina Qualified Code(s): I25.119 - Atherosclerotic heart disease of [place] coronary artery with unspecified angina pectoris Discussion w patient/family: The assessment and plan as outlined above was discussed with the patient who expressed understanding and agreement. All questions were answered. Thank you for involving us in the care of your patient. Please call with any questions. Discussed and reviewed with . History of Present Illness Consult date: 08/04/17 Requesting physician: Li Thomson Consult reason: chest pain Chief complaint: chest pain History of present illness: Mr. Melchor is a 61 year old male with a relevant past medical history of [place], CAD s/p CABG and reported "multiple" PCIs, HTN, hyperlipidemia, reported CVA, multiple back surgeries, and chronic pain. Patient states on Friday, he had an episode where he "blacked out" upon standing to go into outpatient appointment on Friday. Patient states he stood out of car, felt dizzy, and then loss consciousness. Patient reports that he has issues with dizziness/ lightheadedness upon position changes. Also reports has hypotension at home and BPs are typically 90-100s systolic. Patient also reports has angina and woke up on Friday with chest pain. Patient states chest pain started while up walking and getting ready for christian. Patient reports pain was midsternal and radiated to left arm and jaw. Patient reports he took 2 nitro at home and went and rested and pain lessened. Patient currently resting in bed and states he has current 5/10 chest pain, states nurse just gave him a nitro and pain is lessening. Patient denies shortness of breath or increased fatigue. Of note, patient also reports increased stress at home. States he recently lost his and son and his mother is very ill. Past Med Surg Social Fam HX - Past Medical History Attestation: Yes The following information was validated with the patient. Source: patient, old records reviewed Medical history: arthritis, cardiomyopathy, coronary artery disease, CVA, GERD, hyperlipidemia, hypertension, myocardial infarction, osteoporosis, peripheral artery disease, syncope, TIA, other Psychiatric history: anxiety, depression, other - Past Surgical History Surgical History: angioplasty/stent, cholecystectomy, coronary bypass (CABG), orthopedic, other, other - Social History Smoking Status: Never smoker Smokeless Tobacco Status: No Alcohol use: none Drug use: none - Family History Brother Family Member Ethnicity: Non- Living Status: Hx Family Cancer: Yes (Stomach) Son Family Member Ethnicity: Non- Living Status: Still Living Hx Family Cardiac Disorders: Yes Mother Adopted: No Family Member Ethnicity: Non- Living Status: Still Living Hx Family Cardiac Disorders: Yes (CAD) Hx Family Respiratory Disorders: No Hx Family Cancer: Yes (Cervical) Hx Family GI Disorders: No Hx Family Endocrine Disorder: Yes (DM) Hx Family Neuromuscular Disorders: No Hx Family Neurologic Disorders: No Hx Family HEENT Disorders: No Hx Family Autoimmune Disorders: No Father Family Member Ethnicity: Non- Living Status: Hx Family Cardiac Disorders: Yes ([place], CAD) Hx Family Respiratory Disorders: Yes (COPD) Hx Family Cancer: No Hx Family GI Disorders: No Hx Family Endocrine Disorder: No Hx Family Neuromuscular Disorders: No Hx Family Neurologic Disorders: No Hx Family HEENT Disorders: No Hx Family Autoimmune Disorders: No Medications and Allergies Furosemide [Lasix] 40 mg PO DAILY 11/01/16 [History] Aspirin 81 mg PO DAILY #30 tab.chew 02/18/17 [Rx] Omeprazole 20 mg PO DAILY #30 tablet.dr 05/19/17 [Rx] LORazepam [Ativan] 0.5 mg PO BID PRN 08/04/17 [History] Methocarbamol [Robaxin] 500 mg PO TID 08/05/17 [History] 3 Allergy/AdvReac Type Severity Reaction Status Date / Time simvastatin [From Zocor] Allergy Rash Verified 05/21/17 15:58 Zolpidem [From Ambien] Allergy Confusion Verified 05/21/17 15:58 ondansetron AdvReac Shakiness Verified 05/21/17 15:58 [From Zofran (as hydrochloride)] All Systems Review: A 10-system review of systems was performed and is negative for pertinent findings except as documented above in the HPI. - Cardiovascular Cardiovascular: as per HPI, chest pain at rest, chest pain with exertion - Neurological Neurological: dizziness, syncope Physical Examination Vital Signs, Last 4 Hours Temp Pulse Resp BP Pulse Ox 08/05/17 08:09 99.2 F 78 18 110/75 95 General: Conversant, No Apparent Distress HEENT: Atraumatic, Normocephaly, Mucus Membranes Moist Neck: No JVD, Normal carotid pulses Cardiac: Reg Rate and Rhythm, Normal S1 and S2, No Murmur Lungs: Normal Breath Sounds, No Wheeze, Rales, Rhonchi Neuro: Alert and responsive, No focal deficits noted Abdomen: Soft, Non-Tender Skin: No rashes noted on visualized skin Musculoskeletal: No Chest Wall Tenderness Extremities: No Clubbing, No Cyanosis, No Edema, Normal Pulses Results 08/05/17 02:55 08/05/17 02:55 Lab Results Impressions Chest X-Ray 08/04/17 11:50 IMPRESSION: No acute process. D/ / Ramon Rodriguez MD / Ramon Rodriguez MD Interpreting Provider: Ramon Rodriguez MD Hand X-Ray 08/04/17 11:52 IMPRESSION: No significant interval healing of intra-articular thumb proximal phalangeal fracture. Osteoarthritis as described. D/ / 08/04/2017 12:48:29 Maurice Matos MD / [email or web address] Interpreting Provider: Maurice Matos MD Active Medications Acetaminophen (Tylenol) 650 mg PO Q6HR PRN PRN Reason: Mild Pain (1-3) Stop: 02/03/18 16:09 Al Hydrox/Mg Hydrox/Simethicone (Maalox) 15 ml PO Q6HR PRN PRN Reason: Dyspepsia Stop: 02/03/18 16:09 Last Admin: 08/05/17 08:40 Dose: 15 ml Aspirin (Aspirin) 81 mg PO DAILY [facility] Stop: 02/04/18 09:01 Last Admin: 08/05/17 08:44 Dose: 81 mg Atorvastatin Calcium (Lipitor) 40 mg PO HS [facility] Stop: 02/03/18 21:01 Last Admin: 08/04/17 20:27 Dose: 40 mg Clopidogrel Bisulfate (Plavix) 75 mg PO DAILY [facility] Stop: 02/04/18 09:01 Last Admin: 08/05/17 08:44 Dose: 75 mg Furosemide (Lasix) 40 mg PO DAILY [facility] Stop: 02/04/18 09:01 Last Admin: 08/05/17 08:44 Dose: 40 mg Isosorbide Mononitrate (Imdur) 90 mg PO DAILY [facility] Stop: 02/05/18 09:01 Lorazepam (Ativan) 1 mg PO BID [facility] Stop: 02/03/18 21:01 Last Admin: 08/05/17 08:44 Dose: 1 mg Magnesium Hydroxide (Milk Of Magnesia Conc) 10 ml PO DAILY PRN PRN Reason: Indigestion Stop: 02/03/18 16:09 Morphine Sulfate (Morphine Sulfate) 2 mg IVP Q4HR PRN PRN Reason: CHEST PAIN Stop: 02/03/18 16:13 Last Admin: 08/05/17 08:41 Dose: 2 mg Naloxone HCl (Narcan) 0.4 mg IVP Q2MIN PRN PRN Reason: Opioid Reversal Stop: 02/03/18 16:09 Nitroglycerin (Nitroglycerin) 0.4 mg SL Q5MIN PRN PRN Reason: Chest Pain Stop: 02/03/18 20:31 Last Admin: 08/05/17 02:37 Dose: 0.4 mg Omeprazole (Prilosec) 20 mg PO DAILY [facility] Stop: 02/04/18 09:01 Last Admin: 08/05/17 08:44 Dose: 20 mg Ondansetron HCl (Zofran) 4 mg IVP Q8HR PRN PRN Reason: Nausea And Vomiting Stop: 02/03/18 16:09 Oxycodone HCl (Roxicodone) 10 mg PO BID PRN PRN Reason: Moderate to Severe Pain (4-10) Promethazine HCl (Phenergan) 12.5 mg IVP Q6HR PRN PRN Reason: Nausea And Vomiting Stop: 02/03/18 22:28 Last Admin: 08/04/17 22:35 Dose: 12.5 mg Laboratory Tests 08/04/17 08/05/17 08/05/17 12:24 02:55 02:55 Hgb 13.4 Creatinine 0.72 Troponin I < 0.03 08/05/17 08/05/17 02:55 09:01 Hgb Creatinine Troponin I < 0.03 < 0.03 - Imaging and Cardiology Chest Xray: report reviewed Stress Test: report reviewed Echo: report reviewed Cardiac cath: report reviewed - EKG Interpretation EKG results cardiology: personally reviewed (ECG with SR, HR 89. ST deviations noted in inferior leads, known.), other (Telemetry reviewed with average HR previous 12 hours noted to be 73, sinus rhythm. PVCs noted.) Consult Discharge Plan - Plan Referrals: Toya Arvizu, TOY CONSULTANT [Primary Care Provider] -
[2017-08-05] MEDS: *HR* Promethazine 25 MG/ML VIAL IVP PRN (12:03)
[2017-08-05 14:47] VITALS: BP 108/72
--- NOTE | 2017-08-05 16:41 | Discharge Summary ---
Date of Encounter: 08/05/17 Time of Encounter: 11:00 - Discharge Diagnosis (1) Atypical chest pain Priority: Primary Status: Acute (2) Fracture of thumb, right, closed Priority: Primary Status: Acute Qualifiers: Encounter type: initial encounter Phalanx: proximal Fracture alignment: nondisplaced Qualified Code(s): S62.514A - Nondisplaced fracture of proximal phalanx of right thumb, initial encounter for closed fracture - Discharge Medications Home Medications: Furosemide [Lasix] 40 mg PO DAILY 11/01/16 [History] Aspirin 81 mg PO DAILY #30 tab.chew 02/18/17 [Rx] Omeprazole 20 mg PO DAILY #30 tablet.dr 05/19/17 [Rx] LORazepam [Ativan] 0.5 mg PO BID PRN 08/04/17 [History] Methocarbamol [Robaxin] 500 mg PO TID 08/05/17 [History] Allergies/Adverse Reactions: 3 Allergy/AdvReac Type Severity Reaction Status Date / Time simvastatin [From Zocor] Allergy Rash Verified 05/21/17 15:58 Zolpidem [From Ambien] Allergy Confusion Verified 05/21/17 15:58 ondansetron AdvReac Shakiness Verified 08/05/17 12:51 [From Zofran (as hydrochloride)] Procedures/tests Complete & Pending: Procedures Performed prior 72 hours Category Date Time Status ECG 12 lead ECG [ECG] Stat Y 08/05/17 09:43 Completed Date of admission: 08/04/17 16:07 Primary care physician: Toya Arvizu CNP Consults: 08/04/17 16:24 Consult to Orthopedic Surgery [CONS] Routine Consulting Provider: Orthoped[facility] Reason for Consult: right thumb fx Call Completed: No - Patient Status Disposition: Left Against Medical Advice Condition: Fair - Discharge Instructions Follow Up With: Toya Arvizu CNP [Primary Care Provider] - Forms: ED Satisfaction Letter Hospital course: Patient is a 61 year old male with past medical history significant for CAD, [place] , CVA, hypertension, hyperlipidemia who presented to the ER on 08/04/17 with chest pain. He has had a prior [place] with stents placement couple months ago who comes in complaining of chest pain into his jaw. States pain feels similar to what he had with his previous [place]. Also states he fell and injured his right thumb. He woke up including troponin and EKG were normal, due to his significant risk factors, he will be admitted as observation. During patients hospital stay, cardiology was consulted and ACS was ruled out. Orthopedics was consulted for patients fractured right thumb but he left AMA without being evaluated. - Time Spent with Patient Total time spent providing and/or coordinating discharge services: Less than 30 minutes - Constitutional Vitals: Temp Pulse Resp BP Pulse Ox 97.6 F 89 16 108/72 97 08/05/17 14:46 08/05/17 14:46 08/05/17 14:46 08/05/17 14:46 08/05/17 14:46
--- NOTE | 2017-08-05 16:48 | Electrocardiograph Report ---
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
--- NOTE | 2017-08-05 17:14 | Electrocardiograph Report ---
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
[2017-08-06] MEDS ORDERED: Isosorbide MONOnitrate (24 HR) 30 MG TAB.ER.24H PO SCH (09:00)
== END 2017-08-05 15:45 | disposition left against medical advice (07) ==
LOC: EMEROO 11:39 → 2ANU 11:39 → SUATTDRO 16:07 → 2ANU 16:24
PROVIDERS: ADMIT Internal Medicine Nephrology; ATTEND Hospitalist

== ENCOUNTER 2017-09-03 12:37 | Observation (INO) ==
--- NOTE | 2017-09-03 12:52 | Emergency Department Note ---
Disposition Clinical Impression: Atypical chest pain, Left-sided weakness, S/P CABG x 3 Disposition: Admitted As Inpatient Condition: Fair Forms: ED Satisfaction Letter Time of Disposition: 14:24 Neuro HPI - General Chief Complaint: ED Neuro Symptoms/Deficit Stated Complaint: CP/Left sided numbness Time Seen by Provider: 09/03/17 12:42 Source: patient Limitations: no limitations Nursing Notes Reviewed: Yes Vital Signs Reviewed: Yes - History of Present Illness HPI Narrative: 61-year-old male history of CABG, hypertension, CVA a requiring TPA, previous right MCA stroke with left-sided deficits, left-sided weakness in his left foot at baseline, presents complaining of left-sided deficits, onset 1045 2 hours prior to ED arrival. Patient presents with weakness, states that he has numbness in his left arm and leg, and he cannot lift his arm or his leg. Patient reports that his weakness is new, he also associated chest pain is 10 substernal chest pain nonradiating. She denies fever or chills, productive cough, urine or symptoms, he denies hematochezia or melena. Onset of Symptoms Date: 09/03/17 Onset of Symptoms Time: 10:45 Symptom Onset Unknown: Yes Location: left face, left arm, left leg History of same: Yes Severity: moderate Quality: weakness, numbness, tingling Symptoms Improving: No Improves with: none Worsens with: none Context: sudden onset On Anticoagulants: No (Plavix) Associated symptoms: Reports: chest pain. Denies: confusion, cough, diaphoresis , fever/chills, headaches, loss of appetite, malaise, nausea/vomiting - Related Data Home Medications: Home Medications Medication Instructions Recorded Confirmed Atorvastatin Calcium [Lipitor] 80 mg PO HS 08/23/17 08/23/17 Clopidogrel [Plavix] 75 mg PO DAILY 08/23/17 08/23/17 Lisinopril [Zestril] 20 mg PO DAILY 08/23/17 08/23/17 Metoprolol XL (24 HR) Succ [Toprol 25 mg PO DAILY 08/23/17 08/23/17 XL] Sucralfate [Carafate] 1 gm PO 0730,1630 08/23/17 08/23/17 Aspirin 325 mg PO DAILY 09/03/17 09/03/17 Docusate Sodium [Dok] 1 cap PO HS 09/03/17 09/03/17 LORazepam [Ativan] 0.5 tab PO BID 09/03/17 09/03/17 Previous Rx's Medication Instructions Recorded Omeprazole 20 mg PO DAILY #30 tablet. 05/19/17 Allergies/Adverse Reactions: Allergies Allergy/AdvReac Type Severity Reaction Status Date / Time simvastatin [From Zocor] Allergy Rash Verified 09/03/17 12:39 Zolpidem [From Ambien] Allergy Confusion Verified 09/03/17 12:39 ondansetron AdvReac Shakiness Verified 09/03/17 12:39 [From Zofran (as hydrochloride)] All systems ED: reviewed and negative except as stated. Review of Systems: As Per HPI Constitutional: Denies: fever, chills Eyes: Denies: eye pain ENT ED: Denies: ear pain Cardiovascular: Reports: chest pain Respiratory: Denies: cough, dyspnea, other Gastrointestinal: Denies: abdominal pain, nausea Genitourinary: Denies: urgency, dysuria Musculoskeletal: Denies: back pain Integumentary: Denies: rash, abrasion Neurological: Reports: as per HPI, weakness, numbness. Denies: headache Psychiatric: Reports: anxiety Endocrine: Denies: fatigue Past Medical History - Past Medical History Attestation: Yes The following information was validated with the patient. Source: patient Medical history: Reports: arthritis, cardiomyopathy, coronary artery disease, CVA, GERD, hyperlipidemia, hypertension, myocardial infarction, osteoporosis, peripheral artery disease, syncope, TIA, other Surgical history: Reports: angioplasty/stent, cholecystectomy, coronary bypass ( CABG), orthopedic, other, other Psychiatric history: Reports: anxiety, depression, other - Social History Smoking Status: Never smoker Smokeless Tobacco Status: No Alcohol use: Reports: none Drug use: Reports: none Physical Exam - General Limitations: no limitations General appearance: alert, in no apparent distress - Head Head exam: atraumatic - Eye Eye exam: Present: normal appearance, PERRL - ENT ENT exam: normal exam, normal oropharynx - Neck Neck exam: Present: normal inspection - Chest Chest inspection: Present: symmetric chest wall rise, other (cabg incision) - Respiratory Respiratory exam: Present: normal lung sounds bilaterally. Absent: respiratory distress - Cardiovascular Cardiovascular exam: Present: regular rate, normal rhythm - Abdominal Exam Abdominal exam: Present: soft, Non-Tender - Extremities Exam Extremities exam: Present: normal inspection. Absent: tenderness - Expanded Lower Extremity Exam Neurovascular/Tendon exam: Present: normal capillary refill - Neurological Exam Neurological exam: Present: alert, oriented X3 - Expanded Neurological Exam Patient oriented to: Present: person, place, time Cerebellar function: heel to [place]: Abnormal Left Motor strength - LUE: 2/5 Motor strength - RUE: 5/5 Motor strength - LLE: 2/5 Motor strength - RLE: 5/5 Sensory exam lower extremity: light touch: Abnormal Left, pin prick: Abnormal Left Coma Scale Eye Opening: Spontaneous Coma Scale Motor Response: Obeys Commands Coma Scale Verbal Response: Oriented Coma Scale Total: 15 Course Course Narrative: 61-year-old male with history of CVA, presents with left-sided deficits onset was at 1045, patient presents to the ER stroke alert activated at 1245 2 hours after onset, patient states that he does take Plavix, he is left-sided weakness , he also has chest pain history is of CABG. Her was called CT had basic lab work EKG shows no acute ischemic changes. - Reevaluation(s) Reevaluation #1: I conference with the neuro doc with [facility] and she agrees that the patient has active inversion disorder features including Reevaluation #2: I spoke with the neurologist Dr. Conrad And discussed the syringe findings, repeat NIH was only 1, for mild facial droop although this appears to be on the right side and said his left side, after evaluation by [facility], the neurologist agrees that there is some concerning features of conversion disorder , the patient was able to lift his arm and hold it for 10 seconds, with no assistance but with me just putting my hand on top of his hand, he had distractible neurologic deficits documented multiple times by the nurses, a review of his CTA imaging of his head and neck showed no previous episodes of stroke even though he states he has a stroke history, patient does have a history of an open heart surgery and CABG, and is complaining of chest pain therefore nitroglycerin was given, aspirin was given, I did speak with the hospitalist regarding inpatient admission for at least observation given his multiple complaints and concerning history, but no indication for TPA at this time given conversion disorder concern. Vital Signs Temperature 97.6 F 09/03/17 12:40 Pulse Rate 89 09/03/17 12:40 Respiratory Rate 22 09/03/17 12:40 Blood Pressure 156/115 09/03/17 12:40 O2 Sat by Pulse Oximetry 100 09/03/17 12:40 Temperature 97.6 F 09/03/17 12:40 Pulse Rate 89 09/03/17 12:40 Respiratory Rate 22 09/03/17 12:40 Blood Pressure 156/115 09/03/17 12:40 O2 Sat by Pulse Oximetry 100 09/03/17 12:40 Oxygen Delivery Oxygen Delivery Room Air Neuro Symptoms/Deficit - Differential Diagnosis Likely: cerebrovascular accident, subarachnoid hemorrhage, transient cerebral ischemia, convulsions - Medical Records Medical records reviewed: Yes I reviewed the patient's medical records. - Lab Data Lab results reviewed: Yes I reviewed the patient's lab results. - Radiology Data Radiology results reviewed: Yes I reviewed the patient's radiology results. Lab Results 09/03/17 09/03/17 09/03/17 Range/Units 12:43 12:53 12:53 WBC 4.7 (4.3-11.1) K/mcL RBC 4.89 (4.19-5.50) M/mcL Hgb 14.7 (12.9-16.9) g/dL Hct 44.8 (37.5-50.1) % MCV 91.6 (83.0-100.0) fL MCH 30.1 (28.0-33.3) pg MCHC 32.8 (31.6-35.5) g/dL RDW 13.0 (11.5-14.5) % Plt Count 166 (140-400) K/mcL MPV 8.8 L (9.4-12.4) fL Immature Gran % 0.4 (0-4) % Seg Neutrophils % 65.9 % Lymphocytes % 19.0 % Monocytes % 13.7 % Eosinophils % 0.6 % Basophils % 0.4 % Neutrophils # 3.1 (1.6-8.9) K/mcL Lymphocytes # 0.9 (0.6-4.6) K/mcL Monocytes # 0.7 (0.0-1.3) K/mcL Eosinophils # 0.0 (0.0-0.6) K/mcL Basophils # 0.0 (0.0-0.2) K/mcL PT 10.8 (9.4-12.1) Seconds INR 1.0 APTT 32.1 (26.0-36.0) Seconds Sodium (136-145) mEq/L Potassium (3.5-5.1) mEq/L Chloride (98-107) mEq/L Carbon Dioxide (23-29) mEq/L BUN (8-23) mg/dL Creatinine (0.70-1.30) mg/dL Est GFR ( Amer) (> 60) Est GFR (Non-Af Amer) (> 60) BUN/Creatinine Ratio (6-26) Glucose (70-105) mg/dL POC Glucose 89 (58-89) Calculated Osmolality (280-300) Calcium (8.6-10.3) mg/dL Troponin I (< 0.04) ng/mL 09/03/17 09/03/17 Range/Units 12:53 12:53 WBC (4.3-11.1) K/mcL RBC (4.19-5.50) M/mcL Hgb (12.9-16.9) g/dL Hct (37.5-50.1) % MCV (83.0-100.0) fL MCH (28.0-33.3) pg MCHC (31.6-35.5) g/dL RDW (11.5-14.5) % Plt Count (140-400) K/mcL MPV (9.4-12.4) fL Immature Gran % (0-4) % Seg Neutrophils % % Lymphocytes % % Monocytes % % Eosinophils % % Basophils % % Neutrophils # (1.6-8.9) K/mcL Lymphocytes # (0.6-4.6) K/mcL Monocytes # (0.0-1.3) K/mcL Eosinophils # (0.0-0.6) K/mcL Basophils # (0.0-0.2) K/mcL PT (9.4-12.1) Seconds INR APTT (26.0-36.0) Seconds Sodium 138 (136-145) mEq/L Potassium 4.1 (3.5-5.1) mEq/L Chloride 109 H (98-107) mEq/L Carbon Dioxide 24 (23-29) mEq/L BUN 20 (8-23) mg/dL Creatinine 0.81 (0.70-1.30) mg/dL Est GFR ( Amer) > 60 (> 60) Est GFR (Non-Af Amer) > 60 (> 60) BUN/Creatinine Ratio 25 (6-26) Glucose 72 (70-105) mg/dL POC Glucose (58-89) Calculated Osmolality 287 (280-300) Calcium 9.2 (8.6-10.3) mg/dL Troponin I < 0.03 (< 0.04) ng/mL Head CT 09/03/17 12:45 IMPRESSION: No acute intracranial abnormality. Results of this examination were verbally communicated to Dr. Godwin at 1:10 p.m. on 09/03/2017. D/ / Wallace Yao MD / Wallace Yao MD Interpreting Provider: Wallace Yao MD - EKG Data EKG attestation: Yes I reviewed and interpreted this EKG. EKG shows normal: sinus rhythm Rate: normal Q waves: II, III, aVF (97 bpm ID 135 QRS 102 QTC 411 no evidence of acute ST segment elevations or depressions) NIH Stroke Scale - Level of Consciousness LOC: Alert - LOC Questions LOC Questions: Answers both correctly - LOC Commands LOC Commands: Performs one correctly - Best Gaze Best Gaze: Normal - Visual Visual: No visual loss - Facial Palsy Facial Palsy: Minor asymmetry on smiling, flattened nasolabial fold - Motor Arms Motor Arm-Left: Some effort against gravity, limb drifts to bed Motor Arm-Right: No drift for 10 seconds - Motor Legs Motor Leg-Left: Some effort against gravity, limb drifts to bed Motor Leg-Right: No drift for 5 seconds - Limb Ataxia Limb Ataxia: Absent of affected limb too weak to perform exam - Sensory Sensory: Mild to moderate loss, "not as sharp" - Best Language Best Language: No aphasia - Dysarthria Dysarthria: Normal - Extinction and Inattention Extinction and Inattention: Normal - NIHSS Total Score NIHSS Total Score: 7 TPA Checklist - Source Information Source: Family - Eligibilty for IV tPA 1. LKW equal to or less than 4.5 hours be before treatment: Yes 2. Clinical diagnosis of ischemic stroke causing deficit: No 3. Age 18 years or older: Yes - Contraindications 4. Evidence of intracranial hemorrhage on pretreatment CT: No 5. Presentation suggests subarachnoid hem, even if CT normal: No - LKW: 3-4.5 hrs Add. Warnings/Precautions Patient/family understanding: The patient/family members have been counseled and understood the risk, benefit , and alternatives of treatment.
[2017-09-03 13:05] LABS: Basophils % 0.4 %; Eosinophils % 0.6 %; Hematocrit 44.8 % (37.5-50.1); Hemoglobin 14.7 g/dL (12.9-16.9); Immature Granulocytes % 0.4 % (0-4); Lymphocytes # 0.9 K/mcL (0.6-4.6); Mean Corpuscular HGB Conc 32.8 g/dL (31.6-35.5); Mean Corpuscular Hemoglobin 30.1 pg (28.0-33.3); Mean Corpuscular Volume 91.6 fL (83.0-100.0); Mean Platelet Volume 8.8 fL (9.4-12.4); Monocytes # 0.7 K/mcL (0.0-1.3); Monocytes % 13.7 %; Neutrophils # 3.1 K/mcL (1.6-8.9); Platelet Count 166 K/mcL (140-400); Red Blood Count 4.89 M/mcL (4.19-5.50); Segmented Neutrophils % 65.9 %
[2017-09-03 13:26] LABS: BUN/Creatinine Ratio 25 (6-26); Blood Urea Nitrogen 20 mg/dL (8-23); Calcium 9.2 mg/dL (8.6-10.3); Carbon Dioxide 24 mEq/L (23-29); Chloride 109 mEq/L (98-107); Glucose 72 mg/dL (70-105); Osmolality,Calculated 287 (280-300); Potassium 4.1 mEq/L (3.5-5.1); Sodium 138 mEq/L (136-145); eGFR For African Americans > 60 (> 60); eGFR For Non-African Americans > 60 (> 60)
[2017-09-03] MEDS ORDERED: Nitroglycerin 0.4 MG TAB.SUBL SL ONE (13:27)
[2017-09-03] MEDS ORDERED: Aspirin 81 MG TAB.CHEW PO ONE (13:28)
--- NOTE | 2017-09-03 13:34 | Emergency Department Note ---
START Narrative - START START: I examined this patient and my medical decision-making was reviewed with the Resident Physician. I agree with the documented findings, disposition and treatment plan as described except to the extent set forth below. 61 yo M here for left arm/leg weakness. started assoc with chest pain. pt with misleading physical exam. hx of same in past that did not show any acute intracranial pathology. his scans have all been negative in past. CT neg today. [facility] stroke center notified and consulted. feel this is mostly conversion disorder more so than any structural lesion in the brain to account for his sx. vss sx seem to be improving already.
[2017-09-03 13:39] LABS: Prothrombin Time 10.8 Seconds (9.4-12.1)
[2017-09-03] MEDS ORDERED: *HR* FentaNYL (PF) 100 MCG/2 ML VIAL IVP ONE (13:40)
[2017-09-03 13:42] LABS: Activated Partial Thrombo Time 32.1 Seconds (26.0-36.0)
[2017-09-03 14:46] VITALS: BP 119/80
--- NOTE | 2017-09-03 14:57 | Internal Med History&Physical ---
Date of Encounter: 09/03/17 Time of Encounter: 14:00 Assessment and Plan (1) Atypical chest pain Current visit: No Status: Acute -Patient reports of chest pressure which is relieved with nitroglycerin and made worse with exertion. -First set of cardiac biomarkers are negative. -Will trend cardiac biomarkers and monitor on telemetry; reevaluate in the morning (2) Acute left-sided weakness Current visit: No Status: Acute -CT of the head was negative and [facility] stroke center was consulted and felt that symptoms were mostly secondary to conversion disorder. -Patient already has residual left-sided weakness from prior CVA. -Will order MRI of brain in addition to MRA of neck/head (3) CAD (coronary artery disease) Current visit: No Status: Chronic -Patient was significant cardiac history including CABG 3 in 2004 with a total of 5 stents, the most recent in 2014. -Will continue patient's home dose of statin, Plavix, aspirin, beta [place] and RACHELLE inhibitor. Qualifiers: Coronary Disease-Associated Artery/Lesion type: bypass graft [place] vs. transplanted heart: [place] heart Associated angina: with stable angina Qualified Code(s): I25.708 - Atherosclerosis of coronary artery bypass graft(s) , unspecified, with other forms of angina pectoris (4) Old cerebrovascular accident (CVA) without late effect Current visit: No Status: Chronic -Past medical history significant for CVA in the fall with residual left -sided weakness -Will continue patient's aspirin -Workup for worsening left-sided weakness as above (5) Chronic pain syndrome Current visit: No Status: Chronic -Patient will chronic back pain requesting pain medications. -Discussed with pharmacy to look up pain medication history and will take recommendations based on patient's prior failed pain prescriptions -Will give IV Toradol as needed for now (6) GERD (gastroesophageal reflux disease) Current visit: No Status: Chronic -Continue home dose of PPI Qualifiers: Esophagitis presence: without esophagitis Qualified Code(s): K21.9 - Gastro -esophageal reflux disease without esophagitis (7) DVT prophylaxis Current visit: No Status: Acute -Heparin subcutaneous Internal Medicine - H&P: HPI Chief complaint: Chest pain Admitted From: Home Plans for Post Hospital Care: Home History of present illness: Patient is a 61-year-old male with past medical history significant for CVA in the fall of 2016 with residual left-sided weakness in addition to CABG 3 in 2004 with a total of 5 stents the most recent in 2014 who presents on 09/03/17 due to chest pain and left-sided weakness. Patient reports of substernal chest pain the morning of admission while doing the laundry. He describes the pain as pressure with a severity of 10 out 10 that radiates up to his jaw. He also reports of associated symptoms of left arm /hand altered sensation with weakness. Patient reports that walking makes discomfort worse and nitroglycerin gives some relief in pain. In the ER, CT of the head was negative and [facility] stroke center was consulted and felt that symptoms were mostly secondary to conversion disorder. In addition patient already has residual left-sided weakness from prior CVA. First set of cardiac biomarkers were negative. Patient will be admitted to the medical surgical floor for ACS rule out. Past Med Surg Social Fam HX - Past Medical History Medical history: arthritis, cardiomyopathy, coronary artery disease, CVA, GERD, hyperlipidemia, hypertension, myocardial infarction, osteoporosis, peripheral artery disease, syncope, TIA, other Psychiatric history: anxiety, depression, other - Past Surgical History Surgical History: angioplasty/stent, cholecystectomy, coronary bypass (CABG), orthopedic, other, other - Social History Smoking Status: Never smoker Smokeless Tobacco Status: No Alcohol use: none Drug use: none - Family History Brother Family Member Ethnicity: Non- Living Status: Hx Family Cancer: Yes (Stomach) Son Family Member Ethnicity: Non- Living Status: Still Living Hx Family Cardiac Disorders: Yes Mother Adopted: No Family Member Ethnicity: Non- Living Status: Still Living Hx Family Cardiac Disorders: Yes (CAD) Hx Family Respiratory Disorders: No Hx Family Cancer: Yes (Cervical) Hx Family GI Disorders: No Hx Family Endocrine Disorder: Yes (DM) Hx Family Neuromuscular Disorders: No Hx Family Neurologic Disorders: No Hx Family HEENT Disorders: No Hx Family Autoimmune Disorders: No Father Family Member Ethnicity: Non- Living Status: Hx Family Cardiac Disorders: Yes ([place], CAD) Hx Family Respiratory Disorders: Yes (COPD) Hx Family Cancer: No Hx Family GI Disorders: No Hx Family Endocrine Disorder: No Hx Family Neuromuscular Disorders: No Hx Family Neurologic Disorders: No Hx Family HEENT Disorders: No Hx Family Autoimmune Disorders: No Internal Medicine - H&P: Meds Omeprazole 20 mg PO DAILY #30 tablet. 05/19/17 [Rx] Atorvastatin Calcium [Lipitor] 80 mg PO HS 08/23/17 [History] Clopidogrel [Plavix] 75 mg PO DAILY 08/23/17 [History] Lisinopril [Zestril] 20 mg PO DAILY 08/23/17 [History] Metoprolol XL (24 HR) Succ [Toprol XL] 25 mg PO DAILY 08/23/17 [History] Sucralfate [Carafate] 1 gm PO 0730,1630 08/23/17 [History] Aspirin 325 mg PO DAILY 09/03/17 [History] Docusate Sodium [Dok] 1 cap PO HS 09/03/17 [History] LORazepam [Ativan] 0.5 tab PO BID 09/03/17 [History] 3 Allergy/AdvReac Type Severity Reaction Status Date / Time simvastatin [From Zocor] Allergy Rash Verified 09/03/17 12:39 Zolpidem [From Ambien] Allergy Confusion Verified 09/03/17 12:39 ondansetron AdvReac Shakiness Verified 09/03/17 12:39 [From Zofran (as hydrochloride)] All Systems PM: A 10-system review of systems was performed and is negative for pertinent findings except as documented above in the HPI. - Constitutional Vitals: Temp Pulse Resp BP Pulse Ox 97.8 F 60 18 119/80 98 09/03/17 14:44 09/03/17 14:44 09/03/17 14:44 09/03/17 14:44 09/03/17 14:44 General appearance: Present: A&O X 3, no acute distress - Head Head exam: Present: normocephalic - Eye Eye exam: Present: EOMI - ENT ENT exam: Present: mucous membranes moist - Respiratory Respiratory exam: Present: CTAB. Absent: accessory muscle use, rales, rhonchi, wheezes - Cardiovascular Cardiovascular exam: Present: RRR, +S1, +S2. Absent: diastolic murmur, gallop, rubs, systolic murmur - GI/Abdominal GI/Abdominal exam: Present: normal bowel sounds, soft, no peritoneal signs. Absent: distended, tenderness - Neurological Exam Neurological exam: Present: CN II-XII intact, oriented X3, no focal deficits - Psychiatric Psychiatric exam: Present: normal mood Internal Med - H&P Results - Labs CBC & Chem 7: 09/03/17 12:53 09/03/17 12:53 Labs: Short CBC 09/03/17 Range/Units 12:53 WBC 4.7 (4.3-11.1) K/mcL Hgb 14.7 (12.9-16.9) g/dL Hct 44.8 (37.5-50.1) % Plt Count 166 (140-400) K/mcL Neutrophils # 3.1 (1.6-8.9) K/mcL BMP 09/03/17 12:53 Sodium 138 Potassium 4.1 Chloride 109 H Carbon Dioxide 24 BUN 20 Creatinine 0.81 Glucose 72 Calcium 9.2 Cardiac Enzymes 09/03/17 Range/Units 12:53 Troponin I < 0.03 (< 0.04) ng/mL - Impressions ITS Impressions Head CT 09/03/17 12:45 IMPRESSION: No acute intracranial abnormality. Results of this examination were verbally communicated to Dr. Godwin at 1:10 p.m. on 09/03/2017. D/ / Wallace Yao MD / Wallace Yao MD Interpreting Provider: Wallace Yao MD
[2017-09-03] MEDS ORDERED: Ketorolac 30 MG/ML VIAL IVP PRN (15:22)
[2017-09-03] MEDS ORDERED: Naloxone 0.4 MG/ML INJ IVP PRN (15:22)
[2017-09-03] MEDS: Nitroglycerin 0.4 MG TAB.SUBL SL PRN ×3 (15:43→15:58)
[2017-09-03] MEDS ORDERED: Sucralfate 1 GM TABLET PO SCH (16:30)
[2017-09-03] MEDS ORDERED: *HR* LORazepam 0.5 MG TABLET PO SCH (21:00)
[2017-09-03] MEDS ORDERED: *HR* Heparin 5,000 UNIT/ML VIAL SQ SCH (22:00)
[2017-09-04] MEDS ORDERED: Aspirin 325 MG TABLET PO SCH (09:00)
[2017-09-04] MEDS ORDERED: Lisinopril 20 MG TABLET PO SCH (09:00)
[2017-09-04] MEDS ORDERED: Metoprolol XL (24 HR) Succ 25 MG TAB.ER.24H PO SCH (09:00)
--- NOTE | 2017-09-04 17:12 | Electrocardiograph Report ---
[address] [place] [id number] Test Date: 2017-09-03 Pat Name: Eber Melchor Department: 104 Room: 3B41 Gender: M Remodeler: : 1955 Requested By: Rosalba Ann Order Number: [id number] Reading MD: Can Howard Measurements Intervals [place] Rate: 97 P: 57 TX: 137 QRS: 45 QRSD: 102 T: 39 QT: 357 QTc: 411 Interpretive Statements SINUS RHYTHM WITH SINUS ARRHYTHMIA POSSIBLE INFERIOR MYOCARDIAL INFARCTION, PROBABLY OLD Electronically Signed On 09-04-2017 17:10:35 EST by Can Howard
== END 2017-09-03 17:07 | disposition left against medical advice (07) ==
LOC: 3BNU 12:37 → EMEROO 12:37 → 3BNU 14:32
PROVIDERS: ADMIT Internal Medicine Cardiovascular Disease; ATTEND Registered Nurse

== ENCOUNTER 2017-10-19 15:38 | Observation (INO) ==
[2017-10-19] MEDS ORDERED: 0.9 % Sodium Chloride 500 ML ONE (19:56)
--- NOTE | 2017-10-19 20:29 | Internal Med History&Physical ---
Date of Encounter: 10/19/17 Time of Encounter: 20:21 Assessment and Plan (1) Chest pain Current visit: Yes Status: Acute Possible angina, in setting of CAD status post CABG in, but he had negative troponin and normal EKG, pain is better controlled with IV morphine and nitroglycerin. we will continue nitro drip and IV morphine as needed. Nothing by mouth, , Dr. Beckman was called by emergency physician. Qualifiers: Chest pain type: chest pain due to myocardial ischemia Ischemic chest pain type: stable angina pectoris Qualified Code(s): I20.8 - Other forms of angina pectoris (2) Depression with anxiety Current visit: Yes Status: Chronic Patient has a lot of anxiety was palpation, we will increase his Ativan 1 mg 3 times a day as needed (3) CAD (coronary artery disease), [place] coronary artery Current visit: Yes Status: Chronic Continue aspirin and Plavix beta Block Qualifiers: [place] vs. transplanted heart: [place] heart Associated angina: with unspecified angina Qualified Code(s): I25.119 - Atherosclerotic heart disease of [place] coronary artery with unspecified angina pectoris (4) Old cerebrovascular accident (CVA) without late effect Current visit: Yes Status: Chronic History of stroke with left-sided weakness continue aspirin Plavix (5) Peripheral artery disease Current visit: No Status: Chronic (6) DVT prophylaxis Current visit: No Status: Acute Heparin subcutaneous (7) Hypertension Current visit: Yes Status: Acute Qualifiers: Hypertension type: essential hypertension Qualified Code(s): I10 - Essential (primary) hypertension Internal Medicine - H&P: HPI Chief complaint: chest pain Admitted From: Home Plans for Post Hospital Care: Home History of present illness: Mr. Melhcor is a 62 year old male who has history of CAD status post CABG and stents, hypertension and anxiety history of stroke presented to [place] ED for acute onset chest pain. Chest pains located to the left-sided chest, pressure 10 out of 10, started 10 a.m. today, pain radiating to left-sided jaw and neck shoulder, it lasts 10-15 minutes, and pain improved with nitroglycerin drip. Associated with palpation, shortness of breasts. In the emergency room he had negative troponin, normal EKGs, negative d-dimer He received a multiple doses of IV morphine, on nitro drip chest pain down to 4 out of 10, he looks, comfortable, heart rate 77 blood pressure 104/68, Sat 98% on RA. patient denies palpation denies not sweating. chest x-ray is negative, BNP is 70. patient is transferred here for chest pain workup. DR Alvarenga was called from ER. Patient does state that over the last 2 years he lost his , mother and his son he has a lot of stress and the anxiety. He feels depressed and anxious and he lives alone at home. I offered him psychiatrist consult, but he declined. He said he will be all right as long as he got Ativan. Past Med Surg Social Fam HX - Past Medical History Medical history: arthritis, cardiomyopathy, CHF, coronary artery disease, CVA, GERD, hyperlipidemia, hypertension, myocardial infarction, osteoporosis, peripheral artery disease, syncope, TIA, other Psychiatric history: anxiety, depression, other - Past Surgical History Surgical History: angioplasty/stent, cholecystectomy, coronary bypass (CABG), orthopedic, other, other - Social History Smoking Status: Never smoker Smokeless Tobacco Status: Yes Alcohol use: none Drug use: none - Family History Brother Family Member Ethnicity: Non- Living Status: Hx Family Cancer: Yes (Stomach) Son Family Member Ethnicity: Non- Living Status: Still Living Hx Family Cardiac Disorders: Yes Mother Adopted: No Family Member Ethnicity: Non- Living Status: Still Living Hx Family Cardiac Disorders: Yes (CAD) Hx Family Respiratory Disorders: No Hx Family Cancer: Yes (Cervical) Hx Family GI Disorders: No Hx Family Endocrine Disorder: Yes (DM) Hx Family Neuromuscular Disorders: No Hx Family Neurologic Disorders: No Hx Family HEENT Disorders: No Hx Family Autoimmune Disorders: No Father Family Member Ethnicity: Non- Living Status: Hx Family Cardiac Disorders: Yes ([place], CAD) Hx Family Respiratory Disorders: Yes (COPD) Hx Family Cancer: No Hx Family GI Disorders: No Hx Family Endocrine Disorder: No Hx Family Neuromuscular Disorders: No Hx Family Neurologic Disorders: No Hx Family HEENT Disorders: No Hx Family Autoimmune Disorders: No Internal Medicine - H&P: Meds Omeprazole 20 mg PO DAILY #30 tablet. 05/19/17 [Rx] Clopidogrel [Plavix] 75 mg PO DAILY 08/23/17 [History] Lisinopril [Zestril] 20 mg PO DAILY 08/23/17 [History] Metoprolol XL (24 HR) Succ [Toprol XL] 25 mg PO DAILY 08/23/17 [History] Sucralfate [Carafate] 1 gm PO HS 08/23/17 [History] Aspirin 325 mg PO DAILY 09/03/17 [History] Docusate Sodium [Dok] 100 mg PO HS 09/03/17 [History] LORazepam [Ativan] 0.5 mg PO BID PRN 09/03/17 [History] Atorvastatin [Lipitor] 40 mg PO HS 09/09/17 [History] Furosemide [Lasix] 40 mg PO DAILY 09/09/17 [History] Isosorbide MONOnitrate (24 HR) [Imdur] 90 mg PO DAILY 09/09/17 [History] Levofloxacin [Levaquin] 750 mg PO DAILY #5 tablet 09/09/17 [Rx] Ranolazine [Ranexa] 500 mg PO BID 09/09/17 [History] 3 Allergy/AdvReac Type Severity Reaction Status Date / Time simvastatin [From Zocor] Allergy Rash Verified 09/09/17 13:15 Zolpidem [From Ambien] Allergy Confusion Verified 09/09/17 13:15 ondansetron AdvReac Shakiness Verified 09/09/17 13:15 [From Zofran (as hydrochloride)] All Systems PM: A 10-system review of systems was performed and is negative for pertinent findings except as documented above in the HPI. - Constitutional Vitals: Temp Pulse Resp BP Pulse Ox 97.7 F 80 18 139/85 98 10/19/17 19:40 10/19/17 19:40 10/19/17 19:40 10/19/17 19:40 10/19/17 19:40 General appearance: Present: cooperative, A&O X 3 Exam: CONSTITUTIONAL: Patient appears as an age appropriate male well developed, in no acute distress. EYES Clear sclerae, bilateral pupils are equal, reactive to light and accommodation. Extraocular movements are intact RESPIRATORY: No accessory muscle use, bilateral clear to auscultation, no wheezing, no crackles/rales. CARDIOVASCULAR: Regular heart rate, normal S1 and S2, no murmurs GASTROINTESTINAL: bowel sounds present, soft, no tenderness. No hepatosplenomegaly. No bilateral CVA tenderness MUSCULOSKELETAL: Joints in normal range of motion, no clubbing, no edema, no cyanosis. Bilateral peripheral pulses 2+ LYMPHATIC no lymphadenopathy in neck, groin and axilla bilaterally, no thyromegaly. NEUROLOGIC: CN II to XII are grossly intact, no focal neurological deficit. Deep tendon reflexes 2+ bilaterally. Normal light touch sensation to upper and lower extremity PSYCHIATRIC: Oriented x3, with good insight, mood is euthymic. No hallucinations or delusions. SKIN: Skin warm and dry, no rashes, no open wound.
[2017-10-19] MEDS ORDERED: 0.9 % Sodium Chloride 1,000 ML IVC SCH (20:30)
[2017-10-19] MEDS ORDERED: Nitroglycerin 25 MG/250 ML INFUS..BTL IVC SCH ×2 (20:45→20:50)
[2017-10-19] MEDS ORDERED: Potassium Chloride 10 MEQ in D5% in 0.9% NACL 1,000 ML IVC SCH (20:45)
[2017-10-19] MEDS ORDERED: Sucralfate 1 GM TABLET PO SCH (21:00)
[2017-10-19] MEDS: *HR* Morphine 2 MG/ML SYRINGE IVP PRN ×2 (21:19→23:44)
[2017-10-19] MEDS: *HR* Promethazine 25 MG/ML VIAL IVP PRN (21:20)
[2017-10-19] MEDS: *HR* LORazepam 1 MG TABLET PO PRN (21:20)
[2017-10-19] MEDS: *HR* Heparin 5,000 UNIT/ML VIAL SQ SCH (22:25)
[2017-10-19] MEDS ORDERED: Carisoprodol 350 MG TABLET PO PRN (23:52)
[2017-10-20] MEDS ORDERED: *HR* Morphine 10 MG/ML VIAL IVP ONE (01:27)
[2017-10-20 04:17] LABS: Basophils % 0.3 %; Eosinophils # 0.1 K/mcL (0.0-0.6); Eosinophils % 1.7 %; Hematocrit 38.4 % (37.5-50.1); Hemoglobin 12.4 g/dL (12.9-16.9); Immature Granulocytes % 0.3 % (0-4); Lymphocytes # 0.9 K/mcL (0.6-4.6); Lymphocytes % 26.9 %; Mean Corpuscular HGB Conc 32.3 g/dL (31.6-35.5); Mean Corpuscular Hemoglobin 29.8 pg (28.0-33.3); Mean Corpuscular Volume 92.3 fL (83.0-100.0); Mean Platelet Volume 8.8 fL (9.4-12.4); Monocytes # 0.5 K/mcL (0.0-1.3); Platelet Count 172 K/mcL (140-400); Red Blood Count 4.16 M/mcL (4.19-5.50); Segmented Neutrophils % 56.8 %
[2017-10-20 04:20] LABS: INR 1.1; Prothrombin Time 12.3 Seconds (9.4-12.1)
[2017-10-20] MEDS: *HR* Morphine 2 MG/ML SYRINGE IVP PRN ×3 (04:40→12:15)
[2017-10-20 04:41] LABS: Alanine Aminotransferase 12 Units/L (7-52); Albumin 3.8 g/dL (3.5-5.7); Albumin/Globulin Ratio 1.5 (1.1-2.2); Alkaline Phosphatase 64 Units/L (34-104); Aspartate Amino Transferase 18 Units/L (13-39); BUN/Creatinine Ratio 21 (6-26); Blood Urea Nitrogen 15 mg/dL (8-23); Calcium 8.5 mg/dL (8.6-10.3); Carbon Dioxide 21 mEq/L (23-29); Chloride 110 mEq/L (98-107); Globulin 2.6 g/dL (2.4-3.5); Glucose 87 mg/dL (70-105); Magnesium 2.1 mg/dL (1.6-2.6); Osmolality,Calculated 290 (280-300); Potassium 3.9 mEq/L (3.5-5.1); Sodium 140 mEq/L (136-145); Total Protein 6.4 g/dL (6.4-8.9); eGFR For African Americans > 60 (> 60); eGFR For Non-African Americans > 60 (> 60)
[2017-10-20] MEDS: *HR* Promethazine 25 MG/ML VIAL IVP PRN ×2 (04:47→10:08)
[2017-10-20] MEDS: *HR* Heparin 5,000 UNIT/ML VIAL SQ SCH ×2 (05:34→12:15)
[2017-10-20] MEDS: *HR* LORazepam 1 MG TABLET PO PRN (08:11)
[2017-10-20] MEDS ORDERED: Isosorbide MONOnitrate (24 HR) 30 MG TAB.ER.24H PO SCH (09:00)
[2017-10-20] MEDS ORDERED: Metoprolol XL (24 HR) Succ 25 MG TAB.ER.24H PO SCH (09:00)
[2017-10-20] MEDS ORDERED: Aspirin 325 MG TABLET PO SCH (09:00)
--- NOTE | 2017-10-20 09:29 | Internal Med Progress Note ---
<Primo Hubbard - Last Filed: 10/20/17 09:26> Date of Encounter: 10/20/17 Time of Encounter: 09:29 - Assessment and plan (1) Chest pain Status: Acute Assessment and plan: Patient report substernal sharp chest pain that radiated to left neck and shoulder. History of coronary artery disease, s/p PCI and CABG. Improved with nitroglycerin. Reports nausea vomiting, shortness of breath, blurry vision, palpitations Chest x-ray shows no acute changes. EKG normal sinus rhythm with no ST-T wave changes. TTE 04/2017 LVEF 60%. Left Heart catheterozation 05/19/17 with patent 2 x 2 bypass graft. Troponin negative 3. Continues to have 5 out of 10 substernal sharp chest pain. Cardiology consultation and appreciate recommendations. Aspirin, statin, Plavix, metoprolol. Qualifiers: Chest pain type: chest pain due to myocardial ischemia Ischemic chest pain type: stable angina pectoris Qualified Code(s): I20.8 - Other forms of angina pectoris (2) CAD (coronary artery disease) Status: Chronic Assessment and plan: Plan as above. Qualifiers: Coronary Disease-Associated Artery/Lesion type: bypass graft [place] vs. transplanted heart: [place] heart Associated angina: with stable angina Qualified Code(s): I25.708 - Atherosclerosis of coronary artery bypass graft(s) , unspecified, with other forms of angina pectoris (3) GERD (gastroesophageal reflux disease) Status: Chronic Assessment and plan: Control. Previous EGD negative for gastritis Continue omeprazole and Carafate. Qualifiers: Esophagitis presence: without esophagitis Qualified Code(s): K21.9 - Gastro -esophageal reflux disease without esophagitis (4) DVT prophylaxis Status: Acute Assessment and plan: Heparin subcutaneous. - Subjective Interval history: Reports continued chest pain pain of 5 out of 10 substernal sharp radiating to left shoulder. Currently denies headache blurry vision, shortness of breath, palpitations, abdominal pain, nausea, vomiting, diaphoresis, lower extremity pain/swelling. - Constitutional Vitals: Temp Pulse Resp BP Pulse Ox 98.2 F 62 16 121/75 100 10/20/17 07:09 10/20/17 07:09 10/20/17 07:09 10/20/17 07:09 10/20/17 07:09 General appearance: Present: cooperative, A&O X 3 - Other Additional findings: General: Pleasant without distress Heart: Regular rate and rhythm with no murmur Chest: Nontender to palpation Lungs: Clear to auscultation bilaterally Abdomen: Soft nontender, nondistended positive bowel sounds Skin: warm and dry, absent rash Extremities: Absent pedal edema, Neuro: Alert and oriented 3 Vascular: Pedal and radial pulses 2 out of 4 Internal Medicine: Result - Labs CBC & Chem 7: 10/20/17 03:24 10/20/17 03:24 Labs: Short CBC 10/20/17 Range/Units 03:24 WBC 3.5 L (4.3-11.1) K/mcL Hgb 12.4 L (12.9-16.9) g/dL Hct 38.4 (37.5-50.1) % Plt Count 172 (140-400) K/mcL Neutrophils # 2.0 (1.6-8.9) K/mcL BMP 10/20/17 03:24 Sodium 140 Potassium 3.9 Chloride 110 H Carbon Dioxide 21 L BUN 15 Creatinine 0.73 Glucose 87 Calcium 8.5 L Cardiac Enzymes 10/19/17 10/20/17 Range/Units 21:33 03:24 Troponin I < 0.03 < 0.03 (< 0.04) ng/mL Liver Function 10/20/17 Range/Units 03:24 Total Bilirubin 1.0 (0.3-1.0) mg/dL AST 18 (13-39) Units/L ALT 12 (7-52) Units/L Alkaline Phosphatase 64 (34-104) Units/L Albumin 3.8 (3.5-5.7) g/dL - ABG Interpretation ABG results: PT/INR, D-dimer PT 12.3 Seconds (9.4-12.1) H 10/20/17 03:24 Consult Discharge Plan - Plan Instructions: Alprazolam (By mouth), Isosorbide Mononitrate (By mouth), Ranolazine (By mouth), Chest Pain (DC), Chronic Hypertension (DC) Referrals: Roland Toscano MD [Partnered Physician] - Toya Arvizu CNP [Primary Care Provider] - 10/30/17 10:45 am Prescriptions: ALPRAZolam [Xanax 0.5 MG Tablet] 0.5 mg PO TID PRN 5 Days #11 tablet PRN Reason: Anxiety Isosorbide MONOnitrate (24 HR) [Imdur] 120 mg PO DAILY #60 tab.er.24h Ranolazine [Ranexa] 500 mg PO BID #30 tab.er.12h <Darwin Hoffman H - Last Filed: 10/28/17 16:50> Date of Encounter: 10/28/17 - Constitutional Vitals: Temp Pulse Resp BP Pulse Ox 98.0 F 67 18 89/62 93 10/20/17 12:15 10/20/17 12:15 10/20/17 12:15 10/20/17 12:15 10/20/17 12:15 Internal Medicine: Result - Labs CBC & Chem 7: 10/20/17 03:24 10/20/17 03:24 - ABG Interpretation ABG results: PT/INR, D-dimer PT 12.3 Seconds (9.4-12.1) H 10/20/17 03:24 - Attending Attestation Continue Ranexa and Imdur per cardiology. Follow-up as outpatient Time spent on this discharge 40 minutes I examined this patient and my medical decision-making was reviewed with the Resident Physician. I agree with the documented findings, disposition and treatment plan as described except to the extent set forth below.
[2017-10-20 11:08] VITALS: BP 89/62
[2017-10-20] MEDS ORDERED: ALPRAZolam 0.5 MG TABLET PO PRN (13:16)
--- NOTE | 2017-10-20 13:27 | Cardiology Consult Note ---
Date of Encounter: 10/20/17 Time of Encounter: 13:18 Assessment and Plan (1) Chest pain Current Visit: No Status: Acute Chest pain with typical and atypical features. H/o CAD s/p CABG. LHC 05/19/17- completed for abnormal stress test. No intervention needed. LHC demonstrated 15 % stenosis in the LMCA. 100% stenosis in the Mid LAD. 15% stenosis in the Proximal Circumflex. 100% stenosis in the Mid RCA. Grafts-The saphenous vein graft to the Right PDA is patent. The left internal mammary graft to the Mid LAD is patent. 2/2 patent bypass grafts. Last TTE 04/26/17-LVEF 60%. Normal left ventricular size and systolic function. Normal right ventricular size and function. Mild aortic regurgitation. Mild mitral regurgitation. Mild tricuspid regurgitation.No pulmonary hypertension. Troponin negative x3. EKG with no acute changes. Recent LHC with no intervention needed. Patent bypass grafts. Recommend increasing imdur and adding ranexa. Wean off NTG gtt with hypotension. Qualifiers: Chest pain type: unspecified Qualified Code(s): R07.9 - Chest pain, unspecified (2) CAD (coronary artery disease) Current Visit: Yes Status: Chronic Continue medical management. Qualifiers: Coronary Disease-Associated Artery/Lesion type: bypass graft [place] vs. transplanted heart: [place] heart Associated angina: with stable angina Qualified Code(s): I25.708 - Atherosclerosis of coronary artery bypass graft(s) , unspecified, with other forms of angina pectoris Discussion w patient/family: The assessment and plan as outlined above was discussed with the patient and/or family members who expressed understanding and agreement. All questions were answered. Thank you for involving us in the care of your patient. Please call with any questions. History of Present Illness Consult date: 10/20/17 Requesting physician: Lauren Westfall Consult reason: Chest pain Chief complaint: Chest pain History of present illness: Mr. Melchor is a 62 year old male with past medical history of CAD s/p CABG x2, multiple PCI, CVA, HTN, HLD, and chronic pain who presents with left sided chest pain starting yesterday at [facility]. He decribes his pain as a sharp left sided pain radiating to his neck. His pain made him "lock up" and not want to move. He also c/o SOB. Symptoms increased with activity. He states that NTG helped take the edge off his pain but requires morphine to relieve it. He presented to [facility] and states that his b/p was 195/120. B/ p appears to be normal here. Denies problems with b/p at home. Denies missing medications. He reports being under a lot of stress. His mother a week ago. Past Med Surg Social Fam HX - Past Medical History Attestation: Yes The following information was validated with the patient. Medical history: arthritis, cardiomyopathy, CHF, coronary artery disease, CVA, GERD, hyperlipidemia, hypertension, myocardial infarction, osteoporosis, peripheral artery disease, syncope, TIA, other Psychiatric history: anxiety, depression, other - Past Surgical History Surgical History: angioplasty/stent, cholecystectomy, coronary bypass (CABG), orthopedic, other, other - Social History Smoking Status: Never smoker Smokeless Tobacco Status: Yes Alcohol use: none Drug use: none - Family History Brother Family Member Ethnicity: Non- Living Status: Hx Family Cancer: Yes (Stomach) Son Family Member Ethnicity: Non- Living Status: Still Living Hx Family Cardiac Disorders: Yes Mother Adopted: No Family Member Ethnicity: Non- Living Status: Still Living Hx Family Cardiac Disorders: Yes (CAD) Hx Family Respiratory Disorders: No Hx Family Cancer: Yes (Cervical) Hx Family GI Disorders: No Hx Family Endocrine Disorder: Yes (DM) Hx Family Neuromuscular Disorders: No Hx Family Neurologic Disorders: No Hx Family HEENT Disorders: No Hx Family Autoimmune Disorders: No Father Family Member Ethnicity: Non- Living Status: Hx Family Cardiac Disorders: Yes ([place], CAD) Hx Family Respiratory Disorders: Yes (COPD) Hx Family Cancer: No Hx Family GI Disorders: No Hx Family Endocrine Disorder: No Hx Family Neuromuscular Disorders: No Hx Family Neurologic Disorders: No Hx Family HEENT Disorders: No Hx Family Autoimmune Disorders: No Medications and Allergies Omeprazole 20 mg PO DAILY #30 tablet. 05/19/17 [Rx] Clopidogrel [Plavix] 75 mg PO DAILY 08/23/17 [History] Metoprolol XL (24 HR) Succ [Toprol XL] 25 mg PO DAILY 08/23/17 [History] Sucralfate [Carafate] 1 gm PO HS 08/23/17 [History] Aspirin 650 mg PO DAILY 09/03/17 [History] LORazepam [Ativan] 0.5 mg PO BID PRN 09/03/17 [History] Atorvastatin [Lipitor] 40 mg PO HS 09/09/17 [History] Furosemide [Lasix] 40 mg PO BID 09/09/17 [History] Isosorbide MONOnitrate (24 HR) [Imdur] 60 mg PO DAILY 09/09/17 [History] Lisinopril [Zestril] 5 mg PO DAILY 10/20/17 [History] Methocarbamol [Robaxin-750] 750 mg PO TID PRN 10/20/17 [History] 3 Allergy/AdvReac Type Severity Reaction Status Date / Time simvastatin [From Zocor] Allergy Rash Verified 09/09/17 13:15 Zolpidem [From Ambien] Allergy Confusion Verified 09/09/17 13:15 ondansetron AdvReac Shakiness Verified 09/09/17 13:15 [From Zofran (as hydrochloride)] All Systems Review: The remainder of the systems were reviewed and are negative Physical Examination Vital Signs, Last 4 Hours Temp Pulse Resp BP Pulse Ox 10/20/17 12:15 98.0 F 67 18 89/62 93 10/20/17 11:05 98.0 F 67 18 89/62 93 General: Conversant, No Apparent Distress HEENT: Atraumatic, Normocephaly, Mucus Membranes Moist Neck: No JVD, Normal carotid pulses Cardiac: Reg Rate and Rhythm, Normal S1 and S2, No Murmur Lungs: Normal Breath Sounds, No Wheeze, Rales, Rhonchi Neuro: Alert and responsive, No focal deficits noted Abdomen: Soft, Non-Tender Skin: No rashes noted on visualized skin Musculoskeletal: No Chest Wall Tenderness Extremities: No Clubbing, No Cyanosis, No Edema, Normal Pulses Results 10/20/17 03:24 10/20/17 03:24 Lab Results 10/19/17 10/20/17 10/20/17 21:33 03:24 03:24 WBC 3.5 L Hgb 12.4 L Hct 38.4 Plt Count 172 INR Sodium Potassium Chloride Carbon Dioxide BUN Creatinine Glucose Calcium Magnesium Total Bilirubin AST ALT Alkaline Phosphatase Troponin I < 0.03 < 0.03 10/20/17 10/20/17 10/20/17 03:24 03:24 09:12 WBC Hgb Hct Plt Count INR 1.1 Sodium 140 Potassium 3.9 Chloride 110 H Carbon Dioxide 21 L BUN 15 Creatinine 0.73 Glucose 87 Calcium 8.5 L Magnesium 2.1 Total Bilirubin 1.0 AST 18 ALT 12 Alkaline Phosphatase 64 Troponin I < 0.03 - Imaging and Cardiology Echo: report reviewed Cardiac cath: report reviewed - EKG Interpretation EKG results cardiology: personally reviewed Consult Discharge Plan - Plan Referrals: Toya Arvizu CNP [Primary Care Provider] - 10/30/17 10:45 am
[2017-10-20] MEDS ORDERED: Isosorbide MONOnitrate (24 HR) 30 MG TAB.ER.24H PO ONE (13:28)
[2017-10-20] MEDS ORDERED: Ranolazine 500 MG TAB.ER.12H PO SCH (13:30)
--- NOTE | 2017-10-20 15:20 | Discharge Summary ---
<Primo Hubbard - Last Filed: 10/20/17 15:15> - NOTES TO OUTPATIENT PROVIDER Notes to Outpatient Provider: Admitted for CP rule out. Cardiology increased imdur and added ranexa. Patient is also dealing with of multiple family member. Date of Encounter: 10/20/17 Time of Encounter: 15:15 - Discharge Diagnosis (1) Chest pain Priority: Primary Status: Resolved Qualifiers: Chest pain type: chest pain due to myocardial ischemia Ischemic chest pain type: stable angina pectoris Qualified Code(s): I20.8 - Other forms of angina pectoris (2) CAD (coronary artery disease) Priority: Secondary Status: Chronic Qualifiers: Coronary Disease-Associated Artery/Lesion type: bypass graft [place] vs. transplanted heart: [place] heart Associated angina: with stable angina Qualified Code(s): I25.708 - Atherosclerosis of coronary artery bypass graft(s) , unspecified, with other forms of angina pectoris (3) GERD (gastroesophageal reflux disease) Priority: Secondary Status: Chronic Qualifiers: Esophagitis presence: without esophagitis Qualified Code(s): K21.9 - Gastro -esophageal reflux disease without esophagitis (4) DVT prophylaxis Priority: Secondary Status: Acute (5) Depression with anxiety Priority: Secondary Status: Chronic Comments: loss of family members recently. Patient reports depressed mood and worsening anxiety Hospital course: Mr. Melchor is a 62 year old male presented with chief complaint of acute chest pain, sharp substernal radiating to the left shoulder and arm associated nausea vomiting, diaphoresis, blurry vision, shortness of breath. Initially patient presented to [facility] and was transferred to [facility]. Patient has history of coronary artery disease status post CABG 2, multiple CCI. Patient's chest pain improved with nitroglycerin. On admission his blood pressure is 195/120. He also reports that recently his mother . Patient's troponin was negative 3. Chest x-ray was negative for acute changes. EKG was negative for ischemia. Last TTE was with EF of 60% with normal left ventricular size and function. Patient was continued on his home dose of aspirin, statin, Plavix. He was also started on low-dose Xanax for acute anxiety. Cardiology was consulted and increased patient's Imdur and Ranexa. Patient will follow-up with cardiology outpatient. - Time Spent with Patient Total time spent providing and/or coordinating discharge services: - Discharge Medications Prescriptions: ALPRAZolam [Xanax 0.5 MG Tablet] 0.5 mg PO TID PRN 5 Days #11 tablet PRN Reason: Anxiety Isosorbide MONOnitrate (24 HR) [Imdur] 120 mg PO DAILY #60 tab.er.24h Ranolazine [Ranexa] 500 mg PO BID #30 tab.er.12h Home Medications: Omeprazole 20 mg PO DAILY #30 tablet.dr 05/19/17 [Rx] Clopidogrel [Plavix] 75 mg PO DAILY 08/23/17 [History] Metoprolol XL (24 HR) Succ [Toprol Xl] 25 mg PO DAILY 08/23/17 [History] Sucralfate [Carafate] 1 gm PO HS 08/23/17 [History] Aspirin 650 mg PO DAILY 09/03/17 [History] LORazepam [Ativan] 0.5 mg PO BID PRN 09/03/17 [History] Atorvastatin [Lipitor] 40 mg PO HS 09/09/17 [History] Furosemide [Lasix] 40 mg PO BID 09/09/17 [History] ALPRAZolam [Xanax 0.5 MG Tablet] 0.5 mg PO TID PRN 5 Days #11 tablet 10/20/17 [ Rx] Isosorbide MONOnitrate (24 HR) [Imdur] 120 mg PO DAILY #60 tab.er.24h 10/20/17 [ Rx] Lisinopril [Zestril] 5 mg PO DAILY 10/20/17 [History] Methocarbamol [Robaxin-750] 750 mg PO TID PRN 10/20/17 [History] Ranolazine [Ranexa] 500 mg PO BID #30 tab.er.12h 10/20/17 [Rx] Allergies/Adverse Reactions: 3 Allergy/AdvReac Type Severity Reaction Status Date / Time simvastatin [From Zocor] Allergy Rash Verified 09/09/17 13:15 Zolpidem [From Ambien] Allergy Confusion Verified 09/09/17 13:15 ondansetron AdvReac Shakiness Verified 09/09/17 13:15 [From Zofran (as hydrochloride)] Date of admission: 10/19/17 19:51 Primary care physician: Toya Arvizu CNP Consults: 10/19/17 20:49 Consult to Cardiology [CONS] Routine Comment: Consulting Provider: Rohit Hancock Reason for Consult: chest pain, CAD, Dr Beckman was called Call Completed: Yes Discharging clinician: Primo Hubbard Anticipated date of discharge: 10/20/17 - Constitutional Vitals: Temp Pulse Resp BP Pulse Ox 98.0 F 67 18 89/62 93 10/20/17 12:15 10/20/17 12:15 10/20/17 12:15 10/20/17 12:15 10/20/17 12:15 General appearance: Present: cooperative, A&O X 3 - Other Additional findings: General: Pleasant without distress Heart: Regular rate and rhythm with no murmur Chest: Nontender to palpation Lungs: Clear to auscultation bilaterally Abdomen: Soft nontender, nondistended positive bowel sounds Skin: warm and dry, absent rash Extremities: Absent pedal edema, Neuro: Alert and oriented 3 Vascular: Pedal and radial pulses 2 out of 4 - Patient Status Disposition: Home, Self-Care Functional capacity at discharge: independent ambulation Overall status at discharge: patient is back to baseline - Discharge Instructions Instructions: Alprazolam (By mouth), Isosorbide Mononitrate (By mouth), Ranolazine (By mouth), Chest Pain (DC), Chronic Hypertension (DC) Follow Up With: Toya Arvizu CNP [Primary Care Provider] - 10/30/17 10:45 am Roland Toscano MD [Partnered Physician] - - Diet and Activity Activity: increase activity as tolerated Diet: low fat, low cholesterol, low salt diet <Darwin Hoffman H - Last Filed: 10/20/17 17:26> Date of Encounter: 10/20/17 Hospital course: Mr. Melchor is a 62 year old male - Time Spent with Patient Total time spent providing and/or coordinating discharge services: Date of admission: 10/19/17 19:51 Primary care physician: Toya Arvizu CNP Consults: 10/19/17 20:49 Consult to Cardiology [CONS] Routine Comment: Consulting Provider: Rohit Hancock Reason for Consult: chest pain, CAD, Dr Beckman was called Call Completed: Yes - Constitutional Vitals: Temp Pulse Resp BP Pulse Ox 98.0 F 67 18 89/62 93 10/20/17 12:15 10/20/17 12:15 10/20/17 12:15 10/20/17 12:15 10/20/17 12:15 - Attending Attestation Continue Ranexa and Imdur per cardiology. Follow-up as outpatient Time spent on this discharge 40 minutes I examined this patient and my medical decision-making was reviewed with the Resident Physician. I agree with the documented findings, disposition and treatment plan as described except to the extent set forth below.
[2017-10-21] MEDS ORDERED: Isosorbide MONOnitrate (24 HR) 30 MG TAB.ER.24H PO SCH (09:00)
== END 2017-10-20 15:35 | disposition home or self-care (01) ==
LOC: 2NNU
PROVIDERS: ADMIT Student in an Organized Health Care Education/Training Program; ATTEND Family Medicine

== ENCOUNTER 2017-11-19 23:09 | Observation (INO) ==
[2017-11-20] MEDS ORDERED: *HR* LORazepam 2 MG/ML VIAL IM STA (02:16)
--- NOTE | 2017-11-20 02:41 | Internal Med History&Physical ---
Date of Encounter: 11/20/17 Time of Encounter: 02:39 Internal Medicine - H&P: HPI Chief complaint: Low PLT Admitted From: Hospital to Hospital Transfer Plans for Post Hospital Care: Home History of present illness: Mr. Melchor is a 62 year old male with a past medical history of arthritis, cardiomyopathy, coronary artery disease, CVA, GERD, hyperlipidemia, hypertension , osteoporosis, syncope, and TIA He was recently diagnosed with some new psychiatric diagnosis and started on geodon, seroquel 10 days ago after being admitted to another facility for anxiety and depression. He presented to [facility] with complains of anxiety and being unable to live in his house alone, during evaluation over there, he was found to haave a PLT count of 20,000. The patient denies epistaxis, hematuria, hematochezia, hematemesis, no bleeding from any orifices. He was recently diagnosed with psoriasis on his RLE and uses a topical agent for it , denies any skin rash , or bruising NO jaundice, no change in bowel or urinary habits, no abdominal pain or swelling NO neurologic symptoms His chem and other work up was non-contributory He is on DaPT for prior stents, denies current suicidal ideation but is extremely anxious during evaluation. He denies illicit drug use, no known hx of liver disease, no recent HIV testing. Past Med Surg Social Fam HX - Past Medical History Medical history: arthritis, cardiomyopathy, CHF, coronary artery disease, CVA, GERD, hyperlipidemia, hypertension, myocardial infarction, osteoporosis, peripheral artery disease, syncope, TIA, other Psychiatric history: anxiety, depression, other - Past Surgical History Surgical History: angioplasty/stent, cholecystectomy, coronary bypass (CABG), orthopedic, other, other - Social History Smoking Status: Never smoker Smokeless Tobacco Status: Yes Alcohol use: none Drug use: none - Family History Brother Family Member Ethnicity: Non- Living Status: Hx Family Cancer: Yes (Stomach) Son Family Member Ethnicity: Non- Living Status: Still Living Hx Family Cardiac Disorders: Yes Mother Adopted: No Family Member Ethnicity: Non- Living Status: Still Living Hx Family Cardiac Disorders: Yes (CAD) Hx Family Respiratory Disorders: No Hx Family Cancer: Yes (Cervical) Hx Family GI Disorders: No Hx Family Endocrine Disorder: Yes (DM) Hx Family Neuromuscular Disorders: No Hx Family Neurologic Disorders: No Hx Family HEENT Disorders: No Hx Family Autoimmune Disorders: No Father Family Member Ethnicity: Non- Living Status: Hx Family Cardiac Disorders: Yes (MA, CAD) Hx Family Respiratory Disorders: Yes (COPD) Hx Family Cancer: No Hx Family GI Disorders: No Hx Family Endocrine Disorder: No Hx Family Neuromuscular Disorders: No Hx Family Neurologic Disorders: No Hx Family HEENT Disorders: No Hx Family Autoimmune Disorders: No Internal Medicine - H&P: Meds Clopidogrel [Plavix] 75 mg PO DAILY 08/23/17 [History] Metoprolol XL (24 HR) Succ [Toprol Xl] 25 mg PO DAILY 08/23/17 [History] Sucralfate [Carafate] 1 gm PO BID 08/23/17 [History] Aspirin 650 mg PO DAILY 09/03/17 [History] Atorvastatin [Lipitor] 40 mg PO HS 09/09/17 [History] Furosemide [Lasix] 80 mg PO DAILY 09/09/17 [History] Methocarbamol [Robaxin-750] 750 mg PO TID PRN 10/20/17 [History] Aspirin 325 mg PO BID 11/20/17 [History] HydrOXYzine Pamoate [Vistaril] 100 mg PO QID 11/20/17 [History] Isosorbide MONOnitrate [Isosorbide Mononitrate] 20 mg PO DAILY 11/20/17 [History ] Lansoprazole [Prevacid] 30 mg PO DAILY 11/20/17 [History] Quetiapine Fumarate [SEROquel] 75 mg PO HS 11/20/17 [History] Ziprasidone HCl [Geodon] 40 mg PO TID 11/20/17 [History] clonazePAM [Klonopin] 0.5 mg PO TID 11/20/17 [History] 3 Allergy/AdvReac Type Severity Reaction Status Date / Time simvastatin [From Zocor] Allergy Rash Verified 09/09/17 13:15 Zolpidem [From Ambien] Allergy Confusion Verified 09/09/17 13:15 ondansetron AdvReac Shakiness Verified 09/09/17 13:15 [From Zofran (as hydrochloride)] All Systems PM: A 10-system review of systems was performed and is negative for pertinent findings except as documented above in the HPI. - Constitutional Constitutional: no chills, no fever(s), no night sweats - EENT Eyes: no change in vision, no discharge, no pain, no photophobia Ears: no ear discharge, no ear pain, no tinnitus Nose, mouth and throat: no dysphagia, no nasal discharge, no neck pain, no sore throat - Cardiovascular Cardiovascular ROS IM: no chest pain, no diaphoresis, no dyspnea, no lightheadedness, no palpitations, no syncope - Respiratory Respiratory: no cough, no dyspnea, no wheezing, no excessive phlegm production - Gastrointestinal Gastrointestinal: no abdominal pain, no diarrhea, no hematemesis, no hematochezia, no melena, no nausea, no vomiting - Musculoskeletal Musculoskeletal ROS IM: no numbness, no tingling - Integumentary Integumentary IM: no rash, no unusual bruising - Neurological Neurological ROS: no confusion, no convulsions, no focal weakness, no numbness, no tingling, no tremor(s) - Psychiatric Psychiatric: anxiety - Hematologic/Lymphatic Hematologic/Lymphatic: no easy bruising - Head Head exam: Present: atraumatic - Eye Eye exam: Present: EOMI, PERRL - ENT ENT exam: Present: mucous membranes moist, normal oropharynx - Neck Neck exam general surgery: Present: normal inspection - Respiratory Respiratory exam: Present: CTAB - Cardiovascular Cardiovascular exam: Present: RRR, +S1, +S2. Absent: diastolic murmur, gallop, rubs, systolic murmur - GI/Abdominal GI/Abdominal exam: Present: normal bowel sounds, soft, no peritoneal signs. Absent: distended, tenderness - Extremities Exam Extremities exam: Present: warm, radial pulses palpable and symmetrical. Absent : calf tenderness, cyanotic, pedal edema Additional comments: RLE with diffuse raised lesion-said to be psoriasis by patient - Neurological Exam Neurological exam: Present: alert, CN II-XII intact, oriented X3, no focal deficits. Absent: pronater drift, facial droop, speech deficit - Psychiatric Psychiatric exam: Present: anxious - Skin Skin exam: Present: dry, intact - Assessment and plan (1) Thrombocytopenia Current Visit: Yes Status: Acute Assessment and plan: Rpt CBC with blood smear ordered Check LFTs, Hepatitis and HIV panel NO current evidence of bleeding No petechiae, no mucosal bleed Type and screen Continue plavix-unsure of duration of stents, hold ASA May likely be due to antipsychotics-consult psych team (day team to call), if other work up negative Obtain Abd USS-No splenomegaly on exam (2) Adjustment reaction with anxiety and depression Current Visit: Yes Status: Chronic Assessment and plan: continue home meds, exceot seroquel and geodon psych eval-as above (3) CAD (coronary artery disease) Current Visit: Yes Status: Chronic Assessment and plan: HOld BID ASA Continue plavix Resume ASA when PLT improves Continue other home meds Qualifiers: Coronary Disease-Associated Artery/Lesion type: [place] artery [place] vs. transplanted heart: [place] heart Associated angina: without angina Qualified Code(s): I25.10 - Atherosclerotic heart disease of [place] coronary artery without angina pectoris (4) CHF (congestive heart failure) Current Visit: Yes Status: Chronic Assessment and plan: euvolemic continue home meds Qualifiers: Heart failure type: unspecified Heart failure chronicity: unspecified Qualified Code(s): I50.9 - Heart failure, unspecified (5) Essential hypertension Current Visit: Yes Status: Chronic Assessment and plan: continue home meds (6) GERD (gastroesophageal reflux disease) Current Visit: Yes Status: Chronic Assessment and plan: continue home PPI Qualifiers: Esophagitis presence: esophagitis presence not specified Qualified Code(s) : K21.9 - Gastro-esophageal reflux disease without esophagitis (7) HLD (hyperlipidemia) Current Visit: Yes Status: Chronic Assessment and plan: continue statin Qualifiers: Hyperlipidemia type: unspecified Qualified Code(s): E78.5 - Hyperlipidemia , unspecified (8) Peripheral artery disease Current Visit: Yes Status: Chronic Assessment and plan: continue meds (9) Psoriasis Current Visit: Yes Status: Chronic Assessment and plan: RLE. Follow up with receiving manager as out-patient - Time Spent With Patient Total time spent is greater than 50% in coordination of care (as documented) at patient's floor/unit and/or counseling patient:
[2017-11-20] MEDS ORDERED: Methocarbamol 750 MG TABLET PO PRN (02:48)
[2017-11-20] MEDS ORDERED: Naloxone 0.4 MG/ML INJ IVP PRN (02:48)
[2017-11-20 04:23] LABS: Basophils % 0.4 %; Eosinophils # 0.1 K/mcL (0.0-0.6); Eosinophils % 0.9 %; Hematocrit 39.2 % (37.5-50.1); Hemoglobin 12.8 g/dL (12.9-16.9); Immature Granulocytes % 0.2 % (0-4); Lymphocytes # 1.3 K/mcL (0.6-4.6); Lymphocytes % 23.9 %; Mean Corpuscular HGB Conc 32.7 g/dL (31.6-35.5); Mean Corpuscular Hemoglobin 29.8 pg (28.0-33.3); Mean Corpuscular Volume 91.2 fL (83.0-100.0); Mean Platelet Volume 8.6 fL (9.4-12.4); Monocytes # 0.7 K/mcL (0.0-1.3); Monocytes % 13.1 %; Neutrophils # 3.3 K/mcL (1.6-8.9); Platelet Count 168 K/mcL (140-400); Red Cell Distribution Width 14.7 % (11.5-14.5); Segmented Neutrophils % 61.5 %
[2017-11-20 04:40] LABS: Alanine Aminotransferase 18 Units/L (7-52); Albumin 3.8 g/dL (3.5-5.7); Albumin/Globulin Ratio 1.5 (1.1-2.2); Alkaline Phosphatase 69 Units/L (34-104); Aspartate Amino Transferase 21 Units/L (13-39); BUN/Creatinine Ratio 21 (6-26); Bilirubin,Total 0.6 mg/dL (0.3-1.0); Blood Urea Nitrogen 18 mg/dL (8-23); Calcium 8.6 mg/dL (8.6-10.3); Carbon Dioxide 27 mEq/L (23-29); Chloride 108 mEq/L (98-107); Globulin 2.6 g/dL (2.4-3.5); Glucose 87 mg/dL (70-105); Osmolality,Calculated 293 (280-300); Potassium 4.1 mEq/L (3.5-5.1); Sodium 141 mEq/L (136-145); Total Protein 6.4 g/dL (6.4-8.9); eGFR For African Americans > 60 (> 60); eGFR For Non-African Americans > 60 (> 60)
[2017-11-20 05:16] LABS: HIV-1&2 Antibody & p24 Ag Nonreactive (Nonreactive)
[2017-11-20] MEDS ORDERED: Metoclopramide 10 MG/2 ML VIAL IVP ONE (05:45)
[2017-11-20] MEDS ORDERED: Metoclopramide 20 MG in 0.9 % Sodium Chloride 50 ML IVPB ONE (05:52)
[2017-11-20] MEDS: clonazePAM 0.5 MG TABLET PO SCH ×2 (05:56→14:32)
--- NOTE | 2017-11-20 06:34 | Event Note ---
Date of Encounter: 11/20/17 Time of Encounter: 06:29 Patient's labs reviewed-unremarkable PLT count here is 148,000 (as opposed to 20,000 obtained at [place] despite having asked to obtain a manual PLT count) HIV negative Patient now verbalizing suicidal ideation Upon review at the bedside he states " I am not getting the help I want here, I want something for my anxiety", he has received one time ativan IM as well as Klonipin within 2 hrs apart. I will restart his psych meds, since his PLT count is WNL and will consult the psychiatrist routinely for evaluation, placed a sitter and pink slipped him Anticipate transfer to inpatient psych as there is curently no medical reason for him to be on the medical floor.
[2017-11-20] MEDS: hydrOXYzine pamoate 25 MG CAPSULE PO SCH ×2 (08:49→12:32)
[2017-11-20] MEDS ORDERED: Aspirin 325 MG TABLET PO SCH (09:00)
[2017-11-20] MEDS ORDERED: Ziprasidone 20 MG CAPSULE PO SCH (09:00)
[2017-11-20] MEDS ORDERED: Furosemide 40 MG TABLET PO SCH (09:00)
[2017-11-20] MEDS ORDERED: Metoprolol XL (24 HR) Succ 25 MG TAB.ER.24H PO SCH (09:00)
[2017-11-20] MEDS ORDERED: ISOSORBIDE MONONITRATE PO SCH (09:00)
[2017-11-20 10:42] VITALS: BP 112/74
--- NOTE | 2017-11-20 17:24 | Discharge Summary ---
- NOTES TO OUTPATIENT PROVIDER Notes to Outpatient Provider: Follow-up with psychiatry as directed on December 17. Follow-up with PCP in one week Orders not resulted at time of discharge: Pending orders 11/20/17 01:45 HIV-1&2 Antibody & p24 Ag Stat Hepatitis B Surface Antibody Stat Hepatitis C Virus Antibody Stat Date of Encounter: 11/20/17 Time of Encounter: 17:24 - Discharge Diagnosis (1) GERD (gastroesophageal reflux disease) Priority: Primary Status: Chronic Qualifiers: Esophagitis presence: esophagitis presence not specified Qualified Code(s) : K21.9 - Gastro-esophageal reflux disease without esophagitis (2) Adjustment reaction with anxiety and depression Priority: Primary Status: Chronic (3) Thrombocytopenia Priority: Primary Status: Resolved Hospital course: Mr. Melchor is a 62 year old male with a past medical history of arthritis, cardiomyopathy, coronary artery disease, CVA, GERD, hyperlipidemia, hypertension , osteoporosis, syncope, and TIA who presented to [facility] on 11/20/2017 with with anxiety, depression and suicidal ideation. He was placed in observation status for further workup and treatment psychiatric evaluation. He was evaluated by psychiatry who determined that he is not suicidal and does not require a sitter or pink slip. He will be discharged on Neurontin to help control his symptoms of anxiety into he can follow up with his outpatient provider as scheduled on December 17. The patient is agreeable with this plan of care and is anticipating discharge since that he go to [facility] He was admitted with thrombocytopenia with platelet count of 20 repeat here was 168. No signs of any bleeding he is not thrombocytopenic and his hemoglobin is stable at 12.8. - Time Spent with Patient Total time spent providing and/or coordinating discharge services: - Discharge Medications Prescriptions: Gabapentin [Neurontin] 100 mg PO TID 10 Days #30 capsule Home Medications: Clopidogrel [Plavix] 75 mg PO DAILY 08/23/17 [History] Metoprolol XL (24 HR) Succ [Toprol Xl] 25 mg PO DAILY 08/23/17 [History] Sucralfate [Carafate] 1 gm PO BID 08/23/17 [History] Atorvastatin [Lipitor] 40 mg PO HS 09/09/17 [History] Furosemide [Lasix] 80 mg PO DAILY 09/09/17 [History] Methocarbamol [Robaxin-750] 750 mg PO TID PRN 10/20/17 [History] Aspirin 325 mg PO BID 11/20/17 [History] Gabapentin [Neurontin] 100 mg PO TID 10 Days #30 capsule 11/20/17 [Rx] HydrOXYzine Pamoate [Vistaril] 100 mg PO QID 11/20/17 [History] Isosorbide MONOnitrate [Isosorbide Mononitrate] 20 mg PO DAILY 11/20/17 [History ] Lansoprazole [Prevacid] 30 mg PO DAILY 11/20/17 [History] Nitrofurantoin (BID) [Macrobid] 100 mg PO BID 11/20/17 [History] Quetiapine Fumarate [Seroquel] 75 mg PO HS 11/20/17 [History] Ziprasidone HCl [Geodon] 40 mg PO TID 11/20/17 [History] clonazePAM [Klonopin] 0.5 mg PO DAILY PRN 11/20/17 [History] Allergies/Adverse Reactions: 3 Allergy/AdvReac Type Severity Reaction Status Date / Time simvastatin [From Zocor] Allergy Rash Verified 09/09/17 13:15 Zolpidem [From Ambien] Allergy Confusion Verified 09/09/17 13:15 ondansetron AdvReac Shakiness Verified 09/09/17 13:15 [From Zofran (as hydrochloride)] Date of admission: 11/20/17 01:26 Primary care physician: Toya Arvizu CNP Consults: 11/20/17 06:28 Consult to Psychiatry [CONS] Routine Consulting Provider: Psychiatry [facility] Reason for Consult: Suicidal ideation Call Completed: No Discharging clinician: Elizabeth Child Anticipated date of discharge: 11/20/17 - Constitutional Vitals: Temp Pulse Resp BP Pulse Ox 97.7 F 78 18 112/74 96 11/20/17 10:41 11/20/17 10:41 11/20/17 10:41 11/20/17 10:41 11/20/17 10:41 General appearance: Present: cooperative, A&O X 3, pleasant, no acute distress, answers questions appropriately - Head Head exam: Present: atraumatic, normocephalic - Eye Eye exam: Present: PERRL, conjuntiva pink, sclera anicteric Pupils: Present: PERRL - Neck Neck exam general surgery: Present: supple, trachea midline. Absent: lymphadenopathy - Respiratory Respiratory exam: Present: CTAB. Absent: accessory muscle use, rales, rhonchi, wheezes - Cardiovascular Cardiovascular exam: Present: RRR, +S1, +S2. Absent: diastolic murmur, gallop, rubs, systolic murmur - GI/Abdominal GI/Abdominal exam: Present: normal bowel sounds, soft, no peritoneal signs. Absent: distended, tenderness - Extremities Exam Extremities exam: Present: warm, radial pulses palpable and symmetrical. Absent : calf tenderness, cyanotic, pedal edema - Neurological Exam Neurological exam: Present: alert, CN II-XII intact, normal gait, oriented X3, no focal deficits. Absent: pronater drift, facial droop, speech deficit - Skin Skin exam: Present: dry, intact, normal color, warm - Patient Status Disposition: Home, Self-Care Functional capacity at discharge: independent ambulation Overall status at discharge: patient is back to baseline - Discharge Instructions Follow Up With: Toya Arvizu, DESOLDERER [Primary Care Provider] - - Diet and Activity Activity: resume usual activities as tolerated Diet: advance to your usual diet
[2017-11-21 01:59] LABS: Hepatitis C Virus Antibody Nonreactive (Nonreactive)
--- NOTE | 2017-11-21 09:36 | Consult Note ---
Date of Encounter: 11/21/17 Time of Encounter: 16:00 Assessment & Recommendation (1) Anxiety about health Status: Acute History of Present Illness Patient: new to practice Requesting Physician: Oscar Allan MD Reason for consult: anxiety History of present illness: Mr. Melchor is a 62 year old male The patient was seen on the unit and discussed with the treatment team. The consult was not dictated until one day later due to administrative reasons. Nonetheless the patient reported that he was in his usual state of health and mood while he had anxiety over that period of time that this worsened after the of several family members. This included his mother and his son most notably. 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 But he is all alone and has no family members at this time. The patient went to [facility] in [place] where he was treated presumably for major depression and generalized anxiety disorder. He was placed on medicines and has these at home. But was given only 7 days of clonazepam with instructions to follow-up. His plan [facility] in [place]. He did what I would also like to join a bereavement group or support group. 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 The concern was that the patient was requesting clonazepam but he has several at home and is using them judiciously to help with anxiety. Sometimes they help with insomnia. He has excessive worries and sometimes preoccupied with this however he does not have excessive demands or external stressors at this time. Or instance there are no challenges to his role as executor of the estate. While the patient will need to see a psychiatrist for further controlled medicines he could be treated with gabapentin 100 mg 3 times a day. If this is not successful baclofen 10 mg 3 times a day could also be used. The patient is using these as a when necessary medicines for anxiety and this will need to be further evaluated.. The patient's healthcare scare came from a possible diagnosis of thrombocytopenia and illness but he was reassured that this medical condition has been addressed and he medically fit for discharge. He indicates that he is ready for this. He denies suicidal or homicidal ideation he denies psychosis. CC: Oscar Allan MD Past Med Surg Social Fam HX - Past Medical History Medical history: arthritis, cardiomyopathy, CHF, coronary artery disease, CVA, GERD, hyperlipidemia, hypertension, myocardial infarction, osteoporosis, peripheral artery disease, syncope, TIA, other - Past Psychiatric History Psychiatric history: Reports: anxiety Family psychiatric history: Unknown Family History of Suicide: Unknown - Past Surgical History Surgical History: angioplasty/stent, cholecystectomy, coronary bypass (CABG), orthopedic, other, other - Social History Smoking Status: Never smoker Smokeless Tobacco Status: Yes Alcohol use: none Drug use: none - Family History Brother Family Member Ethnicity: Non- Living Status: Hx Family Cancer: Yes (Stomach) Son Family Member Ethnicity: Non- Living Status: Still Living Hx Family Cardiac Disorders: Yes Mother Adopted: No Family Member Ethnicity: Non- Living Status: Still Living Hx Family Cardiac Disorders: Yes (CAD) Hx Family Respiratory Disorders: No Hx Family Cancer: Yes (Cervical) Hx Family GI Disorders: No Hx Family Endocrine Disorder: Yes (DM) Hx Family Neuromuscular Disorders: No Hx Family Neurologic Disorders: No Hx Family HEENT Disorders: No Hx Family Autoimmune Disorders: No Father Family Member Ethnicity: Non- Living Status: Hx Family Cardiac Disorders: Yes ([place], CAD) Hx Family Respiratory Disorders: Yes (COPD) Hx Family Cancer: No Hx Family GI Disorders: No Hx Family Endocrine Disorder: No Hx Family Neuromuscular Disorders: No Hx Family Neurologic Disorders: No Hx Family HEENT Disorders: No Hx Family Autoimmune Disorders: No Medications & Allergies Clopidogrel [Plavix] 75 mg PO DAILY 08/23/17 [History] Metoprolol XL (24 HR) Succ [Toprol Xl] 25 mg PO DAILY 08/23/17 [History] Sucralfate [Carafate] 1 gm PO BID 08/23/17 [History] Atorvastatin [Lipitor] 40 mg PO HS 09/09/17 [History] Furosemide [Lasix] 80 mg PO DAILY 09/09/17 [History] Methocarbamol [Robaxin-750] 750 mg PO TID PRN 10/20/17 [History] Aspirin 325 mg PO BID 11/20/17 [History] Gabapentin [Neurontin] 100 mg PO TID 10 Days #30 capsule 11/20/17 [Rx] HydrOXYzine Pamoate [Vistaril] 100 mg PO QID 11/20/17 [History] Isosorbide MONOnitrate [Isosorbide Mononitrate] 20 mg PO DAILY 11/20/17 [History ] Lansoprazole [Prevacid] 30 mg PO DAILY 11/20/17 [History] Nitrofurantoin (BID) [Macrobid] 100 mg PO BID 11/20/17 [History] Quetiapine Fumarate [Seroquel] 75 mg PO HS 11/20/17 [History] Ziprasidone HCl [Geodon] 40 mg PO TID 11/20/17 [History] clonazePAM [Klonopin] 0.5 mg PO DAILY PRN 11/20/17 [History] 3 Allergy/AdvReac Type Severity Reaction Status Date / Time simvastatin [From Zocor] Allergy Rash Verified 09/09/17 13:15 Zolpidem [From Ambien] Allergy Confusion Verified 09/09/17 13:15 ondansetron AdvReac Shakiness Verified 09/09/17 13:15 [From Zofran (as hydrochloride)] Review of Systems Psychiatric: Reports: anxiety, abnormal sleep pattern Psychiatry Exam - Constitutional Vitals: Temp Pulse Resp BP Pulse Ox 97.7 F 78 18 112/74 96 11/20/17 10:41 11/20/17 10:41 11/20/17 10:41 11/20/17 10:41 11/20/17 10:41 General appearance: age & developmentally appropriate, well-groomed, well- nourished - Musculoskeletal Gait: normal Station: relaxed Strength & Tone: normal for patient - Psychiatric Patient Orientation: Yes Person, Yes Time, Yes Place Level of alertness: Alert Behavior: calm, cooperative Psychomotor activity: Normal Eye Contact: Maintains Eye Contact Mood Description: Anxious Affect description: congruent with mood, full range, anxious Speech Volume: Normal Speech pattern: normal rate, normal rhythm, normal tone, fluent, spontaneous Language & Vocabulary: consistent with education Thought Process: Linear, Goal Oriented Thought Content: No Suicidal ideation, No Homicidal ideation, No Overt delusions Perceptual Disturbances: No Auditory hallucinations, No Visual hallucinations Attention Span Ability: Capable of Focused Attention Memory Description: Grossly Intact Patient Reliability: Reliable Historian Fund of knowledge: Yes abstraction ability, Yes aware of current events Intelligence Estimate: Average Judgment: Limited Insight: Partial Results - Labs Labs: Laboratory Last Values WBC 5.3 K/mcL (4.3-11.1) 11/20/17 01:45 RBC 4.30 M/mcL (4.19-5.50) 11/20/17 01:45 Hgb 12.8 g/dL (12.9-16.9) L 11/20/17 01:45 Hct 39.2 % (37.5-50.1) 11/20/17 01:45 MCV 91.2 fL (83.0-100.0) 11/20/17 01:45 MCH 29.8 pg (28.0-33.3) 11/20/17 01:45 MCHC 32.7 g/dL (31.6-35.5) 11/20/17 01:45 RDW 14.7 % (11.5-14.5) H 11/20/17 01:45 Plt Count 168 K/mcL (140-400) 11/20/17 01:45 MPV 8.6 fL (9.4-12.4) L 11/20/17 01:45 Immature Gran % 0.2 % (0-4) 11/20/17 01:45 Seg Neutrophils % 61.5 % 11/20/17 01:45 Lymphocytes % 23.9 % 11/20/17 01:45 Monocytes % 13.1 % 11/20/17 01:45 Eosinophils % 0.9 % 11/20/17 01:45 Basophils % 0.4 % 11/20/17 01:45 Neutrophils # 3.3 K/mcL (1.6-8.9) 11/20/17 01:45 Lymphocytes # 1.3 K/mcL (0.6-4.6) 11/20/17 01:45 Monocytes # 0.7 K/mcL (0.0-1.3) 11/20/17 01:45 Eosinophils # 0.1 K/mcL (0.0-0.6) 11/20/17 01:45 Basophils # 0.0 K/mcL (0.0-0.2) 11/20/17 01:45 Blood Smear Review See Below 11/20/17 01:45 Sodium 141 mEq/L (136-145) 11/20/17 01:45 Potassium 4.1 mEq/L (3.5-5.1) 11/20/17 01:45 Chloride 108 mEq/L (98-107) H 11/20/17 01:45 Carbon Dioxide 27 mEq/L (23-29) 11/20/17 01:45 BUN 18 mg/dL (8-23) 11/20/17 01:45 Creatinine 0.84 mg/dL (0.70-1.30) 11/20/17 01:45 Est GFR ( Amer) > 60 (> 60) 11/20/17 01:45 Est GFR (Non-Af Amer) > 60 (> 60) 11/20/17 01:45 BUN/Creatinine Ratio 21 (6-26) 11/20/17 01:45 Glucose 87 mg/dL (70-105) 11/20/17 01:45 Calculated Osmolality 293 (280-300) 11/20/17 01:45 Calcium 8.6 mg/dL (8.6-10.3) 11/20/17 01:45 Total Bilirubin 0.6 mg/dL (0.3-1.0) 11/20/17 01:45 AST 21 Units/L (13-39) 11/20/17 01:45 ALT 18 Units/L (7-52) 11/20/17 01:45 Alkaline Phosphatase 69 Units/L (34-104) 11/20/17 01:45 Serum Total Protein 6.4 g/dL (6.4-8.9) 11/20/17 01:45 Albumin 3.8 g/dL (3.5-5.7) 11/20/17 01:45 Globulin 2.6 g/dL (2.4-3.5) 11/20/17 01:45 Albumin/Globulin Ratio 1.5 (1.1-2.2) 11/20/17 01:45 Hep Bs Antibody 0.00 mIU/mL 11/20/17 01:45 Hepatitis C Ab Screen Nonreactive (Nonreactive) 11/20/17 01:45 HIV Ag/Ab Combo Qual Nonreactive (Nonreactive) 11/20/17 01:45 Blood Type O POSITIVE 11/20/17 04:00 Antibody Screen NEGATIVE 11/20/17 04:00 - Impressions Impressions Abdomen Ultrasound 11/20/17 13:30 IMPRESSION: Negative abdominal ultrasound. Few incidental/chronic findings as described D/ / Tegan Mendenhall MD / Tegan Mendenhall MD Interpreting Provider: Tegan Mendenhall MD Consult Discharge Plan - Plan Instructions: Gabapentin (By mouth) Referrals: Toya Arvizu, CUSTOMER ACCOUNT ADMINISTRATOR [Primary Care Provider] - Prescriptions: Gabapentin [Neurontin] 100 mg PO TID 10 Days #30 capsule
== END 2017-11-20 18:45 | disposition home or self-care (01) ==
LOC: 3BNU
PROVIDERS: ADMIT Internal Medicine; ATTEND Internal Medicine

== ENCOUNTER 2018-05-19 13:53 | Observation (INO) ==
[2018-05-19] MEDS ORDERED: Aspirin 325 MG TABLET PO ONE (14:24)
[2018-05-19] MEDS ORDERED: Aspirin 81 MG TAB.CHEW ONE (14:26)
[2018-05-19 14:56] LABS: Hematocrit 41.3 % (37.5-50.1); Hemoglobin 14.1 g/dL (12.9-16.9); Mean Corpuscular HGB Conc 34.1 g/dL (31.6-35.5); Mean Corpuscular Hemoglobin 32.1 pg (28.0-33.3); Mean Corpuscular Volume 94.1 fL (83.0-100.0); Mean Platelet Volume 8.7 fL (9.4-12.4); Platelet Count 172 K/mcL (140-400); Red Blood Count 4.39 M/mcL (4.19-5.50); Red Cell Distribution Width 13.6 % (11.5-14.5)
--- NOTE | 2018-05-19 14:56 | Emergency Department Note ---
Disposition Clinical Impression: Chest pain Qualifiers: Chest pain type: unspecified Qualified Code(s): R07.9 - Chest pain, unspecified Nausea & vomiting Qualifiers: Vomiting type: unspecified Vomiting Intractability: non-intractable Qualified Code(s): R11.2 - Nausea with vomiting, unspecified Disposition: Admitted As Inpatient Condition: Good Referrals: Toya Arvizu, BEVELING MACHINE OPERATOR [Primary Care Provider] - Forms: ED Satisfaction Letter Time of Disposition: 15:53 General Adult HPI - General Chief complaint: ED Chest Pain Stated complaint: Chest Pain Time Seen by Provider: 05/19/18 14:04 Source: patient Limitations: no limitations Nursing Notes Reviewed: Yes Vital Signs Reviewed: Yes - History of Present Illness HPI Narrative: Pt complaining of chest pain that began this AM. He states that he woke up and noticed that his chest hurt. He describes it as a heavy sensation. Feels like something is sitting on his chest. The pain radiates into his left jaw and neck. He states that this pain is worse than his normal pain. Has associated diaphoresis and nausea and vomiting. He sates that he felt like he was going to pass out yesterday and had some fleeting chest pain. Pt did have a CABG in 2004 and has had 5 stents placed since. He takes plavix. Pt denies any cough, colds or congestion. No fever or chills. No abdominal pain. No swelling to his extremities at this time. He states he does have a history of congestive heart failure and they recently increased his Lasix to 80 mg instead of 40 over the past month. He states he is urinating well and the swelling has decreased significantly. No sore throat. Has a mild headache now that he states is from his nausea. Pt does report some relief of the pain with nitroglycerin. Pain Scale: 8 - Related Data Home Medications Medication Instructions Recorded Confirmed Clopidogrel [Plavix] 75 mg PO DAILY 08/23/17 11/20/17 Metoprolol XL (24 HR) Succ [Toprol 25 mg PO DAILY 08/23/17 11/20/17 Xl] Sucralfate [Carafate] 1 gm PO BID 08/23/17 11/20/17 Atorvastatin [Lipitor] 40 mg PO HS 09/09/17 11/20/17 Furosemide [Lasix] 80 mg PO DAILY 09/09/17 11/20/17 Methocarbamol [Robaxin-750] 750 mg PO TID PRN 10/20/17 11/20/17 Aspirin 325 mg PO BID 11/20/17 11/20/17 HydrOXYzine Pamoate [Vistaril] 100 mg PO QID 11/20/17 11/20/17 Isosorbide MONOnitrate [Isosorbide 20 mg PO DAILY 11/20/17 11/20/17 Mononitrate] Lansoprazole [Prevacid] 30 mg PO DAILY 11/20/17 11/20/17 Quetiapine Fumarate [Seroquel] 75 mg PO HS 11/20/17 11/20/17 Ziprasidone HCl [Geodon] 40 mg PO TID 11/20/17 11/20/17 clonazePAM [Klonopin] 0.5 mg PO DAILY PRN 11/20/17 11/20/17 Previous Rx's Medication Instructions Recorded Gabapentin [Neurontin] 100 mg PO TID 10 Days #30 capsule 11/20/17 Allergies Allergy/AdvReac Type Severity Reaction Status Date / Time simvastatin [From Zocor] Allergy Rash Verified 09/09/17 13:15 Zolpidem [From Ambien] Allergy Confusion Verified 09/09/17 13:15 ondansetron AdvReac Shakiness Verified 09/09/17 13:15 [From Zofran (as hydrochloride)] All systems ED: reviewed and negative except as stated. Review of Systems: As Per HPI Past Medical History - Past Medical History Attestation: Yes The following information was validated with the patient. Source: patient Medical history: Reports: arthritis, cardiomyopathy, CHF, coronary artery disease, CVA, GERD, hyperlipidemia, hypertension, myocardial infarction, osteoporosis, peripheral artery disease, syncope, TIA, other Surgical history: Reports: angioplasty/stent, cholecystectomy, coronary bypass ( CABG), orthopedic, other, other Psychiatric history: Reports: anxiety - Social History Smoking Status: Never smoker Smokeless Tobacco Status: Yes Alcohol use: Reports: none Drug use: Reports: none Physical Exam - General Limitations: no limitations General appearance: alert, in no apparent distress - Head Head exam: atraumatic, normocephalic, normal inspection - Eye Eye exam: Present: normal appearance, PERRL, EOMI - ENT ENT exam: normal exam, normal oropharynx, mucous membranes moist - Neck Neck exam: Present: normal inspection, full ROM, trachea midline - Chest Chest inspection: Present: normal inspection, symmetric chest wall rise - Respiratory Respiratory exam: Present: normal lung sounds bilaterally. Absent: respiratory distress, accessory muscle use - Cardiovascular Cardiovascular exam: Present: regular rate, normal rhythm, normal heart sounds - Abdominal Exam Abdominal exam: Present: soft, Non-Tender. Absent: tenderness, distention, guarding, rebound, rigidity, organomegaly, Tobias's sign, Rovsing's sign, tenderness at McBurney's Point - Extremities Exam Extremities exam: Present: normal inspection, full ROM. Absent: tenderness, normal capillary refill, pedal edema - Back Exam Back exam: Present: normal inspection, full ROM. Absent: tenderness - Neurological Exam Neurological exam: Present: alert, oriented X3 - Psychiatric Psychiatric exam: Present: normal affect, normal mood - Skin Skin exam: Present: warm, dry, intact, normal color. Absent: rash, cyanosis, diaphoresis Course Course Narrative: Patient with an extensive cardiac history. Has had a CABG as well as stents placed after this. Also has a family history of a son dying from CA at 30. Reporting diaphoresis associated with this chest pain as well as nausea and vomiting. No acute STEMI noted on the EKG. Does get relief with nitroglycerin. We will be admitting patient to the hospital. We will nitroglycerin trial patient and place him on a nitroglycerin drip if this does relieve his pain. - Consultations Consultation #1: Hospitalist accepted Pt in stable condition. Time: 15:52 Vital Signs Temperature 97.6 F 05/19/18 14:07 Pulse Rate 65 05/19/18 14:07 Respiratory Rate 12 05/19/18 14:07 Blood Pressure 150/97 05/19/18 14:07 O2 Sat by Pulse Oximetry 100 05/19/18 14:07 Temperature 97.6 F 05/19/18 14:07 Pulse Rate 63 05/19/18 14:29 Respiratory Rate 15 05/19/18 14:29 Blood Pressure 151/92 05/19/18 14:29 O2 Sat by Pulse Oximetry 100 05/19/18 14:29 Oxygen Delivery Oxygen Delivery Room Air Medical Decision Making - Medical Records Medical records reviewed: Yes I reviewed the patient's medical records. - Lab Data Lab results reviewed: Yes I reviewed the patient's lab results. Result diagrams: 05/19/18 14:29 05/19/18 14:29 Lab Results 05/19/18 05/19/18 05/19/18 Range/Units 14:29 14:29 14:29 WBC 4.6 (4.3-11.1) K/mcL RBC 4.39 (4.19-5.50) M/mcL Hgb 14.1 (12.9-16.9) g/dL Hct 41.3 (37.5-50.1) % MCV 94.1 (83.0-100.0) fL MCH 32.1 (28.0-33.3) pg MCHC 34.1 (31.6-35.5) g/dL RDW 13.6 (11.5-14.5) % Plt Count 172 (140-400) K/mcL MPV 8.7 L (9.4-12.4) fL Seg Neutrophils % 70.0 % Lymphocytes % 24.0 % Monocytes % 6.0 % Neutrophils # 3.2 (1.6-8.9) K/mcL Lymphocytes # 1.1 (0.6-4.6) K/mcL Monocytes # 0.3 (0.0-1.3) K/mcL Reactive Lymphocytes Present A (Not Present) Platelet Estimate Normal (Normal) PT 12.4 H (9.4-12.1) Seconds INR 1.1 APTT 37.8 H (26.0-36.0) Seconds Sodium 138 (136-145) mEq/L Potassium 3.7 (3.5-5.1) mEq/L Chloride 108 H (98-107) mEq/L Carbon Dioxide 19 L (23-29) mEq/L BUN 15 (8-23) mg/dL Creatinine 0.73 (0.70-1.30) mg/dL Est GFR ( Amer) > 60 (> 60) Est GFR (Non-Af Amer) > 60 (> 60) BUN/Creatinine Ratio 21 (6-26) Glucose 103 (70-105) mg/dL Calculated Osmolality 287 (280-300) Calcium 9.6 (8.6-10.3) mg/dL Troponin I < 0.03 (< 0.04) ng/mL - Radiology Data Radiology results reviewed: Yes I reviewed the patient's radiology results. Chest X-Ray 05/19/18 14:05 IMPRESSION: No acute process. D/ / Pedro Correa MD / Pedro Correa MD Interpreting Provider: Pedro Correa MD - EKG Data EKG #1 EKG attestation: Yes I reviewed and interpreted this EKG. EKG results narrative: Normal sinus rhythm at a rate of 66. LA interval is 143. QRS duration is 102. QT is 413. QTC is 433. No signs of acute ischemia. No significant change from previous EKG dated 09/09/2017. There is slow R-wave progression. No signs of Brugada or Ivgff-Wqbmjruwx-Quinf. EKG #2 EKG attestation: Yes I reviewed and interpreted this EKG. EKG results narrative: Normal sinus rhythm this is a repeat EKG timed 1518. No signs of acute ischemia on this EKG. Normal sinus rhythm at a rate of 61. LA interval is 139. Castration is 105. QT is 438. QTC is 442. The Dinesh does re-that there is minimal ST elevation in anterior leads with ST elevation less than 0.1 mV. This does not meet STEMI criteria. Heart Score - Score History: Highly Suspicious EKG: Non Specific repolarisation Disturbance Age: 45-65 Risk Factors: Equal/Greater than 3 risk factor or history of atherosclerotic disease Troponin: Less than normal limit HEART Score Total: 6
[2018-05-19 15:02] LABS: INR 1.1; Prothrombin Time 12.4 Seconds (9.4-12.1)
[2018-05-19 15:04] LABS: Activated Partial Thrombo Time 37.8 Seconds (26.0-36.0)
[2018-05-19] MEDS ORDERED: *HR* Promethazine 25 MG/ML VIAL IVP ONE ×2 (15:08→18:56)
[2018-05-19] MEDS ORDERED: Nitroglycerin 0.4 MG TAB.SUBL SL STA (15:10)
[2018-05-19 15:17] LABS: Troponin I < 0.03 ng/mL (< 0.04)
[2018-05-19 15:20] LABS: BUN/Creatinine Ratio 21 (6-26); Blood Urea Nitrogen 15 mg/dL (8-23); Calcium 9.6 mg/dL (8.6-10.3); Carbon Dioxide 19 mEq/L (23-29); Chloride 108 mEq/L (98-107); Glucose 103 mg/dL (70-105); Osmolality,Calculated 287 (280-300); Potassium 3.7 mEq/L (3.5-5.1); Sodium 138 mEq/L (136-145); eGFR For Non-African Americans > 60 (> 60)
[2018-05-19 15:34] LABS: Lymphocytes # 1.1 K/mcL (0.6-4.6); Monocytes # 0.3 K/mcL (0.0-1.3); Neutrophils # 3.2 K/mcL (1.6-8.9); Platelet Estimate Normal (Normal); Reactive Lymphocytes Present (Not Present)
--- NOTE | 2018-05-19 16:05 | Emergency Department Note ---
Disposition Clinical Impression: Chest pain Qualifiers: Chest pain type: unspecified Qualified Code(s): R07.9 - Chest pain, unspecified Nausea & vomiting Qualifiers: Vomiting type: unspecified Vomiting Intractability: non-intractable Qualified Code(s): R11.2 - Nausea with vomiting, unspecified Disposition: Admitted As Inpatient Condition: Good Referrals: Toya Arvizu, EMPLOYEE BENEFITS DIRECTOR [Primary Care Provider] - Forms: ED Satisfaction Letter General Adult HPI - General Chief complaint: ED Chest Pain Stated complaint: Chest Pain Time Seen by Provider: 05/19/18 14:04 Source: patient Limitations: no limitations - History of Present Illness Pain Scale: 7 - Related Data Home Medications Medication Instructions Recorded Confirmed Clopidogrel [Plavix] 75 mg PO DAILY 08/23/17 11/20/17 Metoprolol XL (24 HR) Succ [Toprol 25 mg PO DAILY 08/23/17 11/20/17 Xl] Sucralfate [Carafate] 1 gm PO BID 08/23/17 11/20/17 Atorvastatin [Lipitor] 40 mg PO HS 09/09/17 11/20/17 Furosemide [Lasix] 80 mg PO DAILY 09/09/17 11/20/17 Methocarbamol [Robaxin-750] 750 mg PO TID PRN 10/20/17 11/20/17 Aspirin 325 mg PO BID 11/20/17 11/20/17 HydrOXYzine Pamoate [Vistaril] 100 mg PO QID 11/20/17 11/20/17 Isosorbide MONOnitrate [Isosorbide 20 mg PO DAILY 11/20/17 11/20/17 Mononitrate] Lansoprazole [Prevacid] 30 mg PO DAILY 11/20/17 11/20/17 Quetiapine Fumarate [Seroquel] 75 mg PO HS 11/20/17 11/20/17 Ziprasidone HCl [Geodon] 40 mg PO TID 11/20/17 11/20/17 clonazePAM [Klonopin] 0.5 mg PO DAILY PRN 11/20/17 11/20/17 Previous Rx's Medication Instructions Recorded Gabapentin [Neurontin] 100 mg PO TID 10 Days #30 capsule 11/20/17 Allergies Allergy/AdvReac Type Severity Reaction Status Date / Time simvastatin [From Zocor] Allergy Rash Verified 09/09/17 13:15 Zolpidem [From Ambien] Allergy Confusion Verified 09/09/17 13:15 ondansetron AdvReac Shakiness Verified 09/09/17 13:15 [From Zofran (as hydrochloride)] Past Medical History - Past Medical History Medical history: Reports: arthritis, cardiomyopathy, CHF, coronary artery disease, CVA, GERD, hyperlipidemia, hypertension, myocardial infarction, osteoporosis, peripheral artery disease, syncope, TIA, other Surgical history: Reports: angioplasty/stent, cholecystectomy, coronary bypass ( CABG), orthopedic, other, other Psychiatric history: Reports: anxiety - Social History Smoking Status: Never smoker Smokeless Tobacco Status: Yes Alcohol use: Reports: none Drug use: Reports: none Physical Exam - General Limitations: no limitations General appearance: alert, in no apparent distress Course Vital Signs Temperature 97.6 F 05/19/18 14:07 Pulse Rate 65 05/19/18 14:07 Respiratory Rate 12 05/19/18 14:07 Blood Pressure 150/97 05/19/18 14:07 O2 Sat by Pulse Oximetry 100 05/19/18 14:07 Temperature 97.6 F 05/19/18 14:07 Pulse Rate 68 05/19/18 15:58 Respiratory Rate 25 05/19/18 15:51 Blood Pressure 139/92 05/19/18 15:58 O2 Sat by Pulse Oximetry 99 05/19/18 15:51 Oxygen Delivery Oxygen Delivery Room Air Medical Decision Making - Lab Data Result diagrams: 05/19/18 14:29 05/19/18 14:29 Lab Results 05/19/18 05/19/18 05/19/18 Range/Units 14:29 14:29 14:29 WBC 4.6 (4.3-11.1) K/mcL RBC 4.39 (4.19-5.50) M/mcL Hgb 14.1 (12.9-16.9) g/dL Hct 41.3 (37.5-50.1) % MCV 94.1 (83.0-100.0) fL MCH 32.1 (28.0-33.3) pg MCHC 34.1 (31.6-35.5) g/dL RDW 13.6 (11.5-14.5) % Plt Count 172 (140-400) K/mcL MPV 8.7 L (9.4-12.4) fL Seg Neutrophils % 70.0 % Lymphocytes % 24.0 % Monocytes % 6.0 % Neutrophils # 3.2 (1.6-8.9) K/mcL Lymphocytes # 1.1 (0.6-4.6) K/mcL Monocytes # 0.3 (0.0-1.3) K/mcL Reactive Lymphocytes Present A (Not Present) Platelet Estimate Normal (Normal) PT 12.4 H (9.4-12.1) Seconds INR 1.1 APTT 37.8 H (26.0-36.0) Seconds Sodium 138 (136-145) mEq/L Potassium 3.7 (3.5-5.1) mEq/L Chloride 108 H (98-107) mEq/L Carbon Dioxide 19 L (23-29) mEq/L BUN 15 (8-23) mg/dL Creatinine 0.73 (0.70-1.30) mg/dL Est GFR ( Amer) > 60 (> 60) Est GFR (Non-Af Amer) > 60 (> 60) BUN/Creatinine Ratio 21 (6-26) Glucose 103 (70-105) mg/dL Calculated Osmolality 287 (280-300) Calcium 9.6 (8.6-10.3) mg/dL Troponin I < 0.03 (< 0.04) ng/mL Attestation Statement - Attestation Attestation: I examined this patient and my medical decision-making was reviewed with the Resident Physician. I agree with the documented findings, disposition and treatment plan as described except to the extent set forth below. 62 year old male presents to the eD with complaints chest pain and she has multiple risk factors including CABG in the past. he has taken 6 nitro prior to arrival and currently experiencing chest pain without ischemic changes on EKG and has a negative troponin. We will admit to medicine
[2018-05-19] MEDS ORDERED: Naloxone 0.4 MG/ML INJ IVP PRN (17:05)
[2018-05-19] MEDS ORDERED: *HR* Heparin 5,000 UNIT/ML VIAL IVP ONE (17:11)
[2018-05-19] MEDS ORDERED: *HR* Heparin 5,000 UNIT/ML VIAL IVP PRN ×2 (17:11)
[2018-05-19] MEDS ORDERED: Heparin 25,000 UNIT/500 ML D5W 25,000 UNIT/500 ML BAG IVC SCH (17:15)
[2018-05-19] MEDS ORDERED: Nitroglycerin 25 MG/250 ML INFUS..BTL IVC SCH (17:15)
[2018-05-19] MEDS ORDERED: *HR* LORazepam 0.5 MG TABLET PO ONE ×2 (17:30→21:27)
[2018-05-19] MEDS ORDERED: clonazePAM 0.5 MG TABLET PO ONE (17:32)
--- NOTE | 2018-05-19 17:46 | Internal Med History&Physical ---
<Kieran Vieyra P - Last Filed: 05/19/18 17:35> Date of Encounter: 05/19/18 Time of Encounter: 16:30 Internal Medicine - H&P: HPI Chief complaint: Chest Pain Admitted From: Home Plans for Post Hospital Care: Home History of present illness: Mr. Melchor is a 62 year old male with past medical history significant for CAD with CABG in 2004, 5 cardiac stents, CHF, angina, hypertension, hyperlipidemia, CVA with left sided deficits, TIA, GERD, and osteoporosis who presents for 8/10 pressure like left sided chest pain radiating to the left side of his neck. States pain started intermittently a few days ago and was completely resolved with home nitro. Pain became constant today and unrelievable with nitro. Pain was associated with shortness of breath, nausea, vomiting, and diaphoresis. No headache or abdominal pain. No exacerbating factors. Took 6 nitro at home which improved pain slightly. Received aspirin, nitro x3, and phenergan in ER which has improved symptoms slightly. Currently has pain at 6/10 and no other associated symptoms. Has history of angina but states pain is always easily relieved with nitro. ER reported initial EKG with no changes from previous, repeat EKG reported with minimal ST elevation in anterior leads less than 0.1 mV. Follows with cardiology at [facility] with last follow up 1-2 months ago. 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 Discussed patient with Dr Mueller. Past Med Surg Social Fam HX - Past Medical History Medical history: arthritis, cardiomyopathy, CHF, coronary artery disease, CVA, GERD, hyperlipidemia, hypertension, myocardial infarction, osteoporosis, peripheral artery disease, syncope, TIA, other Additional medical history: pericarditis, pancreatitis Psychiatric history: anxiety - Past Surgical History Surgical History: angioplasty/stent, cholecystectomy, coronary bypass (CABG), orthopedic, other, other Additional surgical history: left knee surgery, grinding of the bone. Back surgery x 10, pins and screws, wires and stimulators placed, cardiac stents x 5 - Social History Smoking Status: Never smoker Smokeless Tobacco Status: Yes Alcohol use: none Drug use: none - Family History Brother Family Member Ethnicity: Non- Living Status: Hx Family Cancer: Yes (Stomach) Son Family Member Ethnicity: Non- Living Status: Still Living Hx Family Cardiac Disorders: Yes Mother Adopted: No Family Member Ethnicity: Non- Living Status: Still Living Hx Family Cardiac Disorders: Yes (CAD) Hx Family Respiratory Disorders: No Hx Family Cancer: Yes (Cervical) Hx Family GI Disorders: No Hx Family Endocrine Disorder: Yes (DM) Hx Family Neuromuscular Disorders: No Hx Family Neurologic Disorders: No Hx Family HEENT Disorders: No Hx Family Autoimmune Disorders: No Father Family Member Ethnicity: Non- Living Status: Hx Family Cardiac Disorders: Yes ([place], CAD) Hx Family Respiratory Disorders: Yes (COPD) Hx Family Cancer: No Hx Family GI Disorders: No Hx Family Endocrine Disorder: No Hx Family Neuromuscular Disorders: No Hx Family Neurologic Disorders: No Hx Family HEENT Disorders: No Hx Family Autoimmune Disorders: No Internal Medicine - H&P: Meds Clopidogrel [Plavix] 75 mg PO DAILY 08/23/17 [History] Metoprolol XL (24 HR) Succ [Toprol Xl] 25 mg PO DAILY 08/23/17 [History] Atorvastatin [Lipitor] 40 mg PO HS 09/09/17 [History] Furosemide [Lasix] 80 mg PO DAILY 09/09/17 [History] Methocarbamol [Robaxin-750] 750 mg PO TID PRN 10/20/17 [History] Aspirin 325 mg PO DAILY 11/20/17 [History] Isosorbide MONOnitrate [Isosorbide Mononitrate] 20 mg PO DAILY 11/20/17 [History ] Quetiapine Fumarate [Seroquel] 25 mg PO HS 11/20/17 [History] clonazePAM [Klonopin] 0.5 mg PO DAILY PRN 11/20/17 [History] 3 Allergy/AdvReac Type Severity Reaction Status Date / Time simvastatin [From Zocor] Allergy Rash Verified 05/19/18 17:12 Zolpidem [From Ambien] Allergy Confusion Verified 05/19/18 17:12 ondansetron AdvReac Shakiness Verified 05/19/18 17:12 [From Zofran (as hydrochloride)] All Systems PM: A 10-system review of systems was performed and is negative for pertinent findings except as documented above in the HPI. - Constitutional Vitals: Temp Pulse Resp BP Pulse Ox 97.6 F 93 20 134/97 100 05/19/18 14:07 05/19/18 16:08 05/19/18 16:03 05/19/18 16:08 05/19/18 16:03 Exam: General: Alert and oriented. Skin:Normal color, no rash, no lesions. HEENT:Pupils equal, round and reactive. Cardiovascular:Normal S1 & S2, no rubs, murmurs or gallops. No JVD. Pulse regular. Lungs:Normal breath sounds, no wheezes or crackles. Abdomen:Soft, non-tender, no rigidity. Extremities:No deformity, no edema or tenderness, no joint swelling or clubbing. Neurological:Chronic left sided weakness status post CVA. Pulses:Carotid and radial pulses normal +2. Rest of the physical exam is non contributory. Internal Med - H&P Results - Labs CBC & Chem 7: 05/19/18 14:29 05/19/18 14:29 - Assessment and plan (1) Chest pain Current Visit: Yes Status: Acute Assessment and plan: Cardiology consulted, EKG changes reported to cardiology. Heparin and nitro drip ordered per cardiology recommendation. Initial troponin negative, serial troponins ordered. 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 Cardiac diet. NPO at midnight. Qualifiers: Chest pain type: unspecified Qualified Code(s): R07.9 - Chest pain, unspecified (2) HLD (hyperlipidemia) Current Visit: No Status: Chronic Assessment and plan: Continue home medications. Qualifiers: Hyperlipidemia type: unspecified Qualified Code(s): E78.5 - Hyperlipidemia , unspecified (3) DVT prophylaxis Current Visit: No Status: Acute Assessment and plan: On heparin drip. (4) Hypertension Current Visit: No Status: Chronic Assessment and plan: Continue home medications. Qualifiers: Hypertension type: essential hypertension Qualified Code(s): I10 - Essential (primary) hypertension - Time Spent With Patient Total time spent is greater than 50% in coordination of care (as documented) at patient's floor/unit and/or counseling patient: <Mk Dale Y - Last Filed: 05/19/18 18:49> Date of Encounter: 05/19/18 Internal Medicine - H&P: HPI History of present illness: Mr. Melchor is a 62 year old male All Systems PM: A 10-system review of systems was performed and is negative for pertinent findings except as documented above in the HPI. - Constitutional Vitals: Temp Pulse Resp BP Pulse Ox 97.6 F 93 20 134/97 100 05/19/18 14:07 05/19/18 16:08 05/19/18 16:03 05/19/18 16:08 05/19/18 16:03 Internal Med - H&P Results - Labs CBC & Chem 7: 05/19/18 17:43 05/19/18 14:29 Labs: Short CBC 05/19/18 Range/Units 17:43 WBC 4.6 (4.3-11.1) K/mcL Hgb 13.7 (12.9-16.9) g/dL Hct 39.8 (37.5-50.1) % Plt Count 169 (140-400) K/mcL - Assessment and plan (1) DVT prophylaxis Current Visit: No Status: Acute (2) Chest pain Current Visit: Yes Status: Acute Qualifiers: Chest pain type: unspecified Qualified Code(s): R07.9 - Chest pain, unspecified (3) HLD (hyperlipidemia) Current Visit: No Status: Chronic Qualifiers: Hyperlipidemia type: unspecified Qualified Code(s): E78.5 - Hyperlipidemia , unspecified (4) Hypertension Current Visit: No Status: Chronic Qualifiers: Hypertension type: essential hypertension Qualified Code(s): I10 - Essential (primary) hypertension - Time Spent With Patient Total time spent is greater than 50% in coordination of care (as documented) at patient's floor/unit and/or counseling patient: - Attending Attestation Patient seen and evaluated. Physical exam performed. Discussed with ELECTRONIC PUBLICATIONS SPECIALIST. Agree with plan of care.
[2018-05-19 17:56] LABS: Hematocrit 39.8 % (37.5-50.1); Hemoglobin 13.7 g/dL (12.9-16.9); Mean Corpuscular HGB Conc 34.4 g/dL (31.6-35.5); Mean Corpuscular Hemoglobin 32.6 pg (28.0-33.3); Mean Corpuscular Volume 94.8 fL (83.0-100.0); Mean Platelet Volume 9.1 fL (9.4-12.4); Platelet Count 169 K/mcL (140-400); Red Cell Distribution Width 13.7 % (11.5-14.5)
[2018-05-19 18:02] LABS: Heparin anti-factor XA UFH 0.02 IU/mL (0.30-0.70); INR 1.1
[2018-05-19] MEDS ORDERED: Methocarbamol 750 MG TABLET PO ONE (20:32)
[2018-05-20] MEDS: *HR* Morphine 2 MG/ML SYRINGE IVP PRN ×7 (00:46→21:16)
[2018-05-20 03:31] LABS: Basophils % 0.4 %; Eosinophils % 0.8 %; Hematocrit 39.2 % (37.5-50.1); Hemoglobin 13.5 g/dL (12.9-16.9); Immature Granulocytes % 0.2 % (0-4); Lymphocytes # 1.3 K/mcL (0.6-4.6); Lymphocytes % 26.5 %; Mean Corpuscular HGB Conc 34.4 g/dL (31.6-35.5); Mean Corpuscular Hemoglobin 32.2 pg (28.0-33.3); Mean Corpuscular Volume 93.6 fL (83.0-100.0); Mean Platelet Volume 8.9 fL (9.4-12.4); Monocytes # 0.6 K/mcL (0.0-1.3); Monocytes % 12.8 %; Neutrophils # 2.9 K/mcL (1.6-8.9); Platelet Count 154 K/mcL (140-400); Red Blood Count 4.19 M/mcL (4.19-5.50); Red Cell Distribution Width 13.9 % (11.5-14.5); Segmented Neutrophils % 59.3 %
[2018-05-20 03:45] LABS: BUN/Creatinine Ratio 18 (6-26); Blood Urea Nitrogen 14 mg/dL (8-23); Calcium 9.1 mg/dL (8.6-10.3); Carbon Dioxide 22 mEq/L (23-29); Chloride 109 mEq/L (98-107); Glucose 99 mg/dL (70-105); Osmolality,Calculated 293 (280-300); Potassium 3.7 mEq/L (3.5-5.1); Sodium 141 mEq/L (136-145); eGFR For Non-African Americans > 60 (> 60)
[2018-05-20 03:55] LABS: Platelet Estimate Normal (Normal); Reactive Lymphocytes Present (Not Present)
[2018-05-20 04:19] LABS: Troponin I < 0.03 ng/mL (< 0.04)
[2018-05-20] MEDS ORDERED: Ondansetron 4 MG/2 ML VIAL IVP PRN (08:47)
[2018-05-20] MEDS ORDERED: *HR* Promethazine 25 MG/ML VIAL IVP PRN (08:50)
[2018-05-20 09:00] LABS: Heparin anti-factor XA UFH 0.29 IU/mL (0.30-0.70)
[2018-05-20] MEDS: Metoprolol XL (24 HR) Succ 25 MG TAB.ER.24H PO SCH (09:47)
[2018-05-20] MEDS ORDERED: clonazePAM 0.5 MG TABLET PO PRN (10:12)
[2018-05-20] MEDS ORDERED: Methocarbamol 750 MG TABLET PO PRN (10:12)
--- NOTE | 2018-05-20 10:14 | Internal Med Progress Note ---
Hospitalist Progress Note - Encounter Date of Encounter: 05/20/18 Time of Encounter: 12:34 - Subjective Interval History: Patient admitted yesterday for acute chest pain. He has history of CHF, CAD, CA , HTN, HPL. He states not being able to afford medications recently because of home issues. He was placed on heparin drip and nitro drip and monitored. Prior to nitro drip administration, pain was 9/10 Currently has decreased to 6/ 10. He admits to SOB this AM with exertion, no SOB at rest. - Exam Vitals: Temp Pulse Resp BP Pulse Ox 97.6 F 60 17 126/87 97 05/20/18 07:58 05/20/18 07:58 05/20/18 07:58 05/20/18 07:58 05/20/18 07:58 Exam: General: Alert and oriented. Skin:Normal color, no rash, no lesions. Cardiovascular:Normal S1 & S2, no rubs, murmurs or gallops. No JVD. Pulse regular. Lungs:CTAB Abdomen:Soft, NT/ND Extremities:No deformity, no edema or tenderness, no joint swelling or clubbing. Neurological:Chronic left sided weakness status post CVA. Pulses: Carotid and radial pulses normal +2. - Assessment and Plan (1) Chest pain Current Visit: Yes Status: Acute Assessment and Plan: Cardiology consulted, EKG changes reported to cardiology. Heparin and nitro drip ordered per cardiology recommendation. Initial troponin negative, serial troponins ordered. Continuous registered nurse cardiac. Cardiac diet. NPO at midnight. Plan for [facility] today per Cardiology (2) HLD (hyperlipidemia) Current Visit: No Status: Chronic Assessment and Plan: Continue home medications. (3) Hypertension Current Visit: No Status: Chronic Assessment and Plan: Continue home medications. (4) DVT prophylaxis Current Visit: No Status: Acute Assessment and Plan: On heparin drip. - Time Spent with Patient Total time spent is greater than 50% in coordination of care (as documented) at patient's floor/unit and/or counseling patient: Internal Medicine: Result - Labs CBC & Chem 7: 05/20/18 03:15 05/20/18 03:15 Labs: Short CBC 05/19/18 05/20/18 Range/Units 17:43 03:15 WBC 4.6 4.9 (4.3-11.1) K/mcL Hgb 13.7 13.5 (12.9-16.9) g/dL Hct 39.8 39.2 (37.5-50.1) % Plt Count 169 154 (140-400) K/mcL Neutrophils # 2.9 (1.6-8.9) K/mcL BMP 05/20/18 03:15 Sodium 141 Potassium 3.7 Chloride 109 H Carbon Dioxide 22 L BUN 14 Creatinine 0.77 Glucose 99 Calcium 9.1 Cardiac Enzymes 05/19/18 05/20/18 Range/Units 20:23 03:15 Troponin I < 0.03 < 0.03 (< 0.04) ng/mL - ABG Interpretation ABG results: PT/INR, D-dimer PT 12.0 Seconds (9.4-12.1) 05/19/18 17:43 D-Dimer 262 ng/mLFEU (0-500) 05/20/18 08:22 Consult Discharge Plan - Plan Referrals: Toya Arvizu, TOMOGRAPHY TECHNOLOGIST [Primary Care Provider] - (1) Chest pain Qualifiers: Chest pain type: unspecified Qualified Code(s): R07.9 - Chest pain, unspecified (2) HLD (hyperlipidemia) Qualifiers: Hyperlipidemia type: unspecified Qualified Code(s): E78.5 - Hyperlipidemia, unspecified (3) Hypertension Qualifiers: Hypertension type: essential hypertension Qualified Code(s): I10 - Essential (primary) hypertension
[2018-05-20] MEDS ORDERED: Isosorbide MONOnitrate (24 HR) 30 MG TAB.ER.24H PO SCH (10:15)
--- NOTE | 2018-05-20 11:36 | Cardiology Consult Note ---
<Manoj Honeycutt - Last Filed: 05/20/18 11:39> Date of Encounter: 05/20/18 Time of Encounter: 11:28 Assessment and Plan (1) Chest pain Current Visit: Yes Status: Acute C/o atypical chest pain but states it is the same angina he had in the past when stent was needed. H/o CABG and prior PCI. Troponin negative. EKG with concerning ischemic changes. Prior cardiac work up: [facility] 05/19/17- completed for abnormal stress test. No intervention needed. LHC demonstrated 15% stenosis in the LMCA. 100% stenosis in the Mid LAD. 15% stenosis in the Proximal Circumflex. 100% stenosis in the Mid RCA. Grafts-The saphenous vein graft to the Right PDA is patent. The left internal mammary graft to the Mid LAD is patent. 2/2 patent bypass grafts. Last TTE 04/26/17-LVEF 60%. Normal left ventricular size and systolic function. Normal right ventricular size and function. Mild aortic regurgitation. Mild mitral regurgitation. Mild tricuspid regurgitation.No pulmonary hypertension. Reports normal stress test in past year with his bucket wash operator. TTE this admission LVEF 55-60%. Normal LV chamber size, wall thickness and function. Mild left ventricular diastolic dysfunction. Atypical septal motion consistent with post-operative status. Normal right ventricular structure and function. Mild aortic regurgitation. Noted multiple hospital admits for chest pain this year. States he doesn't always take his medications. Medication compliance discussed. Persistent chest pain despite medical management. Possible C later this afternoon for further evaluation. Qualifiers: Chest pain type: unspecified Qualified Code(s): R07.9 - Chest pain, unspecified (2) CAD (coronary artery disease) Current Visit: No Status: Chronic H/o CABg and prior PCI. Continue asa, plavix, statin, imdur, and bb. Medication compliance stressed. Qualifiers: Coronary Disease-Associated Artery/Lesion type: [place] artery [place] vs. transplanted heart: [place] heart Associated angina: without angina Qualified Code(s): I25.10 - Atherosclerotic heart disease of [place] coronary artery without angina pectoris Discussion w patient/family: The assessment and plan as outlined above was discussed with the patient and/or family members who expressed understanding and agreement. All questions were answered. Thank you for involving us in the care of your patient. Please call with any questions. History of Present Illness Consult date: 05/20/18 Requesting physician: Mk Dale Consult reason: Chets pain Chief complaint: Chest pain History of present illness: Mr. Melchor is a 62 year old male with past medical history of CAD s/p CABG and prior PCI, CVA, HTN, HLD who presents with c/o midsternal chest pain radiating to his neck. His pain started yesterday afternoon and is constant. The pain occurred at rest and increased with activity. He took 6 SL NTG with minimal relief. He was also given 3 SL NTG here and started on NTG gtt with minimal relief. HE also c/o SOB with exertion for one week. C/o nausea and diaphoresis last night. Initial work-up includes EKG that shows NSR. Troponin negative x3. He states that he see's a bucket wash operator in [facility] and was given diuretic for fluid overload three weeks ago. His BLE edema resolved with diuretic. States he had a stress test completed by his bucket wash operator in the past year. Past Med Surg Social Fam HX - Past Medical History Medical history: arthritis, cardiomyopathy, CHF, coronary artery disease, CVA, GERD, hyperlipidemia, hypertension, myocardial infarction, osteoporosis, peripheral artery disease, syncope, TIA, other Additional medical history: pericarditis, pancreatitis Psychiatric history: anxiety - Past Surgical History Surgical History: angioplasty/stent, cholecystectomy, coronary bypass (CABG), orthopedic, other, other Additional surgical history: left knee surgery, grinding of the bone. Back surgery x 10, pins and screws, wires and stimulators placed, cardiac stents x 5 - Social History Smoking Status: Never smoker Smokeless Tobacco Status: Yes Alcohol use: none Drug use: none - Family History Brother Family Member Ethnicity: Non- Living Status: Hx Family Cancer: Yes (Stomach) Son Family Member Ethnicity: Non- Living Status: Still Living Hx Family Cardiac Disorders: Yes Mother Adopted: No Family Member Ethnicity: Non- Living Status: Still Living Hx Family Cardiac Disorders: Yes (CAD) Hx Family Respiratory Disorders: No Hx Family Cancer: Yes (Cervical) Hx Family GI Disorders: No Hx Family Endocrine Disorder: Yes (DM) Hx Family Neuromuscular Disorders: No Hx Family Neurologic Disorders: No Hx Family HEENT Disorders: No Hx Family Autoimmune Disorders: No Father Family Member Ethnicity: Non- Living Status: Hx Family Cardiac Disorders: Yes ([place], CAD) Hx Family Respiratory Disorders: Yes (COPD) Hx Family Cancer: No Hx Family GI Disorders: No Hx Family Endocrine Disorder: No Hx Family Neuromuscular Disorders: No Hx Family Neurologic Disorders: No Hx Family HEENT Disorders: No Hx Family Autoimmune Disorders: No Medications and Allergies Clopidogrel [Plavix] 75 mg PO DAILY 08/23/17 [History] Metoprolol XL (24 HR) Succ [Toprol Xl] 25 mg PO DAILY 08/23/17 [History] Atorvastatin [Lipitor] 40 mg PO HS 09/09/17 [History] Furosemide [Lasix] 80 mg PO DAILY 09/09/17 [History] Methocarbamol [Robaxin-750] 750 mg PO TID PRN 10/20/17 [History] Aspirin 325 mg PO DAILY 11/20/17 [History] Isosorbide MONOnitrate [Isosorbide Mononitrate] 20 mg PO DAILY 11/20/17 [History ] Quetiapine Fumarate [Seroquel] 25 mg PO HS 11/20/17 [History] clonazePAM [Klonopin] 0.5 mg PO DAILY PRN 11/20/17 [History] 3 Allergy/AdvReac Type Severity Reaction Status Date / Time simvastatin [From Zocor] Allergy Rash Verified 05/19/18 17:12 Zolpidem [From Ambien] Allergy Confusion Verified 05/19/18 17:12 ondansetron AdvReac Shakiness Verified 05/19/18 17:12 [From Zofran (as hydrochloride)] All Systems Review: The remainder of the systems were reviewed and are negative Physical Examination Vital Signs, Last 4 Hours Temp Pulse Resp BP Pulse Ox 05/20/18 11:08 97.8 F 76 16 116/77 97 05/20/18 07:58 97.6 F 60 17 126/87 97 Results 05/20/18 03:15 05/20/18 03:15 Lab Results 05/19/18 05/19/18 05/19/18 17:43 17:43 20:23 WBC 4.6 Hgb 13.7 Hct 39.8 Plt Count 169 INR 1.1 D-Dimer Sodium Potassium Chloride Carbon Dioxide BUN Creatinine Glucose Calcium Troponin I < 0.03 05/20/18 05/20/18 05/20/18 03:15 03:15 08:22 WBC 4.9 Hgb 13.5 Hct 39.2 Plt Count 154 INR D-Dimer 262 Sodium 141 Potassium 3.7 Chloride 109 H Carbon Dioxide 22 L BUN 14 Creatinine 0.77 Glucose 99 Calcium 9.1 Troponin I < 0.03 Consult Discharge Plan - Plan Referrals: Toya Arvizu, ADJUNCT SPANISH INSTRUCTOR [Primary Care Provider] - <Anthony Andrews - Last Filed: 05/20/18 12:14> Date of Encounter: 05/20/18 - Attending Attestation Patient was seen and evaluated independently by me. Findings, assessment and plan were discussed at length with patient, questions answered. Agree with nurse practitioner's documentation. Addition as follows, 62 yo CM ho CABG/PCI last LHC 2016 for abn stress test: patent L-L, SVG-RPDA, LCx mild; CVA HTN, HLD. P/w acute onset of cp, diaphoresis, N/V. Still has cp on NTG and heprin drip with BP ctr. ECG NSR w/o ischemic changes. Neg trop. Cr 0.8, no bleeding, no surgery scheduled. TTE EF 55-60% VSS, no JVD, CTA, RRR, NT, no LE edema A: unstable angina, high risk, no contraindication for LHC or PCI CABG, 2016 patent L-L, V-RPDA, LCx mild normal EF Ho CVA P: LHC, NPO c/w ASA, plavix home meds c/w heparin and NTG drip Anthony Andrews MD, PhD Assessment and Plan Discussion w patient/family: The assessment and plan as outlined above was discussed with the patient and/or family members who expressed understanding and agreement. All questions were answered. Thank you for involving us in the care of your patient. Please call with any questions. History of Present Illness History of present illness: Mr. Melchor is a 62 year old male All Systems Review: The remainder of the systems were reviewed and are negative Physical Examination Vital Signs, Last 4 Hours Temp Pulse Resp BP Pulse Ox 05/20/18 11:08 97.8 F 76 16 116/77 97 Results 05/20/18 03:15 05/20/18 03:15 Lab Results 05/19/18 05/19/18 05/19/18 17:43 17:43 20:23 WBC 4.6 Hgb 13.7 Hct 39.8 Plt Count 169 INR 1.1 D-Dimer Sodium Potassium Chloride Carbon Dioxide BUN Creatinine Glucose Calcium Troponin I < 0.03 05/20/18 05/20/18 05/20/18 03:15 03:15 08:22 WBC 4.9 Hgb 13.5 Hct 39.2 Plt Count 154 INR D-Dimer 262 Sodium 141 Potassium 3.7 Chloride 109 H Carbon Dioxide 22 L BUN 14 Creatinine 0.77 Glucose 99 Calcium 9.1 Troponin I < 0.03
[2018-05-20] MEDS: Furosemide 40 MG TABLET PO SCH (11:39)
[2018-05-20] MEDS ORDERED: ISOVUE-370 200 ML INFUS..BTL IV ONE (13:12)
[2018-05-20] MEDS ORDERED: Verapamil 5 MG/2 ML VIAL ONE (13:12)
[2018-05-20] MEDS ORDERED: 0.9 % Sodium Chloride 1,000 ML ONE ×2 (13:12→13:18)
[2018-05-20] MEDS ORDERED: Heparin 1,000 UNITS/500 mL 500 ML ONE (13:12)
[2018-05-20] MEDS ORDERED: Nitroglycerin 1,000 MCG/10 ML VIAL IV ONE (13:12)
[2018-05-20] MEDS ORDERED: *HR* Heparin 10,000 UNIT/10 ML VIAL ONE (13:12)
[2018-05-20] MEDS ORDERED: *HR* FentaNYL (PF) 100 MCG/2 ML VIAL ONE (13:52)
[2018-05-20] MEDS ORDERED: *HR* Midazolam HCl 2 MG/2 ML VIAL ONE ×3 (13:53→14:11)
--- NOTE | 2018-05-20 13:55 | Pre-Sedation Evaluation ---
Pre-sedation evaluation - Pre-sedation checklist Date of procedure: 05/20/18 Procedure: [facility] Recent Vitals: Last Vital Signs Temp 97.8 F 05/20/18 11:08 Pulse 76 05/20/18 11:08 Resp 16 05/20/18 11:08 BP 116/77 05/20/18 11:08 Pulse Ox 97 05/20/18 11:08 H&P (including ROS) documented in medical record: Yes Previous reaction to sedatives/anesthetics: No Dietary Status: NPO after Midnight Airway Assessment: Patient can open mouth completely, TMJ function normal ASA Classification *see protocol: CLASS II-Mild systemic disease Plan of Care: Pt appropriate candidate for procedure/moderate/conscious sedation , Risks/benefits of procedure/sedation discussed w/ patient/family Cardiac Registry (Cardio Only) - Functional Capacity Functional Capacity: >=4 METS with symptoms - Clincal Frailty Scale Clinical Frailty Scale: Managing Well
--- NOTE | 2018-05-20 15:07 | Invasive Diagnostic Lab Proc ---
Name: Eber Melchor Date of Study: 05/20/2018 Date: 1955 Ht: 72.0in Medical Record#: [id number] Age: 62 Wt: 224.87lb Gender: Male BSA: 2.24 Order #: [id number] BMI: 30.46 Physicians Procedure Physician: Roland Toscano MD, [facility] Referring MD: Referring MD: Staff Name Position Time In Sites, Danielle RT (R) Monitor 01:44 PM Danielle España RT (R) Scrub 01:44 PM Indications Indication Unstable Angina Procedures Performed Procedure L HRT ART/GRFT ANGIO Pre-Procedure Checklist Informed consent is complete signed and on chart. H&P is on chart. ID band is on and ID verified with patient. Patient NPO for procedure The procedure was described for the patient and questions were answered. Blood Pressure: 100/66 ECG is on chart. Rhythm: NSR Plan of Care Patient will tolerate the procedure without complications. Adequate level of comfort will be maintained. Hemodynamics will remain stable Patient will recover from procedure without complications. Respiratory function will be maintained. Cardiac rhythm will remain stable. Patient temperature will be maintained. Patient and/or family have verbalized understanding of the procedure. Patient Education Chief Complaint/Reason for Test: Cardiac Cath Developmental Category: Adult (18-64 years) Developmentally Appropriate for Age: Yes Learning Barriers: None Education Needs: Procedure Education Method: Verbal Information Taught: Cardiac Cath Educational Evaluation: Able to repeat information Intravenous Access Time IV Size Location DC'd Fluid/Drip Rate Units RN 22g 1" Patent On Arrival Lt Arm 0.9NaCl 50 ml/hr Michelle Trevino RN Allergies simvastatin Zolpidem ondansetron Vital Signs Time BP (mmHg) HR (bpm) O2 Sat. RR (bpm) LOC 01:46 PM / % 5 = Fully awake and oriented or at pre-proc level 01:52 PM 104 / 75 59 97 % 15 01:57 PM 101 / 69 59 97 % 13 02:02 PM 100 / 66 60 97 % 16 02:07 PM 110 / 70 61 97 % 25 02:12 PM 94 / 63 62 97 % 23 02:17 PM 99 / 65 61 96 % 12 02:22 PM 85 / 59 60 94 % 19 02:27 PM 95 / 54 61 96 % 15 02:32 PM 94 / 58 68 96 % 17 02:37 PM 94 / 55 62 96 % 23 02:42 PM 90 / 58 58 95 % 16 02:47 PM 99 / 61 61 99 % 15 Procedural Medications Time Medication Dose Units Method Given By 01:45 PM Oxygen 2 L/min nasal cannula Michelle Trevino RN 01:58 PM Versed 2 mg Intravenous Michelle Trevino RN 01:58 PM Fentanyl 50 mcg Intravenous Michelle Trevino RN 02:08 PM Versed 2 mg Intravenous Michelle Trevino RN 02:08 PM Fentanyl 25 mcg Intravenous Michelle Tervino RN 02:09 PM Lidocaine 2% 20 ml Subcutaneous Roland Toscano MD, [facility] 02:12 PM Versed 2 mg Intravenous Michelle Trevino RN ASA Classification: CLASS II- Mild systemic disease (i.e. well-controlled diabetes, hypertension, asthma, cigarette smoking) Janna Score Preprocedure Postprocedure Activity 2- Moves 4 extremities sustained head lift Activity 2- Moves 4 extremities sustained head lift Circulation 2- SBP +/= 20 points of pre-anesthetic level Circulation 2- SBP +/= 20 points of pre-anesthetic level Consciousness 2- Awake and alert oriented x 3 Consciousness 2- Awake and alert oriented x 3 O2 Saturation 2- Able to maintain O2 satruation of 92% on room air O2 Saturation 2- Able to maintain O2 satruation of 92% on room air Respiratory 2- Able to deep breathe and cough well Respiratory 2- Able to deep breathe and cough well Total Score 10 Total Score 10 Contrast Agent: Isovue Diagnostic Contrast: 75 ml Total Contrast: 75 ml Fluoro Dose: 4312 mGy Procedure Log Time Note Enter By 01:27 PM CathStat 01:44 PM Pt arrived to laboratory coordinator 2 at 13:44 mm 01:44 PM Danielle Fraser RT (R) Position: Monitor Time in: 13:44 tsmm 01:45 PM Danielle España RT (R) Position: Scrub Time in: 13:44 mm 01:45 PM Patient charges- Angio tray pack, Navilyst 3mm J, Pulse Oximetry and ACIST tubing and transducer tsmm 01:45 PM Case Delayed No [email or web address] 01:45 PM Physician arrived 13:45 tsmm 01:45 PM Meet and greet completed mm 01:45 PM Sign in performed according to hospital policy. Informed consent was obtained. [facility] :45 PM Procedure start 13:45 [facility] :45 PM Time: 13:45 Oxygen on at 2 L/min per nasal cannula by Michelle Trevino RN [facility] PM Time: 13:46 Patient comfortable and pain free: Yes [facility] : PM Time: 13:46LOC: 5 = Fully awake and oriented or at pre-proc level [facility] :46 PM Clinical Presentation: Unstable angina [facility] :47 PM Hair removed from procedure site in holding area using clippers. Bilateral groin prepped with Chloraprep by Danielle Fraser), then patient was draped. Skin intact. tsites 01:51 PM Vitals capture started with the following parameters, Patient=Adult, Interval=5 min, Initial [place]=497 mmHg, Deflation Rate=5 mmHg, Cuff placed on Right Arm 01:52 PM HR=59 bpm, MUOG=347/75 mmhg, SpO2=97 %, Resp=15 B/min 01:55 PM Recorded ECG: HR=61 Condition=Condition 1 01:57 PM HR=59 bpm, QYLF=571/69 mmhg, SpO2=97.0 %, Resp=13 B/min 01:58 PM Time: 13:58 Versed 2 mg Intravenous Given by Michelle Trevino RN 01:58 PM Time: 13:58 Fentanyl 50 mcg Intravenous Given by Michelle Trevino RN tsites 02:02 PM HR=60 bpm, WODG=721/66 mmhg, SpO2=97.0 %, Resp=16 B/min 02:07 PM HR=61 bpm, SVPO=477/70 mmhg, SpO2=97.0 %, Resp=25 B/min 02:08 PM Time out was performed according to hospital policy. Conscious sedation and anesthesia was achieved (see medication log with in this report above) tsites 02:08 PM Time: 14:08 Versed 2 mg Intravenous Given by Michelle Trevino RN ites 02:08 PM Time: 14:08 Fentanyl 25 mcg Intravenous Given by Michelle Trevino RN tsites 02:09 PM Time: 14:09 20 ml Lidocaine 2% to right groin Subcutaneous Given by Roland Toscano MD, [facility] tsites 02:11 PM Access obtained by percutaneous puncture. 5Fr 10cm Terumo [place] sheath placed in right Femoral artery. [id number] tsites 02:11 PM 5Fr FR 4 catheter inserted over the wire [facility] tsites 02:11 PM 0.035 145cm Navilyst 3mmJ wire [id number] tsites 02:12 PM Recorded Pressure: Ao, HR=59, Condition=Condition 1 (Aorta) Ao 193/61/93 02:12 PM HR=62 bpm, NIBP=94/63 mmhg, SpO2=97 %, Resp=23 B/min 02:12 PM Time: 14:12 Versed 2 mg Intravenous Given by Michelle Trevino RN tsites 02:12 PM RCA angiography performed in multiple views. tsites 02:13 PM SVG to the RPDA angio performed in multiple views. tsites 02:13 PM Catheter removed tsites 02:14 PM 5Fr IM catheter inserted over the wire [id number] tsites 02:15 PM Lesion found in Mid RCA. Pre Stenosis: 100 Pre JOHN Flow: tsites 02:15 PM 0.035 150cm VSI Neeraj-Torque wire [id number] tsites 02:17 PM 0.035 260cm Navilyst 3mmJ wire [id number] tsites 02:17 PM HR=61 bpm, NIBP=99/65 mmhg, SpO2=96 %, Resp=12 B/min 02:18 PM Left LOU to the LAD angio performed in multiple views. tsites 02:18 PM Recorded Pressure: Ao, HR=62, Condition=Condition 1 (Aorta) Ao 154/41/92 02:20 PM 5Fr FL 4 catheter inserted over the wire [facility] tsites 02:21 PM LCA angiography performed in multiple views. tsites 02:21 PM Coronary Dominance: Co-dominant tsites 02:22 PM Recorded Pressure: Ao, HR=58, Condition=Condition 1 (Aorta) Ao 82/17/44 02:22 PM HR=60 bpm, NIBP=85/59 mmhg, SpO2=94.0 %, Resp=19 B/min 02:22 PM Lesion found in Proximal Circumflex. Pre Stenosis: 40 Pre JOHN Flow: tsites 02:23 PM Lesion found in Mid LAD. Pre Stenosis: 100 Pre JOHN Flow: tsites 02:23 PM Pressure channel 1 zeroed. 02:24 PM 5Fr Pigtail catheter inserted over the wire [facility] tsites 02:24 PM Catheter crossed the aortic valve and was selectively placed in the left ventricle. Pressures recorded on pullback for left heart catheterization. tsites 02:24 PM Bolus angiogram of left Ventricle complete: 10 ml/sec for a total of 30 mls tsites 02:24 PM Recorded Pressure: LV, HR=65, Condition=Condition 1 (Left Ventricle) LV 87/-7/1 02:25 PM Recorded Pressure: LV, Ao, HR=66, Condition=Condition 1 (Left Ventricle) LV 88/-9/1, (Aorta) Ao 83/47/62 02:25 PM Bolus angiogram of right Femoral complete: 2 ml/sec for a total of 4 mls tsites 02:27 PM HR=61 bpm, NIBP=95/54 mmhg, SpO2=96 %, Resp=15 B/min 02:30 PM Mid/Distal Left Anterior Descending Coronary Artery and diagonal branches with 100% stenosis. If graft is supplying this area, 0 % stenosis tsites 02:30 PM Circumflex, Obtuse Marginal, Left Posterior Descending, and Left Posterolateral Coronary Arteries with 40 % stenosis. If graft is supplying this area, 0 % stenosis tsites 02:30 PM Right Coronary, Right Posterior Descending Arteries with Right Posterolateral and Acute Marginal branches with 100 % stenosis. If graft is supplying this area, 0 % stenosis tsites 02:31 PM Procedure completed at 14:31 05/20/2018 tsites 02:32 PM HR=68 bpm, NIBP=94/58 mmhg, SpO2=96 %, Resp=17 B/min 02:32 PM Sign out completed: Radiation Dose 407 mGy, 4312 cGy/cm2 Fluoro Time: 4.6 Isovue 370 - 200ml contrast 75 ml given by Roland Toscano MD, [facility]. Complications: None. 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 Cardiac Rehab Consult needed: NoConfirmed administered medications: Yes tsites 02:32 PM Isovue 370 - 200ml,1 Bottle(s) used. tsites 02:32 PM Estimated Blood Loss: minimal tsites 02:37 PM HR=62 bpm, NIBP=94/55 mmhg, SpO2=96 %, Resp=23 B/min 02:42 PM HR=58 bpm, NIBP=90/58 mmhg, SpO2=95 %, Resp=16 B/min 02:45 PM Arterial sheath pulled using manual compression and V+ Pad for 15 minutes by Danielle España RT (R) tsites 02:46 PM Estimated Blood Loss: minimal tsites 02:47 PM Post ECG NSR tsites 02:47 PM HR=61 bpm, NIBP=99/61 mmhg, SpO2=99.0 %, Resp=15 B/min 02:47 PM Post Blood Pressure 99/61 tsites 02:48 PM 14:47 Post Pulses Bilateral DP & PT 1+ tsites 02:48 PM Information taught Cardiac Cath and V+ Pad tsites 02:48 PM Education needs Procedure, Plan of Care, and Responsibilities of Patient in Care tsites 02:48 PM Learning barriers :None tsites 02:48 PM Education Methods Verbal tsites 02:48 PM Education evaluation Able to repeat information tsites 02:56 PM Site status No bleeding/hematoma - Rt Groin as reported by Danielle España RT (R) at 14:56 tsites 02:56 PM Opsite applied tsites 02:58 PM Report given to kenney VAZQUEZ Pt taken to 2NE Room #30. 14:56 tsites 02:58 PM Delay to floor No tsites 02:58 PM Patient out of room: 14:58 tsites 02:58 PM Family placed in consult room. tsites Complications Complication None Hemodynamics Pressures Site Systolic/A Wave Diastolic/V Wave Mean AO 193 61 93 AO 154 41 92 AO 82 17 44 LV 87 -7 1 LV 88 -9 1 AO 83 47 62 Post Procedure Information Blood Pressure: 99/61 mmHg Rhythm: NSR Post procedural instructions were given Site Checks Time Location Status Staff Sheath In? Note 02:56 PM Rt Groin No bleeding/hematoma Danielle España RT (R) Pulses Time Site Pre-Procedure Post-Procedure Note Bilateral DP & PT 1+ 2:47:00 PM Bilateral DP & PT 1+ Updated by Danielle Fraser RT (R) on 05/20/2018 3:01:26 PM RT Ton electronically signed on 05/20/2018 3:02:34 PM with status of Final
[2018-05-20] MEDS ORDERED: *HR* LORazepam 2 MG/ML VIAL ONE (15:14)
--- NOTE | 2018-05-20 15:39 | Event Note ---
Date of Encounter: 05/20/18 Time of Encounter: 15:36 - Cardiology Event Note [facility] completed. No flow limiting lesions requiring intervention. Patient noted to have panic attack directly after procedure that was accompanied by tremors. Ativan was given. No further cardiac testing. Increase imdur. Out-pt cardiology follow up will be scheduled. Cardiology will sign off. Call with questions.
[2018-05-20] MEDS ORDERED: Isosorbide MONOnitrate (24 HR) 30 MG TAB.ER.24H PO ONE (15:40)
[2018-05-20] MEDS: *HR* Heparin 5,000 UNIT/ML VIAL SQ SCH (20:25)
[2018-05-20 23:44] VITALS: BP 102/63
[2018-05-21] MEDS: *HR* Morphine 2 MG/ML SYRINGE IVP PRN ×3 (00:34→12:20)
[2018-05-21] MEDS: *HR* Heparin 5,000 UNIT/ML VIAL SQ SCH ×2 (05:52→13:47)
[2018-05-21] MEDS: Furosemide 40 MG TABLET PO SCH (08:45)
[2018-05-21] MEDS: Metoprolol XL (24 HR) Succ 25 MG TAB.ER.24H PO SCH (08:45)
[2018-05-21] MEDS ORDERED: Aspirin 325 MG TABLET PO SCH (09:00)
[2018-05-21] MEDS ORDERED: Isosorbide MONOnitrate (24 HR) 30 MG TAB.ER.24H PO SCH (09:00)
[2018-05-21 11:47] LABS: BUN/Creatinine Ratio 20 (6-26); Blood Urea Nitrogen 22 mg/dL (8-23); Calcium 8.5 mg/dL (8.6-10.3); Carbon Dioxide 22 mEq/L (23-29); Chloride 108 mEq/L (98-107); Glucose 101 mg/dL (70-105); Osmolality,Calculated 287 (280-300); Potassium 3.9 mEq/L (3.5-5.1); Sodium 137 mEq/L (136-145); eGFR For Non-African Americans > 60 (> 60)
--- NOTE | 2018-05-21 15:21 | Discharge Summary ---
- NOTES TO OUTPATIENT PROVIDER Notes to Outpatient Provider: - Cardiology follow-up will be scheduled per Cardiology. Orders not resulted at time of discharge: Pending orders 05/20/18 13:09 CL Cardiac Catheterization [CL] Routine 05/22/18 04:00 BMP [Basic Metabolic Panel] AM 0400 Date of Encounter: 05/21/18 Time of Encounter: 15:16 - Discharge Diagnosis (1) Chest pain Priority: Primary Status: Acute Qualifiers: Chest pain type: unspecified Qualified Code(s): R07.9 - Chest pain, unspecified (2) HLD (hyperlipidemia) Priority: Secondary Status: Chronic Qualifiers: Hyperlipidemia type: unspecified Qualified Code(s): E78.5 - Hyperlipidemia, unspecified (3) Hypertension Priority: Secondary Status: Chronic Qualifiers: Hypertension type: essential hypertension Qualified Code(s): I10 - Essential (primary) hypertension (4) DVT prophylaxis Priority: Secondary Status: Acute Hospital course: Mr. Melchor is a 62 year old male with past medical history significant for CAD with CABG in 2004, 5 cardiac stents, CHF, angina, hypertension, hyperlipidemia, CVA with left sided deficits, TIA, GERD, and osteoporosis who presents for 8/10 pressure like left sided chest pain radiating to the left side of his neck. States pain started intermittently a few days ago and was completely resolved with home nitro. Pain became constant today and unrelievable with nitro. Pain was associated with shortness of breath, nausea, vomiting, and diaphoresis. No headache or abdominal pain. No exacerbating factors. Took 6 nitro at home which improved pain slightly. Received aspirin, nitro x3, and phenergan in ER which has improved symptoms slightly. Currently has pain at 6/10 and no other associated symptoms. Has history of angina but states pain is always easily relieved with nitro. ER reported initial EKG with no changes from previous, repeat EKG reported with minimal ST elevation in anterior leads less than 0.1 mV. Follows with cardiology at [facility] with last follow up 1-2 months ago. 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 Patient was admitted for observation. Cardiology was consulted. He was placed on heparin and nitro drip per recommendations. Troponin negative x3. LHC done on 05/20/18 and there was no flow limiting lesions requiring intervention. He did have anxiety afterwords, otherwise no complications. Imdur was increased to 60 mg daily. Outpatient follow-up being established per Cardiology. Patient discharged in stable condition. - Time Spent with Patient Total time spent providing and/or coordinating discharge services: - Discharge Medications Home Medications: Clopidogrel [Plavix] 75 mg PO DAILY 08/23/17 [History] Metoprolol XL (24 HR) Succ [Toprol Xl] 25 mg PO DAILY 08/23/17 [History] Atorvastatin [Lipitor] 40 mg PO HS 09/09/17 [History] Furosemide [Lasix] 80 mg PO DAILY 09/09/17 [History] Methocarbamol [Robaxin-750] 750 mg PO TID PRN 10/20/17 [History] Aspirin 325 mg PO DAILY 11/20/17 [History] Quetiapine Fumarate [Seroquel] 25 mg PO HS 11/20/17 [History] clonazePAM [Klonopin] 0.5 mg PO DAILY PRN 11/20/17 [History] Allergies/Adverse Reactions: Allergy/AdvReac Type Severity Reaction Status Date / Time simvastatin [From Zocor] Allergy Rash Verified 05/19/18 17:12 Zolpidem [From Ambien] Allergy Confusion Verified 05/19/18 17:12 ondansetron AdvReac Shakiness Verified 05/19/18 17:12 [From Zofran (as hydrochloride)] Date of admission: 05/19/18 16:17 Primary care physician: Toya Arvizu CNP Consults: 05/19/18 17:09 Consult to Cardiology [CONS] Routine Comment: Consulting Provider: Cardiology Karissa Reason for Consult: Patient with 6/10 chest pain after Nitro x6 dose at home and Nitro x3 dose in ER. Follows with [facility]iology at [facility] but would like to get established with [facility]. Call Completed: Yes Discharging clinician: Jeffry Olivier - Constitutional Vitals: Temp Pulse Resp BP Pulse Ox 98.3 F 75 15 102/63 94 05/20/18 23:43 05/20/18 23:43 05/20/18 23:43 05/20/18 23:43 05/20/18 23:43 Exam: General: Alert and oriented. Skin:Normal color, no rash, no lesions. Cardiovascular:Normal S1 & S2, no rubs, murmurs or gallops. No JVD. Pulse regular. Lungs:CTAB Abdomen:Soft, NT/ND Extremities:No deformity, no edema or tenderness, no joint swelling or clubbing. Neurological:Chronic left sided weakness status post CVA. Pulses: Carotid and radial pulses normal +2. - Patient Status Disposition: Home, Self-Care Condition: Good Functional capacity at discharge: independent ambulation Overall status at discharge: patient is back to baseline - Discharge Instructions Instructions: Chest Pain (DC) Follow Up With: Roland Toscano MD [Partnered Physician] - (His office will call you with appt date & time) Toya Arvizu CNP [Primary Care Provider] - 05/28/18 1:30 pm Additional Instructions: RISK FACTORS: STOP SMOKING: If you smoke, STOP. Smoking or tobacco use significantly increases your risk of heart disease because nicotine causes the arteries to narrow or constrict. It also causes fats to stick to the artery. Your chances of having a heart attack are greatly increased if you continue to smoke. For more information, call the education line for smoking cessation 6-102-[id number] EAT A LOW FAT/CHOLESTEROL/SODIUM DIET: This diet may help reduce your chances of having a heart attack. LIFTING: Avoid lifting anything more than 10 pounds for 5-7 days Prior to straining, laughing, sneezing and/or coughing, apply manual pressure directly over insertion site. ACTIVITY: You may walk or climb stairs as tolerated You can resume sexual activity as tolerated In general, you are encouraged to engage in a minimum of 30 minutes or more of moderate intensity physical activity, such as brisk walking, daily or at least 3-4 times weekly BATHING Do not submerge the site into water (bath tub, hot tub, swimming pool) for 1 week. This can be a source for infection into the blood stream. You may shower after 24 hours SITE CARE: After 24 hours, you may remove the dressing and leave the site open to air. Keep the site clean and dry. Clean gently and pat dry. You can expect bruising and tenderness that gradually resolve within a week or two. Return to work as instructed per your physician- usually one week after procedure Resume driving as instructed per physician- 3 days after procedure. Keep all scheduled follow up appointments Resume medications as instructed IMPORTANT: If prescribed a Platelet Aggregation Inhibitor such as, Plavix, Brilinta or Effient: Duration of therapy is minimum one year These medications are often used in combination with Aspirin in prevention of future heart attacks Never discontinue unless consult with your General Ophthalmologist STROKE (CVA) Risk factors for a stroke are: Age, cigarette smoking, diabetes, excessive alco hol consumption, family history, high blood pressure, overweight, physical inactivity, prior stroke, heart attack, diagnosis of carotid artery stenosis or other artery disease. Warning signs: Sudden numbness or weakness of the face, arm or leg; especially on one side of the body, sudden confusion, trouble speaking or understanding, sudden trouble seeing in one or both eyes, sudden trouble walking, dizziness, loss of balance or coordination, sudden severe headache with no cause. Call 911 or go to the Emergency Room. CONGESTIVE HEART FAILURE: If you have been diagnosed with Congestive Heart Failure (CHF) and your symptoms return, make an appointment with your physician Weigh yourself daily. Notify your physician if you have a weight gain of two or more pounds in one day or five or more pounds in one week. If you experience any difficulty breathing, please call 911 BLEEDING: Although the risk of bleeding is minimal, it can happen. If you have any bleeding from the site, apply firm pressure above the puncture site for 10-15 minutes. If the bleeding does not stop, continue manual pressure and call 911 Contact your physician if: You develop a fever greater than 101 degrees Fahrenheit Your site becomes reddened or has any drainage You have an increase in pain or burning at the site or if a large knot forms at the site. If you experience chest pain, shortness of breath, dizziness, or extreme tiredness, stop the activity and rest. Please notify your physicians office if you experience any of these symptoms and they are not relieved by rest please call 911! - Diet and Activity Activity: increase activity as tolerated Diet: low fat, low cholesterol, low salt diet
[2018-05-21] MEDS ORDERED: Isosorbide MONOnitrate (24 HR) 30 MG TAB.ER.24H PO ONE (15:47)
[2018-05-21] MEDS ORDERED: Metoprolol XL (24 HR) Succ 25 MG TAB.ER.24H PO ONE (15:47)
[2018-05-21] MEDS ORDERED: Furosemide 40 MG TABLET PO ONE (15:47)
[2018-05-21] MEDS ORDERED: clonazePAM 0.5 MG TABLET PO ONE (15:47)
[2018-05-21] MEDS ORDERED: *HR* Morphine 2 MG/ML SYRINGE IV ONE ×2 (15:47)
[2018-05-21] MEDS ORDERED: *HR* Heparin 5,000 UNIT/ML VIAL IVP ONE (15:47)
[2018-05-21] MEDS ORDERED: Aspirin 325 MG TABLET PO ONE (15:47)
--- NOTE | 2018-05-21 16:07 | Electrocardiograph Report ---
[place] [id number] Test Date: 2018-05-19 Pat Name: Eber Melchor Department: EXAM19 Room: 2NE24 Gender: M Bursar: : 1955 Requested By: Kaylin Luis Order Number: [id number] Reading MD: Kriss Lopes Measurements Intervals Trilla Rate: 66 P: 56 MO: 143 QRS: 51 QRSD: 102 T: 40 QT: 413 QTc: 433 Interpretive Statements Sinus rhythm Probable left atrial enlargement Possible old inferior CT Electronically Signed On 05-21-2018 16:05:27 EDT by Kriss Lopes
--- NOTE | 2018-05-21 16:08 | Electrocardiograph Report ---
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
== END 2018-05-21 15:48 | disposition home or self-care (01) ==
LOC: 3BNU 13:53 → EMEROOARM 13:53 → 3BNU 16:50 → 2NENU 18:58
PROVIDERS: ADMIT Internal Medicine; ATTEND Internal Medicine

== ENCOUNTER 2018-06-16 11:51 | Observation (INO) ==
[2018-06-16] MEDS ORDERED: Aspirin 81 MG TAB.CHEW PO ONE (12:40)
--- NOTE | 2018-06-16 12:51 | Emergency Department Note ---
Disposition Clinical Impression: Chest pain, rule out acute myocardial infarction Disposition: Admitted As Inpatient Condition: Good Instructions: Chest Pain (ED) Referrals: Toya Arvizu, FLOOR SCRUBBER [Primary Care Provider] - Forms: ED Satisfaction Letter Time of Disposition: 16:00 General Adult HPI - General Chief complaint: ED Chest Pain Stated complaint: chest pain, S/P heart cath 3wks Time Seen by Provider: 06/16/18 12:27 Source: patient Mode of arrival: ambulatory Limitations: no limitations - History of Present Illness HPI Narrative: This is a 62-year-old male who comes to emergency department reporting sharp right-sided chest pain under his right breast with radiation into his right scapula that began 16 hours prior to arrival. He states that the pain is worse with deep breaths or cough, states this morning he had one episode of vomiting. He also states that he feels short of breath, even at rest he feels like he cannot get enough air. Pain Scale: 7 - Related Data Home Medications Medication Instructions Recorded Confirmed Clopidogrel [Plavix] 75 mg PO DAILY 08/23/17 05/19/18 Metoprolol XL (24 HR) Succ [Toprol 25 mg PO DAILY 08/23/17 05/19/18 Xl] Atorvastatin [Lipitor] 40 mg PO HS 09/09/17 05/19/18 Furosemide [Lasix] 80 mg PO DAILY 09/09/17 05/19/18 Methocarbamol [Robaxin-750] 750 mg PO TID PRN 10/20/17 05/19/18 Aspirin 325 mg PO DAILY 11/20/17 05/19/18 Quetiapine Fumarate [Seroquel] 25 mg PO HS 11/20/17 05/19/18 clonazePAM [Klonopin] 0.5 mg PO DAILY PRN 11/20/17 05/19/18 Previous Rx's Medication Instructions Recorded Isosorbide MONOnitrate (24 HR) 60 mg PO DAILY #30 tab.er.24h 05/21/18 [Imdur] Allergies Allergy/AdvReac Type Severity Reaction Status Date / Time simvastatin [From Zocor] Allergy Rash Verified 06/16/18 12:03 Zolpidem [From Ambien] Allergy Confusion Verified 06/16/18 12:03 ondansetron AdvReac Shakiness Verified 06/16/18 12:03 [From Zofran (as hydrochloride)] All systems ED: reviewed and negative except as stated. Cardiovascular: Reports: chest pain, dyspnea on exertion Respiratory: Reports: dyspnea Gastrointestinal: Reports: nausea, vomiting Past Medical History - Past Medical History Medical history: Reports: arthritis, cardiomyopathy, CHF, coronary artery disease, CVA, GERD, hyperlipidemia, hypertension, myocardial infarction, osteoporosis, peripheral artery disease, syncope, TIA, other Surgical history: Reports: angioplasty/stent, cholecystectomy, coronary bypass (CABG), orthopedic, other, other Psychiatric history: Reports: anxiety - Social History Smoking Status: Never smoker Smokeless Tobacco Status: No Alcohol use: Reports: none Drug use: Reports: none Physical Exam - General Limitations: no limitations General appearance: alert, in distress (In mild distress) - Head Head exam: atraumatic, normocephalic, normal inspection - Eye Eye exam: Present: normal appearance, PERRL, EOMI - Chest Chest inspection: Present: normal inspection, symmetric chest wall rise - Respiratory Respiratory exam: Present: normal lung sounds bilaterally - Cardiovascular Cardiovascular exam: Present: regular rate, normal rhythm, normal heart sounds - Abdominal Exam Abdominal exam: Present: soft, Non-Tender. Absent: tenderness, distention, guarding, rebound, rigidity - Extremities Exam Extremities exam: Present: normal inspection, full ROM. Absent: tenderness, pedal edema - Neurological Exam Neurological exam: Present: alert, oriented X3 - Psychiatric Psychiatric exam: Present: normal affect, normal mood - Skin Skin exam: Present: warm, dry, intact, normal color Course Course Narrative: This is a 62-year-old male with chest pain with pleuritic character and shortness of breath. Vital Signs Temperature 97.6 F 06/16/18 12:02 Pulse Rate 65 06/16/18 12:02 Respiratory Rate 18 06/16/18 12:02 Blood Pressure 134/77 06/16/18 12:02 O2 Sat by Pulse Oximetry 97 06/16/18 12:02 Temperature 97.6 F 06/16/18 12:18 Pulse Rate 63 06/16/18 15:24 Respiratory Rate 14 06/16/18 15:24 Blood Pressure 117/92 06/16/18 15:24 O2 Sat by Pulse Oximetry 95 06/16/18 15:24 Oxygen Delivery Oxygen Delivery Room Air Medical Decision Making - [facility] Narrative Medical decision making narrative: This is a 62-year-old male with chest pain, 3 weeks after he had an unremarkable cardiac catheterization. His EKG is unremarkable, and his initial troponin was low. His pain was improved but not completely resolved after nitroglycerin. I discussed his case with the on-call orthopedic shoes salesperson, Dr. Duckworth, who recommended he be admitted for a troponin rule out. I discussed his case with the on-call hospitalist, who accepted him for admission - Lab Data Lab results reviewed: Yes I reviewed the patient's lab results. Lab results narrative: CBC was unremarkable BMP was unremarkable Lactic acid was normal at 1.3 Troponin was low D-dimer was low Result diagrams: 06/16/18 12:33 06/16/18 12:33 Lab Results 06/16/18 06/16/18 06/16/18 Range/Units 12:33 12:33 12:33 WBC 7.0 (4.3-11.1) K/mcL RBC 4.31 (4.19-5.50) M/mcL Hgb 14.2 (12.9-16.9) g/dL Hct 41.9 (37.5-50.1) % MCV 97.2 (83.0-100.0) fL MCH 32.9 (28.0-33.3) pg MCHC 33.9 (31.6-35.5) g/dL RDW 14.0 (11.5-14.5) % Plt Count 185 (140-400) K/mcL MPV 8.9 L (9.4-12.4) fL Immature Gran % 0.4 (0-4) % Seg Neutrophils % 82.1 % Lymphocytes % 7.9 % Monocytes % 8.9 % Eosinophils % 0.4 % Basophils % 0.3 % Neutrophils # 5.7 (1.6-8.9) K/mcL Lymphocytes # 0.6 (0.6-4.6) K/mcL Monocytes # 0.6 (0.0-1.3) K/mcL Eosinophils # 0.0 (0.0-0.6) K/mcL Basophils # 0.0 (0.0-0.2) K/mcL D-Dimer (0-500) ng/mLFEU Sodium 137 (136-145) mEq/L Potassium 4.0 (3.5-5.1) mEq/L Chloride 101 (98-107) mEq/L Carbon Dioxide 24 (23-29) mEq/L BUN 18 (8-23) mg/dL Creatinine 0.79 (0.70-1.30) mg/dL Est GFR ( Amer) > 60 (> 60) Est GFR (Non-Af Amer) > 60 (> 60) BUN/Creatinine Ratio 23 (6-26) Glucose 112 H (70-105) mg/dL Calculated Osmolality 287 (280-300) Lactic Acid 1.3 (0.5-2.2) mmol/L Calcium 9.0 (8.6-10.3) mg/dL Troponin I < 0.03 (< 0.04) ng/mL 06/16/18 Range/Units 12:43 WBC (4.3-11.1) K/mcL RBC (4.19-5.50) M/mcL Hgb (12.9-16.9) g/dL Hct (37.5-50.1) % MCV (83.0-100.0) fL MCH (28.0-33.3) pg MCHC (31.6-35.5) g/dL RDW (11.5-14.5) % Plt Count (140-400) K/mcL MPV (9.4-12.4) fL Immature Gran % (0-4) % Seg Neutrophils % % Lymphocytes % % Monocytes % % Eosinophils % % Basophils % % Neutrophils # (1.6-8.9) K/mcL Lymphocytes # (0.6-4.6) K/mcL Monocytes # (0.0-1.3) K/mcL Eosinophils # (0.0-0.6) K/mcL Basophils # (0.0-0.2) K/mcL D-Dimer 282 (0-500) ng/mLFEU Sodium (136-145) mEq/L Potassium (3.5-5.1) mEq/L Chloride (98-107) mEq/L Carbon Dioxide (23-29) mEq/L BUN (8-23) mg/dL Creatinine (0.70-1.30) mg/dL Est GFR ( Amer) (> 60) Est GFR (Non-Af Amer) (> 60) BUN/Creatinine Ratio (6-26) Glucose (70-105) mg/dL Calculated Osmolality (280-300) Lactic Acid (0.5-2.2) mmol/L Calcium (8.6-10.3) mg/dL Troponin I (< 0.04) ng/mL - Radiology Data Radiology results reviewed: Yes I reviewed the patient's radiology results. Chest x-ray showed no acute disease Critical Care Time Critical Care Time: Yes Total Critical Care Time: 20 Attestation: 20 minutes of critical care time was invested independent of separately billable procedures
[2018-06-16 12:59] LABS: Basophils % 0.3 %; Eosinophils % 0.4 %; Hematocrit 41.9 % (37.5-50.1); Hemoglobin 14.2 g/dL (12.9-16.9); Immature Granulocytes % 0.4 % (0-4); Lymphocytes # 0.6 K/mcL (0.6-4.6); Lymphocytes % 7.9 %; Mean Corpuscular HGB Conc 33.9 g/dL (31.6-35.5); Mean Corpuscular Hemoglobin 32.9 pg (28.0-33.3); Mean Corpuscular Volume 97.2 fL (83.0-100.0); Mean Platelet Volume 8.9 fL (9.4-12.4); Monocytes # 0.6 K/mcL (0.0-1.3); Monocytes % 8.9 %; Neutrophils # 5.7 K/mcL (1.6-8.9); Platelet Count 185 K/mcL (140-400); Red Blood Count 4.31 M/mcL (4.19-5.50); Segmented Neutrophils % 82.1 %
[2018-06-16 13:18] LABS: Troponin I < 0.03 ng/mL (< 0.04)
[2018-06-16 13:20] LABS: BUN/Creatinine Ratio 23 (6-26); Blood Urea Nitrogen 18 mg/dL (8-23); Carbon Dioxide 24 mEq/L (23-29); Chloride 101 mEq/L (98-107); Glucose 112 mg/dL (70-105); Osmolality,Calculated 287 (280-300); Sodium 137 mEq/L (136-145); eGFR For Non-African Americans > 60 (> 60)
[2018-06-16] MEDS: Nitroglycerin 0.4 MG TAB.SUBL SL ONE ×3 (13:25→13:38)
[2018-06-16] MEDS ORDERED: Promethazine 25 MG in 0.9 % Sodium Chloride 50 ML IVPB ONE (13:29)
[2018-06-16] MEDS ORDERED: *HR* FentaNYL (PF) 100 MCG/2 ML VIAL IVP ONE (14:33)
[2018-06-16] MEDS ORDERED: Naloxone 0.4 MG/ML INJ IVP PRN (16:07)
[2018-06-16] MEDS ORDERED: Nitroglycerin 0.4 MG TAB.SUBL SL PRN (16:10)
--- NOTE | 2018-06-16 17:51 | Internal Med History&Physical ---
Date of Encounter: 06/16/18 Time of Encounter: 17:45 Internal Medicine - H&P: HPI Chief complaint: chest pain and shortness of breath Admitted From: Home Plans for Post Hospital Care: Home History of present illness: Mr. Melchor is a 62 year old male PMH significant for CHF, chronic back pain, CAD s/p CABG in 2004 and stent placement in 2001, HTN, HLD and PAD. Patient presented to the ED due to chest pain which started last night while he was watching TV. Patient describes the pain as intermittent, retrosternal, 8/10, radiating to his right shoulder, reported that the pain is intermittent, and the time it lasted the most was about 2-3 hours for which he decided to come to the ED. Also reports that he took nitroglycerin and tylenol with minimal relief of his symptoms. Reports feeling shortness of breath associated with his chest pain, and alleviated with nitro as well. He reports that he has been having chronic back pain which radiates to his legs b/l. reports that about 4 days ago his PCP started on an steroids pack for the pain and he has been taking them for the past 4 days. Past Med Surg Social Fam HX - Past Medical History Medical history: arthritis, cardiomyopathy, CHF, coronary artery disease, CVA, GERD, hyperlipidemia, hypertension, myocardial infarction, osteoporosis, peripheral artery disease, syncope, TIA, other Additional medical history: pericarditis, pancreatitis Psychiatric history: anxiety - Past Surgical History Surgical History: angioplasty/stent, cholecystectomy, coronary bypass (CABG), orthopedic, other, other Additional surgical history: left knee surgery, grinding of the bone. Back surgery x 10, pins and screws, wires and stimulators placed, cardiac stents x 5 - Social History Smoking Status: Never smoker Smokeless Tobacco Status: No Alcohol use: none Drug use: none - Family History Brother Family Member Ethnicity: Non- Living Status: Hx Family Cancer: Yes (Stomach) Son Family Member Ethnicity: Non- Living Status: Still Living Hx Family Cardiac Disorders: Yes Mother Adopted: No Family Member Ethnicity: Non- Living Status: Still Living Hx Family Cardiac Disorders: Yes (CAD) Hx Family Respiratory Disorders: No Hx Family Cancer: Yes (Cervical) Hx Family GI Disorders: No Hx Family Endocrine Disorder: Yes (DM) Hx Family Neuromuscular Disorders: No Hx Family Neurologic Disorders: No Hx Family HEENT Disorders: No Hx Family Autoimmune Disorders: No Father Family Member Ethnicity: Non- Living Status: Hx Family Cardiac Disorders: Yes ([place], CAD) Hx Family Respiratory Disorders: Yes (COPD) Hx Family Cancer: No Hx Family GI Disorders: No Hx Family Endocrine Disorder: No Hx Family Neuromuscular Disorders: No Hx Family Neurologic Disorders: No Hx Family HEENT Disorders: No Hx Family Autoimmune Disorders: No Internal Medicine - H&P: Meds Clopidogrel [Plavix] 75 mg PO DAILY 08/23/17 [History] Atorvastatin [Lipitor] 40 mg PO HS 09/09/17 [History] Furosemide [Lasix] 40 mg PO BID 09/09/17 [History] Methocarbamol [Robaxin-750] 750 mg PO TID PRN 10/20/17 [History] Aspirin 325 mg PO DAILY 11/20/17 [History] Quetiapine Fumarate [Seroquel] 75 mg PO HS 11/20/17 [History] Isosorbide MONOnitrate (24 HR) [Imdur] 60 mg PO DAILY #30 tab.er.24h 05/21/18 [Rx] Azithromycin [Azithromycin 6-Tab Pack] 250 mg PO PER PKG DI 06/16/18 [History] Buspirone HCl [Buspar] 10 mg PO BID 06/16/18 [History] MethylPREDNISolone [MethylPREDNISolone Dose Pack] 4 mg PO AD 06/16/18 [History] Metoprolol Tartrate 25 mg PO BID 06/16/18 [History] Allergy/AdvReac Type Severity Reaction Status Date / Time simvastatin [From Zocor] Allergy Rash Verified 06/16/18 12:03 Zolpidem [From Ambien] Allergy Confusion Verified 06/16/18 12:03 ondansetron AdvReac Shakiness Verified 06/16/18 12:03 [From Zofran (as hydrochloride)] All Systems PM: A 10-system review of systems was performed and is negative for pertinent findings except as documented above in the HPI. - Constitutional Constitutional: no chills, no fever(s), no falls, no weakness - EENT Eyes: no pain - Cardiovascular Cardiovascular ROS IM: chest pain, dyspnea, no dyspnea on exertion, no irregular heart rhythm, no lightheadedness, no orthopnea, no palpitations, no paroxysmal n octurnal dyspnea - Respiratory Respiratory: no cough, no wheezing, no pain on inspiration - Gastrointestinal Gastrointestinal: nausea, vomiting, no abdominal pain - Genitourinary Genitourinary ROS male: no nocturia, no urinary frequency, no urinary hesitancy, no urinary incontinence - Musculoskeletal Musculoskeletal ROS IM: no atrophy - Integumentary Integumentary IM: no erythema - Neurological Neurological ROS: no abnormal speech, no headache(s), no lack of coordination, no tremor(s) - Psychiatric Psychiatric: no anxiety - Endocrine Endocrine IM: no fatigue - Allergic/Immunologic Allergic/Immunologic: no wheezing Additional comments: Rest of the review of system negative. - Constitutional Vitals: Temp Pulse Resp BP Pulse Ox 97.6 F 63 16 108/70 95 06/16/18 12:18 06/16/18 15:24 06/16/18 16:32 06/16/18 16:32 06/16/18 15:24 Exam: Vitals: Reviewed. General: Alert and oriented x4. In mild distress due to chest pain. Skin: Normal color, no rash, no lesions. HEENT: EOM, pupils equal, round and reactive. Cardiovascular: RRR, Normal S1 & S2, no rubs, murmurs or gallops. No JVD. Pulse regular. Lungs: Clear to auscultation bilaterally, no wheezes or crackles. Abdomen: Obese, Soft, non-tender, no rigidity. Extremities: No deformity, no edema or tenderness, no joint swelling or clubbing. Neurological: Normal cognition and motor skills. Rest of the physical exam is non contributory Internal Med - H&P Results - Labs CBC & Chem 7: 06/16/18 12:33 06/16/18 12:33 Labs: Short CBC 06/16/18 Range/Units 12:33 WBC 7.0 (4.3-11.1) K/mcL Hgb 14.2 (12.9-16.9) g/dL Hct 41.9 (37.5-50.1) % Plt Count 185 (140-400) K/mcL Neutrophils # 5.7 (1.6-8.9) K/mcL BMP 06/16/18 12:33 Sodium 137 Potassium 4.0 Chloride 101 Carbon Dioxide 24 BUN 18 Creatinine 0.79 Glucose 112 H Calcium 9.0 Cardiac Enzymes 06/16/18 Range/Units 12:33 Troponin I < 0.03 (< 0.04) ng/mL - Impressions ITS Impressions Chest X-Ray 06/16/18 12:04 IMPRESSION: No acute cardiopulmonary disease D/ / Wallace Yao MD / Wallace Yao MD Interpreting Provider: Wallace Yao MD - Diagnostic Studies Chest x-ray Status: image reviewed by me Additional comments: No acute process - Assessment and plan (1) Chest pain Current Visit: Yes Status: Acute Assessment and plan: Possible unstable angina. Patient a strong history of CAD. [facility] on 05/20/18: There is severe three vessel coronary artery disease. The left ventricle is normal and has normal contractility EF 55% S/P CABG 2 of 2 patent bypass grafts. Plan Telemetry monitoring serial troponin cardiology has been consulted Heparin drip Nitroglycerin 0.4mg SubL Q5Min x3 If chest pain persist consider nitro drip. On dual antiplatelet therapy. Metoprolol 25mg/PO daily Qualifiers: Chest pain type: unspecified Qualified Code(s): R07.9 - Chest pain, unspecified (2) Nausea & vomiting Current Visit: No Status: Acute Assessment and plan: Omeprazole 20mg/PO daily Ondansetron 4mg/IV Q4HR PRN Qualifiers: Vomiting type: unspecified Vomiting Intractability: non-intractable Qualified Code(s): R11.2 - Nausea with vomiting, unspecified (3) CAD (coronary artery disease) Current Visit: No Status: Chronic Assessment and plan: Continue dual antiplatelet therapy. Qualifiers: Coronary Disease-Associated Artery/Lesion type: [place] artery [place] vs. transplanted heart: [place] heart Associated angina: without angina Qualified Code(s): I25.10 - Atherosclerotic heart disease of [place] coronary artery without angina pectoris (4) HLD (hyperlipidemia) Current Visit: No Status: Chronic Assessment and plan: Continue atorvastatin 40 mg by mouth daily Qualifiers: Hyperlipidemia type: unspecified Qualified Code(s): E78.5 - Hyperlipidemia, unspecified (5) HTN (hypertension) Current Visit: No Status: Chronic Assessment and plan: BP in the low 100s Patient on a BB and Isosorbide. Qualifiers: Hypertension type: essential hypertension Qualified Code(s): I10 - Essential (primary) hypertension (6) Back pain Current Visit: Yes Status: Chronic Assessment and plan: Will resume patient on Prednisone 20mg/PO daily Tramadol 50mg/PO Q6HR PRN for pain control. Qualifiers: Back pain location: low back pain Chronicity: chronic Back pain laterality: bilateral Sciatica presence: without sciatica Qualified Code(s): M54.5 - Low back pain; G89.29 - Other chronic pain - Time Spent With Patient Total time spent is greater than 50% in coordination of care (as documented) at patient's floor/unit and/or counseling patient:
[2018-06-16] MEDS ORDERED: *HR* Heparin 5,000 UNIT/ML VIAL IVP PRN ×2 (18:00)
[2018-06-16] MEDS ORDERED: Ondansetron 4 MG/2 ML VIAL IVP PRN (18:00)
[2018-06-16] MEDS ORDERED: *HR* Heparin 5,000 UNIT/ML VIAL IVP ONE (18:00)
[2018-06-16 18:46] LABS: Hematocrit 39.6 % (37.5-50.1); Hemoglobin 13.4 g/dL (12.9-16.9); Mean Corpuscular HGB Conc 33.8 g/dL (31.6-35.5); Mean Corpuscular Hemoglobin 32.7 pg (28.0-33.3); Mean Corpuscular Volume 96.6 fL (83.0-100.0); Mean Platelet Volume 8.7 fL (9.4-12.4); Platelet Count 170 K/mcL (140-400); Red Cell Distribution Width 14.2 % (11.5-14.5)
[2018-06-16 18:59] LABS: Heparin anti-factor XA UFH 0.01 IU/mL (0.30-0.70)
[2018-06-16 19:00] LABS: Prothrombin Time 11.2 Seconds (9.4-12.1)
[2018-06-16] MEDS: traMADol 50 MG TABLET PO PRN (19:46)
[2018-06-16] MEDS: Metoprolol XL (24 HR) Succ 25 MG TAB.ER.24H PO SCH (19:47)
[2018-06-16] MEDS: Heparin 25,000 UNIT/500 ML D5W 25,000 UNIT/500 ML BAG IVC SCH (19:48)
[2018-06-16] MEDS ORDERED: *HR* Promethazine 25 MG/ML VIAL IM ONE (20:24)
[2018-06-16] MEDS ORDERED: *HR* Promethazine 25 MG/ML VIAL IVP ONE (21:51)
[2018-06-17 02:12] LABS: BUN/Creatinine Ratio 25 (6-26); Blood Urea Nitrogen 20 mg/dL (8-23); Calcium 8.6 mg/dL (8.6-10.3); Carbon Dioxide 26 mEq/L (23-29); Chloride 102 mEq/L (98-107); Chol/HDL Ratio 2.7 (0-4.9); Cholesterol 165 mg/dL (< 200); Glucose 106 mg/dL (70-105); HDL Cholesterol 62 mg/dL (40-59); LDL Cholesterol,Calculated 84 mg/dL (0-99); Magnesium 2.1 mg/dL (1.6-2.6); Osmolality,Calculated 287 (280-300); Phosphorous 3.9 mg/dL (2.7-4.5); Potassium 3.7 mEq/L (3.5-5.1); Sodium 137 mEq/L (136-145); Triglycerides 96 mg/dL (< 150); eGFR For Non-African Americans > 60 (> 60)
[2018-06-17] MEDS: traMADol 50 MG TABLET PO PRN ×3 (03:42→22:58)
[2018-06-17] MEDS ORDERED: Methocarbamol 750 MG TABLET PO PRN (07:42)
[2018-06-17] MEDS: predniSONE 20 MG TABLET PO SCH (07:58)
[2018-06-17] MEDS: Aspirin Enteric Coated 81 MG Tablet PO SCH (07:58)
[2018-06-17] MEDS: Isosorbide MONOnitrate (24 HR) 60 MG TAB.ER.24H PO SCH (07:58)
[2018-06-17] MEDS: Metoprolol XL (24 HR) Succ 25 MG TAB.ER.24H PO SCH (07:58)
--- NOTE | 2018-06-17 08:54 | Internal Med Progress Note ---
Hospitalist Progress Note - Encounter Date of Encounter: 06/17/18 Time of Encounter: 08:50 - Subjective Interval History: Seen and examined at bedside today. Continuing to report intermittent right- sided retrosternal chest pain with radiation to back and scapula. Known history of severe CAD with recent catheter showing triple-vessel disease. - Exam Vitals: Temp Pulse Resp BP Pulse Ox 97.8 F 77 16 114/74 95 06/17/18 07:00 06/17/18 07:00 06/17/18 07:00 06/17/18 07:00 06/17/18 07:00 Exam: PHYSICAL EXAMINATION: GENERAL: A and O 3, no distress HEENT: Head is normocephalic and atraumatic. Extraocular muscles are intact. Pupils are equal, round, and reactive to light and accommodation. NECK: Supple. No carotid bruits. No lymphadenopathy or thyromegaly. LUNGS: Clear to auscultation B/L AP and L. HEART: Regular rate and rhythm, S1, S2 without murmur rubs or gallops. ABDOMEN: Soft, nontender, and nondistended. Positive bowel sounds. No hepatosplenomegaly was noted. EXTREMITIES: Without any cyanosis, clubbing, rash, lesions or edema. NEUROLOGIC: Cranial nerves II through XII are grossly intact. PSYCHIATRIC: Appropriate affect, denies SI/HI, without agitation or anxiety SKIN: Plaque psoriasis right lower extremity - Assessment and Plan (1) Chest pain Current Visit: Yes Status: Acute Assessment and Plan: Possible unstable angina. Patient a strong history of CAD. Continue heparin drip [facility] on 05/20/18: There is severe three vessel coronary artery disease. The left ventricle is normal and has normal contractility EF 55% S/P CABG 2 of 2 patent bypass grafts. Plan Telemetry monitoring serial troponin negative 3 less than 0.03 I have consulted cardiology this morning; thank you, appreciate recommendations. --D/W cardiology regarding further intervention or medication changes Continue Heparin drip Nitroglycerin 0.4mg SubL Q5Min x3 If chest pain persist consider nitro drip. Continue dual antiplatelet therapy. Metoprolol 25mg/PO daily Imdur was increased to 05/21; continue increased dose; defer to cardiology for medical management versus further interventions (2) CAD (coronary artery disease) Current Visit: No Status: Chronic Assessment and Plan: Continues to have intermittent right-sided chest pain 01/11 radiating to back and right scapula Recent [facility] 05/2018 showing severe three-vessel disease Cardiology seeing in consultation Continue cardiac medications Continue dual antiplatelet therapy. (3) HLD (hyperlipidemia) Current Visit: No Status: Chronic Assessment and Plan: Continue atorvastatin (4) HTN (hypertension) Current Visit: No Status: Chronic Assessment and Plan: BP well-controlled Continue anti-HTN meds (5) Nausea & vomiting Current Visit: No Status: Resolved Assessment and Plan: Resolved (6) Back pain Current Visit: Yes Status: Chronic Assessment and Plan: Chronic Physician recently prescribed oral steroids for flare of back pain, continue oral steroids, continue tramadol when necessary DVT Prophylaxis: Heparin drip - Time Spent with Patient Total time spent is greater than 50% in coordination of care (as documented) at patient's floor/unit and/or counseling patient: less than 15 minutes Plan of Care Discussed with: patient Internal Medicine: Result - Labs CBC & Chem 7: 06/16/18 18:17 06/17/18 01:36 Labs: Short CBC 06/16/18 06/16/18 Range/Units 12:33 18:17 WBC 7.0 6.2 (4.3-11.1) K/mcL Hgb 14.2 13.4 (12.9-16.9) g/dL Hct 41.9 39.6 (37.5-50.1) % Plt Count 185 170 (140-400) K/mcL Neutrophils # 5.7 (1.6-8.9) K/mcL BMP 06/16/18 06/17/18 12:33 01:36 Sodium 137 137 Potassium 4.0 3.7 Chloride 101 102 Carbon Dioxide 24 26 BUN 18 20 Creatinine 0.79 0.79 Glucose 112 H 106 H Calcium 9.0 8.6 Cardiac Enzymes 06/16/18 06/16/18 06/17/18 Range/Units 12:33 17:49 00:46 Troponin I < 0.03 < 0.03 < 0.03 (< 0.04) ng/mL 06/17/18 Range/Units 06:26 Troponin I < 0.03 (< 0.04) ng/mL - ABG Interpretation ABG results: PT/INR, D-dimer PT 11.2 Seconds (9.4-12.1) 06/16/18 18:17 D-Dimer 282 ng/mLFEU (0-500) 06/16/18 12:43 - Impressions Impressions Chest X-Ray 06/16/18 12:04 IMPRESSION: No acute cardiopulmonary disease D/ / Wallace Yao MD / Wallace Yao MD Interpreting Provider: Wallace Yao MD Consult Discharge Plan - Plan Referrals: Toya Arvizu, DENTAL NURSE [Primary Care Provider] - __ (1) Chest pain Qualifiers: Chest pain type: unspecified Qualified Code(s): R07.9 - Chest pain, unspecified (2) CAD (coronary artery disease) Qualifiers: Coronary Disease-Associated Artery/Lesion type: [place] artery [place] vs. transplanted heart: [place] heart Associated angina: without angina Qualified Code(s): I25.10 - Atherosclerotic heart disease of [place] coronary artery without angina pectoris (3) HLD (hyperlipidemia) Qualifiers: Hyperlipidemia type: unspecified Qualified Code(s): E78.5 - Hyperlipidemia, unspecified (4) HTN (hypertension) Qualifiers: Hypertension type: essential hypertension Qualified Code(s): I10 - Essential (primary) hypertension (5) Nausea & vomiting Qualifiers: Vomiting type: unspecified Vomiting Intractability: non-intractable Qualif ied Code(s): R11.2 - Nausea with vomiting, unspecified (6) Back pain Qualifiers: Back pain location: low back pain Chronicity: chronic Back pain laterality: bilateral Sciatica presence: without sciatica Qualified Code(s): M54.5 - Low back pain; G89.29 - Other chronic pain
[2018-06-17] MEDS ORDERED: *HR* Promethazine 25 MG/ML VIAL IVP PRN (09:52)
[2018-06-17] MEDS: Furosemide 40 MG TABLET PO SCH ×2 (10:17→17:30)
--- NOTE | 2018-06-17 12:50 | Cardiology Consult Note ---
<Manoj Honeycutt - Last Filed: 06/17/18 12:44> Date of Encounter: 06/17/18 Time of Encounter: 12:44 Assessment and Plan (1) Chest pain Current Visit: No Status: Resolved C/o pleuritic chest pain. Pain occurs with cough. Troponin negative. EKG shows SR with no ST/T wave changes. H/o CAD s/p CABG and prior PCI. [facility] completed 05/20/18- The LMCA is free of disease. 100% stenosis in the Mid LAD. CLAROS-LAD is patent. 40% stenosis in the Proximal Circumflex. 100% stenosis in the Mid RCA. 40% stenosis in the SVG to the Right PDA. SVG - RPDA was patent with 40% stenosis in graft body. TTE 05/20/18 - LVEF 55-60%. Normal LV chamber size, wall thickness and function. Mild left ventricular diastolic dysfunction. Atypical septal motion consistent with post-operative status. Normal right ventricular structure and function. Mild aortic regurgitation. Continued medical management for CAD . No further cardiac testing. Continue asa, plavix, bb, and statin. Continue imdur. Out-pt cardiology f/u. Recommend continued treatment for bronchitis. Qualifiers: Chest pain type: chest pain due to myocardial ischemia Ischemic chest pain type: stable angina pectoris Qualified Code(s): I20.8 - Other forms of angina pectoris (2) CAD (coronary artery disease), [place] coronary artery Current Visit: No Status: Chronic Continue treatment as described above. Qualifiers: [place] vs. transplanted heart: [place] heart Associated angina: with unspecified angina Qualified Code(s): I25.119 - Atherosclerotic heart disease of [place] coronary artery with unspecified angina pectoris Discussion w patient/family: The assessment and plan as outlined above was discussed with the patient and/or family members who expressed understanding and agreement. All questions were answered. Thank you for involving us in the care of your patient. Please call with any questions. History of Present Illness Consult date: 06/17/18 Requesting physician: Dusty Pierre Consult reason: Chest pain Chief complaint: Right sided chest pain and cough History of present illness: Mr. Melchor is a 62 year old male with h/o CAD s/p CABG and prior PCI, CVA, HTN, HLD, and dCHF who presented with the c/o right sided chest pain. He was recently hospitalized with chest pain and underwent left heart cath with no intervention. LHC revealed severe three vessel CAD with 2/2 patent bypass. His imdur was increased. Patient states that this chest pain is different. The pain started after he developed a cough and SOB. The pain increases with cough. He was recently treated for bronchitis with z-sloan and steroids with no improvement. He states " I thought I had pnuemonia." Past Med Surg Social Fam HX - Past Medical History Medical history: arthritis, cardiomyopathy, CHF, coronary artery disease, CVA, GERD, hyperlipidemia, hypertension, myocardial infarction, osteoporosis, peripheral artery disease, syncope, TIA, other Additional medical history: pericarditis, pancreatitis Psychiatric history: anxiety - Past Surgical History Surgical History: angioplasty/stent, cholecystectomy, coronary bypass (CABG), orthopedic, other, other Additional surgical history: left knee surgery, grinding of the bone. Back surgery x 10, pins and screws, wires and stimulators placed, cardiac stents x 5 - Social History Smoking Status: Never smoker Smokeless Tobacco Status: No Alcohol use: none Drug use: none - Family History Brother Family Member Ethnicity: Non- Living Status: Still Living Hx Family Cardiac Disorders: Yes Hx Family Cancer: Yes (Stomach) Son Family Member Ethnicity: Non- Living Status: Still Living Hx Family Cardiac Disorders: Yes Mother Adopted: No Family Member Ethnicity: Non- Living Status: Still Living Hx Family Cardiac Disorders: Yes (CAD) Hx Family Respiratory Disorders: No Hx Family Cancer: Yes (Cervical) Hx Family GI Disorders: No Hx Family Endocrine Disorder: Yes (DM) Hx Family Neuromuscular Disorders: No Hx Family Neurologic Disorders: No Hx Family HEENT Disorders: No Hx Family Autoimmune Disorders: No Father Family Member Ethnicity: Non- Living Status: Hx Family Cardiac Disorders: Yes (OR, CAD) Hx Family Respiratory Disorders: Yes (COPD) Hx Family Cancer: No Hx Family GI Disorders: No Hx Family Endocrine Disorder: No Hx Family Neuromuscular Disorders: No Hx Family Neurologic Disorders: No Hx Family HEENT Disorders: No Hx Family Autoimmune Disorders: No Medications and Allergies Clopidogrel [Plavix] 75 mg PO DAILY 08/23/17 [History] Atorvastatin [Lipitor] 40 mg PO HS 09/09/17 [History] Furosemide [Lasix] 40 mg PO BID 09/09/17 [History] Methocarbamol [Robaxin-750] 750 mg PO TID PRN 10/20/17 [History] Aspirin 325 mg PO DAILY 11/20/17 [History] Quetiapine Fumarate [Seroquel] 75 mg PO HS 11/20/17 [History] Isosorbide MONOnitrate (24 HR) [Imdur] 60 mg PO DAILY #30 tab.er.24h 05/21/18 [Rx] Azithromycin [Azithromycin 6-Tab Pack] 250 mg PO PER PKG DI 06/16/18 [History] Buspirone HCl [Buspar] 10 mg PO BID 06/16/18 [History] MethylPREDNISolone [MethylPREDNISolone Dose Pack] 4 mg PO AD 06/16/18 [History] Metoprolol Tartrate 25 mg PO BID 06/16/18 [History] Allergy/AdvReac Type Severity Reaction Status Date / Time simvastatin [From Zocor] Allergy Rash Verified 06/16/18 12:03 Zolpidem [From Ambien] Allergy Confusion Verified 06/16/18 12:03 ondansetron AdvReac Shakiness Verified 06/16/18 12:03 [From Zofran (as hydrochloride)] All Systems Review: The remainder of the systems were reviewed and are negative Physical Examination Vital Signs, Last 4 Hours Temp Pulse Resp BP Pulse Ox 06/17/18 10:53 97.6 F 92 16 108/63 94 General: Conversant, No Apparent Distress HEENT: Atraumatic, Normocephaly, Mucus Membranes Moist Neck: No JVD, Normal carotid pulses Cardiac: Reg Rate and Rhythm, Normal S1 and S2, No Murmur, Other (dry cough noted with deep breaths. ) Lungs: Normal Breath Sounds, No Wheeze, Rales, Rhonchi Neuro: Alert and responsive, No focal deficits noted Abdomen: Soft, Non-Tender Skin: No rashes noted on visualized skin Musculoskeletal: No Chest Wall Tenderness Extremities: No Clubbing, No Cyanosis, No Edema, Normal Pulses Results 06/16/18 18:17 06/17/18 01:36 Lab Results 06/16/18 06/16/18 06/16/18 12:33 12:33 12:43 WBC 7.0 Hgb 14.2 Hct 41.9 Plt Count 185 INR D-Dimer 282 Sodium 137 Potassium 4.0 Chloride 101 Carbon Dioxide 24 BUN 18 Creatinine 0.79 Glucose 112 H Calcium 9.0 Magnesium Troponin I < 0.03 06/16/18 06/16/18 06/16/18 17:49 18:17 18:17 WBC 6.2 Hgb 13.4 Hct 39.6 Plt Count 170 INR 1.0 D-Dimer Sodium Potassium Chloride Carbon Dioxide BUN Creatinine Glucose Calcium Magnesium Troponin I < 0.03 06/17/18 06/17/18 06/17/18 00:46 01:36 06:26 WBC Hgb Hct Plt Count INR D-Dimer Sodium 137 Potassium 3.7 Chloride 102 Carbon Dioxide 26 BUN 20 Creatinine 0.79 Glucose 106 H Calcium 8.6 Magnesium 2.1 Troponin I < 0.03 < 0.03 - Imaging and Cardiology Echo: report reviewed - EKG Interpretation EKG results cardiology: personally reviewed Consult Discharge Plan - Plan Referrals: Toya Arvizu, CORPORATE RECEPTIONIST [Primary Care Provider] - 06/23/18 2:00 pm <Musa Duckworth - Last Filed: 06/17/18 15:40> Date of Encounter: 06/17/18 - Attending Attestation I have personally performed a face to face evaluation on this patient. I have reviewed and agree with the documented findings and care plan as documented by the CORPORATE RECEPTIONIST. History and Exam by me shows: 62-year-old gentleman with history of CAD s/p CABG with left heart catheterization on 05/20/18 showing a patent CLAROS to the LAD and 40% stenosis in the SVG to the Right PDA, 40% stenosis in the Proximal Circumflex, presented with pleuritic chest pain at rest associated with cough. Serial troponin negative. Impression/plan: CAD status post CABG with patent grafts on [facility] 3 weeks ago. Agree with optimal medical management for likely bronchitis. Continue guideline directed medical management of CAD Musa Villalobos MD Assessment and Plan Discussion w patient/family: The assessment and plan as outlined above was discussed with the patient and/or family members who expressed understanding and agreement. All questions were answered. Thank you for involving us in the care of your patient. Please call with any questions. History of Present Illness History of present illness: Mr. Melchor is a 62 year old male All Systems Review: The remainder of the systems were reviewed and are negative Physical Examination Vital Signs, Last 4 Hours Temp Pulse Resp BP Pulse Ox 06/17/18 14:51 98.1 F 70 20 141/81 95 Results 06/16/18 18:17 06/17/18 01:36 Lab Results 06/16/18 06/16/18 06/16/18 17:49 18:17 18:17 WBC 6.2 Hgb 13.4 Hct 39.6 Plt Count 170 INR 1.0 Sodium Potassium Chloride Carbon Dioxide BUN Creatinine Glucose Calcium Magnesium Troponin I < 0.03 06/17/18 06/17/18 06/17/18 00:46 01:36 06:26 WBC Hgb Hct Plt Count INR Sodium 137 Potassium 3.7 Chloride 102 Carbon Dioxide 26 BUN 20 Creatinine 0.79 Glucose 106 H Calcium 8.6 Magnesium 2.1 Troponin I < 0.03 < 0.03
[2018-06-17] MEDS ORDERED: Ketorolac 30 MG/ML VIAL IVP ONE (16:40)
[2018-06-17 19:15] LABS: Adenovirus Not Detected (Not Detect); Coronavirus 229E Not Detected (Not Detect); Coronavirus HKU1 Not Detected (Not Detect); Coronavirus NL63 Not Detected (Not Detect); Coronavirus OC43 Not Detected (Not Detect); Human Metapneumovirus Not Detected (Not Detect); Human Rhinovirus/Enterovirus DETECTED (Not Detect); Influenza A Subtype 2009 H1 Not Detected (Not Detect); Influenza A Untypeable Not Detected (Not Detect); Influenza B Not Detected (Not Detect); Parainfluenza Virus 1 Not Detected (Not Detect); Parainfluenza Virus 2 Not Detected (Not Detect); Parainfluenza Virus 3 Not Detected (Not Detect)
[2018-06-17 19:16] LABS: Bordetella Pertussis Not Detected (Not Detect); Chlamydophila pneumoniae Not Detected (Not Detect); Mycoplasma pneumoniae Not Detected (Not Detect); Parainfluenza Virus 4 Not Detected (Not Detect); Respiratory Syncytial Virus Not Detected (Not Detect)
[2018-06-18] MEDS: traMADol 50 MG TABLET PO PRN (05:38)
[2018-06-18] MEDS: Heparin 25,000 UNIT/500 ML D5W 25,000 UNIT/500 ML BAG IVC SCH (06:53)
[2018-06-18 07:58] VITALS: BP 114/80
[2018-06-18] MEDS: Aspirin Enteric Coated 81 MG Tablet PO SCH (08:04)
[2018-06-18] MEDS: Furosemide 40 MG TABLET PO SCH (08:04)
[2018-06-18] MEDS: Isosorbide MONOnitrate (24 HR) 60 MG TAB.ER.24H PO SCH (08:04)
[2018-06-18] MEDS: predniSONE 20 MG TABLET PO SCH (08:04)
[2018-06-18] MEDS: Metoprolol XL (24 HR) Succ 25 MG TAB.ER.24H PO SCH (08:04)
--- NOTE | 2018-06-18 08:46 | Discharge Summary ---
- NOTES TO OUTPATIENT PROVIDER Notes to Outpatient Provider: Patient admitted with concerns for retrosternal chest pain. Serial troponins completed and found to be negative. EKG without any ST-T wave changes concerning for ischemia. Patient has been having shortness of breath and cough. Chest pain likely pleuritic. Respiratory in fection panel obtained and found to be positive for rhinovirus. Diagnosis of bronchitis. Continue to discharge and treated outpatient with supportive care for bronchitis. Discussed case with cardiology who also agrees this is presentation is likely bronchitis and that his chest pain is pleuritic in nature. Date of Encounter: 06/18/18 Time of Encounter: 08:44 - Discharge Diagnosis (1) Viral bronchitis Priority: Primary Status: Acute Assessment and Plan: cough, and pleuritic chest pain RIP positive for Rhinovirus dx viral bronchitis d/c and instructed to start supportive care (2) Chest pain Priority: Secondary Status: Ruled-out Assessment and Plan: Pleuritic chest pain secondary to bronchitis Serial troponins negative EKG without ST-T wave changes concerning for ischemia Qualifiers: Chest pain type: unspecified Qualified Code(s): R07.9 - Chest pain, unspecified (3) CAD (coronary artery disease) Priority: Secondary Status: Chronic Qualifiers: Coronary Disease-Associated Artery/Lesion type: [place] artery [place] vs. transplanted heart: [place] heart Associated angina: without angina Qualified Code(s): I25.10 - Atherosclerotic heart disease of [place] coronary artery without angina pectoris (4) HLD (hyperlipidemia) Priority: Secondary Status: Chronic Qualifiers: Hyperlipidemia type: unspecified Qualified Code(s): E78.5 - Hyperlipidemia, unspecified (5) HTN (hypertension) Priority: Secondary Status: Chronic Qualifiers: Hypertension type: essential hypertension Qualified Code(s): I10 - Essential (primary) hypertension (6) Back pain Priority: Secondary Status: Chronic Qualifiers: Back pain location: low back pain Chronicity: chronic Back pain laterality: bilateral Sciatica presence: without sciatica Qualified Code(s): M54.5 - Low back pain; G89.29 - Other chronic pain Hospital course: Mr. Melchor is a 62 year old male who presented with intermittent retrosternal chest pain. Chest pain was noted to be worse with inspiration and cough. However has a history of CAD and cardiology was consulted for further evaluation. Does not appear to be related to coronary event however likely related to bronchitis. Serial troponins obtained and found to be negative, EKG without any ST-T wave changes concerning for ischemia. Respiratory infection panel obtained and found to be positive for rhinovirus. Patient continued to report intermittent chest pain worse with respirations and cough. However, he is stable from a respiratory perspective and resting comfortably on room air and able to ambulate around the unit without oxygen support. He is being discharged home with a diagnosis of bronchitis and has been instructed to continue supportive care. He is to follow-up with his PCP within one week. Additionally, return to the ED should respiratory distress progressively worsen. Discharge discussed with: patient, nurse - Time Spent with Patient Total time spent providing and/or coordinating discharge services: Less than 30 minutes - Discharge Medications Home Medications: Clopidogrel [Plavix] 75 mg PO DAILY 08/23/17 [History] Atorvastatin [Lipitor] 40 mg PO HS 09/09/17 [History] Furosemide [Lasix] 40 mg PO BID 09/09/17 [History] Methocarbamol [Robaxin-750] 750 mg PO TID PRN 10/20/17 [History] Aspirin 325 mg PO DAILY 11/20/17 [History] Quetiapine Fumarate [Seroquel] 75 mg PO HS 11/20/17 [History] Isosorbide MONOnitrate (24 HR) [Imdur] 60 mg PO DAILY #30 tab.er.24h 05/21/18 [Rx] Buspirone HCl [Buspar] 10 mg PO BID 06/16/18 [History] MethylPREDNISolone [MethylPREDNISolone Dose Pack] 4 mg PO AD 06/16/18 [History] Metoprolol Tartrate 25 mg PO BID 06/16/18 [History] Allergies/Adverse Reactions: Allergy/AdvReac Type Severity Reaction Status Date / Time simvastatin [From Zocor] Allergy Rash Verified 06/16/18 12:03 Zolpidem [From Ambien] Allergy Confusion Verified 06/16/18 12:03 ondansetron AdvReac Shakiness Verified 06/16/18 12:03 [From Zofran (as hydrochloride)] Date of admission: 06/16/18 16:21 Primary care physician: Toya Arvizu CNP Consults: 06/17/18 07:41 Consult to Cardiology [CONS] Routine Comment: Consulting Provider: [facility] [place] Reason for Consult: severe CAD, presents with chest pain at rest. Recend [facility] showing severe 3-vessel disease; please assist with medication adjustments or further interventions Time Notified: 07:42 Call Completed: Yes Discharging clinician: Dusty Pierre Anticipated date of discharge: 06/18/18 - Constitutional Vitals: Temp Pulse Resp BP Pulse Ox 97.9 F 60 18 114/80 98 06/18/18 07:56 06/18/18 07:56 06/18/18 07:56 06/18/18 07:56 06/18/18 07:56 Exam: PHYSICAL EXAMINATION: GENERAL: A and O 3, no distress HEENT: Head is normocephalic and atraumatic. Extraocular muscles are intact. Pupils are equal, round, and reactive to light and accommodation. NECK: Supple. No carotid bruits. No lymphadenopathy or thyromegaly. LUNGS: Clear to auscultation B/L AP and L without wheezing. Chest expansion symmetrical with normal rise and fall. Mild tenderness to palpation along bilateral ribs HEART: Regular rate and rhythm, S1, S2 without murmur rubs or gallops. ABDOMEN: Soft, nontender, and nondistended. Positive bowel sounds. No hepatosplenomegaly was noted. EXTREMITIES: Without any cyanosis, clubbing, rash, lesions or edema. NEUROLOGIC: Cranial nerves II through XII are grossly intact. PSYCHIATRIC: Appropriate affect, denies SI/HI, without agitation or anxiety SKIN: Plaque psoriasis right lower extremity - Patient Status Disposition: Home, Self-Care Condition: Good Functional capacity at discharge: independent ambulation Overall status at discharge: patient is progressing back to baseline - Discharge Instructions Instructions: Acute Bronchitis (DC), Chest Pain (DC) Follow Up With: Toya Arvizu CNP [Primary Care Provider] - 06/23/18 2:00 pm Additional Instructions: Follow-up appointments: If there is not an appointment listed below, please call your physician and schedule a follow-up appointment. If you have congestive heart failure and your symptoms return, make an appointment with your physician. Medication List: Carry an up to date list of medications you are taking at all time. We have given you an updated medication list including any new medications that you have been prescribed. Please provide that list to your primary provider Symptoms: If your condition changes or you experience any of the following symptoms, notify your physician immediately: Unusual or worsening pain, fever, persistent nausea and vomiting, bleeding, increase in swelling (especially in your legs), sudden weight gain, extreme dizziness, chest pain, increased drainage or redness from a wound or incision. Go to the emergency department if you experience a problem with breathing. Weights: If you have a history of swelling or shortness of breath, weigh yourself daily and notify your physician if you have a weight gain of two or more pounds in one day or 5 or more pounds in a week. If you experience any of the warning signs for stroke: Sudden numbness or weakness of the face, arm or leg; especially on one side of the body, sudden confusion, trouble speaking or understanding, sudden trouble seeing in one or both eyes, sudden trouble walking, dizziness, loss of balance or coordination, sudden sever headache with no cause; Call 911 or go to the emergency room. Stroke is a medical emergency. Some risk factors for stroke: Age, cigarette smoking, diabetes, excessive alcohol consumption, family history, high blood pressure, overweight, physical inactivity, prior stroke, heart attack, diagnosis of carotid artery stenosis or other artery disease. If you smoke, STOP: Smoking or tobacco use significantly increases your risk of heart and lung disease. Your chance of disease greatly increases if you continue to smoke. For more information, call the [place] tobacco quit line for smoking cessation 3-101-JLKO-NOW ( ) - Diet and Activity Activity: increase activity as tolerated, resume usual activities as tolerated Diet: diabetic diet, low fat, low cholesterol, low salt diet
--- NOTE | 2018-06-20 21:43 | Electrocardiograph Report ---
[address] [address] Test Date: 2018-06-16 Pat Name: Eber Melchor Department: 104 Room: 3B16 Gender: M Retention Representative: : [id number] Requested By: Gilmar Lacy Order Number: [id number] Reading MD: Anthony Andrews Measurements Intervals [place] Rate: 67 P: 40 PA: 146 QRS: 44 QRSD: 98 T: 67 QT: 396 QTc: 411 Interpretive Statements SINUS RHYTHM Electronically Signed On 06-20-2018 21:42:25 EST by Anthony Andrews
== END 2018-06-18 10:13 | disposition home or self-care (01) ==
LOC: EMEROOARM 11:51 → 3BNU 11:51
PROVIDERS: ADMIT Internal Medicine; ATTEND Internal Medicine

== ENCOUNTER 2019-06-02 21:35 | Observation (INO) ==
[2019-06-02] MEDS ORDERED: Aspirin 325 MG TABLET PO ONE (23:08)
[2019-06-02 23:15] LABS: Prothrombin Time 10.8 Seconds (9.4-12.1)
[2019-06-02 23:18] LABS: Activated Partial Thrombo Time 21.7 Seconds (26.0-36.0)
[2019-06-02 23:32] LABS: BUN/Creatinine Ratio 20 (6-26); Blood Urea Nitrogen 19 mg/dL (8-23); Calcium 9.3 mg/dL (8.6-10.3); Carbon Dioxide 23 mEq/L (23-29); Chloride 101 mEq/L (98-107); Glucose 79 mg/dL (70-105); Osmolality,Calculated 281 (280-300); Potassium 4.2 mEq/L (3.5-5.1); Sodium 135 mEq/L (136-145); Troponin I < 0.03 ng/mL (< 0.04); eGFR For African Americans > 60 (> 60); eGFR For Non-African Americans > 60 (> 60)
[2019-06-02 23:39] LABS: Basophils % 0.2 %; Eosinophils % 0.9 %; Hematocrit 39.7 % (37.5-50.1); Immature Granulocytes % 0.2 % (0-4); Lymphocytes # 0.8 K/mcL (0.6-4.6); Lymphocytes % 18.7 %; Mean Corpuscular HGB Conc 35.3 g/dL (31.6-35.5); Mean Corpuscular Hemoglobin 34.1 pg (28.0-33.3); Mean Corpuscular Volume 96.6 fL (83.0-100.0); Mean Platelet Volume 8.9 fL (9.4-12.4); Monocytes # 0.7 K/mcL (0.0-1.3); Monocytes % 15.6 %; Neutrophils # 2.9 K/mcL (1.6-8.9); Platelet Count 128 K/mcL (140-400); Red Blood Count 4.11 M/mcL (4.19-5.50); Red Cell Distribution Width 13.8 % (11.5-14.5); Segmented Neutrophils % 64.4 %; White Blood Count 4.5 K/mcL (4.3-11.1)
[2019-06-03] MEDS ORDERED: Naloxone 0.4 MG/ML INJ IVP PRN (04:01)
[2019-06-03 05:04] LABS: Hematocrit 41.8 % (37.5-50.1); Hemoglobin 14.2 g/dL (12.9-16.9); Mean Platelet Volume 8.7 fL (9.4-12.4); Platelet Count 119 K/mcL (140-400); Red Blood Count 4.18 M/mcL (4.19-5.50); Red Cell Distribution Width 13.4 % (11.5-14.5); White Blood Count 3.7 K/mcL (4.3-11.1)
[2019-06-03 05:18] LABS: BUN/Creatinine Ratio 22 (6-26); Blood Urea Nitrogen 17 mg/dL (8-23); Calcium 9.2 mg/dL (8.6-10.3); Carbon Dioxide 23 mEq/L (23-29); Chloride 104 mEq/L (98-107); Glucose 89 mg/dL (70-105); Osmolality,Calculated 285 (280-300); Potassium 3.4 mEq/L (3.5-5.1); Sodium 137 mEq/L (136-145); eGFR For African Americans > 60 (> 60); eGFR For Non-African Americans > 60 (> 60)
[2019-06-03 05:19] LABS: Troponin I < 0.03 ng/mL (< 0.04)
[2019-06-03] MEDS: *HR* Heparin 5,000 UNIT/ML VIAL SQ SCH ×2 (06:14→18:12)
[2019-06-03] MEDS: Nitroglycerin 0.4 MG TAB.SUBL SL PRN ×3 (06:14→06:26)
[2019-06-03] MEDS: Morphine Sulfate 2 MG/ML SYRINGE IVP PRN ×3 (06:46→18:12)
[2019-06-03] MEDS ORDERED: Methocarbamol 750 MG TABLET PO PRN (12:22)
[2019-06-03] MEDS: Furosemide 40 MG TABLET PO SCH (16:07)
[2019-06-03] MEDS: Isosorbide MONOnitrate (24 HR) 30 MG TAB.ER.24H PO SCH (16:07)
[2019-06-03 19:12] LABS: Amphetamine Screen,Urine Negative ng/mL (Cutoff=1000); Barbiturate Screen,Urine Negative ng/mL (Cutoff=200); Benzodiazepines Screen,Urine Negative ng/mL (Cutoff=200); Cannabinoid Screen,Urine Negative ng/mL (Cutoff = 50); Cocaine Screen,Urine Negative ng/mL (Cutoff= 300); Opiate Screen,Urine Positive ng/mL (Cutoff=300); Phencyclidine Screen,Urine Negative ng/mL (Cutoff=25)
[2019-06-03 19:14] LABS: Bilirubin,Urine Negative (Negative); Blood,Urine Negative (Negative); Clarity,Urine Clear (Clear); Color,Urine Yellow (Yellow); Glucose,Urine (UA) Normal (Normal); Ketones,Urine Negative (Negative); Leukocyte Esterase,Urine Negative (Negative); Nitrite,Urine Negative (Negative); PH,Urine 5.5 pH Units (5.0-8.0); Protein,Urine Negative (Neg-Trace); Specific Gravity,Urine 1.014 (1.010-1.025); Urobilinogen,Urine Normal (Normal)
[2019-06-04] MEDS: Morphine Sulfate 2 MG/ML SYRINGE IVP PRN (04:50)
[2019-06-04] MEDS: *HR* Heparin 5,000 UNIT/ML VIAL SQ SCH (04:56)
[2019-06-04 05:27] LABS: Basophils % 0.2 %; Eosinophils # 0.1 K/mcL (0.0-0.6); Eosinophils % 1.1 %; Hematocrit 39.1 % (37.5-50.1); Hemoglobin 13.5 g/dL (12.9-16.9); Immature Granulocytes % 0.2 % (0-4); Lymphocytes # 1.1 K/mcL (0.6-4.6); Lymphocytes % 22.7 %; Mean Corpuscular HGB Conc 34.5 g/dL (31.6-35.5); Mean Corpuscular Hemoglobin 33.8 pg (28.0-33.3); Mean Corpuscular Volume 97.8 fL (83.0-100.0); Mean Platelet Volume 9.1 fL (9.4-12.4); Monocytes # 0.6 K/mcL (0.0-1.3); Monocytes % 13.5 %; Neutrophils # 2.9 K/mcL (1.6-8.9); Platelet Count 130 K/mcL (140-400); Red Cell Distribution Width 13.7 % (11.5-14.5); Segmented Neutrophils % 62.3 %; White Blood Count 4.7 K/mcL (4.3-11.1)
[2019-06-04 05:45] LABS: BUN/Creatinine Ratio 28 (6-26); Blood Urea Nitrogen 20 mg/dL (8-23); Carbon Dioxide 24 mEq/L (23-29); Chloride 106 mEq/L (98-107); Glucose 111 mg/dL (70-105); Osmolality,Calculated 289 (280-300); Potassium 4.1 mEq/L (3.5-5.1); Sodium 138 mEq/L (136-145); eGFR For African Americans > 60 (> 60); eGFR For Non-African Americans > 60 (> 60)
[2019-06-04 06:50] VITALS: BP 133/107
[2019-06-04] MEDS: Isosorbide MONOnitrate (24 HR) 30 MG TAB.ER.24H PO SCH (08:51)
[2019-06-04] MEDS: Furosemide 40 MG TABLET PO SCH (08:51)
== END 2019-06-04 11:57 | disposition home or self-care (01) ==
LOC: EMEROOARM 21:35 → 2NENU 21:35 → SUATTDRO 06-03 00:26 → 2NENU 06-03 01:02
PROVIDERS: ADMIT Family Medicine; ATTEND Internal Medicine